=== PATIENT | female | born 1955 | race Caucasian/White ===

== ENCOUNTER → 2016-03-19 | Outpatient (CLI) | payer MEDICARE, BC ==
--- NOTE | 2016-03-19 16:00 | CT ---
EXAMINATION TYPE: CT chest w con DATE OF EXAM: 03/19/2016 3:51 PM COMPARISON: 04/25/2009 HISTORY: follow up breast cancer. No complaints at time of service. CT DLP: 283 mGycm Automated exposure control for dose reduction was used. CONTRAST: CT scan of the chest is performed with IV Contrast, patient injected with 100 mL of Omnipaque 300. FINDINGS: LUNGS: Subsegmental consolidation is seen bilaterally compatible with atelectasis. No suspicious pulm onary nodule. There is mild hyperinflation correlate for mild COPD. There is no pleural effusion or p neumothorax seen. The tracheobronchial tree is patent. MEDIASTINUM: There are no greater than 1 cm hilar or mediastinal lymph nodes. No pericardial effusi on is seen. The heart is enlarged. OTHER: Changes of previous mastectomy noted. Arthropathy of the shoulders noted. Degenerative and hy pertrophic change of the spine. Remote rib fracture involving the left 11th rib. Previous gallbladder surgery noted. Along the left lateral margin of the chest there is a 6 mm nodule. Postsurgical jaramillo e involving the shoulders. Shotty adenopathy in the paraesophageal region, mediastinum and axilla. IMPRESSION: 1. No diagnostic evidence of metastases. There is a 6 mm subcutaneous nodule below the axilla adjacen t to the left rib cage which is nonspecific. I represent a small lymph node. 2. Previous right mastectomy changes suggestive of mild COPD
== END | disposition home or self-care (01) ==
LOC: RADCTMAIN 15:18
PROVIDERS: ATTEND Internal Medicine Hematology & Oncology
DX: C50.919 Malignant neoplasm of unspecified site of unspecified female breast (principal); R22.2 Localized swelling, mass and lump, trunk
CPT/HCPCS: 71260; Q9967

== ENCOUNTER → 2016-04-14 | Outpatient (CLI) | payer MEDICARE, BC ==
--- NOTE | 2016-04-14 11:16 | MM ---
Reason for exam: history of breast cancer, mastectomy. Last mammogram was performed 1 year ago. History: Patient is postmenopausal, has history of breast cancer at age 45, history of other cancer, and is nulliparous. Family history of breast cancer in mother at age 50 and breast cancer in maternal grandmother. Mastectomy of the right breast, 2001. Cyst aspiration of the left breast. Took estrogen for 6 months beginning at age 55. Took progesterone for 6 months beginning at age 55. Physical Findings: Nurse did not find any significant physical abnormalities on exam. MG 3D Diag Mammo W/Cad LT CC and MLO view(s) were taken of the left breast. Prior study comparison: April 01, 2015, left breast MG 3d diag mammo w/cad LT. March 26, 2014, left breast MG diagnostic mammo LT w CAD. There are scattered fibroglandular densities. There is chronic nodularity in the left breast. There is no discrete abnormality. These results were verbally communicated with the patient and result sheet given to the patient on 04/14/16. ASSESSMENT: Benign, BI-RAD 2 RECOMMENDATION: Follow-up diagnostic mammogram of the left breast in 1 year.
== END | disposition home or self-care (01) ==
LOC: RADMAMWWP 09:27
PROVIDERS: ATTEND Internal Medicine Hematology & Oncology
DX: Z85.3 Personal history of malignant neoplasm of breast (principal)
CPT/HCPCS: G0206; G0279

== ENCOUNTER 2016-06-22 16:20 | Inpatient (IN) | payer MEDICARE, BC ==
[2016-06-22] MEDS ORDERED: IV VANCOMYCIN PER PHARMACY 1 EACH MISC MISCELLANE PRN (18:09)
[2016-06-22] MEDS ORDERED: VANCOMYCIN 2,000 MG in SODIUM CHLORIDE 0.9% 500 ML IVPB STA (18:20)
[2016-06-22] MEDS: SODIUM CHLORIDE 0.9% 1,000 ML IV SCH (19:07)
[2016-06-22 19:13] LABS: CH 29.2; CHCM 31.4; HCT 33.3 % (34.0-46.0); HDW 2.12; HGB 10.5 gm/dL (11.4-16.0); MCH 29.5 pg (25.0-35.0); MCHC 31.7 g/dL (31.0-37.0); MCV 93.3 fL (80.0-100.0); Mean Platelet Volume 6.7; RBC 3.56 m/uL (3.80-5.40); RDW 14.6 % (11.5-15.5); WBC 7.3 k/uL (3.8-10.6)
[2016-06-22] MEDS ORDERED: HYDROcodone/APAP 10-325MG 1 EACH TAB PO PRN (19:27)
[2016-06-22 19:31] LABS: ALT 31 U/L (9-52); AST 26 U/L (14-36); Alkaline Phosphatase 61 U/L (38-126); Anion Gap 9 mmol/L; Blood Urea Nitrogen 21 mg/dL (7-17); Calcium 8.9 mg/dL (8.4-10.2); Carbon Dioxide 27 mmol/L (22-30); Chloride 100 mmol/L (98-107); Glucose 128 mg/dL (74-99); Non-African American GFR(MDRD) >60 (>60 ml/min/1.73 sqM); Potassium 4.1 mmol/L (3.5-5.1); Sodium 136 mmol/L (137-145); Total Bilirubin 0.6 mg/dL (0.2-1.3); Total Protein 6.2 g/dL (6.3-8.2)
[2016-06-22] MEDS: HYDROmorphone 2 MG/ML 1 ML SYRINGE IVP PRN (20:07)
--- NOTE | 2016-06-22 21:14 | P.CONS ---
History of Present Illness - Reason for Consult Consult date: 06/22/16 - Chief Complaint Pain swelling right arm - History of Present Illness 67-year-old female chronically has lymphedema to the right arm. She realizes compression stocking to the day. A compression pneumatic sleeve for a couple hours per day is usually used also. She does not recall any specific injury to her hand or arm. No change of any activities. Despite this she had the sudden onset of pain and swelling to the right arm. With dense erythema. Significant discomfort. In the onset of fever and chills. Because she's had multiple times in the past she presents to Hospital has been admitted for recurrent cellulitis to her right arm related to her chronic lymphedema. She is complaining of significant pain.7-year-old woman has a history of breast carcinoma who presents to hospital with the sudden onset of pain and swelling and erythema to her right arm. She has a history of the breast carcinoma with the extensive resection to the chest wall into the right axillary area. Past Medical History Past Medical History: Cancer, COPD, GERD/Reflux, Osteoarthritis (OA), Rheumatoid Arthritis (RA) Additional Past Medical History / Comment(s): CA-BREAST, CERVICAL CA History of Any Multi-Drug Resistant Organisms: None Reported Past Surgical History: Appendectomy, Breast Surgery, Cholecystectomy, Hysterectomy, Joint Replacement, Orthopedic Surgery Additional Past Surgical History / Comment(s): RIGHT MASECTOMY, RIGHT TOTAL SHOULDER REPLACEMENT, LT ROTATOR CUFF REPAIR Past Anesthesia/Blood Transfusion Reactions: No Reported Reaction Past Psychological History: No Psychological Hx Reported Smoking Status: Former smoker Past Alcohol Use History: None Reported Past Drug Use History: None Reported - Past Family History Mother Family Medical History: Cancer, Deep Vein Thrombosis (DVT) Additional Family Medical History / Comment(s): BREAST Father Family Medical History: Cancer Additional Family Medical History / Comment(s): COLON Medications and Allergies Home Medications Medication Instructions Recorded Confirmed Type Atorvastatin [Lipitor] 40 mg PO DAILY 11/14/14 06/22/16 History DULoxetine HCL [Cymbalta] 60 mg PO BID 11/14/14 06/22/16 History Furosemide [Lasix] 40 mg PO BID 11/14/14 06/22/16 History HYDROcodone/APAP 10-325MG [[place] 1 tab PO BID PRN 11/14/14 06/22/16 History 10] Nabumetone 750 mg PO BID 11/14/14 06/22/16 History Omeprazole [PriLOSEC] 20 mg PO DAILY 11/14/14 06/22/16 History Potassium Chloride [K-Tab ER] 20 meq PO BID 11/14/14 06/22/16 History Pregabalin [Lyrica] 200 mg PO BID 11/14/14 06/22/16 History rOPINIRole HCL [Requip] 5 mg PO DAILY@1800 11/14/14 06/22/16 History Ascorbic Acid [Vitamin C] 1,000 mg PO DAILY 06/22/16 06/22/16 History Biotin 10 mg PO DAILY 06/22/16 06/22/16 History Calcium Carbonate [Calcium] 1,200 mg PO DAILY 06/22/16 06/22/16 History Cholecalciferol [Vitamin D3] 5,000 unit PO DAILY 06/22/16 06/22/16 History Garlic 1 tab PO DAILY 06/22/16 06/22/16 History L.acidoph,Paracasei, B.lactis 1 cap PO DAILY 06/22/16 06/22/16 History [Probiotic] Magnesium Gluconate [Magonate] 500 mg PO DAILY 06/22/16 06/22/16 History Multivitamins, Thera [Multivitamin 1 tab PO DAILY 06/22/16 06/22/16 History (formulary)] [place]-3 Fatty Acids/Fish Oil [Fish 1 cap PO DAILY 06/22/16 06/22/16 History Oil 1,000 mg Softgel] Ubidecarenone [Co Q-10] 200 mg PO DAILY 06/22/16 06/22/16 History Allergies Allergy/AdvReac Type Severity Reaction Status Date / Time cephalexin [From Keflex] Allergy Rash/Hives Verified 06/22/16 17:58 latex Allergy Rash/Hives Verified 06/22/16 17:58 nickel Allergy Rash/Hives Verified 11/14/14 15:40 Sulfa (Sulfonamide Allergy Rash/Hives Verified 06/22/16 17:58 Antibiotics) morphine AdvReac Nausea & Verified 06/22/16 17:58 Vomiting Physical Exam Vitals: Vital Signs Temp Pulse Resp BP Pulse Ox 06/22/16 17:47 97.1 F L 97 19 142/82 98 Intake and Output 06/22/16 06/22/16 06/22/16 06:59 14:59 22:59 Other: Weight 103.4 kg Patient Weight 06/23/16 06:59 Weight 103.4 kg Results CBC & Chem 7: 06/22/16 18:56 06/22/16 18:56 Labs: Abnormal Lab Results - Last 24 Hours (Table) 06/22/16 06/22/16 Range/Units 18:56 18:56 RBC 3.56 L (3.80-5.40) m/uL Hgb 10.5 L (11.4-16.0) gm/dL Hct 33.3 L (34.0-46.0) % Sodium 136 L (137-145) mmol/L BUN 21 H (7-17) mg/dL Glucose 128 H (74-99) mg/dL Total Protein 6.2 L (6.3-8.2) g/dL Albumin 3.4 L (3.5-5.0) g/dL
--- NOTE | 2016-06-22 21:22 | P.CONS ---
History of Present Illness - Reason for Consult Consult date: 06/22/16 - Chief Complaint Pain swelling right arm - History of Present Illness 67-year-old female chronically has lymphedema to the right arm. She realizes compression stocking to the day. A compression pneumatic sleeve for a couple hours per day is usually used also. She does not recall any specific injury to her hand or arm. No change of any activities. Despite this she had the sudden onset of pain and swelling to the right arm. With dense erythema. Significant discomfort. In the onset of fever and chills. Because she's had multiple times in the past she presents to Hospital has been admitted for recurrent cellulitis to her right arm related to her chronic lymphedema. She is complaining of significant pain.7-year-old woman has a history of breast carcinoma who presents to hospital with the sudden onset of pain and swelling and erythema to her right arm. She has a history of the breast carcinoma with the extensive resection to the chest wall into the right axillary area. Review of Systems Patient did have fever and chills and significant pain to the right arm also. HEENT:Denies headache or acute visual change. Denies sinus or mouth discomforts. Denies neck stiffness or pain. Denies significant oral cavity pain. Denies difficulty on swallowing. Lungs: Denies significant shortness of breath, cough, sputum production, or hemoptysis. Cardiovascular: Denies significant shortness of breath, chest pain, chest wall pain, orthopnea, dyspnea on exertion, syncope Gastrointestinal:Denies nausea, vomiting, diarrhea, constipation, hematemesis, melena, hematochezia. No no significant change of bowel habit noticed. Musculoskeletal: denies significant myalgias or arthralgias. No new joint swelling. Denies new back pain. Skin: Per the HPI swelling redness right arm Neuro: Denies headache or visual change. Denies any new onset weakness or difficulty with ambulation. Denies falls or seizures. Psychiatric:Denies anxiety or depression. Endocrine: Denies significant fatigue, denies significant weight loss or weight gain. Past Medical History Past Medical History: Cancer, COPD, GERD/Reflux, Osteoarthritis (OA), Rheumatoid Arthritis (RA) Additional Past Medical History / Comment(s): CA-BREAST, CERVICAL CA History of Any Multi-Drug Resistant Organisms: None Reported Past Surgical History: Appendectomy, Breast Surgery, Cholecystectomy, Hysterectomy, Joint Replacement, Orthopedic Surgery Additional Past Surgical History / Comment(s): RIGHT MASECTOMY, RIGHT TOTAL SHOULDER REPLACEMENT, LT ROTATOR CUFF REPAIR Past Anesthesia/Blood Transfusion Reactions: No Reported Reaction Past Psychological History: No Psychological Hx Reported Additional Psychological History / Comment(s): . Lives independently. Remote tobacco use. No history of alcohol use. retired. No animal exposures Smoking Status: Former smoker Past Alcohol Use History: None Reported Past Drug Use History: None Reported - Past Family History Mother Family Medical History: Cancer, Deep Vein Thrombosis (DVT) Additional Family Medical History / Comment(s): BREAST Father Family Medical History: Cancer Additional Family Medical History / Comment(s): COLON Medications and Allergies Home Medications and Allergies Comment(s): Current Medications Hydrocodone Bitart/Acetaminophen ([place] 10) 1 each PO BID PRN PRN Reason: moderate Pain Ascorbic Acid (Vitamin C) 1,000 mg PO DAILY [facility] Atorvastatin Calcium (Lipitor) 40 mg PO DAILY [facility] Calcium Carbonate/Glycine (Tums) 1,250 mg PO DAILY [facility] Cholecalciferol (Vitamin D3) 5,000 unit PO DAILY [facility] Duloxetine HCl (Cymbalta) 60 mg PO DAILY [facility] Furosemide (Lasix) 40 mg PO BID@0900,1600 [facility] Hydromorphone HCl (Dilaudid) 2 mg IVP Q3HR PRN PRN Reason: severe Pain Last Admin: 06/22/16 20:07 Dose: 2 mg Sodium Chloride (Saline 0.9%) 1,000 mls @ 100 mls/hr IV .Q10H [place] Last Admin: 06/22/16 19:07 Dose: 100 mls/hr Daptomycin 500 mg/ Sodium (Chloride) 50 mls @ 100 mls/hr IV Q24H [facility] Lactobacillus Acidoph/[place] (Lactinex) 1 each PO DAILY [facility] Magnesium Oxide (Mag-Ox) 400 mg PO DAILY [facility] Melatonin (Melatonin) 10 mg PO HS [facility] Meloxicam (Mobic) 15 mg PO DAILY [facility] Multivitamins (Theragran) 1 each PO 1200 [facility] Pantoprazole Sodium (Protonix) 40 mg PO DAILY [facility] Potassium Chloride (K-Dur 20) 20 meq PO BID [facility] Pregabalin (Lyrica) 200 mg PO BID [facility] Ropinirole HCl (Requip) 5 mg PO DAILY@1800 [facility] Silver Sulfadiazine (Silvadene Cream) 1 applic TOPICAL BID [facility] Home Medications Medication Instructions Recorded Confirmed Type Atorvastatin [Lipitor] 40 mg PO DAILY 11/14/14 06/22/16 History DULoxetine HCL [Cymbalta] 60 mg PO BID 11/14/14 06/22/16 History Furosemide [Lasix] 40 mg PO BID 11/14/14 06/22/16 History HYDROcodone/APAP 10-325MG [[place] 1 tab PO BID PRN 11/14/14 06/22/16 History 10] Nabumetone 750 mg PO BID 11/14/14 06/22/16 History Omeprazole [PriLOSEC] 20 mg PO DAILY 11/14/14 06/22/16 History Potassium Chloride [K-Tab ER] 20 meq PO BID 11/14/14 06/22/16 History Pregabalin [Lyrica] 200 mg PO BID 11/14/14 06/22/16 History rOPINIRole HCL [Requip] 5 mg PO DAILY@1800 11/14/14 06/22/16 History Ascorbic Acid [Vitamin C] 1,000 mg PO DAILY 06/22/16 06/22/16 History Biotin 10 mg PO DAILY 06/22/16 06/22/16 History Calcium Carbonate [Calcium] 1,200 mg PO DAILY 06/22/16 06/22/16 History Cholecalciferol [Vitamin D3] 5,000 unit PO DAILY 06/22/16 06/22/16 History Garlic 1 tab PO DAILY 06/22/16 06/22/16 History L.acidoph,Paracasei, B.lactis 1 cap PO DAILY 06/22/16 06/22/16 History [Probiotic] Magnesium Gluconate [Magonate] 500 mg PO DAILY 06/22/16 06/22/16 History Multivitamins, Thera [Multivitamin 1 tab PO DAILY 06/22/16 06/22/16 History (formulary)] [place]-3 Fatty Acids/Fish Oil [Fish 1 cap PO DAILY 06/22/16 06/22/16 History Oil 1,000 mg Softgel] Ubidecarenone [Co Q-10] 200 mg PO DAILY 06/22/16 06/22/16 History Allergies Allergy/AdvReac Type Severity Reaction Status Date / Time cephalexin [From Keflex] Allergy Rash/Hives Verified 06/22/16 17:58 latex Allergy Rash/Hives Verified 06/22/16 17:58 nickel Allergy Rash/Hives Verified 11/14/14 15:40 Sulfa (Sulfonamide Allergy Rash/Hives Verified 06/22/16 17:58 Antibiotics) morphine AdvReac Nausea & Verified 06/22/16 17:58 Vomiting Physical Exam Vitals: Vital Signs Temp Pulse Resp BP Pulse Ox 06/22/16 17:47 97.1 F L 97 19 142/82 98 Intake and Output 06/22/16 06/22/16 06/22/16 06:59 14:59 22:59 Other: Weight 103.4 kg Patient Weight 06/23/16 06:59 Weight 103.4 kg 61-year-old woman is quite uncomfortable. HEENT: Anicteric conjunctiva are pink and moist nasal mucosa grossly intact without significant lesions, there is no thrush. Neck: The neck is supple without significant lymphadenopathy or thyromegaly. Lungs: Good bilateral air entry without significant crackles or wheezing. There is no significant bronchial sounds. There is no egophony or dullness. Heart: Regular rate and rhythm with an audible S1-S2, no S3 no S4. There is no significant murmur click or rub, PMI was nondisplaced. Abdomen: Positive bowel sounds soft and nontender without palpable masses or organomegaly. There was no guarding or rebound. Extremities: The left upper extremity have excellent pulses they are symmetric, no significant petechiae or telangiectasia. No splinter hemorrhages were noted. The lower extremities trace edema The peripheral pulses were 2+ and symmetric. The right upper extremity reveals evidence of the extensive and massive lymphedema. There is evidence of dense erythema is present from the dorsum of the hand to the axillary area. It has not penetrated onto the chest wall or in the neck as it has in the past. There was very swollen and very tender. There is distinct warmth and redness to the tissue. There is tenderness of the axillary area and the tissue has a woody quality there from the prior interventions. Neuro: Awake alert oriented to person place and time. There are no acute new gross focal sensory motor deficits. Results CBC & Chem 7: 06/22/16 18:56 06/22/16 18:56 Labs: Abnormal Lab Results - Last 24 Hours (Table) 06/22/16 06/22/16 Range/Units 18:56 18:56 RBC 3.56 L (3.80-5.40) m/uL Hgb 10.5 L (11.4-16.0) gm/dL Hct 33.3 L (34.0-46.0) % Sodium 136 L (137-145) mmol/L BUN 21 H (7-17) mg/dL Glucose 128 H (74-99) mg/dL Total Protein 6.2 L (6.3-8.2) g/dL Albumin 3.4 L (3.5-5.0) g/dL Laboratory Results WBC 7.3 k/uL (3.8-10.6) 06/22/16 18:56 RBC 3.56 m/uL (3.80-5.40) L 06/22/16 18:56 Hgb 10.5 gm/dL (11.4-16.0) L 06/22/16 18:56 Hct 33.3 % (34.0-46.0) L 06/22/16 18:56 MCV 93.3 fL (80.0-100.0) 06/22/16 18:56 MCH 29.5 pg (25.0-35.0) 06/22/16 18:56 MCHC 31.7 g/dL (31.0-37.0) 06/22/16 18:56 RDW 14.6 % (11.5-15.5) 06/22/16 18:56 Plt Count 197 k/uL (150-450) 06/22/16 18:56 Sodium 136 mmol/L (137-145) L 06/22/16 18:56 Potassium 4.1 mmol/L (3.5-5.1) 06/22/16 18:56 Chloride 100 mmol/L (98-107) 06/22/16 18:56 Carbon Dioxide 27 mmol/L (22-30) 06/22/16 18:56 Anion Gap 9 mmol/L 06/22/16 18:56 BUN 21 mg/dL (7-17) H 06/22/16 18:56 Creatinine 0.85 mg/dL (0.52-1.04) 06/22/16 18:56 Est GFR (MDRD) Af Amer >60 (>60 ml/min/1.73 sqM) 06/22/16 18:56 Est GFR (MDRD) Non-Af >60 (>60 ml/min/1.73 sqM) 06/22/16 18:56 Glucose 128 mg/dL (74-99) H 06/22/16 18:56 Calcium 8.9 mg/dL (8.4-10.2) 06/22/16 18:56 Total Bilirubin 0.6 mg/dL (0.2-1.3) 06/22/16 18:56 AST 26 U/L (14-36) 06/22/16 18:56 ALT 31 U/L (9-52) 06/22/16 18:56 Alkaline Phosphatase 61 U/L (38-126) 06/22/16 18:56 Total Protein 6.2 g/dL (6.3-8.2) L 06/22/16 18:56 Albumin 3.4 g/dL (3.5-5.0) L 06/22/16 18:56 Assessment and Plan (1) History of carcinoma in situ of breast Status: Acute (2) Lymphedema of right upper extremity Status: Acute (3) Cellulitis of right arm Narrative/Plan: 61 year old woman who has obesity and history of breast carcinoma to the right breast is status post a prior extensive surgical intervention including the lymph node dissection of the right axilla. She has a difficulty with her chronic lymphedema of the right arm and despite care of her skin, elevation, lymphedema sleeve as well as lymphedema pumps she does develop intermittent bouts of infection. Currently has an extensive cellulitis of the arm with resultant fever, chills and severe swelling and discomfort and erythema to the limb. Prior data is evaluated. Antibiotic therapy will be changed to daptomycin since she had a superior responsive at the last few times that she has had this event. Vancomycin was discontinued. Local therapy with some Silvadene is applied. She does not want the arm ramped at this time. It'll ECB applied to the skin to give her some relief. Pain control is been initiated. Multivitamin with zinc. Elevate the limb as much as she can tolerate. Status: Acute (4) Acute lymphangitis of right upper limb Status: Acute (5) Fever Status: Acute
[2016-06-22] MEDS: POTASSIUM CHLORIDE ER 20 MEQ TAB.ER PO SCH (22:13)
[2016-06-22] MEDS: MELATONIN 5 MG TABLET PO SCH (22:13)
[2016-06-22] MEDS: PREGABALIN 100 MG CAP PO SCH (22:19)
[2016-06-22] MEDS: DAPTOmycin 500 MG in SODIUM CHLORIDE 0.9% 50 ML IV SCH (23:15)
[2016-06-23] MEDS: HYDROmorphone 2 MG/ML 1 ML SYRINGE IVP PRN ×2 (00:08→05:38)
[2016-06-23] MEDS: SODIUM CHLORIDE 0.9% 1,000 ML IV SCH ×2 (05:41→15:31)
[2016-06-23] MEDS ORDERED: VANCOMYCIN 1,750 MG in SODIUM CHLORIDE 0.9% 250 ML IVPB SCH (06:00)
[2016-06-23] MEDS: CALCIUM CARBONATE 500 MG CHEWABLE PO SCH (08:59)
[2016-06-23] MEDS: PREGABALIN 100 MG CAP PO SCH ×2 (08:59→20:39)
[2016-06-23] MEDS: ASCORBIC ACID 500 MG TAB PO SCH (09:00)
[2016-06-23] MEDS ORDERED: NON-FORMULARY DRUG (Garlic [Garlic] 1 TAB) PO SCH (09:00)
[2016-06-23] MEDS ORDERED: BIOTIN 10 MG PO SCH (09:00)
[2016-06-23] MEDS: ATORVASTATIN 40 MG TAB PO SCH (09:00)
[2016-06-23] MEDS: DULoxetine HCL 60 MG CAPSULE.DR PO SCH (09:00)
[2016-06-23] MEDS: POTASSIUM CHLORIDE ER 20 MEQ TAB.ER PO SCH ×2 (09:00→20:39)
[2016-06-23] MEDS: LACTOBACILLUS ACIDOPH & BULGAR 1 EACH PACKET PO SCH (09:00)
[2016-06-23] MEDS ORDERED: NON-FORMULARY DRUG (Ubidecarenone [Co Q-10] 200 MG) PO SCH (09:00)
[2016-06-23] MEDS: CHOLECALCIFEROL 1,000 UNIT TAB PO SCH (09:00)
[2016-06-23] MEDS ORDERED: MELOXICAM 7.5 MG TAB PO SCH (09:00)
[2016-06-23] MEDS: PANTOPRAZOLE 40 MG TABLET PO SCH (09:00)
[2016-06-23] MEDS ORDERED: NON-FORMULARY DRUG (Omega-3 Fatty Acids/Fish Oil [Fish Oil 1,000 Mg Softgel] 1 CAP) PO SCH (09:00)
[2016-06-23] MEDS: FUROSEMIDE 40 MG TAB PO SCH ×2 (09:01→17:45)
[2016-06-23] MEDS: MAGNESIUM OXIDE 400 MG TAB PO SCH (09:01)
[2016-06-23] MEDS: HYDROmorphone 1 MG/ML 1 ML SYRINGE IVP PRN ×5 (09:04→20:40)
[2016-06-23] MEDS: MULTIVITAMINS, THERA 1 EACH TAB PO SCH (12:03)
--- NOTE | 2016-06-23 14:51 | P.HPIM ---
History of Present Illness H&P Date: 06/23/16 Chief Complaint: Cellulitis right arm This is a 61-year-old female patient of Dr. Mendes with past medical history of breast cancer status post right mastectomy with extensive resection to the chest wall into the right axilla area done in 2001 with chronic lymphedema to the right arm, cervical cancer, rheumatoid arthritis currently on Nabumetone, osteoarthritis, GERD, COPD, hyperlipidemia, restless leg syndrome. Patient uses a compression pneumatic sleeve for couple hours per day for her lymphedema. Lymphedema to the right upper extremity has been further complicated as she has had 3 right shoulder surgeries. The first being a replacement and then revisions one 3 years ago and then again in December 2015 with chronic use of doxycycline for staph infection under the care of Dr. Snyder. Her orthopedic surgeon is Dr. Galeas at [facility]. She had sudden onset of pain and swelling to the right arm with redness to the right upper extremity that continued to worsen over 3 days doubling in size and she was not able to get her sleeve on. Her arm was hot and cold and she had numbness to the area. She denies any known injury to the arm. She denies nausea or diarrhea. She has been afebrile without leukocytosis and no signs of sepsis at this time. Patient is planning to start seen Dr. Aceves for her rheumatoid arthritis. Patient has been seen by Dr. Snyder with recommendations for daptomycin and local wound care with the Silvadene and elevation without wrapping. Patient states the redness is slightly improved from yesterday. Review of Systems All systems: negative Constitutional: Reports chills, Denies fever Eyes: denies blurred vision, denies pain Ears, nose, mouth and throat: Denies headache, Denies sore throat Cardiovascular: Reports edema, Denies chest pain, Denies shortness of breath Respiratory: Denies cough Gastrointestinal: Denies abdominal pain, Denies diarrhea, Denies nausea, Denies vomiting Genitourinary: Denies dysuria, Denies hematuria Musculoskeletal: Denies myalgias Integumentary: Reports color changes, Reports darkening of skin, Denies pruritus , Denies rash Neurological: Denies numbness, Denies weakness Psychiatric: Denies anxiety, Denies depression Endocrine: Denies fatigue, Denies weight change Past Medical History Past Medical History: Cancer, COPD, GERD/Reflux, Hyperlipidemia, Osteoarthritis (OA), Rheumatoid Arthritis (RA) Additional Past Medical History / Comment(s): CA-BREAST, CERVICAL CA, restless leg syndrome, 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 Snyder History of Any Multi-Drug Resistant Organisms: None Reported Past Surgical History: Appendectomy, Breast Surgery, Cholecystectomy, Hysterectomy, Joint Replacement, Orthopedic Surgery Additional Past Surgical History / Comment(s): RIGHT MASECTOMY, RIGHT TOTAL SHOULDER REPLACEMENT followed by revision 2 at [facility] by Dr. Galeas , LT ROTATOR CUFF REPAIR Past Anesthesia/Blood Transfusion Reactions: No Reported Reaction Past Psychological History: No Psychological Hx Reported Additional Psychological History / Comment(s): . Lives independently. Remote tobacco use. No history of alcohol use. retired. No animal exposures Smoking Status: Former smoker Past Alcohol Use History: None Reported Additional Past Alcohol Use History / Comment(s): And quit smoking in 2001. She denies any medical marijuana, marijuana, street drug use. She lives at home by herself and has a dog. No recent travel. She has a nebulizer at home. No CPAP. Past Drug Use History: None Reported - Past Family History Mother Family Medical History: Cancer, Deep Vein Thrombosis (DVT) Additional Family Medical History / Comment(s): Mother at age 64 in her sleep with history of diabetes, hypertension, varicose veins, breast cancer. Father Family Medical History: Cancer Additional Family Medical History / Comment(s): Other at age 66 from colon cancer with history of rheumatoid arthritis, gout, hypertension. Sister(s) Additional Family Medical History / Comment(s): Patient has one sister with AICD implantation. Brother(s) Additional Family Medical History / Comment(s): Patient has 4 brothers. One has from alcoholism at age 55. One brother has small cell lung carcinoma. 1 is diabetic. One brother she has no contact with. Medications and Allergies Home Medications Medication Instructions Recorded Confirmed Type Atorvastatin [Lipitor] 40 mg PO DAILY 11/14/14 06/22/16 History DULoxetine HCL [Cymbalta] 60 mg PO BID 11/14/14 06/22/16 History Furosemide [Lasix] 40 mg PO BID 11/14/14 06/22/16 History HYDROcodone/APAP 10-325MG [[place] 1 tab PO BID PRN 11/14/14 06/22/16 History 10] Nabumetone 750 mg PO BID 11/14/14 06/22/16 History Omeprazole [PriLOSEC] 20 mg PO DAILY 11/14/14 06/22/16 History Potassium Chloride [K-Tab ER] 20 meq PO BID 11/14/14 06/22/16 History Pregabalin [Lyrica] 200 mg PO BID 11/14/14 06/22/16 History rOPINIRole HCL [Requip] 5 mg PO DAILY@1800 11/14/14 06/22/16 History Ascorbic Acid [Vitamin C] 1,000 mg PO DAILY 06/22/16 06/22/16 History Biotin 10 mg PO DAILY 06/22/16 06/22/16 History Calcium Carbonate [Calcium] 1,200 mg PO DAILY 06/22/16 06/22/16 History Cholecalciferol [Vitamin D3] 5,000 unit PO DAILY 06/22/16 06/22/16 History Garlic 1 tab PO DAILY 06/22/16 06/22/16 History L.acidoph,Paracasei, B.lactis 1 cap PO DAILY 06/22/16 06/22/16 History [Probiotic] Magnesium Gluconate [Magonate] 500 mg PO DAILY 06/22/16 06/22/16 History Multivitamins, Thera [Multivitamin 1 tab PO DAILY 06/22/16 06/22/16 History (formulary)] [place]-3 Fatty Acids/Fish Oil [Fish 1 cap PO DAILY 06/22/16 06/22/16 History Oil 1,000 mg Softgel] Ubidecarenone [Co Q-10] 200 mg PO DAILY 06/22/16 06/22/16 History Allergies Allergy/AdvReac Type Severity Reaction Status Date / Time cephalexin [From Keflex] Allergy Rash/Hives Verified 06/22/16 17:58 latex Allergy Rash/Hives Verified 06/22/16 17:58 nickel Allergy Rash/Hives Verified 11/14/14 15:40 Sulfa (Sulfonamide Allergy Rash/Hives Verified 06/22/16 17:58 Antibiotics) morphine AdvReac Nausea & Verified 06/22/16 17:58 Vomiting Physical Exam Vitals: Vital Signs Temp Pulse Resp BP Pulse Ox 06/23/16 07:00 97.9 F 79 16 115/61 94 L 06/22/16 23:00 99.0 F 85 16 121/62 94 L 06/22/16 17:47 97.1 F L 97 19 142/82 98 Intake and Output 06/22/16 06/23/16 06/23/16 22:59 06:59 14:59 Intake Total 444 300 Balance 444 300 Intake: Oral 444 300 Other: Voiding Method Toilet # Voids 1 1 Weight 103.4 kg Gen: This is an obese 61-year-old female. HEENT: Head is atraumatic, normocephalic. Pupils equal, round. Sclerae is anicteric. NECK: Supple. No JVD. No lymphadenopathy. No thyromegaly. LUNGS: Clear to auscultation. No wheezes or rhonchi. No intercostal retractions. HEART: Regular rate and rhythm. No murmur. ABDOMEN: Soft. Bowel sounds are present. No masses. No tenderness. EXTREMITIES: No pedal edema. No calf tenderness. The right upper extremity has extensive lymphedema along with erythema from the dorsal hand to the axilla area with edema and tenderness with warmth. NEUROLOGICAL: Patient is awake, alert and oriented x3. Cranial nerves 2 through 12 are grossly intact. Results CBC & Chem 7: 06/22/16 18:56 06/22/16 18:56 Labs: Abnormal Lab Results - Last 24 Hours (Table) 06/22/16 06/22/16 Range/Units 18:56 18:56 RBC 3.56 L (3.80-5.40) m/uL Hgb 10.5 L (11.4-16.0) gm/dL Hct 33.3 L (34.0-46.0) % Sodium 136 L (137-145) mmol/L BUN 21 H (7-17) mg/dL Glucose 128 H (74-99) mg/dL Total Protein 6.2 L (6.3-8.2) g/dL Albumin 3.4 L (3.5-5.0) g/dL Thrombosis Risk Factor Assmnt - DVT/VTE Prophylaxis DVT/VTE Prophylaxis: Pharmacologic Prophylaxis ordered - Choose All That Apply Any of the Below Risk Factors Present?: Yes Each Factor Represents 1 point: Abnormal pulmonary function (COPD) Other Risk Factors: Yes Each Risk Factor Represents 2 Points: Age 61-74 years Thrombosis Risk Factor Assessment Total Risk Factor Score: 3 Thrombosis Risk Factor Assessment Level: Moderate Risk Assessment and Plan Plan: 1. Cellulitis of the right arm with chronic lymphedema complicated by multiple surgeries to the right shoulder as well as chronic staph infection under the care of Dr. Snyder. Patient has been seen by Dr. Snyder with recommendations for daptomycin and local wound care with Silvadene without wrapping but elevation. Continue Dilaudid or [place] for pain as well as mobic, multivitamin, Lasix 40 mg twice daily. Rule out DVT with ultrasound. 2. History of right breast cancer status post mastectomy and extensive resection with chronic lymphedema of the right upper extremity. Elevation 3. Gastroesophageal reflux disease and gastrointestinal prophylaxis. Continue Prilosec or Protonix. 4. Mild COPD, stable without exacerbation. 5. History of rheumatoid arthritis. Nabumetone on hold. Patient is planning to be established with Dr. Aceves. 6. Osteoarthritis, generalized, stable. 7. Restless leg syndrome. Continue Requip. 8. DVT prophylaxis. Heparin subcu. Patient will be admitted to the hospital for a minimum of 2 night stay. Discharge plan: return home Impression and plan of care have been directed as dictated by the signing physician. Shania Pozo nurse practitioner acting as scribe for signing physician. Time with Patient: Greater than 30
--- NOTE | 2016-06-23 15:52 | US ---
EXAMINATION TYPE: US venous doppler duplex UE RT DATE OF EXAM: 06/23/2016 3:05 PM COMPARISON: NONE CLINICAL HISTORY: lymphedema, cellulitis. Right arm pain and swelling x 3 days, history of right shou lder replacement SIDE PERFORMED: Right Right Arm: Appears negative for DVT Grayscale, color Doppler, spectral Doppler imaging performed of the deep veins of the right upper ext remity, internal jugular vein. Color flow, Doppler waveforms are noted within the internal jugular ve in, portions of the subclavian vein, axillary vein, axillary vein shows normal compressibility as do the brachial veins. Basilic vein appears patent, cephalic vein appears patent. Soft tissue swelling i s present. Radial veins, ulnar veins appear patent. IMPRESSION: No evident deep venous thrombosis of the right upper extremity as visualized. Follow-up as indicated
[2016-06-23] MEDS: HEPARIN SODIUM,PORCINE 5,000 UNIT/ML 1 ML VIAL SQ SCH ×2 (17:45→23:01)
[2016-06-23] MEDS: DAPTOmycin 500 MG in SODIUM CHLORIDE 0.9% 50 ML IV SCH (20:38)
[2016-06-23] MEDS: MELATONIN 5 MG TABLET PO SCH (20:39)
--- NOTE | 2016-06-23 20:45 | P.PN ---
Subjective Principal diagnosis: Pain swelling right arm 67-year-old female chronically has lymphedema to the right arm. She realizes compression stocking to the day. A compression pneumatic sleeve for a couple hours per day is usually used also. She does not recall any specific injury to her hand or arm. No change of any activities. Despite this she had the sudden onset of pain and swelling to the right arm. With dense erythema. Significant discomfort. In the onset of fever and chills. Because she's had multiple times in the past she presents to Hospital has been admitted for recurrent cellulitis to her right arm related to her chronic lymphedema. She is complaining of significant pain.7-year-old woman has a history of breast carcinoma who presents to hospital with the sudden onset of pain and swelling and erythema to her right arm. She has a history of the breast carcinoma with the extensive resection to the chest wall into the right axillary area. Still having some pain but feeling considerably better today. Still has some discomfort. But with the elevation the skin is no longer as tender as it was. Objective - Vital Signs Vital signs: Vital Signs Temp 96.2 F L 06/23/16 15:00 Pulse 83 06/23/16 15:00 Resp 16 06/23/16 15:00 BP 119/67 06/23/16 15:00 Pulse Ox 98 06/23/16 15:00 Intake & Output 06/23/16 06/23/16 06/24/16 06:59 18:59 06:59 Intake Total 744 Balance 744 Intake: Oral 744 Other: Voiding Method Toilet Toilet # Voids 1 3 - Exam 61-year-old woman is quite uncomfortable. HEENT: Anicteric conjunctiva are pink and moist nasal mucosa grossly intact without significant lesions, there is no thrush. Neck: The neck is supple without significant lymphadenopathy or thyromegaly. Lungs: Good bilateral air entry without significant crackles or wheezing. There is no significant bronchial sounds. There is no egophony or dullness. Heart: Regular rate and rhythm with an audible S1-S2, no S3 no S4. There is no significant murmur click or rub, PMI was nondisplaced. Abdomen: Positive bowel sounds soft and nontender without palpable masses or organomegaly. There was no guarding or rebound. Extremities: The left upper extremity have excellent pulses they are symmetric, no significant petechiae or telangiectasia. No splinter hemorrhages were noted. The lower extremities trace edema The peripheral pulses were 2+ and symmetric. The right upper extremity reveals evidence of the extensive and massive lymphedema. There is evidence of improvement of the erythema is present from the dorsum of the hand to the axillary area. It has not penetrated onto the chest wall or in the neck as it has in the past. There was very swollen and very tender. There is distinct warmth and redness to the tissue. There is tenderness of the axillary area and the tissue has a woody quality there from the prior interventions. Neuro: Awake alert oriented to person place and time. There are no acute new gross focal sensory motor deficits. - Labs CBC & Chem 7: 06/22/16 18:56 06/22/16 18:56 Labs: Laboratory Results WBC 7.3 k/uL (3.8-10.6) 06/22/16 18:56 RBC 3.56 m/uL (3.80-5.40) L 06/22/16 18:56 Hgb 10.5 gm/dL (11.4-16.0) L 06/22/16 18:56 Hct 33.3 % (34.0-46.0) L 06/22/16 18:56 MCV 93.3 fL (80.0-100.0) 06/22/16 18:56 MCH 29.5 pg (25.0-35.0) 06/22/16 18:56 MCHC 31.7 g/dL (31.0-37.0) 06/22/16 18:56 RDW 14.6 % (11.5-15.5) 06/22/16 18:56 Plt Count 197 k/uL (150-450) 06/22/16 18:56 Sodium 136 mmol/L (137-145) L 06/22/16 18:56 Potassium 4.1 mmol/L (3.5-5.1) 06/22/16 18:56 Chloride 100 mmol/L (98-107) 06/22/16 18:56 Carbon Dioxide 27 mmol/L (22-30) 06/22/16 18:56 Anion Gap 9 mmol/L 06/22/16 18:56 BUN 21 mg/dL (7-17) H 06/22/16 18:56 Creatinine 0.85 mg/dL (0.52-1.04) 06/22/16 18:56 Est GFR (MDRD) Af Amer >60 (>60 ml/min/1.73 sqM) 06/22/16 18:56 Est GFR (MDRD) Non-Af >60 (>60 ml/min/1.73 sqM) 06/22/16 18:56 Glucose 128 mg/dL (74-99) H 06/22/16 18:56 Calcium 8.9 mg/dL (8.4-10.2) 06/22/16 18:56 Total Bilirubin 0.6 mg/dL (0.2-1.3) 06/22/16 18:56 AST 26 U/L (14-36) 06/22/16 18:56 ALT 31 U/L (9-52) 06/22/16 18:56 Alkaline Phosphatase 61 U/L (38-126) 06/22/16 18:56 Total Protein 6.2 g/dL (6.3-8.2) L 06/22/16 18:56 Albumin 3.4 g/dL (3.5-5.0) L 06/22/16 18:56 Assessment and Plan (1) History of carcinoma in situ of breast Status: Acute (2) Lymphedema of right upper extremity Status: Acute (3) Cellulitis of right arm Narrative/Plan: 61 year old woman who has obesity and history of breast carcinoma to the right breast is status post a prior extensive surgical intervention including the lymph node dissection of the right axilla. She has a difficulty with her chronic lymphedema of the right arm and despite care of her skin, elevation, lymphedema sleeve as well as lymphedema pumps she does develop intermittent bouts of infection. Currently has an extensive cellulitis of the arm with resultant fever, chills and severe swelling and discomfort and erythema to the limb. Prior data is evaluated. Antibiotic therapy will be changed to daptomycin since she had a superior responsive at the last few times that she has had this event. Vancomycin was discontinued. Her is the marked improvement today. Local therapy with some Silvadene is applied. He will allow the limb to be wrapped this evening Pain control is been initiated. Multivitamin with zinc. Elevate the limb as much as she can tolerate. Status: Acute (4) Acute lymphangitis of right upper limb Status: Acute (5) Fever Status: Acute
[2016-06-23] MEDS: KETOROLAC 30 MG/ML 1 ML VIAL IVP SCH (23:02)
[2016-06-24] MEDS: HYDROmorphone 1 MG/ML 1 ML SYRINGE IVP PRN ×3 (00:32→15:48)
[2016-06-24] MEDS: SODIUM CHLORIDE 0.9% 1,000 ML IV SCH ×3 (00:35→21:14)
[2016-06-24] MEDS: KETOROLAC 30 MG/ML 1 ML VIAL IVP SCH ×4 (05:53→23:41)
[2016-06-24] MEDS: CALCIUM CARBONATE 500 MG CHEWABLE PO SCH (08:00)
[2016-06-24] MEDS: MAGNESIUM OXIDE 400 MG TAB PO SCH (08:01)
[2016-06-24] MEDS: ATORVASTATIN 40 MG TAB PO SCH (08:01)
[2016-06-24] MEDS: HEPARIN SODIUM,PORCINE 5,000 UNIT/ML 1 ML VIAL SQ SCH ×3 (08:01→23:41)
[2016-06-24] MEDS: ASCORBIC ACID 500 MG TAB PO SCH (08:01)
[2016-06-24] MEDS: FUROSEMIDE 40 MG TAB PO SCH ×2 (08:01→15:48)
[2016-06-24] MEDS: PANTOPRAZOLE 40 MG TABLET PO SCH (08:01)
[2016-06-24] MEDS: CHOLECALCIFEROL 1,000 UNIT TAB PO SCH (08:01)
[2016-06-24] MEDS: DULoxetine HCL 60 MG CAPSULE.DR PO SCH (08:01)
[2016-06-24] MEDS: POTASSIUM CHLORIDE ER 20 MEQ TAB.ER PO SCH ×2 (08:01→21:14)
[2016-06-24] MEDS: LACTOBACILLUS ACIDOPH & BULGAR 1 EACH PACKET PO SCH (08:01)
[2016-06-24] MEDS: PREGABALIN 100 MG CAP PO SCH ×2 (08:04→21:14)
[2016-06-24] MEDS: HYDROcodone/APAP 10-325MG 1 EACH TAB PO PRN ×2 (08:04→14:15)
[2016-06-24] MEDS: MULTIVITAMINS, THERA 1 EACH TAB PO SCH (11:23)
--- NOTE | 2016-06-24 16:16 | P.PN ---
Subjective This is a 61-year-old female patient of Dr. Mendes with past medical history of breast cancer status post right mastectomy with extensive resection to the chest wall into the right axilla area done in 2001 with chronic lymphedema to the right arm, cervical cancer, rheumatoid arthritis currently on Nabumetone, osteoarthritis, GERD, COPD, hyperlipidemia, restless leg syndrome. Patient uses a compression pneumatic sleeve for couple hours per day for her lymphedema. Lymphedema to the right upper extremity has been further complicated as she has had 3 right shoulder surgeries. The first being a replacement and then revisions one 3 years ago and then again in December 2015 with chronic use of doxycycline for staph infection under the care of Dr. Snyder. Her orthopedic surgeon is Dr. Galeas at [facility]. She had sudden onset of pain and swelling to the right arm with redness to the right upper extremity that continued to worsen over 3 days doubling in size and she was not able to get her sleeve on. Her arm was hot and cold and she had numbness to the area. She denies any known injury to the arm. She denies nausea or diarrhea. She has been afebrile without leukocytosis and no signs of sepsis at this time. Patient is planning to start seen Dr. Aceves for her rheumatoid arthritis. Patient has been seen by Dr. Snyder with recommendations for daptomycin and local wound care with the Silvadene and elevation without wrapping. Patient states the redness is slightly improved from yesterday. 06/24, patient's arm redness has significantly improved, still with swelling, patient has a lymphedema pump at home, patient continues to be on vancomycin, awaiting final antibiotics prior to discharge no new complaints today including nausea vomiting diarrhea no chest pain or palpitations Objective - Vital Signs Vital signs: Vital Signs Temp 96.8 F L 06/24/16 15:00 Pulse 85 06/24/16 15:00 Resp 14 06/24/16 15:00 BP 115/67 06/24/16 15:00 Pulse Ox 95 06/24/16 15:00 Intake & Output 06/23/16 06/24/16 06/24/16 18:59 06:59 18:59 Intake Total 100 Balance 100 Intake: Oral 100 Other: Voiding Method Toilet # Voids 3 2 3 # Bowel Movements 0 - Constitutional General appearance: Present: cooperative, no acute distress, obese - EENT Eyes: Present: anicteric sclerae, EOMI, PERRLA, dentition normal ENT: Present: hearing grossly normal, NA/AT, normal oropharynx - Neck Neck: Present: normal ROM. Absent: lymphadenopathy, other, rigidity, stridor, thyromegaly - Respiratory Respiratory: bilateral: CTA, negative: diminished, dullness, rales, rhonchi - Cardiovascular Rhythm: regular Heart sounds: normal: S1, S2 Abnormal Heart Sounds: Absent: systolic murmur, diastolic murmur, rub, S3 Gallop , S4 Gallop, click, other - Gastrointestinal General gastrointestinal: Present: normal bowel sounds, soft - Integumentary Integumentary: Present: normal, normal turgor - Neurologic Neurologic: Present: CNII-XII intact - Musculoskeletal Musculoskeletal: Present: gait normal, strength equal bilaterally - Psychiatric Psychiatric: Present: A&O x's 3, appropriate affect, intact judgment & insight - Labs CBC & Chem 7: 06/22/16 18:56 06/22/16 18:56 Labs: Microbiology - Last 24 Hours (Table) 06/22/16 18:56 Blood Culture - Preliminary Blood No Growth after 24 hours Assessment and Plan Plan: 1. Cellulitis of the right arm with chronic lymphedema complicated by multiple surgeries to the right shoulder as well as chronic staph infection under the care of Dr. Snyder. Patient has been seen by Dr. Snyder with recommendations for daptomycin and local wound care with Silvadene without wrapping but elevation. Continue Dilaudid or [place] for pain as well as mobic, multivitamin, Lasix 40 mg twice daily. Negative DVT with ultrasound. 2. History of right breast cancer status post mastectomy and extensive resection with chronic lymphedema of the right upper extremity. Elevation 3. Gastroesophageal reflux disease and gastrointestinal prophylaxis. Continue Prilosec or Protonix. 4. Mild COPD, stable without exacerbation. 5. History of rheumatoid arthritis. Nabumetone on hold. Patient is planning to be established with Dr. Aceves. 6. Osteoarthritis, generalized, stable. 7. Restless leg syndrome. Continue Requip. 8. DVT prophylaxis. Heparin subcu. Patient will be admitted to the hospital for a minimum of 2 night stay. Discharge plan: return home
--- NOTE | 2016-06-24 21:07 | P.PN ---
Subjective Principal diagnosis: Pain swelling right arm 67-year-old female chronically has lymphedema to the right arm. She realizes compression stocking to the day. A compression pneumatic sleeve for a couple hours per day is usually used also. She does not recall any specific injury to her hand or arm. No change of any activities. Despite this she had the sudden onset of pain and swelling to the right arm. With dense erythema. Significant discomfort. In the onset of fever and chills. Because she's had multiple times in the past she presents to Hospital has been admitted for recurrent cellulitis to her right arm related to her chronic lymphedema. She is complaining of significant pain.7-year-old woman has a history of breast carcinoma who presents to hospital with the sudden onset of pain and swelling and erythema to her right arm. She has a history of the breast carcinoma with the extensive resection to the chest wall into the right axillary area. Still having some pain but feeling considerably better today. Still has some discomfort. But with the elevation the skin is no longer as tender as it was. There is a lot of demarcation of the erythema now quite close to the shoulder with the rest of the arm improving with less edema. But is having some itching. Objective - Vital Signs Vital signs: Vital Signs Temp 96.8 F L 06/24/16 15:00 Pulse 85 06/24/16 15:00 Resp 14 06/24/16 16:00 BP 115/67 06/24/16 15:00 Pulse Ox 95 06/24/16 15:00 Intake & Output 06/24/16 06/24/16 06/25/16 06:59 18:59 06:59 Intake Total 100 Balance 100 Intake: Oral 100 Other: # Voids 2 3 # Bowel Movements 0 - Exam 61-year-old woman is quite uncomfortable. HEENT: Anicteric conjunctiva are pink and moist nasal mucosa grossly intact without significant lesions, there is no thrush. Neck: The neck is supple without significant lymphadenopathy or thyromegaly. Lungs: Good bilateral air entry without significant crackles or wheezing. There is no significant bronchial sounds. There is no egophony or dullness. Heart: Regular rate and rhythm with an audible S1-S2, no S3 no S4. There is no significant murmur click or rub, PMI was nondisplaced. Abdomen: Positive bowel sounds soft and nontender without palpable masses or organomegaly. There was no guarding or rebound. Extremities: The left upper extremity have excellent pulses they are symmetric, no significant petechiae or telangiectasia. No splinter hemorrhages were noted. The lower extremities trace edema The peripheral pulses were 2+ and symmetric. The right upper extremity reveals evidence of the extensive and massive lymphedema. There is evidence of improvement of the erythema which is now present just over the shoulder area and onto the upper aspect of the chest wall. This is distinctly improved. It is not on the neck. There is distinct warmth and redness to the tissue at the shoulder region only. The arm is improved. There is tenderness of the axillary area and the tissue has a woody quality there from the prior interventions. Neuro: Awake alert oriented to person place and time. There are no acute new gross focal sensory motor deficits. - Labs CBC & Chem 7: 06/22/16 18:56 06/22/16 18:56 Labs: Microbiology - Last 24 Hours (Table) 06/22/16 18:56 Blood Culture - Preliminary Blood No Growth after 24 hours Laboratory Results WBC 7.3 k/uL (3.8-10.6) 06/22/16 18:56 RBC 3.56 m/uL (3.80-5.40) L 06/22/16 18:56 Hgb 10.5 gm/dL (11.4-16.0) L 06/22/16 18:56 Hct 33.3 % (34.0-46.0) L 06/22/16 18:56 MCV 93.3 fL (80.0-100.0) 06/22/16 18:56 MCH 29.5 pg (25.0-35.0) 06/22/16 18:56 MCHC 31.7 g/dL (31.0-37.0) 06/22/16 18:56 RDW 14.6 % (11.5-15.5) 06/22/16 18:56 Plt Count 197 k/uL (150-450) 06/22/16 18:56 Sodium 136 mmol/L (137-145) L 06/22/16 18:56 Potassium 4.1 mmol/L (3.5-5.1) 06/22/16 18:56 Chloride 100 mmol/L (98-107) 06/22/16 18:56 Carbon Dioxide 27 mmol/L (22-30) 06/22/16 18:56 Anion Gap 9 mmol/L 06/22/16 18:56 BUN 21 mg/dL (7-17) H 06/22/16 18:56 Creatinine 0.85 mg/dL (0.52-1.04) 06/22/16 18:56 Est GFR (MDRD) Af Amer >60 (>60 ml/min/1.73 sqM) 06/22/16 18:56 Est GFR (MDRD) Non-Af >60 (>60 ml/min/1.73 sqM) 06/22/16 18:56 Glucose 128 mg/dL (74-99) H 06/22/16 18:56 Calcium 8.9 mg/dL (8.4-10.2) 06/22/16 18:56 Total Bilirubin 0.6 mg/dL (0.2-1.3) 06/22/16 18:56 AST 26 U/L (14-36) 06/22/16 18:56 ALT 31 U/L (9-52) 06/22/16 18:56 Alkaline Phosphatase 61 U/L (38-126) 06/22/16 18:56 Total Protein 6.2 g/dL (6.3-8.2) L 06/22/16 18:56 Albumin 3.4 g/dL (3.5-5.0) L 06/22/16 18:56 Laboratory Results WBC 7.3 k/uL (3.8-10.6) 06/22/16 18:56 RBC 3.56 m/uL (3.80-5.40) L 06/22/16 18:56 Hgb 10.5 gm/dL (11.4-16.0) L 06/22/16 18:56 Hct 33.3 % (34.0-46.0) L 06/22/16 18:56 MCV 93.3 fL (80.0-100.0) 06/22/16 18:56 MCH 29.5 pg (25.0-35.0) 06/22/16 18:56 MCHC 31.7 g/dL (31.0-37.0) 06/22/16 18:56 RDW 14.6 % (11.5-15.5) 06/22/16 18:56 Plt Count 197 k/uL (150-450) 06/22/16 18:56 Sodium 136 mmol/L (137-145) L 06/22/16 18:56 Potassium 4.1 mmol/L (3.5-5.1) 06/22/16 18:56 Chloride 100 mmol/L (98-107) 06/22/16 18:56 Carbon Dioxide 27 mmol/L (22-30) 06/22/16 18:56 Anion Gap 9 mmol/L 06/22/16 18:56 BUN 21 mg/dL (7-17) H 06/22/16 18:56 Creatinine 0.85 mg/dL (0.52-1.04) 06/22/16 18:56 Est GFR (MDRD) Af Amer >60 (>60 ml/min/1.73 sqM) 06/22/16 18:56 Est GFR (MDRD) Non-Af >60 (>60 ml/min/1.73 sqM) 06/22/16 18:56 Glucose 128 mg/dL (74-99) H 06/22/16 18:56 Calcium 8.9 mg/dL (8.4-10.2) 06/22/16 18:56 Total Bilirubin 0.6 mg/dL (0.2-1.3) 06/22/16 18:56 AST 26 U/L (14-36) 06/22/16 18:56 ALT 31 U/L (9-52) 06/22/16 18:56 Alkaline Phosphatase 61 U/L (38-126) 06/22/16 18:56 Total Protein 6.2 g/dL (6.3-8.2) L 06/22/16 18:56 Albumin 3.4 g/dL (3.5-5.0) L 06/22/16 18:56 Microbiology 06/22/16 18:56 Blood Blood Culture - Preliminary No Growth after 24 hours Assessment and Plan (1) History of carcinoma in situ of breast Status: Acute (2) Lymphedema of right upper extremity Status: Acute (3) Cellulitis of right arm Narrative/Plan: 61 year old woman who has obesity and history of breast carcinoma to the right breast is status post a prior extensive surgical intervention including the lymph node dissection of the right axilla. She has a difficulty with her chronic lymphedema of the right arm and despite care of her skin, elevation, lymphedema sleeve as well as lymphedema pumps she does develop intermittent bouts of infection. Currently has an extensive cellulitis of the arm with resultant fever, chills and severe swelling and discomfort and erythema to the limb. Prior data is evaluated. Antibiotic therapy will be changed to daptomycin since she had a superior responsive at the last few times that she has had this event. Vancomycin was discontinued. Her is the marked improvement today. Local therapy with some Silvadene is applied. He will allow the limb to be wrapped this evening Pain control has been initiated. Multivitamin with zinc. Elevate the limb as much as she can tolerate. Is showing a marked improvement with daptomycin. Is having some itching and Benadryl is given she routinely takes Benadryl at home for chronic itching. Expect another 24-48 hours of IV antibiotic therapy for transition to oral antibiotic. Status: Acute (4) Acute lymphangitis of right upper limb Status: Acute (5) Fever Status: Acute
[2016-06-24] MEDS: MELATONIN 5 MG TABLET PO SCH (21:14)
[2016-06-24] MEDS: diphenhydrAMINE 25 MG CAP PO SCH ×2 (21:15→22:57)
[2016-06-24] MEDS: DAPTOmycin 500 MG in SODIUM CHLORIDE 0.9% 50 ML IV SCH (21:15)
[2016-06-25] MEDS: HYDROmorphone 1 MG/ML 1 ML SYRINGE IVP PRN ×2 (03:27→15:48)
[2016-06-25] MEDS: KETOROLAC 30 MG/ML 1 ML VIAL IVP SCH ×4 (05:31→23:21)
[2016-06-25] MEDS: SODIUM CHLORIDE 0.9% 1,000 ML IV SCH ×2 (05:34→12:20)
[2016-06-25] MEDS: diphenhydrAMINE 25 MG CAP PO SCH ×4 (07:54→21:42)
[2016-06-25] MEDS: PREGABALIN 100 MG CAP PO SCH ×2 (07:58→21:42)
[2016-06-25] MEDS: ATORVASTATIN 40 MG TAB PO SCH (07:58)
[2016-06-25] MEDS: LACTOBACILLUS ACIDOPH & BULGAR 1 EACH PACKET PO SCH (07:58)
[2016-06-25] MEDS: DULoxetine HCL 60 MG CAPSULE.DR PO SCH (07:59)
[2016-06-25] MEDS: PANTOPRAZOLE 40 MG TABLET PO SCH (07:59)
[2016-06-25] MEDS: HEPARIN SODIUM,PORCINE 5,000 UNIT/ML 1 ML VIAL SQ SCH ×3 (07:59→23:22)
[2016-06-25] MEDS: ASCORBIC ACID 500 MG TAB PO SCH (07:59)
[2016-06-25] MEDS: MAGNESIUM OXIDE 400 MG TAB PO SCH (07:59)
[2016-06-25] MEDS: CALCIUM CARBONATE 500 MG CHEWABLE PO SCH (07:59)
[2016-06-25] MEDS: FUROSEMIDE 40 MG TAB PO SCH ×2 (07:59→15:44)
[2016-06-25] MEDS: POTASSIUM CHLORIDE ER 20 MEQ TAB.ER PO SCH ×2 (07:59→21:42)
[2016-06-25 08:54] LABS: Basophils % (A) 1 %; Eosinophils # (A) 0.1 k/uL (0-0.7); Eosinophils % (A) 4 %; HCT 32.1 % (34.0-46.0); HGB 10.2 gm/dL (11.4-16.0); Hypochromasia Slight; Luc # (Auto) 0.16; Luc % (Auto) 4; Lymphocytes # (A) 1.1 k/uL (1.0-4.8); Lymphocytes % (A) 30 %; MCH 29.9 pg (25.0-35.0); MCHC 31.9 g/dL (31.0-37.0); Mean Platelet Volume 6.7; Monocytes # (A) 0.2 k/uL (0-1.0); Monocytes % (A) 6 %; Neutrophils % (A) 56 %; RBC 3.42 m/uL (3.80-5.40); WBC 3.6 k/uL (3.8-10.6); WBC (Perox) 3.84
[2016-06-25] MEDS: CHOLECALCIFEROL 1,000 UNIT TAB PO SCH (09:03)
[2016-06-25 09:10] LABS: Anion Gap 5 mmol/L; Blood Urea Nitrogen 21 mg/dL (7-17); Calcium 8.5 mg/dL (8.4-10.2); Carbon Dioxide 31 mmol/L (22-30); Chloride 104 mmol/L (98-107); Glucose 83 mg/dL (74-99); Non-African American GFR(MDRD) >60 (>60 ml/min/1.73 sqM); Sodium 140 mmol/L (137-145)
[2016-06-25 09:46] LABS: Potassium 4.8 mmol/L (3.5-5.1)
[2016-06-25] MEDS: MULTIVITAMINS, THERA 1 EACH TAB PO SCH (12:21)
[2016-06-25] MEDS ORDERED: MAGNESIUM HYDROXIDE 2,400 MG/10 ML CUP PO PRN (13:48)
--- NOTE | 2016-06-25 15:09 | P.PN ---
Subjective This is a 61-year-old female patient of Dr. Mendes with past medical history of breast cancer status post right mastectomy with extensive resection to the chest wall into the right axilla area done in 2001 with chronic lymphedema to the right arm, cervical cancer, rheumatoid arthritis currently on Nabumetone, osteoarthritis, GERD, COPD, hyperlipidemia, restless leg syndrome. Patient uses a compression pneumatic sleeve for couple hours per day for her lymphedema. Lymphedema to the right upper extremity has been further complicated as she has had 3 right shoulder surgeries. The first being a replacement and then revisions one 3 years ago and then again in December 2015 with chronic use of doxycycline for staph infection under the care of Dr. Snyder. Her orthopedic surgeon is Dr. Galeas at [facility]. She had sudden onset of pain and swelling to the right arm with redness to the right upper extremity that continued to worsen over 3 days doubling in size and she was not able to get her sleeve on. Her arm was hot and cold and she had numbness to the area. She denies any known injury to the arm. She denies nausea or diarrhea. She has been afebrile without leukocytosis and no signs of sepsis at this time. Patient is planning to start seen Dr. Aceves for her rheumatoid arthritis. Patient has been seen by Dr. Snyder with recommendations for daptomycin and local wound care with the Silvadene and elevation without wrapping. Patient states the redness is slightly improved from yesterday. 06/24, patient's arm redness has significantly improved, still with swelling, patient has a lymphedema pump at home, patient continues to be on vancomycin, awaiting final antibiotics prior to discharge no new complaints today including nausea vomiting diarrhea no chest pain or palpitations 06/25: Ultrasound was negative for DVT. Erythema is much improved. Dr. Snyder has recommended another 24 hours of IV antibiotics. Objective - Vital Signs Vital signs: Vital Signs Temp 97.3 F L 06/25/16 07:00 Pulse 74 06/25/16 07:00 Resp 16 06/25/16 07:00 BP 117/75 06/25/16 07:00 Pulse Ox 96 06/25/16 07:00 Intake & Output 06/24/16 06/25/16 06/25/16 18:59 06:59 18:59 Intake Total 540 200 Balance 540 200 Intake: Oral 540 200 Other: # Voids 3 1 - Exam General appearance: Present: cooperative, no acute distress, obese - EENT Eyes: Present: anicteric sclerae, EOMI, PERRLA, dentition normal ENT: Present: hearing grossly normal, NA/AT, normal oropharynx - Neck Neck: Present: normal ROM. Absent: lymphadenopathy, other, rigidity, stridor, thyromegaly - Respiratory Respiratory: bilateral: CTA, negative: diminished, dullness, rales, rhonchi - Cardiovascular Rhythm: regular Heart sounds: normal: S1, S2 Abnormal Heart Sounds: Absent: systolic murmur, diastolic murmur, rub, S3 Gallop , S4 Gallop, click, other - Gastrointestinal General gastrointestinal: Present: normal bowel sounds, soft - Integumentary Integumentary: Present: normal, normal turgor - Neurologic Neurologic: Present: CNII-XII intact - Musculoskeletal Musculoskeletal: Present: gait normal, strength equal bilaterally - Psychiatric Psychiatric: Present: A&O x's 3, appropriate affect, intact judgment & insight - Labs CBC & Chem 7: 06/25/16 08:43 06/25/16 08:43 Labs: Abnormal Lab Results - Last 24 Hours (Table) 06/25/16 06/25/16 Range/Units 08:43 08:43 WBC 3.6 L (3.8-10.6) k/uL RBC 3.42 L (3.80-5.40) m/uL Hgb 10.2 L (11.4-16.0) gm/dL Hct 32.1 L (34.0-46.0) % Carbon Dioxide 31 H (22-30) mmol/L BUN 21 H (7-17) mg/dL Microbiology - Last 24 Hours (Table) 06/22/16 18:56 Blood Culture - Preliminary Blood No Growth after 48 hours Assessment and Plan Plan: 1. Cellulitis of the right arm with chronic lymphedema complicated by multiple surgeries to the right shoulder as well as chronic staph infection under the care of Dr. Snyder. Patient has been seen by Dr. Snyder with recommendations for daptomycin and local wound care with Silvadene without wrapping but elevation. Continue Dilaudid or [place] for pain as well as mobic, multivitamin, Lasix 40 mg twice daily. Rule out DVT with ultrasound. 2. History of right breast cancer status post mastectomy and extensive resection with chronic lymphedema of the right upper extremity. Elevation 3. Gastroesophageal reflux disease and gastrointestinal prophylaxis. Continue Prilosec or Protonix. 4. Mild COPD, stable without exacerbation. 5. History of rheumatoid arthritis. Nabumetone on hold. Patient is planning to be established with Dr. Aceves. 6. Osteoarthritis, generalized, stable. 7. Restless leg syndrome. Continue Requip. 8. DVT prophylaxis. Heparin subcu. Patient will be admitted to the hospital for a minimum of 2 night stay. Discharge plan: return home Impression and plan of care have been directed as dictated by the signing physician. Shania Pozo nurse practitioner acting as scribe for signing physician. Time with Patient: Greater than 30
--- NOTE | 2016-06-25 18:43 | P.PN ---
Subjective Principal diagnosis: Pain swelling right arm 67-year-old female chronically has lymphedema to the right arm. She realizes compression stocking to the day. A compression pneumatic sleeve for a couple hours per day is usually used also. She does not recall any specific injury to her hand or arm. No change of any activities. Despite this she had the sudden onset of pain and swelling to the right arm. With dense erythema. Significant discomfort. In the onset of fever and chills. Because she's had multiple times in the past she presents to Hospital has been admitted for recurrent cellulitis to her right arm related to her chronic lymphedema. She is complaining of significant pain.7-year-old woman has a history of breast carcinoma who presents to hospital with the sudden onset of pain and swelling and erythema to her right arm. She has a history of the breast carcinoma with the extensive resection to the chest wall into the right axillary area. Still having some pain but feeling considerably better today. Still has some discomfort. But with the elevation the skin is no longer as tender as it was. There is a lot of demarcation of the erythema now resolved. Her intense itching is improved with the Benadryl Objective - Vital Signs Vital signs: Vital Signs Temp 99.0 F 06/25/16 15:00 Pulse 88 06/25/16 15:00 Resp 16 06/25/16 15:00 BP 140/71 06/25/16 15:00 Pulse Ox 96 06/25/16 15:00 Intake & Output 06/24/16 06/25/16 06/25/16 18:59 06:59 18:59 Intake Total 540 440 Balance 540 440 Intake: Oral 540 440 Other: # Voids 3 1 2 # Bowel Movements 0 - Exam 61-year-old woman is quite uncomfortable. HEENT: Anicteric conjunctiva are pink and moist nasal mucosa grossly intact without significant lesions, there is no thrush. Neck: The neck is supple without significant lymphadenopathy or thyromegaly. Lungs: Good bilateral air entry without significant crackles or wheezing. There is no significant bronchial sounds. There is no egophony or dullness. Heart: Regular rate and rhythm with an audible S1-S2, no S3 no S4. There is no significant murmur click or rub, PMI was nondisplaced. Abdomen: Positive bowel sounds soft and nontender without palpable masses or organomegaly. There was no guarding or rebound. Extremities: The left upper extremity have excellent pulses they are symmetric, no significant petechiae or telangiectasia. No splinter hemorrhages were noted. The lower extremities trace edema The peripheral pulses were 2+ and symmetric. The right upper extremity reveals evidence of the extensive and massive lymphedema. There is evidence of improvement of the erythema which is now almost completely resolved. This is distinctly improved. It is not on the neck. The arm is improved. There is tenderness of the axillary area and the tissue has a woody quality there from the prior interventions. Neuro: Awake alert oriented to person place and time. There are no acute new gross focal sensory motor deficits. - Labs CBC & Chem 7: 06/25/16 08:43 06/25/16 08:43 Labs: Abnormal Lab Results - Last 24 Hours (Table) 06/25/16 06/25/16 Range/Units 08:43 08:43 WBC 3.6 L (3.8-10.6) k/uL RBC 3.42 L (3.80-5.40) m/uL Hgb 10.2 L (11.4-16.0) gm/dL Hct 32.1 L (34.0-46.0) % Carbon Dioxide 31 H (22-30) mmol/L BUN 21 H (7-17) mg/dL Microbiology - Last 24 Hours (Table) 06/22/16 18:56 Blood Culture - Preliminary Blood No Growth after 48 hours Laboratory Results WBC 3.6 k/uL (3.8-10.6) L 06/25/16 08:43 RBC 3.42 m/uL (3.80-5.40) L 06/25/16 08:43 Hgb 10.2 gm/dL (11.4-16.0) L 06/25/16 08:43 Hct 32.1 % (34.0-46.0) L 06/25/16 08:43 MCV 94.0 fL (80.0-100.0) 06/25/16 08:43 MCH 29.9 pg (25.0-35.0) 06/25/16 08:43 MCHC 31.9 g/dL (31.0-37.0) 06/25/16 08:43 RDW 14.0 % (11.5-15.5) 06/25/16 08:43 Plt Count 226 k/uL (150-450) 06/25/16 08:43 Neutrophils % 56 % 06/25/16 08:43 Lymphocytes % 30 % 06/25/16 08:43 Monocytes % 6 % 06/25/16 08:43 Eosinophils % 4 % 06/25/16 08:43 Basophils % 1 % 06/25/16 08:43 Neutrophils # 2.0 k/uL (1.3-7.7) 06/25/16 08:43 Lymphocytes # 1.1 k/uL (1.0-4.8) 06/25/16 08:43 Monocytes # 0.2 k/uL (0-1.0) 06/25/16 08:43 Eosinophils # 0.1 k/uL (0-0.7) 06/25/16 08:43 Basophils # 0.0 k/uL (0-0.2) 06/25/16 08:43 Hypochromasia Slight 06/25/16 08:43 Sodium 140 mmol/L (137-145) 06/25/16 08:43 Potassium 4.8 mmol/L (3.5-5.1) 06/25/16 08:43 Chloride 104 mmol/L (98-107) 06/25/16 08:43 Carbon Dioxide 31 mmol/L (22-30) H 06/25/16 08:43 Anion Gap 5 mmol/L 06/25/16 08:43 BUN 21 mg/dL (7-17) H 06/25/16 08:43 Creatinine 0.78 mg/dL (0.52-1.04) 06/25/16 08:43 Est GFR (MDRD) Af Amer >60 (>60 ml/min/1.73 sqM) 06/25/16 08:43 Est GFR (MDRD) Non-Af >60 (>60 ml/min/1.73 sqM) 06/25/16 08:43 Glucose 83 mg/dL (74-99) 06/25/16 08:43 Calcium 8.5 mg/dL (8.4-10.2) 06/25/16 08:43 Total Bilirubin 0.6 mg/dL (0.2-1.3) 06/22/16 18:56 AST 26 U/L (14-36) 06/22/16 18:56 ALT 31 U/L (9-52) 17 18:56 Alkaline Phosphatase 61 U/L (38-126) 06/22/16 18:56 Total Protein 6.2 g/dL (6.3-8.2) L 17 18:56 Albumin 3.4 g/dL (3.5-5.0) L 17 18:56 Microbiology 06/22/16 18:56 Blood Blood Culture - Preliminary No Growth after 48 hours Assessment and Plan (1) History of carcinoma in situ of breast Status: Acute (2) Lymphedema of right upper extremity Status: Acute (3) Cellulitis of right arm Narrative/Plan: 61 year old woman who has obesity and history of breast carcinoma to the right breast is status post a prior extensive surgical intervention including the lymph node dissection of the right axilla. She has a difficulty with her chronic lymphedema of the right arm and despite care of her skin, elevation, lymphedema sleeve as well as lymphedema pumps she does develop intermittent bouts of infection. Currently has an extensive cellulitis of the arm with resultant fever, chills and severe swelling and discomfort and erythema to the limb. Prior data is evaluated. Antibiotic therapy will be changed to daptomycin since she had a superior responsive at the last few times that she has had this event. Vancomycin was discontinued. Her is the marked improvement today. Local therapy with some Silvadene is applied. He will allow the limb to be wrapped this evening Pain control has been initiated. Multivitamin with zinc. Elevate the limb as much as she can tolerate. Is showing a marked improvement with daptomycin. She is much improved with the Benadryl that was given Likely discharge tomorrow. She has antibiotic ALLERGIES to Bactrim and cephalexin. She has been on somewhat chronic and aback suppressive therapy with doxycycline has been somewhat inconsistent in taking the medicine. Make somewhat of a concern the doxycycline may not be an ideal choice to finish her course of discharge. If she is able to take penicillin-based antibiotics a completion course of Augmentin for a week and then go back to her chronic suppressive antibiotic therapy. . She is aware of the need for her sleeve and pneumatic compression sleeve Status: Acute (4) Acute lymphangitis of right upper limb Status: Acute (5) Fever Status: Acute
[2016-06-25] MEDS: HYDROcodone/APAP 10-325MG 1 EACH TAB PO PRN (21:42)
[2016-06-25] MEDS: MELATONIN 5 MG TABLET PO SCH (21:43)
[2016-06-25] MEDS: DAPTOmycin 500 MG in SODIUM CHLORIDE 0.9% 50 ML IV SCH (21:43)
[2016-06-26] MEDS: SODIUM CHLORIDE 0.9% 1,000 ML IV SCH (02:04)
[2016-06-26] MEDS: KETOROLAC 30 MG/ML 1 ML VIAL IVP SCH (05:44)
[2016-06-26 07:36] VITALS: BP 132/74; PULSE 79; RESP 18; TEMP 96.4
[2016-06-26] MEDS: HEPARIN SODIUM,PORCINE 5,000 UNIT/ML 1 ML VIAL SQ SCH (07:54)
[2016-06-26] MEDS: ASCORBIC ACID 500 MG TAB PO SCH (07:54)
[2016-06-26] MEDS: ATORVASTATIN 40 MG TAB PO SCH (07:54)
[2016-06-26] MEDS: CHOLECALCIFEROL 1,000 UNIT TAB PO SCH (07:55)
[2016-06-26] MEDS: CALCIUM CARBONATE 500 MG CHEWABLE PO SCH (07:55)
[2016-06-26] MEDS: DULoxetine HCL 60 MG CAPSULE.DR PO SCH (07:55)
[2016-06-26] MEDS: MAGNESIUM OXIDE 400 MG TAB PO SCH (07:56)
[2016-06-26] MEDS: PANTOPRAZOLE 40 MG TABLET PO SCH (07:56)
[2016-06-26] MEDS: POTASSIUM CHLORIDE ER 20 MEQ TAB.ER PO SCH (07:56)
[2016-06-26] MEDS: LACTOBACILLUS ACIDOPH & BULGAR 1 EACH PACKET PO SCH (07:56)
[2016-06-26] MEDS: FUROSEMIDE 40 MG TAB PO SCH (07:56)
[2016-06-26] MEDS: PREGABALIN 100 MG CAP PO SCH (07:59)
[2016-06-26] MEDS: diphenhydrAMINE 25 MG CAP PO SCH (07:59)
[2016-06-26] MEDS: HYDROmorphone 1 MG/ML 1 ML SYRINGE IVP PRN (07:59)
[2016-06-26 09:20] LABS: Anion Gap 7 mmol/L; Blood Urea Nitrogen 23 mg/dL (7-17); Calcium 8.8 mg/dL (8.4-10.2); Carbon Dioxide 30 mmol/L (22-30); Chloride 105 mmol/L (98-107); Glucose 83 mg/dL (74-99); Non-African American GFR(MDRD) >60 (>60 ml/min/1.73 sqM); Sodium 142 mmol/L (137-145)
[2016-06-26 09:21] LABS: Basophils % (A) 1 %; Eosinophils # (A) 0.2 k/uL (0-0.7); Eosinophils % (A) 5 %; HCT 33.6 % (34.0-46.0); HDW 2.32; HGB 10.6 gm/dL (11.4-16.0); Hypochromasia Slight; Luc # (Auto) 0.14; Luc % (Auto) 4; Lymphocytes # (A) 1.4 k/uL (1.0-4.8); Lymphocytes % (A) 38 %; MCH 29.5 pg (25.0-35.0); MCHC 31.4 g/dL (31.0-37.0); MCV 93.9 fL (80.0-100.0); Mean Platelet Volume 7.3; Monocytes # (A) 0.2 k/uL (0-1.0); Monocytes % (A) 7 %; Neutrophils # (A) 1.6 k/uL (1.3-7.7); Neutrophils % (A) 45 %; RBC 3.57 m/uL (3.80-5.40); RDW 13.9 % (11.5-15.5); WBC 3.6 k/uL (3.8-10.6); WBC (Perox) 3.71
--- NOTE | 2016-06-27 08:09 | P.DS ---
Providers Date of admission: 06/22/16 17:20 Expected date of discharge: 06/26/16 Attending physician: Eliud Mendes Consults: 06/22/16 18:10 Consult Physician Urgent Consulting Provider: Joe Snyder Consult Reason/Comments: Right arm cellulitis Do you want consulting provider notified?: Yes Primary care physician: Stated None Hospital Course: This is a 61-year-old female patient of Dr. Mendes with past medical history of breast cancer status post right mastectomy with extensive resection to the chest wall into the right axilla area done in 2001 with chronic lymphedema to the right arm, cervical cancer, rheumatoid arthritis currently on Nabumetone, osteoarthritis, GERD, COPD, hyperlipidemia, restless leg syndrome. Patient uses a compression pneumatic sleeve for couple hours per day for her lymphedema. Lymphedema to the right upper extremity has been further complicated as she has had 3 right shoulder surgeries. The first being a replacement and then revisions one 3 years ago and then again in December 2015 with chronic use of doxycycline for staph infection under the care of Dr. Snyder. Her orthopedic surgeon is Dr. Galeas at [facility]. She had sudden onset of pain and swelling to the right arm with redness to the right upper extremity that continued to worsen over 3 days doubling in size and she was not able to get her sleeve on. Her arm was hot and cold and she had numbness to the area. She denies any known injury to the arm. She denies nausea or diarrhea. She has been afebrile without leukocytosis and no signs of sepsis at this time. Patient is planning to start seen Dr. Aceves for her rheumatoid arthritis. Patient has been seen by Dr. Snyder with recommendations for daptomycin and local wound care with the Silvadene and elevation without wrapping. Patient states the redness is slightly improved from yesterday. 06/24, patient's arm redness has significantly improved, still with swelling, patient has a lymphedema pump at home, patient continues to be on vancomycin, awaiting final antibiotics prior to discharge no new complaints today including nausea vomiting diarrhea no chest pain or palpitations 55: Ultrasound was negative for DVT. Erythema is much improved. Dr. Snyder has recommended another 24 hours of IV antibiotics. 56: Erythema continues to improve to patient's right arm. Dr. Snyder's resident recommended Augmentin for home and patient will placed doxycycline on hold for she is on the Augmentin. Patient will be discharged home today in stable condition. Discharge diagnoses: 1. Cellulitis of the right arm with chronic lymphedema complicated by multiple surgeries to the right shoulder as well as chronic staph infection under the care of Dr. Snyder. 2. History of right breast cancer status post mastectomy and extensive resection with chronic lymphedema of the right upper extremity. 3. Gastroesophageal reflux disease 4. Mild COPD, stable without exacerbation. 5. History of rheumatoid arthritis. 6. Osteoarthritis, generalized, stable. 7. Restless leg syndrome. Discharge plan: return home Impression and plan of care have been directed as dictated by the signing physician. Shania Pozo nurse practitioner acting as scribe for signing physician. Patient Condition at Discharge: Good Plan - Discharge Summary New Discharge Prescriptions: Amoxic-Pot Clav 875-125Mg [Augmentin 875-125] 1 tab PO Q12HR #14 tablet Discharge Medication List Atorvastatin [Lipitor] 40 mg PO DAILY 11/14/14 [History] DULoxetine HCL [Cymbalta] 60 mg PO BID 11/14/14 [History] Furosemide [Lasix] 40 mg PO BID 11/14/14 [History] HYDROcodone/APAP 10-325MG [[place] 10-325] 1 tab PO BID PRN 11/14/14 [History] Nabumetone 750 mg PO BID 11/14/14 [History] Omeprazole [PriLOSEC] 20 mg PO DAILY 11/14/14 [History] Potassium Chloride [K-Tab ER] 20 meq PO BID 11/14/14 [History] Pregabalin [Lyrica] 200 mg PO BID 11/14/14 [History] rOPINIRole HCL [Requip] 5 mg PO DAILY@1800 11/14/14 [History] Ascorbic Acid [Vitamin C] 1,000 mg PO DAILY 06/22/16 [History] Biotin 10 mg PO DAILY 06/22/16 [History] Calcium Carbonate [Calcium] 1,200 mg PO DAILY 06/22/16 [History] Cholecalciferol [Vitamin D3] 5,000 unit PO DAILY 06/22/16 [History] Garlic 1 tab PO DAILY 06/22/16 [History] L.acidoph,Paracasei, B.lactis [Probiotic] 1 cap PO DAILY 06/22/16 [History] Magnesium Gluconate [Magonate] 500 mg PO DAILY 06/22/16 [History] Multivitamins, Thera [Multivitamin (formulary)] 1 tab PO DAILY 06/22/16 [History ] [place]-3 Fatty Acids/Fish Oil [Fish Oil 1,000 mg Softgel] 1 cap PO DAILY [History] Ubidecarenone [Co Q-10] 200 mg PO DAILY 06/22/16 [History] Amoxic-Pot Clav 875-125Mg [Augmentin 875-125] 1 tab PO Q12HR #14 tablet [Rx] Follow up Appointment(s)/Referral(s): Eliud Mendes MD [STAFF PHYSICIAN] - 1 Week (office closed. please call to schedule an appointment) Patient Instructions/Handouts: Cellulitis (DC) Activity/Diet/Wound Care/Special Instructions: Do not take Doxycycline while on Augmentin. Resume Doxycycline once Augmentin course is completed. Discharge Disposition: HOME SELF-CARE
== END 2016-06-26 10:48 | disposition home or self-care (01) | DRG 603 ==
LOC: 4MS4W 17:20
PROVIDERS: ADMIT Internal Medicine; ATTEND Internal Medicine
DX: L03.113 Cellulitis of right upper limb (principal); J44.9 Chronic obstructive pulmonary disease, unspecified; B95.8 Unspecified staphylococcus as the cause of diseases classified elsewhere; E66.9 Obesity, unspecified; E78.5 Hyperlipidemia, unspecified; G25.81 Restless legs syndrome; I89.0 Lymphedema, not elsewhere classified; K21.9 Gastro-esophageal reflux disease without esophagitis; M06.9 Rheumatoid arthritis, unspecified; M19.90 Unspecified osteoarthritis, unspecified site; Z79.1 Long term (current) use of non-steroidal anti-inflammatories (NSAID); Z79.2 Long term (current) use of antibiotics; Z79.899 Other long term (current) drug therapy; Z82.49 Family history of ischemic heart disease and other diseases of the circulatory system; Z85.3 Personal history of malignant neoplasm of breast; Z85.41 Personal history of malignant neoplasm of cervix uteri; Z87.891 Personal history of nicotine dependence; Z88.1 Allergy status to other antibiotic agents; Z88.2 Allergy status to sulfonamides; Z90.11 Acquired absence of right breast and nipple; Z91.040 Latex allergy status
CPT/HCPCS: 80048; 80053; 85025; 85027; 87040

== ENCOUNTER 2016-10-28 10:17 | Day surgery (SDC) | payer MEDICARE, BC ==
[2016-10-26 14:16] VITALS: BMI 32.5
[~2016-10-28 10:17] MED LIST: LACTATED RINGERS 1,000 ML IV SCH; LIDOCAINE 1% 20 ML VIAL (10MG/ML) FOR IV START INTRADERMA PRN
[2016-10-28 11:22] VITALS: TEMP 97.6
[2016-10-28] MEDS ORDERED: LIDOCAINE 1% INJ 10MG/ML (20 ML MDV) ONE (12:09)
[2016-10-28] MEDS ORDERED: fentaNYL (PF) 50 MCG/ML 2 ML AMP ONE (12:09)
[2016-10-28] MEDS ORDERED: PROPOFOL 10 MG/ML 20 ML VIAL IV ONE (12:09)
--- NOTE | 2016-10-28 12:39 | P.PCN ---
Date of Procedure: 10/28/16 Preoperative Diagnosis: Postoperative Diagnosis: Procedure(s) Performed: BRIEF HISTORY: Patient is a 61-year-old pleasant white female, scheduled for an elective colonoscopy as a part of screening for colon cancer. Her father was diagnosed with colon cancer at age 60. PROCEDURE PERFORMED: Colonoscopy. PREOPERATIVE DIAGNOSIS: Screening for colon cancer/family history of colon cancer. IV sedation per Anesthesia. PROCEDURE: After informed consent was obtained, the patient, was brought into the endoscopy unit. IV sedation was administered by Anesthesia under continuous monitoring. Digital rectal examination was normal. Initially the Olympus CF- 160 flexible video colonoscope was then inserted in the rectum, gradually advanced into the cecum without any difficulty. Careful examination was performed as the scope was gradually being withdrawn. Ileocecal valve and the appendiceal orifice were visualized and appeared normal. Prep was poor and several areas of the colon and thorough irrigation was performed despite which some areas could not be adequately visualized. Mucosa of the cecum, ascending colon, transverse colon, descending colon, sigmoid colon, and rectum appeared normal. Scattered sigmoid diverticulosis seen. Retroflexion was performed in the rectum and no lesions were seen. The patient tolerated the procedure well. IMPRESSION: Normal-appearing colon from rectum to cecum with no evidence of colorectal neoplasia Poor prep Scattered sigmoid diverticulosis RECOMMENDATIONS: Findings of this examination were discussed with the patient as well as a family. All of the poor prep that was encountered in today's examination and recommended that she have a repeat screening colonoscopy in 3 years because of the family history of colon cancer.. Implants: Indications for Procedure: Operative Findings: Description of Procedure:
[2016-10-28 12:53] VITALS: BP 120/61; PULSE 72; RESP 15
== END 2016-10-28 13:17 | disposition home or self-care (01) ==
LOC: ORWHC2ENDO 10:17
PROVIDERS: ATTEND Internal Medicine Gastroenterology
DX: Z12.11 Encounter for screening for malignant neoplasm of colon (principal); K57.30 Diverticulosis of large intestine without perforation or abscess without bleeding; Z80.0 Family history of malignant neoplasm of digestive organs; K21.9 Gastro-esophageal reflux disease without esophagitis; J44.9 Chronic obstructive pulmonary disease, unspecified; M79.7 Fibromyalgia; M06.9 Rheumatoid arthritis, unspecified; Z79.891 Long term (current) use of opiate analgesic; Z79.899 Other long term (current) drug therapy; Z88.5 Allergy status to narcotic agent; Z88.2 Allergy status to sulfonamides; Z88.1 Allergy status to other antibiotic agents; Z91.040 Latex allergy status
CPT/HCPCS: J2001; J3010; J2704; G0105; 45378

== ENCOUNTER 2016-11-18 10:45 | Inpatient (IN) | payer MEDICARE, BC ==
[2016-11-18] MEDS ORDERED: ACETAMINOPHEN TAB 325 MG TAB PO STA (11:12)
[2016-11-18] MEDS ORDERED: IV VANCOMYCIN PER PHARMACY 1 EACH MISC MISCELLANE PRN (11:12)
--- NOTE | 2016-11-18 11:18 | ED ---
Extremity Problem HPI - General Chief complaint: Extremity Problem,Nontraumatic Stated complaint: rt arm cellulitis Time Seen by Provider: 11/18/16 11:03 Source: patient Mode of arrival: ambulatory Limitations: no limitations - History of Present Illness Initial comments: This is a 61-year-old female to history of breast cancer post mastectomy on the right with chronic lymphedema of the right arm who presents emergency department for right arm redness, pain, and swelling. She states that the symptoms of been there for the last couple of days and worsening. The patient does have a history of sialitis in this arm and she feels that this is similar to those previous episodes. She denies any numbness, tingling, weakness in the extremity. She does have a history of a chronic staph infection in her right shoulder for which she is on doxycycline daily. She is also on methotrexate for rheumatoid arthritis and she is not currently on chemotherapy. She states that typically she needs to be admitted for this. She denies any fevers or chills at home. No abdominal pain. No chest pain. No soreness of breath. No other complaint. - Related Data Home Medications Medication Instructions Recorded Confirmed Atorvastatin [Lipitor] 40 mg PO DAILY 11/14/14 11/18/16 DULoxetine HCL [Cymbalta] 60 mg PO BID 11/14/14 11/18/16 Furosemide [Lasix] 40 mg PO BID 11/14/14 11/18/16 HYDROcodone/APAP 10-325MG [[place] 1 tab PO BID PRN 11/14/14 11/18/16 10-325] Pregabalin [Lyrica] 200 mg PO BID 11/14/14 11/18/16 rOPINIRole HCL [Requip] 5 mg PO DAILY@1700 11/14/14 11/18/16 Ascorbic Acid [Vitamin C] 1,000 mg PO DAILY 06/22/16 11/18/16 Biotin 5 mg PO BID 06/22/16 11/18/16 Calcium Carbonate [Calcium] 1,200 mg PO DAILY 06/22/16 11/18/16 Cholecalciferol [Vitamin D3] 5,000 unit PO DAILY 06/22/16 11/18/16 Garlic 1 tab PO DAILY 06/22/16 11/18/16 L.acidoph,Paracasei, B.lactis 1 cap PO DAILY 06/22/16 11/18/16 [Probiotic] Magnesium Gluconate [Magonate] 500 mg PO DAILY 06/22/16 11/18/16 Multivitamins, Thera [Multivitamin 1 tab PO DAILY 06/22/16 11/18/16 (formulary)] [place]-3 Fatty Acids/Fish Oil [Fish 1 cap PO DAILY 06/22/16 11/18/16 Oil 1,000 mg Softgel] Ubidecarenone [Co Q-10] 200 mg PO DAILY 06/22/16 11/18/16 Doxycycline Hyclate 100 mg PO BID 10/26/16 11/18/16 Folic Acid 1 mg PO BID 10/26/16 11/18/16 Methotrexate Sodium [Methotrexate] 12.5 mg PO TU 10/26/16 11/18/16 Potassium Chloride [Klor-Con 10] 10 meq PO BID 10/26/16 11/18/16 Turmeric Root Extract [Turmeric] 750 mg PO DAILY 10/26/16 11/18/16 Meloxicam [Meloxicam] 7.5 mg PO BID 11/18/16 11/18/16 Allergies Allergy/AdvReac Type Severity Reaction Status Date / Time cephalexin [From Keflex] Allergy Rash/Hives Verified 11/18/16 11:27 latex Allergy Rash/Hives Verified 11/18/16 11:27 nickel Allergy Rash/Hives Verified 11/18/16 11:27 Sulfa (Sulfonamide Allergy Rash/Hives Verified 11/18/16 11:27 Antibiotics) morphine AdvReac Rash/Hives Verified 11/18/16 11:27 Review of Systems ROS Statement: Those systems with pertinent positive or pertinent negative responses have been documented in the HPI. ROS Other: All systems not noted in ROS Statement are negative. Past Medical History Past Medical History: Cancer, COPD, Fibromyalgia, GERD/Reflux, Hyperlipidemia, Osteoarthritis (OA), Rheumatoid Arthritis (RA) Additional Past Medical History / Comment(s): hx breast cancer, hx cervical cancer, restless leg syndrome, chronic staph infection rt shoulder History of Any Multi-Drug Resistant Organisms: None Reported Past Surgical History: Appendectomy, Breast Surgery, Cholecystectomy, Hysterectomy, Joint Replacement, Orthopedic Surgery Additional Past Surgical History / Comment(s): RIGHT MASTECTOMY, RIGHT TOTAL SHOULDER REPLACEMENT followed by revision 2 , LT ROTATOR CUFF REPAIR Past Anesthesia/Blood Transfusion Reactions: No Reported Reaction Past Psychological History: No Psychological Hx Reported Smoking Status: Former smoker Past Alcohol Use History: None Reported Past Drug Use History: None Reported - Past Family History Sister(s) Additional Family Medical History / Comment(s): Patient has one sister with AICD implantation. Brother(s) Additional Family Medical History / Comment(s): Patient has 4 brothers. One has from alcoholism at age 55. One brother has small cell lung carcinoma. 1 is diabetic. One brother she has no contact with. Mother Family Medical History: Cancer, Deep Vein Thrombosis (DVT) Additional Family Medical History / Comment(s): breast cancer. Father Family Medical History: Cancer Additional Family Medical History / Comment(s): colon General Exam - General Exam Comments Initial Comments: Constitutional: Awake alert Appears comfortable Head: Normocephalic atraumatic Eyes: no conjunctival injection No scleral icterus EOMI Neck: No JVD Supple Heart: Regular rate rhythm normal S1-S2 no murmurs Lungs: Clear to auscultation bilaterally No wheezing No rales Abdomen: Soft nondistended nontender Extremities: The right upper extremity is edematous with erythema extending from the mid forearm all the way up to the lateral right chest wall. It is exquisitely tender to palpation. No induration was noted. DP pulses intact Radial pulses intact Neuro: A&Ox3 No focal neurologic deficits Psych: Appropriate mood and affect Limitations: no limitations Course Vital Signs 11/18/16 11:04 Temperature 99.5 F Pulse Rate 123 H Respiratory 20 Rate Blood Pressure 116/65 O2 Sat by Pulse 96 Oximetry - Reevaluation(s) Reevaluation #1: 11/18/16 11:44 EKG showing normal sinus rhythm with rate of 98. No abnormal ST segment changes or T-wave inversions. QTC is 460. Other intervals are normal. No ectopy. Medical Decision Making - Medical Decision Making This is a 61-year-old female presents emergency department for right arm redness. She appears to have extensive sialitis of the right arm. Blood work was reviewed and unremarkable. She was tachycardic on arrival and given IV fluids. She also had low-grade temperature of 99.5 and she was given Tylenol for this. At this time feel the patient is going to require inpatient IV antibiotics and she's had this multiple times in the past and required multiple days of IV antibiotics to cure it. Dr. Lucas accepted the admission for Dr. Mendes. The patient was updated and agrees. - Lab Data Result diagrams: 11/18/16 12:07 11/18/16 12:07 Lab Results 11/18/16 11/18/16 11/18/16 Range/Units 12:07 12:07 12:07 WBC 8.9 (3.8-10.6) k/uL RBC 3.83 (3.80-5.40) m/uL Hgb 11.8 (11.4-16.0) gm/dL Hct 36.8 (34.0-46.0) % MCV 96.1 (80.0-100.0) fL MCH 30.9 (25.0-35.0) pg MCHC 32.1 (31.0-37.0) g/dL RDW 14.6 (11.5-15.5) % Plt Count 232 (150-450) k/uL Neutrophils % 87 % Lymphocytes % 9 % Monocytes % 2 % Eosinophils % 1 % Basophils % 0 % Neutrophils # 7.7 (1.3-7.7) k/uL Lymphocytes # 0.8 L (1.0-4.8) k/uL Monocytes # 0.2 (0-1.0) k/uL Eosinophils # 0.1 (0-0.7) k/uL Basophils # 0.0 (0-0.2) k/uL PT (9.0-12.0) sec INR (<1.2) APTT (22.0-30.0) sec Sodium 132 L (137-145) mmol/L Potassium 5.1 (3.5-5.1) mmol/L Chloride 98 (98-107) mmol/L Carbon Dioxide 26 (22-30) mmol/L Anion Gap 8 mmol/L BUN 25 H (7-17) mg/dL Creatinine 0.90 (0.52-1.04) mg/dL Est GFR (MDRD) Af Amer >60 (>60 ml/min/1.73 sqM) Est GFR (MDRD) Non-Af >60 (>60 ml/min/1.73 sqM) Glucose 93 (74-99) mg/dL Plasma Lactic Acid Jesus 1.0 (0.7-2.0) mmol/L Calcium 9.3 (8.4-10.2) mg/dL Total Bilirubin 0.9 (0.2-1.3) mg/dL AST 57 H (14-36) U/L ALT 52 (9-52) U/L Alkaline Phosphatase 62 (38-126) U/L Total Protein 6.5 (6.3-8.2) g/dL Albumin 3.7 (3.5-5.0) g/dL Urine Color Urine Appearance (Clear) Urine pH (5.0-8.0) Ur Specific [place] (1.001-1.035) Urine Protein (Negative) Urine Glucose (UA) (Negative) Urine Ketones (Negative) Urine Blood (Negative) Urine Nitrite (Negative) Urine Bilirubin (Negative) Urine Urobilinogen (<2.0) mg/dL Ur Leukocyte Esterase (Negative) 11/18/16 11/18/16 Range/Units 12:07 12:07 WBC (3.8-10.6) k/uL RBC (3.80-5.40) m/uL Hgb (11.4-16.0) gm/dL Hct (34.0-46.0) % MCV (80.0-100.0) fL MCH (25.0-35.0) pg MCHC (31.0-37.0) g/dL RDW (11.5-15.5) % Plt Count (150-450) k/uL Neutrophils % % Lymphocytes % % Monocytes % % Eosinophils % % Basophils % % Neutrophils # (1.3-7.7) k/uL Lymphocytes # (1.0-4.8) k/uL Monocytes # (0-1.0) k/uL Eosinophils # (0-0.7) k/uL Basophils # (0-0.2) k/uL PT 10.3 (9.0-12.0) sec INR 1.0 (<1.2) APTT 23.5 (22.0-30.0) sec Sodium (137-145) mmol/L Potassium (3.5-5.1) mmol/L Chloride (98-107) mmol/L Carbon Dioxide (22-30) mmol/L Anion Gap mmol/L BUN (7-17) mg/dL Creatinine (0.52-1.04) mg/dL Est GFR (MDRD) Af Amer (>60 ml/min/1.73 sqM) Est GFR (MDRD) Non-Af (>60 ml/min/1.73 sqM) Glucose (74-99) mg/dL Plasma Lactic Acid Jesus (0.7-2.0) mmol/L Calcium (8.4-10.2) mg/dL Total Bilirubin (0.2-1.3) mg/dL AST (14-36) U/L ALT (9-52) U/L Alkaline Phosphatase (38-126) U/L Total Protein (6.3-8.2) g/dL Albumin (3.5-5.0) g/dL Urine Color Yellow Urine Appearance Clear (Clear) Urine pH 6.5 (5.0-8.0) Ur Specific [place] 1.008 (1.001-1.035) Urine Protein Negative (Negative) Urine Glucose (UA) Negative (Negative) Urine Ketones Negative (Negative) Urine Blood Negative (Negative) Urine Nitrite Negative (Negative) Urine Bilirubin Negative (Negative) Urine Urobilinogen <2.0 (<2.0) mg/dL Ur Leukocyte Esterase Negative (Negative) Disposition Clinical Impression: Cellulitis Disposition[facility] Condition: Stable Referrals: Eliud Mendes MD [Primary Care Provider] - 1-2 days
[2016-11-18] MEDS ORDERED: VANCOMYCIN 2,000 MG in SODIUM CHLORIDE 0.9% 500 ML IVPB STA (11:20)
[2016-11-18] MEDS: SODIUM CHLORIDE 0.9% 500 ML IV SCH ×4 (12:10→16:17)
[2016-11-18 12:21] LABS: Basophils % (A) 0 %; CH 30.4; CHCM 31.8; Eosinophils # (A) 0.1 k/uL (0-0.7); Eosinophils % (A) 1 %; HCT 36.8 % (34.0-46.0); HDW 2.15; HGB 11.8 gm/dL (11.4-16.0); Luc # (Auto) 0.11; Luc % (Auto) 1; Lymphocytes # (A) 0.8 k/uL (1.0-4.8); Lymphocytes % (A) 9 %; MCH 30.9 pg (25.0-35.0); MCHC 32.1 g/dL (31.0-37.0); MCV 96.1 fL (80.0-100.0); Mean Platelet Volume 6.7; Monocytes # (A) 0.2 k/uL (0-1.0); Monocytes % (A) 2 %; Neutrophils # (A) 7.7 k/uL (1.3-7.7); Neutrophils % (A) 87 %; RBC 3.83 m/uL (3.80-5.40); RDW 14.6 % (11.5-15.5); WBC 8.9 k/uL (3.8-10.6); WBC (Perox) 8.84
[2016-11-18 12:23] LABS: Appearance,Urine Clear (Clear); Bilirubin,Urine Negative (Negative); Glucose,Urine (UA) Negative (Negative); Ketones,Urine Negative (Negative); Leukocyte Esterase,Urine Negative (Negative); Nitrite,Urine Negative (Negative); PH, Urine 6.5 (5.0-8.0); Protein,Urine Negative (Negative); Specific Gravity,Urine 1.008 (1.001-1.035); UA Billing (MACRO vs. MICRO) CHEM; Urobilinogen,Urine <2.0 mg/dL (<2.0)
[2016-11-18 12:34] LABS: ALT 52 U/L (9-52); AST 57 U/L (14-36); Alkaline Phosphatase 62 U/L (38-126); Anion Gap 8 mmol/L; Blood Urea Nitrogen 25 mg/dL (7-17); Calcium 9.3 mg/dL (8.4-10.2); Carbon Dioxide 26 mmol/L (22-30); Chloride 98 mmol/L (98-107); Glucose 93 mg/dL (74-99); Non-African American GFR(MDRD) >60 (>60 ml/min/1.73 sqM); Potassium 5.1 mmol/L (3.5-5.1); Sodium 132 mmol/L (137-145); Total Bilirubin 0.9 mg/dL (0.2-1.3); Total Protein 6.5 g/dL (6.3-8.2)
[2016-11-18 12:44] LABS: Partial Thromboplastin Time 23.5 sec (22.0-30.0); Prothrombin Time 10.3 sec (9.0-12.0)
[2016-11-18] MEDS ORDERED: LEVOFLOXACIN 500MG-D5W PMX 500 MG in DEXTROSE/WATER 1 100ML.BAG IVPB STA (13:03)
[2016-11-18] MEDS ORDERED: ACETAMINOPHEN TAB 325 MG TAB PO PRN (13:04)
[2016-11-18] MEDS ORDERED: NALOXONE 0.4 MG/ML 1 ML VIAL IV PRN (13:04)
[2016-11-18] MEDS ORDERED: HYDROmorphone 1 MG/ML 1 ML SYRINGE IVP STA (13:29)
--- NOTE | 2016-11-18 13:39 | US ---
EXAMINATION TYPE: US venous doppler duplex UE RT DATE OF EXAM: 11/18/2016 COMPARISON: 06/23/2016 CLINICAL HISTORY: Pain/Redness. No hx of blood clots or on blood thinners. Previous right shoulder surgery. Redness, pain and swelling. SIDE PERFORMED: Right Right Arm: Appears negative for DVT. Superficial edema seen. IMPRESSION: 1. There is superficial subcutaneous edema but no diagnostic evidence of DVT as visualized.
[2016-11-18] MEDS: SODIUM CHLORIDE 0.9% 1,000 ML IV SCH ×2 (14:59→21:17)
[2016-11-18] MEDS: HYDROmorphone 1 MG/ML 1 ML SYRINGE IVP PRN ×2 (16:45→19:31)
[2016-11-18] MEDS: rOPINIRole HCL 4 MG TABLET PO SCH (16:45)
[2016-11-18] MEDS: FUROSEMIDE 40 MG TAB PO SCH (17:15)
[2016-11-18] MEDS: FOLIC ACID 1 MG TAB PO SCH (17:15)
--- NOTE | 2016-11-18 19:14 | P.HPIM ---
History of Present Illness H&P Date: 11/18/16 Chief Complaint: Upper redness arm swelling right side This is a 61-year-old female patient of Dr. Mendes with past medical history of breast cancer status post right mastectomy with extensive resection to the chest wall into the right axilla area done in 2001 with chronic lymphedema to the right arm, cervical cancer, rheumatoid arthritis currently on methotrexate Nabumetone, osteoarthritis, GERD, COPD, hyperlipidemia, restless leg syndrome. Patient uses a compression pneumatic sleeve for couple hours per day for her lymphedema. Lymphedema to the right upper extremity has been further complicated as she has had 3 right shoulder surgeries. The first being a replacement and then revisions one 3 years ago and then again in December 2015 with chronic use of doxycycline for staph infection under the care of Dr. Snyder. Her orthopedic surgeon is Dr. Galeas at . She presented in the emergency room secondary sudden onset of pain and swelling to the right arm with redness to the right upper extremity since earlier this morning, it is red hot significantly painful, patient denies any trauma, no fever no chills, she is on methotrexate every Tuesday, followed by Dr. Aceves. Patient was supposed to be on doxycycline 100 mg twice a day as she did have a previous septic arthropathy in the joint right shoulder a year ago. Patient also had a dog that sleeps with her at night which she would be discouraged from doing so from now on, patient reports no foreign travels, Patient was seen in the emergency room with a WBC count of 8.9, venous upper extremity Doppler was pending preliminary noted no DVT, lactic acid normal, patient will be started on vancomycin, daptomycin would be added to regimen, consult with Dr. Snyder Review of Systems Constitutional: Reports as per HPI, Reports chills, Denies anorexia, Denies chronic headaches, Denies chronic pain, Denies daytime sleepiness, Denies fatigue, Denies fever, Denies lethargy, Denies malaise, Denies night sweats, Denies poor appetite, Denies sweats, Denies weakness, Denies weight gain, Denies weight loss Ears, nose, mouth and throat: Reports as per HPI, Denies ant. neck pain, Denies bleeding gums, Denies dental pain, Denies dysphagia, Denies epistaxis, Denies headache, Denies hoarseness, Denies mouth pain, Denies nasal congestion, Denies nasal discharge, Denies neck fullness/pressure, Denies neck lump, Denies nose pain, Denies odynophagia, Denies post-nasal drip, Denies sinus pain, Denies sinus pressure, Denies swelling in mouth, Denies swelling in throat, Denies sore throat, Denies vertigo, Denies voice changes Cardiovascular: Reports as per HPI, Denies chest pain, Denies claudication, Denies decreased exercise tolerance, Denies dyspnea on exertion, Denies edema, Denies high blood pressure, Denies irregular heart beat, Denies leg edema, Denies lightheadedness, Denies orthopnea, Denies palpitations, Denies paroxysmal nocturnal dyspnea, Denies phlebitis, Denies rapid heart beat, Denies shortness of breath, Denies syncope Respiratory: Reports cough (Chronic), Reports excessive sputum (Chronic) Gastrointestinal: Reports as per HPI Genitourinary: Reports as per HPI Menstruation: Reports as per HPI Musculoskeletal: Reports as per HPI, Reports gait dysfunction, Reports hot joints, Reports limitation of motion, Denies arm numbness/tingling, Denies atrophy, Denies fractures, Denies frequent falls, Denies leg numbness/tingling, Denies loss of height, Denies low back pain, Denies morning stiffness, Denies muscle cramps, Denies muscle weakness, Denies myalgias, Denies neck pain, Denies neck stiffness, Denies prior amputations, Denies redness of joints, Denies shooting arm pain, Denies shooting leg pain Integumentary: Reports as per HPI, Denies acne, Denies boils, Denies brittle nails, Denies change in hair/nails, Denies color changes, Denies darkening of skin, Denies depigmentation, Denies dryness, Denies foot/leg ulcers, Denies growths, Denies hirsutism, Denies lesions, Denies onychomycosis, Denies pruritus , Denies rash, Denies sores, Denies striae, Denies unusual bruising, Denies wounds Neurological: Reports as per HPI, Denies aphasia, Denies ataxia, Denies balance difficulties, Denies burning pain, Denies change in mentation, Denies change in smell/taste, Denies change in speech, Denies confusion, Denies convulsions, Denies double vision, Denies gait dysfunction, Denies head injury, Denies headaches, Denies hearing difficulties, Denies lack of coordination, Denies loss of vision, Denies memory loss, Denies migraines, Denies motor disturbance, Denies numbness, Denies paralysis, Denies paresthesias, Denies seizures, Denies sensory deficit, Denies spasticity, Denies syncope, Denies tic, Denies tingling , Denies transient paralysis, Denies tremors, Denies vertigo, Denies weakness, Denies visual changes Psychiatric: Reports as per HPI Endocrine: Reports as per HPI Past Medical History Past Medical History: Cancer, COPD, Fibromyalgia, GERD/Reflux, Hyperlipidemia, Osteoarthritis (OA), Rheumatoid Arthritis (RA) Additional Past Medical History / Comment(s): 2001 R breast cancer with mastectomy and chemo, chronic R arm lymphedema, previous R arm cellulitis, 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 History of Any Multi-Drug Resistant Organisms: None Reported Past Surgical History: Appendectomy, Breast Surgery, Cholecystectomy, Hysterectomy, Joint Replacement, Orthopedic Surgery Additional Past Surgical History / Comment(s): 10/28/16 colonoscopy, RIGHT MASTECTOMY, RIGHT TOTAL SHOULDER REPLACEMENT followed by revisions, I&Ds of R shoulder, picc line insertion-since removed, LT ROTATOR CUFF REPAIR, bilateral salpingoophorectomy due to cysts. Past Anesthesia/Blood Transfusion Reactions: No Reported Reaction Smoking Status: Former smoker - Past Family History Sister(s) Additional Family Medical History / Comment(s): Patient has one sister with AICD implantation. Brother(s) Additional Family Medical History / Comment(s): Patient has 4 brothers. One has from alcoholism at age 55. One brother has small cell lung carcinoma. 1 is diabetic. One brother she has no contact with. Mother Family Medical History: Cancer, Diabetes Mellitus, Deep Vein Thrombosis (DVT) Additional Family Medical History / Comment(s): Breast cancer. Mother in her 60's with cause unknown. Father Family Medical History: Cancer Additional Family Medical History / Comment(s): Father of colon cancer in his 60s. Medications and Allergies Home Medications Medication Instructions Recorded Confirmed Type Atorvastatin [Lipitor] 40 mg PO DAILY 11/14/14 11/18/16 History DULoxetine HCL [Cymbalta] 60 mg PO BID 11/14/14 11/18/16 History Furosemide [Lasix] 40 mg PO BID 11/14/14 11/18/16 History HYDROcodone/APAP 10-325MG [[place] 1 tab PO BID PRN 11/14/14 11/18/16 History 10-325] Pregabalin [Lyrica] 200 mg PO BID 11/14/14 11/18/16 History rOPINIRole HCL [Requip] 5 mg PO DAILY@1700 11/14/14 11/18/16 History Ascorbic Acid [Vitamin C] 1,000 mg PO DAILY 06/22/16 11/18/16 History Biotin 5 mg PO BID 06/22/16 11/18/16 History Calcium Carbonate [Calcium] 1,200 mg PO DAILY 06/22/16 11/18/16 History Cholecalciferol [Vitamin D3] 5,000 unit PO DAILY 06/22/16 11/18/16 History Garlic 1 tab PO DAILY 06/22/16 11/18/16 History L.acidoph,Paracasei, B.lactis 1 cap PO DAILY 06/22/16 11/18/16 History [Probiotic] Magnesium Gluconate [Magonate] 500 mg PO DAILY 06/22/16 11/18/16 History Multivitamins, Thera [Multivitamin 1 tab PO DAILY 06/22/16 11/18/16 History (formulary)] [place]-3 Fatty Acids/Fish Oil [Fish 1 cap PO DAILY 06/22/16 11/18/16 History Oil 1,000 mg Softgel] Ubidecarenone [Co Q-10] 200 mg PO DAILY 06/22/16 11/18/16 History Doxycycline Hyclate 100 mg PO BID 10/26/16 11/18/16 History Folic Acid 1 mg PO BID 10/26/16 11/18/16 History Methotrexate Sodium [Methotrexate] 12.5 mg PO TU 10/26/16 11/18/16 History Potassium Chloride [Klor-Con 10] 10 meq PO BID 10/26/16 11/18/16 History Turmeric Root Extract [Turmeric] 750 mg PO DAILY 10/26/16 11/18/16 History Meloxicam [Meloxicam] 7.5 mg PO BID 11/18/16 11/18/16 History Allergies Allergy/AdvReac Type Severity Reaction Status Date / Time cephalexin [From Keflex] Allergy Rash/Hives Verified 11/18/16 11:27 latex Allergy Rash/Hives Verified 11/18/16 11:27 nickel Allergy Rash/Hives Verified 11/18/16 11:27 Sulfa (Sulfonamide Allergy Rash/Hives Verified 11/18/16 11:27 Antibiotics) morphine AdvReac Rash/Hives Verified 11/18/16 11:27 Physical Exam Vitals: Vital Signs Temp Pulse Pulse Resp BP BP Pulse Ox 11/18/16 15:00 97 F L 107 H 20 120/78 100 11/18/16 13:28 98.5 F 86 18 132/60 99 11/18/16 11:04 99.5 F 123 H 20 116/65 96 Intake and Output 11/18/16 11/18/16 11/18/16 06:59 14:59 22:59 Other: # Voids 1 # Bowel Movements 0 Weight 101.605 kg Patient Weight 11/19/16 06:59 Weight 101.605 kg - Constitutional General appearance: cooperative, no acute distress, obese - EENT Eyes: anicteric sclerae, PERRLA, normal appearance ENT: hearing grossly normal - Neck Neck: no lymphadenopathy, normal ROM, no other, no rigidity, no stridor, no thyromegaly - Respiratory Respiratory: bilateral: CTA, negative: diminished, dullness, rales, rhonchi - Cardiovascular Rhythm: regular Heart sounds: normal: S1, S2 Abnormal Heart Sounds: no systolic murmur, no diastolic murmur, no rub, no S3 Gallop, no S4 Gallop, no click, no other - Gastrointestinal General gastrointestinal: normal bowel sounds, soft - Integumentary Integumentary: cellulitis (Right arm circumferentially up to the right pectoralis involving the entire shoulder joint, forearm upper arms, sparing the fingers and the wrist at site), normal, rash - Neurologic Neurologic: CNII-XII intact - Musculoskeletal Musculoskeletal: gait normal, strength equal bilaterally - Psychiatric Psychiatric: A&O x's 3, appropriate affect Results CBC & Chem 7: 11/18/16 12:07 11/18/16 12:07 Labs: Abnormal Lab Results - Last 24 Hours (Table) 11/18/16 11/18/16 11/18/16 Range/Units 12:07 12:07 12:07 Lymphocytes # 0.8 L (1.0-4.8) k/uL Sodium 132 L (137-145) mmol/L BUN 25 H (7-17) mg/dL AST 57 H (14-36) U/L C-Reactive Protein 79.4 H (<10.0) mg/L Microbiology - Last 24 Hours (Table) 11/18/16 12:07 Urine Culture - Preliminary Urine,Voided Thrombosis Risk Factor Assmnt - DVT/VTE Prophylaxis DVT/VTE Prophylaxis: Pharmacologic Prophylaxis ordered - Choose All That Apply Any of the Below Risk Factors Present?: Yes Each Factor Represents 1 point: Obesity (BMI >25) Other Risk Factors: Yes Each Risk Factor Represents 2 Points: Age 61-74 years, Malignancy Each Risk Factor Represents 3 Points: Family history of DVT/PE Other congenital or acquired thrombophilia - If yes, enter type in comment: No Thrombosis Risk Factor Assessment Total Risk Factor Score: 8 Thrombosis Risk Factor Assessment Level: High Risk Assessment and Plan Plan: 1. Cellulitis of the right arm circumferentially located involving the entire extremity including shoulder and anterior pectoralis region with chronic lymphedema complicated by multiple surgeries to the right shoulder as well as chronic staph infection under the care of Dr. Snyder. Patient has been seen by Dr. Snyder local wound care with Silvadene without wrapping but elevation. Continue Dilaudid IV, IV Toradol but cultures have been sent. Continued lymphedema treatment with diuretics Lasix 40 mg twice a day by mouth, IV daptomycin would be utilized and discontinue vancomycin, as previously documented from last admission for similar complaints. Hemoglobin A1c 2. History of right breast cancer status post mastectomy and extensive resection with chronic lymphedema of the right upper extremity. Elevation of upper extremity 3. History of rheumatoid arthritis. He would hold of methotrexate secondary to impaired healing mechanism while in the medication, patient would be started on Plaquenil till infection clears and thereafter resume methotrexate 3- 4 weeks after infection clearance. patient follows with Dr. Aceves. 4. Osteoarthritis, generalized, stable. 5. Gastroesophageal reflux disease and gastrointestinal prophylaxis. Continue Prilosec or Protonix. 6 Mild COPD, stable without exacerbation. 7. Restless leg syndrome. Continue Requip. 8. DVT prophylaxis. Heparin subcu. Patient will be admitted to the hospital for a minimum of 2 night stay. Discharge plan: return home
[2016-11-18] MEDS ORDERED: NON-FORMULARY DRUG (Biotin [Biotin] 5 MG) PO SCH (21:00)
[2016-11-18] MEDS: HYDROXYCHLOROQUINE SULFATE 200 MG TAB PO SCH (21:08)
[2016-11-18] MEDS: DAPTOmycin 500 MG in SODIUM CHLORIDE 0.9% 50 ML IV SCH (21:09)
[2016-11-18] MEDS: BUTALB/APAP/CAFF 50-325-40MG TAB PO PRN (21:16)
[2016-11-18] MEDS: PREGABALIN 100 MG CAP PO SCH (21:17)
[2016-11-18] MEDS: DULoxetine HCL 60 MG CAPSULE.DR PO SCH (21:21)
--- NOTE | 2016-11-18 21:34 | P.CONS ---
History of Present Illness - Reason for Consult Consult date: 11/18/16 - Chief Complaint Fever in the right arm cellulitis - History of Present Illness 67-year-old female chronically has lymphedema to the right arm. She utilize compression garment to the arm daily.. A compression pneumatic sleeve for a couple hours per day is usually used also. She does not recall any specific injury to her hand or arm. No change of any activities. Despite this she had the sudden onset of pain and swelling to the right arm. With dense erythema. Significant discomfort. Also had the sudden onset of fever and chills She contacted her primary care physician was originally advised to present to the emergency center. Upon arrival evidence of the dense cellulitis of the right upper extremity was noted and she was admitted. With this the infectious diseases consultation was requested. This pleasant woman has a known history of breast carcinoma and with the extensive surgical treatment which is the radical mastectomy to the right is resulted in the chronic lymphedema and recurrent episodes of cellulitis. She has been on chronic Suppressive therapy with doxycycline. Despite that his had a breakthrough infection at this time. She feels quite poorly. She's had fever as well as some headache. She is however is denying nausea or emesis. Review of Systems Patient did have fever and chills and significant pain to the right arm also. HEENT:Denies headache or acute visual change. Denies sinus or mouth discomforts. Denies neck stiffness or pain. Denies significant oral cavity pain. Denies difficulty on swallowing. Lungs: Denies significant shortness of breath, cough, sputum production, or hemoptysis. Cardiovascular: Denies significant shortness of breath, chest pain, chest wall pain, orthopnea, dyspnea on exertion, syncope Gastrointestinal:Denies nausea, vomiting, diarrhea, constipation, hematemesis, melena, hematochezia. No no significant change of bowel habit noticed. Musculoskeletal: denies significant myalgias or arthralgias. No new joint swelling. Denies new back pain. Skin: Per the HPI swelling redness right arm Neuro: Denies headache or visual change. Denies any new onset weakness or difficulty with ambulation. Denies falls or seizures. Psychiatric:Denies anxiety or depression. Endocrine: Denies significant fatigue, denies significant weight loss or weight gain. 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 History of Any Multi-Drug Resistant Organisms: None Reported Past Surgical History: Appendectomy, Breast Surgery, Cholecystectomy, Hysterectomy, Joint Replacement, Orthopedic Surgery Additional Past Surgical History / Comment(s): 10/28/16 colonoscopy, RIGHT MASTECTOMY, RIGHT TOTAL SHOULDER REPLACEMENT followed by revisions, I&Ds of R shoulder, picc line insertion-since removed, LT ROTATOR CUFF REPAIR, bilateral salpingoophorectomy due to cysts. Past Anesthesia/Blood Transfusion Reactions: No Reported Reaction Additional Psychological History / Comment(s): . Lives independently. Remote tobacco use. No history of alcohol use. retired. No animal exposures Smoking Status: Former smoker - Past Family History Sister(s) Additional Family Medical History / Comment(s): Patient has one sister with AICD implantation. Brother(s) Additional Family Medical History / Comment(s): Patient has 4 brothers. One has from alcoholism at age 55. One brother has small cell lung carcinoma. 1 is diabetic. One brother she has no contact with. Mother Family Medical History: Cancer, Diabetes Mellitus, Deep Vein Thrombosis (DVT) Additional Family Medical History / Comment(s): Breast cancer. Mother in her 60's with cause unknown. Father Family Medical History: Cancer Additional Family Medical History / Comment(s): Father of colon cancer in his 60s. Medications and Allergies Home Medications and Allergies Comment(s): Current Medications Acetaminophen (Tylenol Tab) 650 mg PO Q6HR PRN PRN Reason: Mild Pain or Fever > 100.5 Acetaminophen/Butalbital/Caffeine (Fioricet 50-325-40) 2 each PO Q4HR PRN PRN Reason: Headache Last Admin: 11/18/16 21:16 Dose: 2 each Ascorbic Acid (Vitamin C) 1,000 mg PO DAILY@1200 [facility] Atorvastatin Calcium (Lipitor) 40 mg PO DAILY [facility] Calcium Carbonate/Glycine (Tums) 1,000 mg PO DAILY@1200 [facility] Cholecalciferol (Vitamin D3) 5,000 unit PO DAILY@1200 [facility] Duloxetine HCl (Cymbalta) 60 mg PO BID [facility] Last Admin: 11/18/16 21:21 Dose: 60 mg Folic Acid (Folic Acid) 1 mg PO BID@1200,1800 [facility] Last Admin: 11/18/16 17:15 Dose: 1 mg Furosemide (Lasix) 40 mg PO Q12H [facility] Last Admin: 11/18/16 17:15 Dose: 40 mg Hydromorphone HCl (Dilaudid) 0.5 mg IVP Q3HR PRN PRN Reason: Severe Pain Last Admin: 11/18/16 19:31 Dose: 0.5 mg Hydroxychloroquine Sulfate (Plaquenil) 200 mg PO BID [facility] Last Admin: 11/18/16 21:08 Dose: 200 mg Sodium Chloride (Saline 0.9%) 1,000 mls @ 100 mls/hr IV .Q10H [facility] Last Admin: 11/18/16 21:17 Dose: 100 mls/hr Daptomycin 500 mg/ Sodium (Chloride) 50 mls @ 100 mls/hr IV Q24H [facility] Last Admin: 11/18/16 21:09 Dose: 100 mls/hr Ketorolac Tromethamine (Toradol) 30 mg IVP Q6HR [facility] Stop: 11/22/16 19:06 Lactobacillus Acidoph/Bulgaricus (Lactinex) 1 each PO DAILY@1200 [facility] Naloxone HCl (Narcan) 0.2 mg IV Q2M PRN PRN Reason: Opioid Reversal Pregabalin (Lyrica) 200 mg PO BID [facility] Last Admin: 11/18/16 21:17 Dose: 200 mg Ropinirole HCl (Requip) 4 mg PO DAILY@1700 [facility] Last Admin: 11/18/16 16:45 Dose: 4 mg Ropinirole HCl (Requip) 1 mg PO DAILY@1700 [facility] Last Admin: 11/18/16 16:45 Dose: 1 mg Silver Sulfadiazine (Silvadene Cream) 1 applic TOPICAL BID [facility] Last Admin: 11/18/16 21:13 Dose: 1 applic Daptomycin was initiated as the most effective antibiotic in the past for her cellulitis Home Medications Medication Instructions Recorded Confirmed Type Atorvastatin [Lipitor] 40 mg PO DAILY 11/14/14 11/18/16 History DULoxetine HCL [Cymbalta] 60 mg PO BID 11/14/14 11/18/16 History Furosemide [Lasix] 40 mg PO BID 11/14/14 11/18/16 History HYDROcodone/APAP 10-325MG [[place] 1 tab PO BID PRN 11/14/14 11/18/16 History 10-325] Pregabalin [Lyrica] 200 mg PO BID 11/14/14 11/18/16 History rOPINIRole HCL [Requip] 5 mg PO DAILY@1700 11/14/14 11/18/16 History Ascorbic Acid [Vitamin C] 1,000 mg PO DAILY 06/22/16 11/18/16 History Biotin 5 mg PO BID 06/22/16 11/18/16 History Calcium Carbonate [Calcium] 1,200 mg PO DAILY 06/22/16 11/18/16 History Cholecalciferol [Vitamin D3] 5,000 unit PO DAILY 06/22/16 11/18/16 History Garlic 1 tab PO DAILY 06/22/16 11/18/16 History L.acidoph,Paracasei, B.lactis 1 cap PO DAILY 06/22/16 11/18/16 History [Probiotic] Magnesium Gluconate [Magonate] 500 mg PO DAILY 06/22/16 11/18/16 History Multivitamins, Thera [Multivitamin 1 tab PO DAILY 06/22/16 11/18/16 History (formulary)] Darragh-3 Fatty Acids/Fish Oil [Fish 1 cap PO DAILY 06/22/16 11/18/16 History Oil 1,000 mg Softgel] Ubidecarenone [Co Q-10] 200 mg PO DAILY 06/22/16 11/18/16 History Doxycycline Hyclate 100 mg PO BID 10/26/16 11/18/16 History Folic Acid 1 mg PO BID 10/26/16 11/18/16 History Methotrexate Sodium [Methotrexate] 12.5 mg PO TU 10/26/16 11/18/16 History Potassium Chloride [Klor-Con 10] 10 meq PO BID 10/26/16 11/18/16 History Turmeric Root Extract [Turmeric] 750 mg PO DAILY 10/26/16 11/18/16 History Meloxicam [Meloxicam] 7.5 mg PO BID 11/18/16 11/18/16 History Allergies Allergy/AdvReac Type Severity Reaction Status Date / Time cephalexin [From Keflex] Allergy Rash/Hives Verified 11/18/16 11:27 latex Allergy Rash/Hives Verified 11/18/16 11:27 nickel Allergy Rash/Hives Verified 11/18/16 11:27 Sulfa (Sulfonamide Allergy Rash/Hives Verified 11/18/16 11:27 Antibiotics) morphine AdvReac Rash/Hives Verified 11/18/16 11:27 Physical Exam Vitals: Vital Signs Temp Pulse Pulse Resp BP BP Pulse Ox 11/18/16 15:00 97 F L 107 H 20 120/78 100 11/18/16 13:28 98.5 F 86 18 132/60 99 11/18/16 11:04 99.5 F 123 H 20 116/65 96 Intake and Output 11/18/16 11/18/16 11/18/16 06:59 14:59 22:59 Other: # Voids 1 # Bowel Movements 0 Weight 101.605 kg Patient Weight 11/19/16 06:59 Weight 101.605 kg 61-year-old woman is quite uncomfortable. HEENT: Anicteric conjunctiva are pink and moist nasal mucosa grossly intact without significant lesions, there is no thrush. Neck: The neck is supple without significant lymphadenopathy or thyromegaly. Lungs: Good bilateral air entry without significant crackles or wheezing. There is no significant bronchial sounds. There is no egophony or dullness. Heart: Regular rate and rhythm with an audible S1-S2, no S3 no S4. There is no significant murmur click or rub, PMI was nondisplaced. Abdomen: Positive bowel sounds soft and nontender without palpable masses or organomegaly. There was no guarding or rebound. Extremities: The left upper extremity have excellent pulses they are symmetric, no significant petechiae or telangiectasia. No splinter hemorrhages were noted. The lower extremities trace edema The peripheral pulses were 2+ and symmetric. The right upper extremity reveals evidence of the extensive and massive lymphedema. There is evidence of dense erythema is present from the dorsum of the hand to the axillary area. There is also distinct erythema on the anterior chest wall to the right it is also quite tender. The right upper extremity was very swollen and very tender. There is distinct warmth and redness to the tissue. There is tenderness of the axillary area and the tissue has a woody quality there from the prior interventions. Neuro: Awake alert oriented to person place and time. There are no acute new gross focal sensory motor deficits. Results CBC & Chem 7: 11/18/16 12:07 11/18/16 12:07 Labs: Abnormal Lab Results - Last 24 Hours (Table) 11/18/16 11/18/16 11/18/16 Range/Units 12:07 12:07 12:07 Lymphocytes # 0.8 L (1.0-4.8) k/uL ESR 24 H (0-20) mm/hr Sodium 132 L (137-145) mmol/L BUN 25 H (7-17) mg/dL AST 57 H (14-36) U/L C-Reactive Protein (<10.0) mg/L 11/18/16 Range/Units 12:07 Lymphocytes # (1.0-4.8) k/uL ESR (0-20) mm/hr Sodium (137-145) mmol/L BUN (7-17) mg/dL AST (14-36) U/L C-Reactive Protein 79.4 H (<10.0) mg/L Microbiology - Last 24 Hours (Table) 11/18/16 12:07 Urine Culture - Preliminary Urine,Voided Laboratory Results WBC 8.9 k/uL (3.8-10.6) 11/18/16 12:07 RBC 3.83 m/uL (3.80-5.40) 11/18/16 12:07 Hgb 11.8 gm/dL (11.4-16.0) 11/18/16 12:07 Hct 36.8 % (34.0-46.0) 11/18/16 12:07 MCV 96.1 fL (80.0-100.0) 11/18/16 12:07 MCH 30.9 pg (25.0-35.0) 11/18/16 12:07 MCHC 32.1 g/dL (31.0-37.0) 11/18/16 12:07 RDW 14.6 % (11.5-15.5) 11/18/16 12:07 Plt Count 232 k/uL (150-450) 11/18/16 12:07 Neutrophils % 87 % 11/18/16 12:07 Lymphocytes % 9 % 11/18/16 12:07 Monocytes % 2 % 11/18/16 12:07 Eosinophils % 1 % 11/18/16 12:07 Basophils % 0 % 11/18/16 12:07 Neutrophils # 7.7 k/uL (1.3-7.7) 11/18/16 12:07 Lymphocytes # 0.8 k/uL (1.0-4.8) L 11/18/16 12:07 Monocytes # 0.2 k/uL (0-1.0) 11/18/16 12:07 Eosinophils # 0.1 k/uL (0-0.7) 11/18/16 12:07 Basophils # 0.0 k/uL (0-0.2) 11/18/16 12:07 ESR 24 mm/hr (0-20) H 11/18/16 12:07 PT 10.3 sec (9.0-12.0) 11/18/16 12:07 INR 1.0 (<1.2) 11/18/16 12:07 APTT 23.5 sec (22.0-30.0) 11/18/16 12:07 Sodium 132 mmol/L (137-145) L 11/18/16 12:07 Potassium 5.1 mmol/L (3.5-5.1) 11/18/16 12:07 Chloride 98 mmol/L (98-107) 11/18/16 12:07 Carbon Dioxide 26 mmol/L (22-30) 11/18/16 12:07 Anion Gap 8 mmol/L 11/18/16 12:07 BUN 25 mg/dL (7-17) H 11/18/16 12:07 Creatinine 0.90 mg/dL (0.52-1.04) 11/18/16 12:07 Est GFR (MDRD) Af Amer >60 (>60 ml/min/1.73 sqM) 11/18/16 12:07 Est GFR (MDRD) Non-Af >60 (>60 ml/min/1.73 sqM) 11/18/16 12:07 Glucose 93 mg/dL (74-99) 11/18/16 12:07 Plasma Lactic Acid Jesus 1.0 mmol/L (0.7-2.0) 11/18/16 12:07 Calcium 9.3 mg/dL (8.4-10.2) 11/18/16 12:07 Total Bilirubin 0.9 mg/dL (0.2-1.3) 11/18/16 12:07 AST 57 U/L (14-36) H 11/18/16 12:07 ALT 52 U/L (9-52) 11/18/16 12:07 Alkaline Phosphatase 62 U/L (38-126) 11/18/16 12:07 C-Reactive Protein 79.4 mg/L (<10.0) H 11/18/16 12:07 Total Protein 6.5 g/dL (6.3-8.2) 11/18/16 12:07 Albumin 3.7 g/dL (3.5-5.0) 11/18/16 12:07 Urine Color Yellow 11/18/16 12:07 Urine Appearance Clear (Clear) 11/18/16 12:07 Urine pH 6.5 (5.0-8.0) 11/18/16 12:07 Ur Specific [place] 1.008 (1.001-1.035) 11/18/16 12:07 Urine Protein Negative (Negative) 11/18/16 12:07 Urine Glucose (UA) Negative (Negative) 11/18/16 12:07 Urine Ketones Negative (Negative) 11/18/16 12:07 Urine Blood Negative (Negative) 11/18/16 12:07 Urine Nitrite Negative (Negative) 11/18/16 12:07 Urine Bilirubin Negative (Negative) 11/18/16 12:07 Urine Urobilinogen <2.0 mg/dL (<2.0) 11/18/16 12:07 Ur Leukocyte Esterase Negative (Negative) 11/18/16 12:07 Microbiology 11/18/16 12:07 Urine,Voided Urine Culture - Preliminary Assessment and Plan (1) Acute lymphangitis of right upper limb Narrative/Plan: 61-year-old female presents emergency center after the sudden onset of significant pain swelling and erythema to her right upper extremity. This is the area that has had great difficulties in the past status post her radical mastectomy and right axillary lymph node dissection. She has chronic lymphedema. She does utilize multiple endeavors that include elevation, a compression sleeve, pneumatic compression sleeve for the arm. She does not recall any specific trauma but had a sudden onset of significant increasing pain and erythema to the right arm associated with fever. She Cozens presented to the emergency center and has been admitted for the extensive cellulitis and ascending lymphangitis of the right arm onto the anterior chest wall. She responds usually well to daptomycin therapy and this is been initiated. Blood cultures are in progress. Local therapy with Silvadene has been requested to try to improve her level of discomfort. She is having distinct headache and Fioricet as requested. Fortunately lactic acid was only 1.0 at admission. Her CRP was markedly elevated at 79.4 as expected for her acute infectious process. Urinalysis is negative. She has no pulmonary symptoms. She will be monitored. Status: Acute (2) Lymphedema of right upper extremity Status: Acute (3) History of carcinoma in situ of breast Status: Acute (4) Fever Status: Acute (5) Headache Status: Acute
[2016-11-18] MEDS: KETOROLAC 30 MG/ML 1 ML VIAL IVP SCH (22:33)
[2016-11-19] MEDS ORDERED: VANCOMYCIN 1,750 MG in SODIUM CHLORIDE 0.9% 250 ML IVPB SCH ×2
[2016-11-19] MEDS: KETOROLAC 30 MG/ML 1 ML VIAL IVP SCH ×4 (00:03→17:43)
[2016-11-19] MEDS: BUTALB/APAP/CAFF 50-325-40MG TAB PO PRN (01:40)
[2016-11-19] MEDS: HYDROmorphone 1 MG/ML 1 ML SYRINGE IVP PRN ×4 (01:41→18:37)
[2016-11-19] MEDS: FUROSEMIDE 40 MG TAB PO SCH ×2 (06:32→17:43)
[2016-11-19] MEDS: ATORVASTATIN 40 MG TAB PO SCH (08:42)
[2016-11-19] MEDS: HYDROXYCHLOROQUINE SULFATE 200 MG TAB PO SCH ×2 (08:42→21:05)
[2016-11-19] MEDS: DULoxetine HCL 60 MG CAPSULE.DR PO SCH ×2 (08:42→21:05)
[2016-11-19] MEDS: PREGABALIN 100 MG CAP PO SCH ×2 (08:53→21:05)
[2016-11-19] MEDS: SODIUM CHLORIDE 0.9% 1,000 ML IV SCH ×2 (08:53→17:44)
[2016-11-19 09:17] LABS: Basophils % (A) 0 %; CH 30.4; CHCM 30.8; Eosinophils # (A) 0.2 k/uL (0-0.7); Eosinophils % (A) 2 %; Hypochromasia Slight; Luc # (Auto) 0.09; Luc % (Auto) 1; Lymphocytes # (A) 0.6 k/uL (1.0-4.8); Lymphocytes % (A) 8 %; MCH 31.1 pg (25.0-35.0); MCHC 31.2 g/dL (31.0-37.0); MCV 99.5 fL (80.0-100.0); Macrocytosis Slight; Mean Platelet Volume 7.5; Monocytes # (A) 0.3 k/uL (0-1.0); Monocytes % (A) 4 %; Neutrophils # (A) 5.6 k/uL (1.3-7.7); Neutrophils % (A) 84 %; RBC 3.12 m/uL (3.80-5.40); RDW 15.3 % (11.5-15.5); WBC 6.6 k/uL (3.8-10.6); WBC (Perox) 6.95
[2016-11-19 09:33] LABS: HGB 9.7 gm/dL (11.4-16.0)
[2016-11-19 09:51] LABS: ALT 56 U/L (9-52); AST 43 U/L (14-36); Alkaline Phosphatase 62 U/L (38-126); Anion Gap 10 mmol/L; Blood Urea Nitrogen 15 mg/dL (7-17); Calcium 8.4 mg/dL (8.4-10.2); Carbon Dioxide 22 mmol/L (22-30); Chloride 105 mmol/L (98-107); Glucose 150 mg/dL (74-99); Non-African American GFR(MDRD) >60 (>60 ml/min/1.73 sqM); Sodium 137 mmol/L (137-145); Total Bilirubin 0.4 mg/dL (0.2-1.3); Total Protein 5.1 g/dL (6.3-8.2)
[2016-11-19] MEDS: diphenhydrAMINE 25 MG CAP PO PRN ×2 (10:28→18:38)
[2016-11-19] MEDS: CALCIUM CARBONATE 500 MG CHEWABLE PO SCH (11:49)
[2016-11-19] MEDS: CHOLECALCIFEROL 1,000 UNIT TAB PO SCH (11:49)
[2016-11-19] MEDS: FOLIC ACID 1 MG TAB PO SCH ×2 (11:50→17:43)
[2016-11-19] MEDS: ASCORBIC ACID 500 MG TAB PO SCH (11:50)
[2016-11-19] MEDS: LACTOBACILLUS ACIDOPH & BULGAR 1 EACH PACKET PO SCH (11:50)
[2016-11-19 14:25] LABS: Hemoglobin A1C 5.3 % (4.2-6.1)
--- NOTE | 2016-11-19 16:15 | P.PN ---
Subjective This is a 61-year-old female patient of Dr. Mendes with past medical history of breast cancer status post right mastectomy with extensive resection to the chest wall into the right axilla area done in 2001 with chronic lymphedema to the right arm, cervical cancer, rheumatoid arthritis currently on methotrexate Nabumetone, osteoarthritis, GERD, COPD, hyperlipidemia, restless leg syndrome. Patient uses a compression pneumatic sleeve for couple hours per day for her lymphedema. Lymphedema to the right upper extremity has been further complicated as she has had 3 right shoulder surgeries. The first being a replacement and then revisions one 3 years ago and then again in December 2015 with chronic use of doxycycline for staph infection under the care of Dr. Snyder. Her orthopedic surgeon is Dr. Galeas at [facility]. She presented in the emergency room secondary sudden onset of pain and swelling to the right arm with redness to the right upper extremity since earlier this morning, it is red hot significantly painful, patient denies any trauma, no fever no chills, she is on methotrexate every Tuesday, followed by Dr. Aceves. Patient was supposed to be on doxycycline 100 mg twice a day as she did have a previous septic arthropathy in the joint right shoulder a year ago. Patient also had a dog that sleeps with her at night which she would be discouraged from doing so from now on, patient reports no foreign travels, Patient was seen in the emergency room with a WBC count of 8.9, venous upper extremity Doppler was pending preliminary noted no DVT, lactic acid normal, patient will be started on vancomycin, daptomycin would be added to regimen, consult with Dr. Snyder 11/19: Patient has been seen by Dr. Snyder and he has continued daptomycin as this has been effective in the past. Patient's arm is elevated and possibly slightly less redness. She is complaining of itching all over for which Benadryl has been added. Objective - Vital Signs Vital signs: Vital Signs Temp 97.0 F L 11/19/16 06:21 Pulse 86 11/19/16 06:21 Resp 16 11/19/16 06:21 BP 124/65 11/19/16 06:21 Pulse Ox 98 11/19/16 06:21 Intake & Output 11/18/16 11/19/16 11/19/16 18:59 06:59 18:59 Weight 101.605 kg Other: # Voids 1 1 # Bowel Movements 0 - Exam General appearance: cooperative, no acute distress, obese - EENT Eyes: anicteric sclerae, PERRLA, normal appearance ENT: hearing grossly normal - Neck Neck: no lymphadenopathy, normal ROM, no other, no rigidity, no stridor, no thyromegaly - Respiratory Respiratory: bilateral: CTA, negative: diminished, dullness, rales, rhonchi - Cardiovascular Rhythm: regular Heart sounds: normal: S1, S2 Abnormal Heart Sounds: no systolic murmur, no diastolic murmur, no rub, no S3 Gallop, no S4 Gallop, no click, no other - Gastrointestinal General gastrointestinal: normal bowel sounds, soft - Integumentary Integumentary: cellulitis (Right arm circumferentially up to the right pectoralis involving the entire shoulder joint, forearm upper arms, sparing the fingers and the wrist at site), normal, rash - Neurologic Neurologic: CNII-XII intact - Musculoskeletal Musculoskeletal: gait normal, strength equal bilaterally - Psychiatric Psychiatric: A&O x's 3, appropriate affect - Labs CBC & Chem 7: 11/19/16 08:35 11/19/16 08:35 Labs: Abnormal Lab Results - Last 24 Hours (Table) 11/18/16 11/18/16 11/18/16 Range/Units 12:07 12:07 12:07 RBC (3.80-5.40) m/uL Hgb (11.4-16.0) gm/dL Hct (34.0-46.0) % Lymphocytes # 0.8 L (1.0-4.8) k/uL ESR 24 H (0-20) mm/hr Sodium 132 L (137-145) mmol/L BUN 25 H (7-17) mg/dL AST 57 H (14-36) U/L C-Reactive Protein (<10.0) mg/L 11/18/16 11/19/16 Range/Units 12:07 08:35 RBC 3.12 L (3.80-5.40) m/uL Hgb 9.7 L D (11.4-16.0) gm/dL Hct 31.0 L (34.0-46.0) % Lymphocytes # 0.6 L (1.0-4.8) k/uL ESR (0-20) mm/hr Sodium (137-145) mmol/L BUN (7-17) mg/dL AST (14-36) U/L C-Reactive Protein 79.4 H (<10.0) mg/L Microbiology - Last 24 Hours (Table) 11/18/16 12:07 Urine Culture - Preliminary Urine,Voided Assessment and Plan Plan: 1. Cellulitis of the right arm circumferentially located involving the entire extremity including shoulder and anterior pectoralis region with chronic lymphedema complicated by multiple surgeries to the right shoulder as well as chronic staph infection under the care of Dr. Snyder. Patient has been seen by Dr. Snyder local wound care with Silvadene without wrapping but elevation. Continue Dilaudid IV, IV Toradol but cultures have been sent. Continued lymphedema treatment with diuretics Lasix 40 mg twice a day by mouth, IV daptomycin would be utilized and discontinue vancomycin, as previously documented from last admission for similar complaints. Hemoglobin A1c is 5.3 2. History of right breast cancer status post mastectomy and extensive resection with chronic lymphedema of the right upper extremity. Elevation of upper extremity 3. History of rheumatoid arthritis. He would hold of methotrexate secondary to impaired healing mechanism while in the medication, patient would be started on Plaquenil till infection clears and thereafter resume methotrexate 3- 4 weeks after infection clearance. patient follows with Dr. Aceves. 4. Osteoarthritis, generalized, stable. 5. Gastroesophageal reflux disease and gastrointestinal prophylaxis. Continue Prilosec or Protonix. 6 Mild COPD, stable without exacerbation. 7. Restless leg syndrome. Continue Requip. 8. DVT prophylaxis. Heparin subcu. Patient will be admitted to the hospital for a minimum of 2 night stay. Discharge plan: return home Impression and plan of care have been directed as dictated by the signing physician. Shania Pozo nurse practitioner acting as scribe for signing physician.
--- NOTE | 2016-11-19 17:32 | P.PN ---
Subjective Principal diagnosis: Cellulitis right arm 67-year-old female chronically has lymphedema to the right arm. She utilize compression garment to the arm daily.. A compression pneumatic sleeve for a couple hours per day is usually used also. She does not recall any specific injury to her hand or arm. No change of any activities. Despite this she had the sudden onset of pain and swelling to the right arm. With dense erythema. Significant discomfort. Also had the sudden onset of fever and chills She contacted her primary care physician was originally advised to present to the emergency center. Upon arrival evidence of the dense cellulitis of the right upper extremity was noted and she was admitted. With this the infectious diseases consultation was requested. This pleasant woman has a known history of breast carcinoma and with the extensive surgical treatment which is the radical mastectomy to the right is resulted in the chronic lymphedema and recurrent episodes of cellulitis. She has been on chronic Suppressive therapy with doxycycline. Despite that his had a breakthrough infection at this time. She feels quite poorly. She's had fever as well as some headache. She is however is denying nausea or emesis. History and feels a little better today. However is having significant pain to her shoulder and she is bothering her quite a bit. Also having some lower extremity edema. Objective - Vital Signs Vital signs: Vital Signs Temp 99.7 F H 11/19/16 14:57 Pulse 89 11/19/16 14:57 Resp 20 11/19/16 14:57 BP 124/65 11/19/16 06:21 Pulse Ox 96 11/19/16 14:57 Intake & Output 11/18/16 11/19/16 11/19/16 18:59 06:59 18:59 Weight 101.605 kg Other: # Voids 1 1 2 # Bowel Movements 0 - Exam 61-year-old woman is quite uncomfortable. HEENT: Anicteric conjunctiva are pink and moist nasal mucosa grossly intact without significant lesions, there is no thrush. Neck: The neck is supple without significant lymphadenopathy or thyromegaly. Lungs: Good bilateral air entry without significant crackles or wheezing. There is no significant bronchial sounds. There is no egophony or dullness. Heart: Regular rate and rhythm with an audible S1-S2, no S3 no S4. There is no significant murmur click or rub, PMI was nondisplaced. Abdomen: Positive bowel sounds soft and nontender without palpable masses or organomegaly. There was no guarding or rebound. Extremities: The left upper extremity have excellent pulses they are symmetric, no significant petechiae or telangiectasia. No splinter hemorrhages were noted. The lower extremities trace edema The peripheral pulses were 2+ and symmetric. The right upper extremity reveals evidence of the extensive and massive lymphedema. There is evidence of dense erythema is present from the dorsum of the hand to the axillary area. There is also distinct erythema on the anterior chest wall to the right it is also quite tender. The right upper extremity was very swollen and very tender. There is distinct warmth and redness to the tissue. There is tenderness of the axillary area and the tissue has a woody quality there from the prior interventions. There is bilateral lower extremity edema that is nontender. Neuro: Awake alert oriented to person place and time. There are no acute new gross focal sensory motor deficits. - Labs CBC & Chem 7: 11/19/16 08:35 11/19/16 08:35 Labs: Abnormal Lab Results - Last 24 Hours (Table) 11/18/16 11/18/16 11/19/16 Range/Units 12:07 12:07 08:35 RBC (3.80-5.40) m/uL Hgb (11.4-16.0) gm/dL Hct (34.0-46.0) % Lymphocytes # (1.0-4.8) k/uL ESR 24 H (0-20) mm/hr Glucose 150 H (74-99) mg/dL AST 43 H (14-36) U/L ALT 56 H (9-52) U/L C-Reactive Protein 79.4 H (<10.0) mg/L Total Protein 5.1 L (6.3-8.2) g/dL Albumin 2.7 L (3.5-5.0) g/dL 11/19/16 Range/Units 08:35 RBC 3.12 L (3.80-5.40) m/uL Hgb 9.7 L D (11.4-16.0) gm/dL Hct 31.0 L (34.0-46.0) % Lymphocytes # 0.6 L (1.0-4.8) k/uL ESR (0-20) mm/hr Glucose (74-99) mg/dL AST (14-36) U/L ALT (9-52) U/L C-Reactive Protein (<10.0) mg/L Total Protein (6.3-8.2) g/dL Albumin (3.5-5.0) g/dL Microbiology - Last 24 Hours (Table) 11/18/16 12:07 Blood Culture - Preliminary Blood No Growth after 24 hours 11/18/16 12:07 Urine Culture - Final Urine,Voided Laboratory Results WBC 6.6 k/uL (3.8-10.6) 11/19/16 08:35 RBC 3.12 m/uL (3.80-5.40) L 11/19/16 08:35 Hgb 9.7 gm/dL (11.4-16.0) L D 11/19/16 08:35 Hct 31.0 % (34.0-46.0) L 11/19/16 08:35 MCV 99.5 fL (80.0-100.0) 11/19/16 08:35 MCH 31.1 pg (25.0-35.0) 11/19/16 08:35 MCHC 31.2 g/dL (31.0-37.0) 11/19/16 08:35 RDW 15.3 % (11.5-15.5) 11/19/16 08:35 Plt Count 163 k/uL (150-450) 11/19/16 08:35 Neutrophils % 84 % 11/19/16 08:35 Lymphocytes % 8 % 11/19/16 08:35 Monocytes % 4 % 11/19/16 08:35 Eosinophils % 2 % 11/19/16 08:35 Basophils % 0 % 11/19/16 08:35 Neutrophils # 5.6 k/uL (1.3-7.7) 11/19/16 08:35 Lymphocytes # 0.6 k/uL (1.0-4.8) L 11/19/16 08:35 Monocytes # 0.3 k/uL (0-1.0) 11/19/16 08:35 Eosinophils # 0.2 k/uL (0-0.7) 11/19/16 08:35 Basophils # 0.0 k/uL (0-0.2) 11/19/16 08:35 Hypochromasia Slight 11/19/16 08:35 Macrocytosis Slight 11/19/16 08:35 ESR 24 mm/hr (0-20) H 11/18/16 12:07 PT 10.3 sec (9.0-12.0) 11/18/16 12:07 INR 1.0 (<1.2) 11/18/16 12:07 APTT 23.5 sec (22.0-30.0) 11/18/16 12:07 Sodium 137 mmol/L (137-145) 11/19/16 08:35 Potassium 4.0 mmol/L (3.5-5.1) 11/19/16 08:35 Chloride 105 mmol/L (98-107) 11/19/16 08:35 Carbon Dioxide 22 mmol/L (22-30) 11/19/16 08:35 Anion Gap 10 mmol/L 11/19/16 08:35 BUN 15 mg/dL (7-17) 11/19/16 08:35 Creatinine 0.70 mg/dL (0.52-1.04) 11/19/16 08:35 Est GFR (MDRD) Af Amer >60 (>60 ml/min/1.73 sqM) 11/19/16 08:35 Est GFR (MDRD) Non-Af >60 (>60 ml/min/1.73 sqM) 11/19/16 08:35 Glucose 150 mg/dL (74-99) H 11/19/16 08:[address] Glu mg/dL 105 mg/dL 11/19/16 08:35 Hemoglobin A1c 5.3 % (4.2-6.1) 11/19/16 08:35 Plasma Lactic Acid Jesus 1.0 mmol/L (0.7-2.0) 11/18/16 12:07 Calcium 8.4 mg/dL (8.4-10.2) 11/19/16 08:35 Total Bilirubin 0.4 mg/dL (0.2-1.3) 11/19/16 08:35 AST 43 U/L (14-36) H 11/19/16 08:35 ALT 56 U/L (9-52) H 11/19/16 08:35 Alkaline Phosphatase 62 U/L (38-126) 11/19/16 08:35 C-Reactive Protein 79.4 mg/L (<10.0) H 11/18/16 12:07 Total Protein 5.1 g/dL (6.3-8.2) L 11/19/16 08:35 Albumin 2.7 g/dL (3.5-5.0) L 11/19/16 08:35 Urine Color Yellow 11/18/16 12:07 Urine Appearance Clear (Clear) 11/18/16 12:07 Urine pH 6.5 (5.0-8.0) 11/18/16 12:07 Ur Specific [place] 1.008 (1.001-1.035) 11/18/16 12:07 Urine Protein Negative (Negative) 11/18/16 12:07 Urine Glucose (UA) Negative (Negative) 11/18/16 12:07 Urine Ketones Negative (Negative) 11/18/16 12:07 Urine Blood Negative (Negative) 11/18/16 12:07 Urine Nitrite Negative (Negative) 11/18/16 12:07 Urine Bilirubin Negative (Negative) 11/18/16 12:07 Urine Urobilinogen <2.0 mg/dL (<2.0) 11/18/16 12:07 Ur Leukocyte Esterase Negative (Negative) 11/18/16 12:07 Microbiology 11/18/16 12:07 Blood Blood Culture - Preliminary No Growth after 24 hours 11/18/16 12:07 Urine,Voided Urine Culture - Final Assessment and Plan (1) Acute lymphangitis of right upper limb Narrative/Plan: 61-year-old female presents emergency center after the sudden onset of significant pain swelling and erythema to her right upper extremity. This is the area that has had great difficulties in the past status post her radical mastectomy and right axillary lymph node dissection. She has chronic lymphedema. She does utilize multiple endeavors that include elevation, a compression sleeve, pneumatic compression sleeve for the arm. She does not recall any specific trauma but had a sudden onset of significant increasing pain and erythema to the right arm associated with fever. She Cozens presented to the emergency center and has been admitted for the extensive cellulitis and ascending lymphangitis of the right arm onto the anterior chest wall. She responds usually well to daptomycin therapy and this is been initiated. Blood cultures are in progress. Local therapy with Silvadene has been requested to try to improve her level of discomfort. She is having distinct headache and Fioricet as requested. Fortunately lactic acid was only 1.0 at admission. Her CRP was markedly elevated at 79.4 as expected for her acute infectious process. Urinalysis is negative. She has no pulmonary symptoms. She will be monitored. We'll order an x-ray of her shoulder given the pain she's having there. His stockings will be applied to the bilateral lower extremities because of her edema. Status: Acute (2) Lymphedema of right upper extremity Status: Acute (3) History of carcinoma in situ of breast Status: Acute (4) Fever Status: Acute (5) Headache Status: Acute
[2016-11-19] MEDS: rOPINIRole HCL 4 MG TABLET PO SCH (17:43)
[2016-11-19] MEDS: DAPTOmycin 500 MG in SODIUM CHLORIDE 0.9% 50 ML IV SCH (18:37)
--- NOTE | 2016-11-19 19:20 | XR ---
EXAMINATION TYPE: XR shoulder complete RT DATE OF EXAM: 11/19/2016 COMPARISON: NONE HISTORY: Shoulder pain TECHNIQUE: 3 views FINDINGS: There is right shoulder prosthesis. Components appear in anatomic position. I see no fractu re. There is soft tissue ossification along the proximal medial humeral shaft. AC joint is intact. Th ere is old right fifth rib fracture. IMPRESSION: No acute abnormality of the right shoulder.
[2016-11-20] MEDS: KETOROLAC 30 MG/ML 1 ML VIAL IVP SCH ×4 (01:51→20:25)
[2016-11-20] MEDS: HYDROmorphone 1 MG/ML 1 ML SYRINGE IVP PRN ×2 (03:50→08:44)
[2016-11-20] MEDS: SODIUM CHLORIDE 0.9% 1,000 ML IV SCH ×2 (06:20→15:02)
[2016-11-20] MEDS: FUROSEMIDE 40 MG TAB PO SCH ×2 (06:21→17:30)
[2016-11-20 08:29] LABS: Basophils % (A) 0 %; CH 29.4; CHCM 29.2; Eosinophils # (A) 0.2 k/uL (0-0.7); Eosinophils % (A) 3 %; HCT 33.1 % (34.0-46.0); HDW 2.17; HGB 10.1 gm/dL (11.4-16.0); Hypochromasia Marked; Luc # (Auto) 0.18; Luc % (Auto) 3; Lymphocytes % (A) 16 %; MCH 30.8 pg (25.0-35.0); MCHC 30.4 g/dL (31.0-37.0); MCV 101.3 fL (80.0-100.0); Macrocytosis Slight; Mean Platelet Volume 7.1; Monocytes # (A) 0.3 k/uL (0-1.0); Monocytes % (A) 5 %; Neutrophils # (A) 4.7 k/uL (1.3-7.7); Neutrophils % (A) 74 %; RBC 3.27 m/uL (3.80-5.40); RDW 14.3 % (11.5-15.5); WBC 6.4 k/uL (3.8-10.6)
[2016-11-20] MEDS: DULoxetine HCL 60 MG CAPSULE.DR PO SCH ×2 (08:29→20:24)
[2016-11-20] MEDS: ASCORBIC ACID 500 MG TAB PO SCH (08:29)
[2016-11-20] MEDS: ATORVASTATIN 40 MG TAB PO SCH (08:30)
[2016-11-20] MEDS: CHOLECALCIFEROL 1,000 UNIT TAB PO SCH (08:30)
[2016-11-20] MEDS: FOLIC ACID 1 MG TAB PO SCH ×2 (08:30→17:30)
[2016-11-20] MEDS: HYDROXYCHLOROQUINE SULFATE 200 MG TAB PO SCH ×2 (08:30→20:24)
[2016-11-20] MEDS: PREGABALIN 100 MG CAP PO SCH ×2 (08:34→20:24)
[2016-11-20 08:58] LABS: Anion Gap 11 mmol/L; Blood Urea Nitrogen 17 mg/dL (7-17); Carbon Dioxide 22 mmol/L (22-30); Chloride 106 mmol/L (98-107); Glucose 91 mg/dL (74-99); Non-African American GFR(MDRD) >60 (>60 ml/min/1.73 sqM); Sodium 139 mmol/L (137-145); Total Bilirubin 0.4 mg/dL (0.2-1.3); Total Protein 5.9 g/dL (6.3-8.2)
[2016-11-20 09:03] LABS: Calcium 8.8 mg/dL (8.4-10.2); Potassium 4.7 mmol/L (3.5-5.1)
[2016-11-20 09:04] LABS: ALT 50 U/L (9-52); AST 43 U/L (14-36); Alkaline Phosphatase 64 U/L (38-126)
[2016-11-20] MEDS: CALCIUM CARBONATE 500 MG CHEWABLE PO SCH (12:32)
[2016-11-20] MEDS: diphenhydrAMINE 2% CREAM 28.4 GM TUBE TOPICAL SCH ×2 (12:33→20:25)
[2016-11-20] MEDS: LACTOBACILLUS ACIDOPH & BULGAR 1 EACH PACKET PO SCH (12:33)
--- NOTE | 2016-11-20 14:13 | P.PN ---
Subjective This is a 61-year-old female patient of Dr. Mendes with past medical history of breast cancer status post right mastectomy with extensive resection to the chest wall into the right axilla area done in 2001 with chronic lymphedema to the right arm, cervical cancer, rheumatoid arthritis currently on methotrexate Nabumetone, osteoarthritis, GERD, COPD, hyperlipidemia, restless leg syndrome. Patient uses a compression pneumatic sleeve for couple hours per day for her lymphedema. Lymphedema to the right upper extremity has been further complicated as she has had 3 right shoulder surgeries. The first being a replacement and then revisions one 3 years ago and then again in December 2015 with chronic use of doxycycline for staph infection under the care of Dr. Snyder. Her orthopedic surgeon is Dr. Galeas at [facility]. She presented in the emergency room secondary sudden onset of pain and swelling to the right arm with redness to the right upper extremity since earlier this morning, it is red hot significantly painful, patient denies any trauma, no fever no chills, she is on methotrexate every Tuesday, followed by Dr. Aceves. Patient was supposed to be on doxycycline 100 mg twice a day as she did have a previous septic arthropathy in the joint right shoulder a year ago. Patient also had a dog that sleeps with her at night which she would be discouraged from doing so from now on, patient reports no foreign travels, Patient was seen in the emergency room with a WBC count of 8.9, venous upper extremity Doppler was pending preliminary noted no DVT, lactic acid normal, patient will be started on vancomycin, daptomycin would be added to regimen, consult with Dr. Snyder 11/19: Patient has been seen by Dr. Snyder and he has continued daptomycin as this has been effective in the past. Patient's arm is elevated and possibly slightly less redness. She is complaining of itching all over for which Benadryl has been added. 11/20: Patient was seen today, she was noted to be resting comfortably in bed. She has complaints of significant pain in her right shoulder and itching in her right arm. X-ray was obtained yesterday of the right shoulder, there is no significant abnormality. There was concern for joint infection due to her shoulder prosthesis, although lactic acid negative and patient remains afebrile. If pain persists, may order CT of the shoulder, will await for ID's recommendations. Blood cultures show no growth to date. She continues on daptomycin 500 mg every 24 hours. For her itching Benadryl cream and Benadryl by mouth ordered. Objective - Vital Signs Vital signs: Vital Signs Temp 97.8 F 11/20/16 07:00 Pulse 91 11/20/16 08:00 Resp 18 11/20/16 08:00 BP 113/68 11/20/16 07:00 Pulse Ox 97 11/20/16 07:00 Intake & Output 11/19/16 11/20/16 11/20/16 18:59 06:59 18:59 Intake Total 350 Balance 350 Intake: Oral 350 Other: Voiding Method Toilet # Voids 2 2 # Bowel Movements 0 - Exam - Exam General appearance: cooperative, no acute distress, obese - EENT Eyes: anicteric sclerae, PERRLA, normal appearance ENT: hearing grossly normal - Neck Neck: no lymphadenopathy, normal ROM, no other, no rigidity, no stridor, no thyromegaly - Respiratory Respiratory: bilateral: CTA, negative: diminished, dullness, rales, rhonchi - Cardiovascular Rhythm: regular Heart sounds: normal: S1, S2 Abnormal Heart Sounds: no systolic murmur, no diastolic murmur, no rub, no S3 Gallop, no S4 Gallop, no click, no other - Gastrointestinal General gastrointestinal: normal bowel sounds, soft - Integumentary Integumentary: cellulitis (Right arm circumferentially up to the right pectoralis involving the entire shoulder joint, forearm upper arms, sparing the fingers and the wrist at site), normal, rash - Neurologic Neurologic: CNII-XII intact - Musculoskeletal Musculoskeletal: gait normal, strength equal bilaterally - Psychiatric Psychiatric: A&O x's 3, appropriate affect - Labs CBC & Chem 7: 11/20/16 07:38 11/20/16 07:38 Labs: Abnormal Lab Results - Last 24 Hours (Table) 11/20/16 11/20/16 Range/Units 07:38 07:38 RBC 3.27 L (3.80-5.40) m/uL Hgb 10.1 L (11.4-16.0) gm/dL Hct 33.1 L (34.0-46.0) % MCV 101.3 H (80.0-100.0) fL MCHC 30.4 L (31.0-37.0) g/dL AST 43 H (14-36) U/L Total Protein 5.9 L (6.3-8.2) g/dL Albumin 3.1 L (3.5-5.0) g/dL Microbiology - Last 24 Hours (Table) 11/18/16 12:07 Blood Culture - Preliminary Blood No Growth after 24 hours 11/18/16 12:07 Urine Culture - Final Urine,Voided Assessment and Plan Plan: 1. Cellulitis of the right arm circumferentially located involving the entire extremity including shoulder and anterior pectoralis region with chronic lymphedema complicated by multiple surgeries to the right shoulder as well as chronic staph infection under the care of Dr. Snyder. Patient has been seen by Dr. Snyder local wound care with Silvadene without wrapping but elevation. Continue Dilaudid IV, IV Toradol but cultures have been sent, no growth to date. Continued lymphedema treatment with diuretics Lasix 40 mg twice a day by mouth, IV daptomycin would be utilized and discontinue vancomycin, as previously documented from last admission for similar complaints. Hemoglobin A1c is 5.3 2. History of right breast cancer status post mastectomy and extensive resection with chronic lymphedema of the right upper extremity. Elevation of upper extremity 3. History of rheumatoid arthritis. He would hold of methotrexate secondary to impaired healing mechanism while in the medication, patient would be started on Plaquenil till infection clears and thereafter resume methotrexate 3- 4 weeks after infection clearance. patient follows with Dr. Aceves. 4. Osteoarthritis, generalized, stable. 5. Gastroesophageal reflux disease and gastrointestinal prophylaxis. Continue Prilosec or Protonix. 6 Mild COPD, stable without exacerbation. 7. Restless leg syndrome. Continue Requip. 8. DVT prophylaxis. Heparin subcu. Patient will be admitted to the hospital for a minimum of 2 night stay. Discharge plan: return home The above impression and plan of care have been discussed and directed by signing physician. Bethany Arce nurse practitioner acting as scribe for signing physician.
[2016-11-20] MEDS: rOPINIRole HCL 4 MG TABLET PO SCH (17:30)
[2016-11-20] MEDS: DAPTOmycin 500 MG in SODIUM CHLORIDE 0.9% 50 ML IV SCH (20:52)
[2016-11-21] MEDS: KETOROLAC 30 MG/ML 1 ML VIAL IVP SCH ×5 (02:13→23:22)
[2016-11-21] MEDS: HYDROmorphone 1 MG/ML 1 ML SYRINGE IVP PRN ×4 (02:41→19:59)
[2016-11-21] MEDS: FUROSEMIDE 40 MG TAB PO SCH ×2 (06:37→17:07)
[2016-11-21 07:49] LABS: Basophils % (A) 0 %; CH 29.4; CHCM 29.7; Eosinophils # (A) 0.2 k/uL (0-0.7); Eosinophils % (A) 4 %; HCT 33.3 % (34.0-46.0); HDW 2.17; HGB 10.3 gm/dL (11.4-16.0); Hypochromasia Marked; Luc # (Auto) 0.17; Luc % (Auto) 4; Lymphocytes % (A) 24 %; MCH 30.8 pg (25.0-35.0); MCV 99.5 fL (80.0-100.0); Mean Platelet Volume 6.6; Monocytes # (A) 0.3 k/uL (0-1.0); Monocytes % (A) 6 %; Neutrophils # (A) 2.7 k/uL (1.3-7.7); Neutrophils % (A) 62 %; RBC 3.34 m/uL (3.80-5.40); RDW 14.2 % (11.5-15.5); WBC 4.4 k/uL (3.8-10.6); WBC (Perox) 4.72
[2016-11-21 08:16] LABS: Anion Gap 9 mmol/L; Blood Urea Nitrogen 16 mg/dL (7-17); Calcium 8.9 mg/dL (8.4-10.2); Carbon Dioxide 28 mmol/L (22-30); Chloride 104 mmol/L (98-107); Glucose 89 mg/dL (74-99); Non-African American GFR(MDRD) >60 (>60 ml/min/1.73 sqM); Potassium 4.6 mmol/L (3.5-5.1); Sodium 141 mmol/L (137-145)
[2016-11-21] MEDS: ATORVASTATIN 40 MG TAB PO SCH (09:17)
[2016-11-21] MEDS: HYDROXYCHLOROQUINE SULFATE 200 MG TAB PO SCH ×2 (09:17→19:59)
[2016-11-21] MEDS: DULoxetine HCL 60 MG CAPSULE.DR PO SCH ×2 (09:17→19:59)
[2016-11-21] MEDS: diphenhydrAMINE 2% CREAM 28.4 GM TUBE TOPICAL SCH ×2 (09:18→20:00)
[2016-11-21] MEDS: PREGABALIN 100 MG CAP PO SCH ×2 (09:22→19:59)
[2016-11-21] MEDS ORDERED: RX INFO: IV CONTRAST WAS GIVEN 1 EACH MISC MISCELLANE PRN (10:59)
[2016-11-21] MEDS: CALCIUM CARBONATE 500 MG CHEWABLE PO SCH (12:30)
[2016-11-21] MEDS: FOLIC ACID 1 MG TAB PO SCH ×2 (12:30→17:07)
--- NOTE | 2016-11-21 12:30 | P.PN ---
Subjective This is a 61-year-old female patient of Dr. Mendes with past medical history of breast cancer status post right mastectomy with extensive resection to the chest wall into the right axilla area done in 2001 with chronic lymphedema to the right arm, cervical cancer, rheumatoid arthritis currently on methotrexate Nabumetone, osteoarthritis, GERD, COPD, hyperlipidemia, restless leg syndrome. Patient uses a compression pneumatic sleeve for couple hours per day for her lymphedema. Lymphedema to the right upper extremity has been further complicated as she has had 3 right shoulder surgeries. The first being a replacement and then revisions one 3 years ago and then again in December 2015 with chronic use of doxycycline for staph infection under the care of Dr. Snyder. Her orthopedic surgeon is Dr. Galeas at [facility]. She presented in the emergency room secondary sudden onset of pain and swelling to the right arm with redness to the right upper extremity since earlier this morning, it is red hot significantly painful, patient denies any trauma, no fever no chills, she is on methotrexate every Tuesday, followed by Dr. Aceves. Patient was supposed to be on doxycycline 100 mg twice a day as she did have a previous septic arthropathy in the joint right shoulder a year ago. Patient also had a dog that sleeps with her at night which she would be discouraged from doing so from now on, patient reports no foreign travels, Patient was seen in the emergency room with a WBC count of 8.9, venous upper extremity Doppler was pending preliminary noted no DVT, lactic acid normal, patient will be started on vancomycin, daptomycin would be added to regimen, consult with Dr. Snyder 11/19: Patient has been seen by Dr. Snyder and he has continued daptomycin as this has been effective in the past. Patient's arm is elevated and possibly slightly less redness. She is complaining of itching all over for which Benadryl has been added. 11/20: Patient was seen today, she was noted to be resting comfortably in bed. She has complaints of significant pain in her right shoulder and itching in her right arm. X-ray was obtained yesterday of the right shoulder, there is no significant abnormality. There was concern for joint infection due to her shoulder prosthesis, although lactic acid negative and patient remains afebrile. If pain persists, may order CT of the shoulder, will await for ID's recommendations. Blood cultures show no growth to date. She continues on daptomycin 500 mg every 24 hours. For her itching Benadryl cream and Benadryl by mouth ordered. 11/21: Patient was evaluated today, she is noted to be resting in bed, in no acute distress. She complains of worsening pain in her right shoulder, her range of motion has decreased significantly from yesterday. CT of shoulder was ordered and is pending, depending on the results, she may need an orthopedic consult. She remains afebrile and blood cultures show no growth today. She'll continue on the daptomycin. Objective - Vital Signs Vital signs: Vital Signs Temp 97.6 F 11/21/16 07:00 Pulse 78 11/21/16 07:00 Resp 18 11/21/16 07:00 BP 143/79 11/21/16 07:00 Pulse Ox 96 11/21/16 07:00 Intake & Output 11/20/16 11/21/16 11/21/16 18:59 06:59 18:59 Intake Total 650 Balance 650 Intake: Oral 650 Other: Voiding Method Toilet Toilet # Voids 1 1 # Bowel Movements 0 - Exam - Exam General appearance: cooperative, no acute distress, obese - EENT Eyes: anicteric sclerae, PERRLA, normal appearance ENT: hearing grossly normal - Neck Neck: no lymphadenopathy, normal ROM, no other, no rigidity, no stridor, no thyromegaly - Respiratory Respiratory: bilateral: CTA, negative: diminished, dullness, rales, rhonchi - Cardiovascular Rhythm: regular Heart sounds: normal: S1, S2 Abnormal Heart Sounds: no systolic murmur, no diastolic murmur, no rub, no S3 Gallop, no S4 Gallop, no click, no other - Gastrointestinal General gastrointestinal: normal bowel sounds, soft - Integumentary Integumentary: cellulitis (Right arm circumferentially up to the right pectoralis involving the entire shoulder joint, forearm upper arms, sparing the fingers and the wrist at site), normal, rash - Neurologic Neurologic: CNII-XII intact - Musculoskeletal Musculoskeletal: gait normal, strength equal bilaterally - Psychiatric Psychiatric: A&O x's 3, appropriate affect - Labs CBC & Chem 7: 11/21/16 07:25 11/21/16 07:25 Labs: Abnormal Lab Results - Last 24 Hours (Table) 11/21/16 Range/Units 07:25 RBC 3.34 L (3.80-5.40) m/uL Hgb 10.3 L (11.4-16.0) gm/dL Hct 33.3 L (34.0-46.0) % Microbiology - Last 24 Hours (Table) 11/18/16 12:07 Blood Culture - Preliminary Blood No Growth after 48 hours Assessment and Plan Plan: 1. Cellulitis of the right arm circumferentially located involving the entire extremity including shoulder and anterior pectoralis region with chronic lymphedema complicated by multiple surgeries to the right shoulder as well as chronic staph infection under the care of Dr. Snyder. Patient has been seen by Dr. Snyder local wound care with Silvadene without wrapping but elevation. Continue Dilaudid IV, IV Toradol but cultures have been sent, no growth to date. Continued lymphedema treatment with diuretics Lasix 40 mg twice a day by mouth, IV daptomycin would be utilized and discontinue vancomycin, as previously documented from last admission for similar complaints. Hemoglobin A1c is 5.3. CT of right shoulder ordered for increased pain and decreased range of motion, may need orthopedic consult. 2. History of right breast cancer status post mastectomy and extensive resection with chronic lymphedema of the right upper extremity. Elevation of upper extremity 3. History of rheumatoid arthritis. He would hold of methotrexate secondary to impaired healing mechanism while in the medication, patient would be started on Plaquenil till infection clears and thereafter resume methotrexate 3- 4 weeks after infection clearance. patient follows with Dr. Aceves. 4. Osteoarthritis, generalized, stable. 5. Gastroesophageal reflux disease and gastrointestinal prophylaxis. Continue Prilosec or Protonix. 6 Mild COPD, stable without exacerbation. 7. Restless leg syndrome. Continue Requip. 8. DVT prophylaxis. Heparin subcu. Patient will be admitted to the hospital for a minimum of 2 night stay. Discharge plan: return home The above impression and plan of care have been discussed and directed by signing physician. Bethany Arce nurse practitioner acting as scribe for signing physician.
[2016-11-21] MEDS: CHOLECALCIFEROL 1,000 UNIT TAB PO SCH (12:31)
[2016-11-21] MEDS: ASCORBIC ACID 500 MG TAB PO SCH (12:31)
[2016-11-21] MEDS: LACTOBACILLUS ACIDOPH & BULGAR 1 EACH PACKET PO SCH (12:31)
--- NOTE | 2016-11-21 13:29 | CT ---
EXAMINATION TYPE: CT shoulder RT w con DATE OF EXAM: 11/21/2016 COMPARISON: NONE HISTORY: rt shoulder staff infection/cellulitis/sx over 2 yrs ago-issues since sx CT DLP: 450.30 mGycm Automated exposure control for dose reduction was used. CONTRAST: Performed with IV Contrast, patient injected with 100 mL of Omnipaque 300. FINDINGS: There is a left shoulder hemiarthroplasty in place. There has been survey is remodeling of the right humeral head. There is a metallic pin in place. There are severe degenerative changes in the right glenohumeral joint. There is widening of the gleno id fossa there is decentering of the remodeled humeral head which is abutting the acromion the unders urface of the acromion is scalloped. No definite bony destructive lesion is seen. There is evidence o f a prominent anterior scar involving the shoulder. There is no abnormal fluid collection or air with in the soft tissues to suggest abscess. IMPRESSION: 1. EXTENSIVE POSTSURGICAL CHANGE. 2. EVIDENCE OF ROTATOR CUFF DISEASE. 3. PROMINENT SCAR IN THE ANTERIOR FIBERS OF THE SHOULDER. 4. NO DEFINITE EVIDENCE OF INFECTION OR ABSCESS.
[2016-11-21] MEDS: rOPINIRole HCL 4 MG TABLET PO SCH (17:07)
[2016-11-21] MEDS: DAPTOmycin 500 MG in SODIUM CHLORIDE 0.9% 50 ML IV SCH (19:21)
[2016-11-22] MEDS: KETOROLAC 30 MG/ML 1 ML VIAL IVP SCH ×2 (06:26→11:27)
[2016-11-22] MEDS: FUROSEMIDE 40 MG TAB PO SCH (06:26)
[2016-11-22 07:44] VITALS: RESP 18
[2016-11-22 08:09] LABS: Anion Gap 7 mmol/L; Blood Urea Nitrogen 15 mg/dL (7-17); Calcium 9.1 mg/dL (8.4-10.2); Carbon Dioxide 31 mmol/L (22-30); Chloride 101 mmol/L (98-107); Glucose 92 mg/dL (74-99); Non-African American GFR(MDRD) >60 (>60 ml/min/1.73 sqM); Potassium 4.8 mmol/L (3.5-5.1); Sodium 139 mmol/L (137-145)
[2016-11-22] MEDS: DULoxetine HCL 60 MG CAPSULE.DR PO SCH (09:28)
[2016-11-22] MEDS: HYDROXYCHLOROQUINE SULFATE 200 MG TAB PO SCH (09:28)
[2016-11-22] MEDS: ATORVASTATIN 40 MG TAB PO SCH (09:28)
[2016-11-22] MEDS: diphenhydrAMINE 2% CREAM 28.4 GM TUBE TOPICAL SCH (09:29)
[2016-11-22] MEDS: PREGABALIN 100 MG CAP PO SCH (09:32)
[2016-11-22] MEDS ORDERED: oxyCODONE-APAP 7.5-325MG 1 EACH TAB PO PRN (11:21)
[2016-11-22] MEDS: ASCORBIC ACID 500 MG TAB PO SCH (11:26)
[2016-11-22] MEDS: LACTOBACILLUS ACIDOPH & BULGAR 1 EACH PACKET PO SCH (11:26)
[2016-11-22] MEDS: CHOLECALCIFEROL 1,000 UNIT TAB PO SCH (11:26)
[2016-11-22] MEDS: CALCIUM CARBONATE 500 MG CHEWABLE PO SCH (11:26)
[2016-11-22] MEDS: FOLIC ACID 1 MG TAB PO SCH (11:26)
--- NOTE | 2016-11-22 14:34 | P.DS ---
Providers Date of admission: 11/18/16 13:04 Expected date of discharge: 11/22/16 Attending physician: Almaz Lucas MD Consults: 11/18/16 13:06 Consult Physician Routine Consulting Provider: Joe Snyder Consult Reason/Comments: Cellulitis Do you want consulting provider notified?: Yes [facility] Course: This is a 61-year-old female patient of Dr. Mendes with past medical history of breast cancer status post right mastectomy with extensive resection to the chest wall into the right axilla area done in 2001 with chronic lymphedema to the right arm, cervical cancer, rheumatoid arthritis currently on methotrexate Nabumetone, osteoarthritis, GERD, COPD, hyperlipidemia, restless leg syndrome. Patient uses a compression pneumatic sleeve for couple hours per day for her lymphedema. Lymphedema to the right upper extremity has been further complicated as she has had 3 right shoulder surgeries. The first being a replacement and then revisions one 3 years ago and then again in December 2015 with chronic use of doxycycline for staph infection under the care of Dr. Snyder. Her orthopedic surgeon is Dr. Galeas at [facility]. She presented in the emergency room secondary sudden onset of pain and swelling to the right arm with redness to the right upper extremity since earlier this morning, it is red hot significantly painful, patient denies any trauma, no fever no chills, she is on methotrexate every Tuesday, followed by Dr. Aceves. Patient was supposed to be on doxycycline 100 mg twice a day as she did have a previous septic arthropathy in the joint right shoulder a year ago. Patient also had a dog that sleeps with her at night which she would be discouraged from doing so from now on, patient reports no foreign travels, Patient was seen in the emergency room with a WBC count of 8.9, venous upper extremity Doppler was pending preliminary noted no DVT, lactic acid normal, patient will be started on vancomycin, daptomycin would be added to regimen, consult with Dr. Snyder 11/19: Patient has been seen by Dr. Snyder and he has continued daptomycin as this has been effective in the past. Patient's arm is elevated and possibly slightly less redness. She is complaining of itching all over for which Benadryl has been added. 11/20: Patient was seen today, she was noted to be resting comfortably in bed. She has complaints of significant pain in her right shoulder and itching in her right arm. X-ray was obtained yesterday of the right shoulder, there is no significant abnormality. There was concern for joint infection due to her shoulder prosthesis, although lactic acid negative and patient remains afebrile. If pain persists, may order CT of the shoulder, will await for ID's recommendations. Blood cultures show no growth to date. She continues on daptomycin 500 mg every 24 hours. For her itching Benadryl cream and Benadryl by mouth ordered. 11/21: Patient was evaluated today, she is noted to be resting in bed, in no acute distress. She complains of worsening pain in her right shoulder, her range of motion has decreased significantly from yesterday. CT of shoulder was ordered and is pending, depending on the results, she may need an orthopedic consult. She remains afebrile and blood cultures show no growth today. She'll continue on the daptomycin. 11/22: Erythema to her right arm is much improved. She is hoping to go home today. CAT scan of the shoulder reveals extensive postsurgical change, evidence of rotator cuff disease, prominent scar in the anterior fibers of the shoulder, no definite evidence of infection or abscess. Recommended the patient follow up with orthopedic surgeon regarding the rotator cuff disease. Dr. Snyder will assess and determine antibiotics for home. Patient is requesting Percocet for home which will be provided. Discharge diagnoses: 1. Cellulitis of the right arm circumferentially located involving the entire extremity including shoulder and anterior pectoralis region with chronic lymphedema complicated by multiple surgeries to the right shoulder as well as chronic staph infection under the care of Dr. Snyder. 2. History of right breast cancer status post mastectomy and extensive resection with chronic lymphedema of the right upper extremity. 3. History of rheumatoid arthritis. 4. Osteoarthritis, generalized, stable. 5. Gastroesophageal reflux disease and gastrointestinal prophylaxis. 6 Mild COPD, stable without exacerbation. 7. Restless leg syndrome. Discharge plan: return home Impression and plan of care have been directed as dictated by the signing physician. Shania Pozo nurse practitioner acting as scribe for signing physician. Patient Condition at Discharge: Stable Plan - Discharge Summary New Discharge Prescriptions: New SILVER sulfADIAZINE CREAM [Silvadene Cream] 1 applic TOPICAL BID #1 tube oxyCODONE-APAP 10-325MG [Percocet 10-325 mg] 1 tab PO Q6HR PRN #30 tab PRN Reason: Pain Continue HYDROcodone/APAP 10-325MG [[place] 10-325] 1 tab PO BID PRN PRN Reason: Pain rOPINIRole HCL [Requip] 5 mg PO DAILY@1700 Pregabalin [Lyrica] 200 mg PO BID DULoxetine HCL [Cymbalta] 60 mg PO BID Atorvastatin [Lipitor] 40 mg PO DAILY Furosemide [Lasix] 40 mg PO BID Calcium Carbonate [Calcium] 1,200 mg PO DAILY [place]-3 Fatty Acids/Fish Oil [Fish Oil 1,000 mg Softgel] 1 cap PO DAILY L.acidoph,Paracasei, B.lactis [Probiotic] 1 cap PO DAILY Cholecalciferol [Vitamin D3] 5,000 unit PO DAILY Ubidecarenone [Co Q-10] 200 mg PO DAILY Magnesium Gluconate [Magonate] 500 mg PO DAILY Garlic 1 tab PO DAILY Ascorbic Acid [Vitamin C] 1,000 mg PO DAILY Multivitamins, Thera [Multivitamin (formulary)] 1 tab PO DAILY Biotin 5 mg PO BID Doxycycline Hyclate 100 mg PO BID Potassium Chloride [Klor-Con 10] 10 meq PO BID Folic Acid 1 mg PO BID Turmeric Root Extract [Turmeric] 750 mg PO DAILY Methotrexate Sodium [Methotrexate] 12.5 mg PO TU Meloxicam 7.5 mg PO BID Discharge Medication List Atorvastatin [Lipitor] 40 mg PO DAILY 11/14/14 [History] DULoxetine HCL [Cymbalta] 60 mg PO BID 11/14/14 [History] Furosemide [Lasix] 40 mg PO BID 11/14/14 [History] HYDROcodone/APAP 10-325MG [[place] 10-325] 1 tab PO BID PRN 11/14/14 [History] Pregabalin [Lyrica] 200 mg PO BID 11/14/14 [History] rOPINIRole HCL [Requip] 5 mg PO DAILY@1700 11/14/14 [History] Ascorbic Acid [Vitamin C] 1,000 mg PO DAILY 06/22/16 [History] Biotin 5 mg PO BID 06/22/16 [History] Calcium Carbonate [Calcium] 1,200 mg PO DAILY 06/22/16 [History] Cholecalciferol [Vitamin D3] 5,000 unit PO DAILY 06/22/16 [History] Garlic 1 tab PO DAILY 06/22/16 [History] L.acidoph,Paracasei, B.lactis [Probiotic] 1 cap PO DAILY 06/22/16 [History] Magnesium Gluconate [Magonate] 500 mg PO DAILY 06/22/16 [History] Multivitamins, Thera [Multivitamin (formulary)] 1 tab PO DAILY 06/22/16 [History ] [place]-3 Fatty Acids/Fish Oil [Fish Oil 1,000 mg Softgel] 1 cap PO DAILY [History] Ubidecarenone [Co Q-10] 200 mg PO DAILY 06/22/16 [History] Doxycycline Hyclate 100 mg PO BID 10/26/16 [History] Folic Acid 1 mg PO BID 10/26/16 [History] Methotrexate Sodium [Methotrexate] 12.5 mg PO TU 10/26/16 [History] Potassium Chloride [Klor-Con 10] 10 meq PO BID 10/26/16 [History] Turmeric Root Extract [Turmeric] 750 mg PO DAILY 10/26/16 [History] Meloxicam 7.5 mg PO BID 11/18/16 [History] SILVER sulfADIAZINE CREAM [Silvadene Cream] 1 applic TOPICAL BID #1 tube [Rx] oxyCODONE-APAP 10-325MG [Percocet 10-325 mg] 1 tab PO Q6HR PRN #30 tab 11/22/16 [Rx] Follow up Appointment(s)/Referral(s): Eliud Mendes MD [Primary Care Provider] - 1 Week Joe Snyder MD [STAFF PHYSICIAN] - 2 Weeks Discharge Disposition: HOME SELF-CARE
[2016-11-22 15:27] VITALS: BP 139/75; PULSE 84; TEMP 97.9
--- NOTE | 2016-11-22 20:28 | P.PN ---
Subjective Principal diagnosis: Cellulitis right arm 67-year-old female chronically has lymphedema to the right arm. She utilize compression garment to the arm daily.. A compression pneumatic sleeve for a couple hours per day is usually used also. She does not recall any specific injury to her hand or arm. No change of any activities. Despite this she had the sudden onset of pain and swelling to the right arm. With dense erythema. Significant discomfort. Also had the sudden onset of fever and chills She contacted her primary care physician was originally advised to present to the emergency center. Upon arrival evidence of the dense cellulitis of the right upper extremity was noted and she was admitted. With this the infectious diseases consultation was requested. This pleasant woman has a known history of breast carcinoma and with the extensive surgical treatment which is the radical mastectomy to the right is resulted in the chronic lymphedema and recurrent episodes of cellulitis. She has been on chronic Suppressive therapy with doxycycline. Despite that his had a breakthrough infection at this time. She feels quite poorly. She's had fever as well as some headache. She is however is denying nausea or emesis. She is feeling considerably better today. Fevers and chills have resolved. She looks forward to going home. Objective - Vital Signs Vital signs: Vital Signs Temp 97.9 F 11/22/16 15:00 Pulse 84 11/22/16 15:00 Resp 18 11/22/16 15:22 BP 139/75 11/22/16 15:00 Pulse Ox 96 11/22/16 15:00 Intake & Output 11/22/16 11/22/16 11/23/16 06:59 18:59 06:59 Other: Voiding Method Toilet # Voids 1 4 - Exam 61-year-old woman is quite uncomfortable. HEENT: Anicteric conjunctiva are pink and moist nasal mucosa grossly intact without significant lesions, there is no thrush. Neck: The neck is supple without significant lymphadenopathy or thyromegaly. Lungs: Good bilateral air entry without significant crackles or wheezing. There is no significant bronchial sounds. There is no egophony or dullness. Heart: Regular rate and rhythm with an audible S1-S2, no S3 no S4. There is no significant murmur click or rub, PMI was nondisplaced. Abdomen: Positive bowel sounds soft and nontender without palpable masses or organomegaly. There was no guarding or rebound. Extremities: The left upper extremity have excellent pulses they are symmetric, no significant petechiae or telangiectasia. No splinter hemorrhages were noted. The lower extremities trace edema The peripheral pulses were 2+ and symmetric. The right upper extremity reveals evidence of the extensive and massive lymphedema. There is evidence of resolution of the erythema The right upper extremity erythema, warmth, and tenderness of all resolved She continues to have some discomfort in her right shoulder. There is bilateral lower extremity edema that is nontender. Neuro: Awake alert oriented to person place and time. There are no acute new gross focal sensory motor deficits. - Labs CBC & Chem 7: 11/21/16 07:25 11/22/16 07:13 Labs: Abnormal Lab Results - Last 24 Hours (Table) 11/22/16 Range/Units 07:13 Carbon Dioxide 31 H (22-30) mmol/L Microbiology - Last 24 Hours (Table) 11/18/16 12:07 Blood Culture - Preliminary Blood No Growth after 96 hours Laboratory Results WBC 4.4 k/uL (3.8-10.6) 11/21/16 07:25 RBC 3.34 m/uL (3.80-5.40) L 11/21/16 07:25 Hgb 10.3 gm/dL (11.4-16.0) L 11/21/16 07:25 Hct 33.3 % (34.0-46.0) L 11/21/16 07:25 MCV 99.5 fL (80.0-100.0) 11/21/16 07:25 MCH 30.8 pg (25.0-35.0) 11/21/16 07:25 MCHC 31.0 g/dL (31.0-37.0) 11/21/16 07:25 RDW 14.2 % (11.5-15.5) 11/21/16 07:25 Plt Count 266 k/uL (150-450) 11/21/16 07:25 Neutrophils % 62 % 11/21/16 07:25 Lymphocytes % 24 % 11/21/16 07:25 Monocytes % 6 % 11/21/16 07:25 Eosinophils % 4 % 11/21/16 07:25 Basophils % 0 % 11/21/16 07:25 Neutrophils # 2.7 k/uL (1.3-7.7) 11/21/16 07:25 Lymphocytes # 1.0 k/uL (1.0-4.8) 11/21/16 07:25 Monocytes # 0.3 k/uL (0-1.0) 11/21/16 07:25 Eosinophils # 0.2 k/uL (0-0.7) 11/21/16 07:25 Basophils # 0.0 k/uL (0-0.2) 11/21/16 07:25 Hypochromasia Marked 11/21/16 07:25 Macrocytosis Slight 11/20/16 07:38 ESR 24 mm/hr (0-20) H 11/18/16 12:07 PT 10.3 sec (9.0-12.0) 11/18/16 12:07 INR 1.0 (<1.2) 11/18/16 12:07 APTT 23.5 sec (22.0-30.0) 11/18/16 12:07 Sodium 139 mmol/L (137-145) 11/22/16 07:13 Potassium 4.8 mmol/L (3.5-5.1) 11/22/16 07:13 Chloride 101 mmol/L (98-107) 11/22/16 07:13 Carbon Dioxide 31 mmol/L (22-30) H 11/22/16 07:13 Anion Gap 7 mmol/L 11/22/16 07:13 BUN 15 mg/dL (7-17) 11/22/16 07:13 Creatinine 0.72 mg/dL (0.52-1.04) 11/22/16 07:13 Est GFR (MDRD) Af Amer >60 (>60 ml/min/1.73 sqM) 11/22/16 07:13 Est GFR (MDRD) Non-Af >60 (>60 ml/min/1.73 sqM) 11/22/16 07:13 Glucose 92 mg/dL (74-99) 11/22/16 07:[address] Glu mg/dL 105 mg/dL 11/19/16 08:35 Hemoglobin A1c 5.3 % (4.2-6.1) 11/19/16 08:35 Plasma Lactic Acid Jesus 1.0 mmol/L (0.7-2.0) 11/18/16 12:07 Calcium 9.1 mg/dL (8.4-10.2) 11/22/16 07:13 Total Bilirubin 0.4 mg/dL (0.2-1.3) 11/20/16 07:38 AST 43 U/L (14-36) H 11/20/16 07:38 ALT 50 U/L (9-52) 11/20/16 07:38 Alkaline Phosphatase 64 U/L (38-126) 11/20/16 07:38 C-Reactive Protein 79.4 mg/L (<10.0) H 11/18/16 12:07 Total Protein 5.9 g/dL (6.3-8.2) L 11/20/16 07:38 Albumin 3.1 g/dL (3.5-5.0) L 11/20/16 07:38 Urine Color Yellow 11/18/16 12:07 Urine Appearance Clear (Clear) 11/18/16 12:07 Urine pH 6.5 (5.0-8.0) 11/18/16 12:07 Ur Specific [place] 1.008 (1.001-1.035) 11/18/16 12:07 Urine Protein Negative (Negative) 11/18/16 12:07 Urine Glucose (UA) Negative (Negative) 11/18/16 12:07 Urine Ketones Negative (Negative) 11/18/16 12:07 Urine Blood Negative (Negative) 11/18/16 12:07 Urine Nitrite Negative (Negative) 11/18/16 12:07 Urine Bilirubin Negative (Negative) 11/18/16 12:07 Urine Urobilinogen <2.0 mg/dL (<2.0) 11/18/16 12:07 Ur Leukocyte Esterase Negative (Negative) 11/18/16 12:07 Microbiology 11/18/16 12:07 Blood Blood Culture - Preliminary No Growth after 96 hours 11/18/16 12:07 Urine,Voided Urine Culture - Final Assessment and Plan (1) Acute lymphangitis of right upper limb Narrative/Plan: 61-year-old female presents emergency center after the sudden onset of significant pain swelling and erythema to her right upper extremity. This is the area that has had great difficulties in the past status post her radical mastectomy and right axillary lymph node dissection. She has chronic lymphedema. She does utilize multiple endeavors that include elevation, a compression sleeve, pneumatic compression sleeve for the arm. She does not recall any specific trauma but had a sudden onset of significant increasing pain and erythema to the right arm associated with fever. She Cozens presented to the emergency center and has been admitted for the extensive cellulitis and ascending lymphangitis of the right arm onto the anterior chest wall. She responds usually well to daptomycin therapy and this is been initiated. Blood cultures are in progress. Local therapy with Silvadene has been requested to try to improve her level of discomfort. She is having distinct headache and Fioricet as requested. Fortunately lactic acid was only 1.0 at admission. Her CRP was markedly elevated at 79.4 as expected for her acute infectious process. Urinalysis is negative. She has no pulmonary symptoms. CT of this shoulder was performed with evidence of postsurgical changes, no evidence of infection or abscess, significant rotator cuff disease was seen in a prominent scar anteriorly. It is time she is improved. We'll change her from intravenous antibiotic therapy to oral therapy with moxifloxacin 400 mg a day She should resume utilizing her multiple compression modalities at home and arm elevation. She'll follow with her shoulder surgeon Dr. Galaes as an outpatient. Status: Acute (2) Lymphedema of right upper extremity Status: Acute (3) History of carcinoma in situ of breast Status: Acute (4) Fever Status: Acute (5) Headache Status: Acute
== END 2016-11-22 17:01 | disposition home or self-care (01) | DRG 603 ==
LOC: EC 10:45 → 4MS4W 13:04
PROVIDERS: ADMIT Internal Medicine; ATTEND Internal Medicine
DX: L03.113 Cellulitis of right upper limb (principal); G62.9 Polyneuropathy, unspecified; J44.9 Chronic obstructive pulmonary disease, unspecified; I97.2 Postmastectomy lymphedema syndrome; M06.9 Rheumatoid arthritis, unspecified; M15.9 Polyosteoarthritis, unspecified; E78.5 Hyperlipidemia, unspecified; L29.9 Pruritus, unspecified; K21.9 Gastro-esophageal reflux disease without esophagitis; M79.7 Fibromyalgia; T45.1X5A Adverse effect of antineoplastic and immunosuppressive drugs, initial encounter; G25.81 Restless legs syndrome; Z90.11 Acquired absence of right breast and nipple; Z85.3 Personal history of malignant neoplasm of breast; Z85.41 Personal history of malignant neoplasm of cervix uteri; Z96.611 Presence of right artificial shoulder joint; Z90.710 Acquired absence of both cervix and uterus; Z87.891 Personal history of nicotine dependence; Z79.1 Long term (current) use of non-steroidal anti-inflammatories (NSAID); Z79.899 Other long term (current) drug therapy; Z88.1 Allergy status to other antibiotic agents; Z91.040 Latex allergy status; Z88.5 Allergy status to narcotic agent; Z88.2 Allergy status to sulfonamides; Z91.048 Other nonmedicinal substance allergy status
CPT/HCPCS: 36415; 80048; 80053; 81003; 83036; 83605; 85025; 85610; 85652; 85730; 86140; 87040; 87086; 93005; 96365; 96366; 96368; 96375; 99284

== ENCOUNTER → 2016-12-27 | Outpatient (CLI) | payer MEDICARE, BC ==
[2016-12-24 14:44] VITALS: BMI 31.5
[2016-12-27 14:29] VITALS: BP 139/103; PULSE 127; RESP 16; TEMP 97.8
--- NOTE | 2016-12-27 20:48 | P.CONS ---
History of Present Illness - Reason for Consult Consult date: 12/27/16 - History of Present Illness This is 61 years old female with a chronic history of severe right shoulder pain , status post multiple shoulder surgery/right shoulder replacement, with complications and infection in her right shoulder, and agreed to start infection also patient had history of right breast cancer status post mastectomy and some complication with lymphedema in her right upper extremity, patient had chemo therapy she had some numbness and tingling sensation in her lower extremity, also she is complaining of severe low back pain, patient was evaluated by different pain clinic Dr. Chris pratt and he recommended MRI for the lumbar spine, was not done yet, patient reported that the pain in the low back area is constant and increased with any activity, also patient complaining of severe numbness and tingling sensation in her feet, patient currently on pain medication Lyrica 200 mg twice a day Cymbalta 60 mg twice a day Mobic 7.5 mg twice a day, and Percocet 10/325 every 6 hours, (he was given prescription for fentanyl patch but she is not started it yet ) , she denies any motor or sensory deficit she denies any change in the bowel movement or urination Past Medical History Past Medical History: Cancer, COPD, Fibromyalgia, GERD/Reflux, Hyperlipidemia, Osteoarthritis (OA), Rheumatoid Arthritis (RA) Additional Past Medical History / Comment(s): 2001 R breast cancer with mastectomy and chemo, chronic R arm lymphedema, R arm cellulitis-now resolved, 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 History of Any Multi-Drug Resistant Organisms: None Reported Past Surgical History: Appendectomy, Breast Surgery, Cholecystectomy, Hysterectomy, Joint Replacement, Orthopedic Surgery Additional Past Surgical History / Comment(s): 10/28/16 colonoscopy, RIGHT MASTECTOMY, RIGHT TOTAL SHOULDER REPLACEMENT followed by revisions, I&Ds of R shoulder, picc line insertion-since removed, LT ROTATOR CUFF REPAIR, bilateral salpingo oophorectomy due to cysts. Past Anesthesia/Blood Transfusion Reactions: No Reported Reaction Smoking Status: Former smoker - Past Family History Sister(s) Additional Family Medical History / Comment(s): Patient has one sister with AICD implantation. Brother(s) Additional Family Medical History / Comment(s): Patient has 4 brothers. One has from alcoholism at age 55. One brother has small cell lung carcinoma. 1 is diabetic. One brother she has no contact with. Mother Family Medical History: Cancer, Diabetes Mellitus, Deep Vein Thrombosis (DVT) Additional Family Medical History / Comment(s): Breast cancer. Mother in her 60's with cause unknown. Father Family Medical History: Cancer Additional Family Medical History / Comment(s): Father of colon cancer in his 60s. Medications and Allergies Home Medications Medication Instructions Recorded Confirmed Type Atorvastatin [Lipitor] 40 mg PO DAILY 11/14/14 12/27/16 History DULoxetine HCL [Cymbalta] 60 mg PO BID 11/14/14 12/27/16 History Furosemide [Lasix] 40 mg PO DAILY 11/14/14 12/27/16 History Pregabalin [Lyrica] 200 mg PO BID 11/14/14 12/27/16 History rOPINIRole HCL [Requip] 5 mg PO DAILY@1700 11/14/14 12/27/16 History Ascorbic Acid [Vitamin C] 1,000 mg PO DAILY 06/22/16 12/27/16 History Biotin 5 mg PO BID 06/22/16 12/27/16 History Calcium Carbonate [Calcium] 1,200 mg PO DAILY 06/22/16 12/27/16 History Cholecalciferol [Vitamin D3] 5,000 unit PO DAILY 06/22/16 12/27/16 History Garlic 1 tab PO DAILY 06/22/16 12/27/16 History L.acidoph,Paracasei, B.lactis 1 cap PO DAILY 06/22/16 12/27/16 History [Probiotic] Magnesium Gluconate [Magonate] 500 mg PO DAILY 06/22/16 12/27/16 History Multivitamins, Thera [Multivitamin 1 tab PO DAILY 06/22/16 12/27/16 History (formulary)] [place]-3 Fatty Acids/Fish Oil [Fish 1 cap PO DAILY 06/22/16 12/27/16 History Oil 1,000 mg Softgel] Ubidecarenone [Co Q-10] 200 mg PO DAILY 06/22/16 12/27/16 History Folic Acid 1 mg PO BID 10/26/16 12/27/16 History Methotrexate Sodium [Methotrexate] 12.5 mg PO TU 10/26/16 12/27/16 History Potassium Chloride [Klor-Con 10] 10 meq PO BID 10/26/16 12/27/16 History Turmeric Root Extract [Turmeric] 750 mg PO DAILY 10/26/16 12/27/16 History Meloxicam 7.5 mg PO BID 11/18/16 12/27/16 History oxyCODONE-APAP 10-325MG [Percocet 1 tab PO Q6HR PRN #30 tab 11/22/16 12/27/16 Rx 10-325 mg] Albuterol Nebulized [Ventolin 2.5 mg INHALATION DAILY 12/24/16 12/27/16 History Nebulized] Omeprazole [PriLOSEC] 20 mg PO AC-BRKFST 12/24/16 12/27/16 History Ciprofloxacin HCl [Cipro] 500 mg PO BID 12/27/16 12/27/16 History fentaNYL 25MCG/HR PATCH [Duragesic 25 mcg TOPICAL Q72H 12/27/16 12/27/16 History 25MCG/HR] Allergies Allergy/AdvReac Type Severity Reaction Status Date / Time latex Allergy Rash/Hives Verified 12/27/16 14:09 nickel Allergy Rash/Hives Verified 12/27/16 14:09 Sulfa (Sulfonamide Allergy Rash/Hives Verified 12/27/16 14:09 Antibiotics) morphine AdvReac Rash/Hives Verified 12/27/16 14:09 Physical Exam Vitals: Vital Signs Temp Pulse Resp BP Pulse Ox 12/27/16 14:14 97.8 F 127 H 16 139/103 97 Social history : not smoker , NO ETOH , NO Illegal drugs use . Family history : , positive for cancer Review of Systems : 1- Constitutional : no chills , no fever , no night sweats , 2- Ears : no ear discharge , no change in hearing 3-Nose, Mouth ,Throat ; no bleeding gums, no sore throat , no epistaxis , 4-Cardiovascular : Denies chest pain, , no orthopnea , no palpitation 5-Respiratory : Denies cough , no dyspnea , no hemoptysis 6-Gastrointestinal :, no change in bowel habits , no coffee- ground emesis . 7-Genitourinary : No hematuria , no discharge , no incontinence, 8-Musculoskeletal : , report low back pain , 9- Neurological : no ataxia , no tremor , no sezure , 10-Psychatric , no suicidal ideation no hallucination 11- Endocrine : no cold intolerence , no polyuria , no polydypsia , 12-Hematologic : no easy bleeding , no easy brusing , 13-Allergic / immunology : no angioedema , no wheezing ,no allergic rhinitis 14-Integumentary : Right upper extremity edema and bilateral lower extremity edema Physical Examinations : 1-Constitutional : Cooperative , not in acute distress . 2-HEENT : nech ; supple , no Lymphadenopathy , no Thyromegaly , :eyes , no icterus, no photophobia . ENT : , normal oropharynx , no Thrush 3- Respiratory : Chest clear to auscultations Bilaterally , no wheezing . 4- Cardiovascular : regular rate and rhythem , S1 , S2 , no S3 , no S4. 5- Gastrointestinal: abdomen soft no tenderness , no organomegally . 6- Genitourinary : Defferred . 7-Integumentary : No cellulitis , no ulcers , normal skin turgor , no cyanotic . 8- neurologic : Cranial nerve II to XII intact , no focal neurological deffecit 9-psychatric : alert , oriented X 3 , appropriate affect , intact judgment and insight . 10-Lymphatic : no Lymphadenopathy. 11- musculoskeltal: normal gait Cervical Spine Right upper extremity edema ,shoulder pain with manipulation of the right shoulder Lumber spine moter stegnth lower extremities ,thigh and legs 5/5 Right side , 5/5 Left side ( edema lower extremities ) deep tendon reflexes : normal Knee Jerk , normal ankle Jerk positive lumber facet Loading Test Range of motion of the lumbar spine Flexion 30 degrees, extension 10 degrees strait leg raising test , positive at 45 degree Fabere test positive RT and positive LT . Assessment and Plan Plan: Assessment and plan= low back pain mostly secondary to lumbar spondylosis , patient already had order for MRI of the lumbar spine will await the results of the MRI report peripheral neuropathy ( due to chemo therapy )vs lumbar radiculopathy Right shoulder pain secondary to osteoarthritis with complication of infection and status post shoulder replacement Recommend continue Lyrica 200 mg twice a day and continue Cymbalta 60 mg twice a day, continue Mobic 7.5 mg twice a day and recommend to continue Percocet 10/325 every 6 hours, patient could benefit from Ultram 50 mg every 8 hours which could be helpful for neuropathic pain , the patient continues to have severe pain then we'll consider starting patient on NMDA antagonist/ methadone , I told the patient not to use fentanyl patch , Will consider doing the interventional pain management after we get the MRI report , we'll consider doing diagnostic medial branch block lumbar area without any steroid , the Ravi patient immunocompromise, and she is high risk for infection, she will follow with the pain clinic in 4 weeks Time with Patient: Greater than 30
== END ==
LOC: PNWHC3 12:54
PROVIDERS: ATTEND Specialist
DX: M47.816 Spondylosis without myelopathy or radiculopathy, lumbar region (principal); J44.9 Chronic obstructive pulmonary disease, unspecified; K21.9 Gastro-esophageal reflux disease without esophagitis; E78.5 Hyperlipidemia, unspecified; M19.90 Unspecified osteoarthritis, unspecified site; Z79.891 Long term (current) use of opiate analgesic; Z79.899 Other long term (current) drug therapy; Z88.2 Allergy status to sulfonamides; Z91.040 Latex allergy status; Z88.5 Allergy status to narcotic agent; Z87.891 Personal history of nicotine dependence
CPT/HCPCS: 99211

== ENCOUNTER → 2017-01-12 | Outpatient (CLI) | payer MEDICARE, BC ==
--- NOTE | 2017-01-14 11:05 | MR ---
EXAMINATION TYPE: MR lumbar spine wo con DATE OF EXAM: 01/12/2017 COMPARISON: NONE HISTORY: Radiculopathy, lumbar region TECHNIQUE: T1 and T2 axial and sagittal images of the lumbar spine are submitted. FINDINGS: There is no abnormal signal seen within the visualized spinal cord or paraspinal soft tissu es. MRI OF THE LUMBAR SPINE WITHOUT INTRAVENOUS CONTRAST CLINICAL HISTORY- Pain and numbness in the feet. TECHNIQUE- Multiplanar, multiecho imaging of the lumbar spine and sacrum was obtained on a 3 Jane magnet. REFERENCE-06/22/2012 FINDINGS- Paraspinal soft tissues are normal. There is a mild dextroscoliosis. There mild, diffuse changes of spondylosis deformans. Cord signal is maintained. The conus ends normally at the inferior endplate of L1. Simple renal cyst on the left. At T12-L1, there mild degenerative changes in the facets. At L1-L2, there is disc space loss and disc desiccation. The intervertebral foramina are patent. There is hypertrophic spondylosis. There is a diffuse disc displacement. There are hypertrophic changes in the facets. FINDINGS- Stable. At L2-L3, there is disc space loss and disc desiccation. There stable mild bilateral foraminal encroachment. There is hypertrophic spondylosis. There is a diffuse disc bulging. There are hypertrophic changes and capsulitis in the facets. There is moderate central canal stenosis. Pr ogressed from the previous exam. At L3-L4, there is complete loss of disc space loss and disc desiccation. There is hypertrophic spondylosis. There is bilateral intervertebral foraminal narrowing. There is a diffuse disc bulging. There are hypertrophic changes and capsulitis in the facets. There is moderate to severe central canal stenosis. At L4-L5, there is disc space loss and disc desiccation. There is intervertebral foraminal narrowing bilaterally greater on the right. There is a diffuse disc Bulging. There hypertrophic changes in the facets as well as capsulitis. There is mild central canal stenosis. At L5-S1, there is disc desiccation and complete disc space loss. Mild to moderate narrowing of the foramina bilaterally. There is a diffuse disc displacement. There hypertrophic changes in the facets. There are small Tarlov cysts at the S2-3 level. IMPRESSION- 1. Diffuse spondylosis deformans and hypertrophic spondylosis. 2. Diffuse degenerative disc disease. Degenerative disc disease is severe at levels L2-S1 and progres sed from previous exam. 3. Diffuse facet joint osteoarthropathy. 4. Multilevel central canal stenosis most marked at L3-L4. 5. Intervertebral foraminal narrowing at multiple levels.
== END | disposition home or self-care (01) ==
LOC: RADMRIMAIN 06:45
PROVIDERS: ATTEND Anesthesiology Pain Medicine
DX: M48.061 Spinal stenosis, lumbar region without neurogenic claudication (principal); M99.73 Connective tissue and disc stenosis of intervertebral foramina of lumbar region; M51.36 Other intervertebral disc degeneration, lumbar region; M47.816 Spondylosis without myelopathy or radiculopathy, lumbar region; M46.86 Other specified inflammatory spondylopathies, lumbar region
CPT/HCPCS: 72148

== ENCOUNTER 2017-02-10 06:48 | Day surgery (SDC) | payer MEDICARE, BC ==
[2017-02-08 10:55] VITALS: BMI 32.3
[2017-02-10] MEDS ORDERED: LACTATED RINGERS 1,000 ML IV SCH (07:15)
[2017-02-10 07:39] VITALS: TEMP 97.4
[2017-02-10] MEDS ORDERED: ceFAZolin 1,000 MG in DEXTROSE/WATER 1 50ML.BAG IVPB STA (08:02)
--- NOTE | 2017-02-10 08:31 | P.PCN ---
Date of Procedure: 02/10/17 Surgeon: Edmund Durbin Pathology: none sent Condition: stable Disposition: PACU Description of Procedure: PREOPERATIVE DIAGNOSIS: 1-Lumbar radiculitis. POSTOPERATIVE DIAGNOSIS: 1-Lumbar radiculitis. PROCEDURE 1. Lumbar epidural steroid injection under fluoroscopic guidance at the L5-S1 level. 2. Lumbar epidurogram. ANESTHESIA: Local with 1% lidocaine; IV sedation with Versed/fentanyl. EBL: Minimal PROCEDURE INDICATION: The patient with low back pain and radiculitis symptoms unresponsive to conservative treatment. Fluoroscopy was used to optimize visualization of the needle placement and to maximize safety. After discussion with Dr. Snyder, 1 gram of cefazolin given prior to procedure due to patient's high risk for infections. PROCEDURE DESCRIPTION / TECHNIQUE: The patient was seen and identified in the preoperative area. Risks, benefits, complications, and alternatives were discussed with the patient, including but not limited to bleeding, infection, nerve damage, allergic reactions to medications, and incomplete pain relief. The patient agreed to proceed with the procedure and signed the consent after all questions were answered. IV was started, and vital signs were stable. Patient was taken to the OR and time out was completed to confirm patient position, procedure, laterality of pain, and allergies. The patient was placed in the prone position on procedure table and a pillow was placed under the abdomen to reduce lumbar lordosis. The lumbosacral area was prepped and draped in the usual sterile fashion. Critical pause was taken. Vital signs were closely monitored during the procedure. Conscious sedation was used during the procedure to decrease patients anxiety. Using anterior-posterior fluoroscopy, the L5-S1 interlaminar space was identified and the skin over this site was marked and then infiltrated with 1% lidocaine subcutaneously. I did not even attempt the L3-L4 level due to extensive bony spurring and degenerative disease and a very poor interlaminar opening. Subsequently, a 20-gauge 3.5-inch Tuohy epidural needle was inserted and advanced toward the epidural space using the Loss of resistance technique and guided by AP and lateral fluoroscopy. The correct needle position in the epidural space was verified with the injection of 2 mL of the water soluble contrast dye Omnipaque 300 contrast and observing an excellent epidurogram with the epidural spread of the dye, after negative aspiration for blood and CSF and in the absence of paresthesias. Again after negative aspiration, a 6 ml mixture containing 10 mg of PF Decadron and 3 ml of preservative free Normal Saline, and 2 ml of preservative free lidocaine 1% solution was injected and a washout of epidurogram was seen. Needle was withdrawn intact, skin was cleansed, and bandages were applied. COMPLICATIONS: None COMMENTS: DISPOSITION / PLANS: The patient was placed in a supine position and transferred to the recovery area in a stable condition for observation. There was no evidence of lower extremity motor or sensory deficit after the procedure. Patient was discharged from the recovery room after meeting discharge criteria. Home discharge instructions were given to the patient by the staff. The patient was reexamined prior to discharge and there were no issues. The patient will schedule a follow up in the clinic in 2-4 weeks.
[2017-02-10] MEDS ORDERED: IV FLUID CONTINUATION 900 ML IV ONE (08:46)
--- NOTE | 2017-02-10 08:54 | FL ---
EXAMINATION TYPE: FL guided pain mgmt statistic DATE OF EXAM: 02/10/2017 HISTORY: Flouroscopy time 19 seconds of fluoroscopy provided. IMPRESSION: 1. Fluoroscopy time.
[2017-02-10 09:02] VITALS: BP 138/64; PULSE 78; RESP 18
== END 2017-02-10 09:33 | disposition home or self-care (01) ==
LOC: ORPAIN 06:48
PROVIDERS: ATTEND Anesthesiology
DX: M51.17 Intervertebral disc disorders with radiculopathy, lumbosacral region (principal); M48.061 Spinal stenosis, lumbar region without neurogenic claudication; M46.96 Unspecified inflammatory spondylopathy, lumbar region; Z85.3 Personal history of malignant neoplasm of breast; I89.0 Lymphedema, not elsewhere classified; G62.0 Drug-induced polyneuropathy; L08.89 Other specified local infections of the skin and subcutaneous tissue; B95.5 Unspecified streptococcus as the cause of diseases classified elsewhere; Z79.2 Long term (current) use of antibiotics
CPT/HCPCS: 62323; J2250; J1100; J3301; Q9965; J0690; 99152

== ENCOUNTER → 2017-04-26 | Outpatient (CLI) | payer MEDICARE, BC ==
--- NOTE | 2017-04-26 11:01 | MM ---
Reason for exam: additional evaluation requested from prior study. Last mammogram was performed 1 year ago. History: Patient is postmenopausal, has history of breast cancer at age 45, history of other cancer, and is nulliparous. Family history of breast cancer in mother at age 50 and breast cancer in maternal grandmother. Mastectomy of the right breast, 2001. Cyst aspiration of the left breast. Took estrogen for 6 months beginning at age 55. Took progesterone for 6 months beginning at age 55. Physical Findings: Nurse did not find any significant physical abnormalities on exam. MG 3D Diag Mammo W/Cad LT CC and MLO view(s) were taken of the left breast. Prior study comparison: April 14, 2016, left breast MG 3d diag mammo w/cad LT. April 01, 2015, left breast MG 3d diag mammo w/cad LT. There are scattered fibroglandular densities. No significant new findings when compared with previous films. These results were verbally communicated with the patient and result sheet given to the patient on 04/26/17. ASSESSMENT: Negative, BI-RAD 1 RECOMMENDATION: Follow-up diagnostic mammogram of the left breast in 1 year.
== END | disposition home or self-care (01) ==
LOC: RADMAMWWP 09:36
PROVIDERS: ATTEND Internal Medicine Hematology & Oncology
DX: Z08 Encounter for follow-up examination after completed treatment for malignant neoplasm (principal); Z85.3 Personal history of malignant neoplasm of breast
CPT/HCPCS: 77065; G0279

== ENCOUNTER → 2017-05-09 | Outpatient (CLI) | payer MEDICARE, BC ==
[2017-05-09 10:53] VITALS: BP 158/93; PULSE 89; RESP 16
--- NOTE | 2017-05-10 02:24 | P.PN ---
Subjective Progress Note Date: 05/09/17 This is follow-up visit for this patient with a history of severe and chronic low back pain secondary to lumbar degenerative disc diseases , lumbar spondylosis with facet arthropathy, we have done lumbar epidural steroid injections 1 patient had no benefit from it Patients currently on Ultram 50 mg by mouth Patient denies any side effects of the medication, denies excessive drowsiness or sleepiness, denies suicidal ideation, and reports that the current pain medication is helping To control the pain , and improve activity of daily living Patient denies any motor or sensory deficit , patient denies any fever or night sweats, denies any change in the bowel movements or urination Physical Examinations : 1-Constitutiona : Cooperative , not in acute distress . 2-HEENT : nech ; supple , no Lymphadenopathy , no Thyromegaly , normal thyroid size . eyes : no ptosis , no icterus, no photophobia . ENT : normal of hearing , normal oropharynx , no Thrush . 3- Respiratory : Chest clear to auscultations Bilaterally , no wheezing , no Rhonchi . 4- Cardiovascular : regular rate and rhythem , S1 , S2 , no S3 , no S4. 5- Gastrointestinal : abdomen soft no tenderness , bowel sounds positive all four quadrents , no organomegally . 6- Genitourinary : Defferred . 7- neurologic : Cranial nerve II to XII intact , no focal neurological deffecit . 8-psychatric : alert , oriented X 3 , appropriate affect , intact judgment and insight . 9-Lymphatic : no Lymphadenopathy . 10- musculoskeltal : exams of the cervical spine = motor strength normal bilateral upper extremities exams of the Lumber spine = motor strength lower extremities ,thigh and legs .5/5 deep tendon reflexes : normal Knee Jerk , normal ankle Jerk . lumber facet Loading Test positive strait leg raising test positive at 30 degree , RT ,LT , Fabere test positive RT and positive LT . Range of motion: Range of motion in flexion of the lumbar spine 30 degrees Range of motion range of motion of extension of the lumbar spine 10 Assessment and plan = Chronic low back pain secondary to lumbar degenerative disc disease , lumbar spondylosis with facet arthropathy without myelopathy , chronic and current use of high-risk medication (Opioids). The patient was counseled about risk of opioid use, psychological risk associated with opioids and was orally counseled to not overuse , divert,or sell dictations to take medications as prescribed only , and to restore medication in safe location , and the patient counseled against driving while using narcotic medications, and also not to use alcohol or any illicit recreational drugs, the patient's verbalized understanding that the lack of compliance will result in failure to renew narcotic prescription and possible discharge from the clinic - diagnoses, prognosis, and treatment options including but not limited to physical therapy, surgical interventions, interventional therapies , and medication management including narcotics and adjuvant medication were discussed with the patient and all the questions answered , prescription refilled for and throat 50 mg every 8 hours dispense 60 with 1 refill , patient already scheduled to have second epidural steroid injections, if patient has no benefit after the second epidural steroid injection then we should consider doing diagnostic medial branch block lumbar area, to target the facetogenic component of her low back. Next visit we will do urine drug screen Objective - Vital Signs Vital signs: Vital Signs Temp Pulse 89 05/09/17 10:49 Resp 16 05/09/17 10:49 BP 158/93 05/09/17 10:49 Pulse Ox 99 05/09/17 10:49 Intake & Output 05/09/17 05/09/17 05/10/17 06:59 18:59 06:59 Weight 99.79 kg
== END | disposition home or self-care (01) ==
LOC: PNWHC3 10:35
PROVIDERS: ATTEND Specialist
DX: G89.29 Other chronic pain (principal); M51.36 Other intervertebral disc degeneration, lumbar region; M47.816 Spondylosis without myelopathy or radiculopathy, lumbar region; M46.86 Other specified inflammatory spondylopathies, lumbar region; Z79.891 Long term (current) use of opiate analgesic
CPT/HCPCS: 99211

== ENCOUNTER 2017-07-06 07:33 | Day surgery (SDC) | payer MEDICARE, BC ==
[2017-07-04 08:32] VITALS: BMI 34.2
[~2017-07-06 07:33] MED LIST changes: -LIDOCAINE 1% 20 ML VIAL (10MG/ML) FOR IV START INTRADERMA PRN
[2017-07-06 08:00] VITALS: RESP 18; TEMP 98.5
--- NOTE | 2017-07-06 08:56 | P.PCN ---
Date of Procedure: 07/06/17 Surgeon: Edmund Durbin Pathology: none sent Condition: stable Disposition: PACU Description of Procedure: PREOPERATIVE DIAGNOSIS: 1-Lumbar radiculitis. POSTOPERATIVE DIAGNOSIS: 1-Lumbar radiculitis. PROCEDURE 1. Lumbar epidural steroid injection under fluoroscopic guidance at the L5-S1 level. 2. Lumbar epidurogram. ANESTHESIA: Local with 1% lidocaine; IV sedation with Versed/fentanyl. EBL: Minimal PROCEDURE INDICATION: The patient with low back pain and radiculitis symptoms unresponsive to conservative treatment. Fluoroscopy was used to optimize visualization of the needle placement and to maximize safety. No Abx given today as patient has not had any infections > 4 months. No use of blood thinners. PROCEDURE DESCRIPTION / TECHNIQUE: The patient was seen and identified in the preoperative area. Risks, benefits, complications, and alternatives were discussed with the patient, including but not limited to bleeding, infection, nerve damage, allergic reactions to medications, and incomplete pain relief. The patient agreed to proceed with the procedure and signed the consent after all questions were answered. IV was started, and vital signs were stable. Patient was taken to the OR and time out was completed to confirm patient position, procedure, laterality of pain, and allergies. The patient was placed in the prone position on procedure table and a pillow was placed under the abdomen to reduce lumbar lordosis. The lumbosacral area was prepped and draped in the usual sterile fashion. Critical pause was taken. Vital signs were closely monitored during the procedure. Conscious sedation was used during the procedure to decrease patients anxiety. Using anterior-posterior fluoroscopy, the L5-S1 interlaminar space was identified and the skin over this site was marked and then infiltrated with 1% lidocaine subcutaneously. Subsequently, a 20-gauge 3.5-inch Tuohy epidural needle was inserted and advanced toward the epidural space using the Loss of resistance technique and guided by AP and lateral fluoroscopy. The correct needle position in the epidural space was verified with the injection of 2 mL of the water soluble contrast dye Omnipaque 300 contrast and observing an excellent epidurogram with the epidural spread of the dye, after negative aspiration for blood and CSF and in the absence of paresthesias. Again after negative aspiration, a 6 ml mixture containing 40 mg of Depo Medrol and 3 ml of preservative free Normal Saline, and 2 ml of preservative free lidocaine 1% solution was injected and a washout of epidurogram was seen. Needle was withdrawn intact, skin was cleansed, and bandages were applied. COMPLICATIONS: None COMMENTS: DISPOSITION / PLANS: The patient was placed in a supine position and transferred to the recovery area in a stable condition for observation. There was no evidence of lower extremity motor or sensory deficit after the procedure. Patient was discharged from the recovery room after meeting discharge criteria. Home discharge instructions were given to the patient by the staff. The patient was reexamined prior to discharge and there were no issues. The patient will schedule a follow up in the clinic in 2-4 weeks to discuss efficacy.
[2017-07-06 08:59] VITALS: BP 137/82; PULSE 78
--- NOTE | 2017-07-06 14:10 | FL ---
Fluoroscopy HISTORY: Pain 15 seconds fluoroscopy time supplied to the referring clinician. 3 intraoperative C-arm images docum ent the procedure. See dictated report from anesthesia.
== END 2017-07-06 09:11 | disposition home or self-care (01) ==
LOC: ORPAIN 07:33
PROVIDERS: ATTEND Anesthesiology
DX: M54.16 Radiculopathy, lumbar region (principal); I10 Essential (primary) hypertension; Z85.3 Personal history of malignant neoplasm of breast; Z92.21 Personal history of antineoplastic chemotherapy; Z91.040 Latex allergy status; Z88.2 Allergy status to sulfonamides; Z91.048 Other nonmedicinal substance allergy status
CPT/HCPCS: 62323; J1030; Q9966; 99152

== ENCOUNTER 2017-07-22 09:05 | Day surgery (SDC) | payer MEDICARE, BC ==
[2017-07-21 09:01] VITALS: BMI 32.3
[~2017-07-22 09:05] MED LIST changes: +LIDOCAINE 1% 20 ML VIAL (10MG/ML) FOR IV START INTRADERMA PRN
[2017-07-22 10:00] VITALS: RESP 18; TEMP 98.2
[2017-07-22] MEDS ORDERED: LACTATED RINGERS 1,000 ML IV ONE (10:07)
[2017-07-22] MEDS ORDERED: PROPOFOL 10 MG/ML 20 ML VIAL IV ONE (11:52)
--- NOTE | 2017-07-22 12:02 | P.PCN ---
Date of Procedure: 07/22/17 Procedure(s) Performed: BRIEF HISTORY: Patient is a 62-year-old, pleasant, white female, scheduled for an upper endoscopy as a part of evaluation of iron deficiency anemia. She had a colonoscopy in September 2016 that was unremarkable. PROCEDURE PERFORMED: Esophagogastroduodenoscopy with biopsy. PREOPERATIVE DIAGNOSIS: Iron deficiency anemia. IV sedation per anesthesia. PROCEDURE: After informed consent was obtained, the patient was brought into the endoscopy unit. IV sedation was administered by Anesthesia under continuous monitoring. Initially the Olympus GIF-140 video endoscope was inserted into the mouth. Esophagus intubated without any difficulty. It was gradually advanced into the stomach and duodenum and carefully examined. The bulb and the second part of the duodenum appeared normal. The scope at this time was withdrawn to the stomach, adequately insufflated with air, and upon careful examination, mucosa of the antrum and scattered erosions and a 5 mm superficial antral ulcer that was biopsied. The body, cardia and the fundus appeared normal. The scope was then withdrawn into the esophagus. The GE junction was located at 39 cm from the incisors. The esophagus appeared normal. There were no erosions or ulcerations seen and the patient tolerated the procedure well. IMPRESSION: 1. 5 mm superficial antral ulcer with no active bleeding. 2. Antral erosive gastritis. RECOMMENDATIONS: The findings of this examination were discussed with the patient as well as her family. She will follow with the biopsy results. She was advised to start on Prilosec 20 mg daily and avoid NSAIDs. Continue with iron supplements daily
[2017-07-22 12:25] VITALS: BP 143/91; PULSE 100
== END 2017-07-22 12:48 | disposition home or self-care (01) ==
LOC: ORWHC2ENDO 09:05
PROVIDERS: ATTEND Internal Medicine Gastroenterology
DX: K25.9 Gastric ulcer, unspecified as acute or chronic, without hemorrhage or perforation (principal); K21.9 Gastro-esophageal reflux disease without esophagitis; J44.9 Chronic obstructive pulmonary disease, unspecified; M06.9 Rheumatoid arthritis, unspecified; M79.7 Fibromyalgia; Z79.899 Other long term (current) drug therapy; Z91.040 Latex allergy status; Z88.2 Allergy status to sulfonamides; Z91.09 Other allergy status, other than to drugs and biological substances
CPT/HCPCS: 88305; 43239; J2704

== ENCOUNTER 2017-08-01 23:25 | Inpatient (IN) | payer MEDICARE, BC ==
[2017-08-02] MEDS ORDERED: ONDANSETRON 4 MG/2 ML VIAL IVP STA (01:15)
[2017-08-02] MEDS ORDERED: MORPHINE SULFATE 2 MG/ML SYRINGE IVP STA ×2 (01:15→01:18)
[2017-08-02] MEDS ORDERED: SODIUM CHLORIDE 0.9% 1,000 ML IV STA (01:15)
--- NOTE | 2017-08-02 01:20 | ED ---
General Adult HPI - General Source: family, EMS, RN notes reviewed Mode of arrival: wheelchair Limitations: no limitations <Berna Shell - Last Filed: 08/02/17 02:51> <Gigi Friedman - Last Filed: 08/05/17 06:41> - General Chief complaint: Extremity Injury, Upper Stated complaint: arm pain Time Seen by Provider: 08/02/17 01:05 - History of Present Illness Initial comments: This is a 62-year-old female who presents to the emergency department with chief complaint of right shoulder pain. Patient states that 5 years ago she had a right shoulder replacement. She states that she does have chronic lymphedema in the right arm. She states that since her shoulder replacement she has had frequent staph infections which required her to be hospitalized and have IV antibiotics. Patient states that she's been experiencing pain in the right shoulder for the past 3 days. She states that this is the most severe pain she has had. She states that she is normally able to move her right arm less than 50%, but at this time she is unable to move the right shoulder at all due to pain. She denies any recent fevers or chills, chest pain or shortness of breath, abdominal pain, nausea or vomiting, dizziness or headache. (Berna Shell) - Related Data Home Medications Medication Instructions Recorded Confirmed Atorvastatin [Lipitor] 40 mg PO DAILY 11/14/14 08/02/17 DULoxetine HCL [Cymbalta] 60 mg PO BID 11/14/14 08/02/17 Furosemide [Lasix] 40 mg PO BID 11/14/14 08/02/17 Pregabalin [Lyrica] 200 mg PO HS 11/14/14 08/02/17 rOPINIRole HCL [Requip] 5 mg PO DAILY@1700 11/14/14 08/02/17 Ascorbic Acid [Vitamin C] 1,000 mg PO DAILY 06/22/16 08/02/17 Calcium Carbonate [Calcium] 1,200 mg PO DAILY 06/22/16 08/02/17 Cholecalciferol [Vitamin D3] 5,000 unit PO DAILY 06/22/16 08/02/17 Garlic 1 tab PO DAILY 06/22/16 08/02/17 L.acidoph,Paracasei, B.lactis 1 cap PO DAILY 06/22/16 08/02/17 [Probiotic] Magnesium Gluconate [Magonate] 500 mg PO DAILY 06/22/16 08/02/17 Multivitamins, Thera [Multivitamin 1 tab PO DAILY 06/22/16 08/02/17 (formulary)] [place]-3 Fatty Acids/Fish Oil [Fish 1 cap PO DAILY 06/22/16 08/02/17 Oil 1,000 mg Softgel] Ubidecarenone [Co Q-10] 200 mg PO DAILY 06/22/16 08/02/17 Folic Acid 1 mg PO DAILY 10/26/16 08/02/17 Methotrexate Sodium [Methotrexate] 12.5 mg PO TU@1230 10/26/16 08/02/17 Potassium Chloride [Klor-Con 10] 10 meq PO BID 10/26/16 08/02/17 Omeprazole [PriLOSEC] 20 mg PO AC-BRKFST 12/24/16 08/02/17 traMADol HCL [Ultram] 50 mg PO TID 01/24/17 08/02/17 Glucosamine Sulfate 500 mg PO DAILY 07/04/17 08/02/17 Pregabalin [Lyrica] 100 mg PO QAM 07/04/17 08/02/17 Allergies Allergy/AdvReac Type Severity Reaction Status Date / Time latex Allergy Rash/Hives Verified 08/02/17 07:18 nickel Allergy Rash/Hives Verified 08/02/17 07:18 Sulfa (Sulfonamide Allergy Rash/Hives Verified 08/02/17 07:18 Antibiotics) Review of Systems ROS Other: All systems not noted in ROS Statement are negative. <Berna Shell - Last Filed: 08/02/17 02:51> ROS Other: All systems not noted in ROS Statement are negative. <Gigi Friedman - Last Filed: 08/05/17 06:41> ROS Statement: Those systems with pertinent positive or pertinent negative responses have been documented in the HPI. Past Medical History Past Medical History: Cancer, COPD, Fibromyalgia, GERD/Reflux, Hyperlipidemia, Osteoarthritis (OA), Rheumatoid Arthritis (RA) Additional Past Medical History / Comment(s): 2002 R breast cancer with mastectomy and chemo, chronic R arm lymphedema, neuropathy bilateral feet d/t chemotherapy, cervical cancer with hysterectomy, RA especially in thumbs and wrists, pt thinks she has R sided sciatica, RLS, diverticular dx. History of Any Multi-Drug Resistant Organisms: None Reported Past Surgical History: Appendectomy, Breast Surgery, Cholecystectomy, Hysterectomy, Joint Replacement, Orthopedic Surgery Additional Past Surgical History / Comment(s): 10/28/16 colonoscopy, RIGHT MASTECTOMY, RIGHT TOTAL SHOULDER REPLACEMENT followed by revisions, I&Ds of R shoulder, picc line insertion-since removed, LT ROTATOR CUFF REPAIR, bilateral salpingo oophorectomy due to cysts. pain clinic procedures Past Anesthesia/Blood Transfusion Reactions: No Reported Reaction Past Psychological History: No Psychological Hx Reported Smoking Status: Former smoker - Past Family History Sister(s) Additional Family Medical History / Comment(s): Patient has one sister with AICD implantation. Brother(s) Additional Family Medical History / Comment(s): Patient has 4 brothers. One has from alcoholism at age 55. One brother has small cell lung carcinoma. 1 is diabetic. One brother she has no contact with. Mother Family Medical History: Cancer, Diabetes Mellitus, Deep Vein Thrombosis (DVT) Additional Family Medical History / Comment(s): Breast cancer. Mother in her 60's with cause unknown. Father Family Medical History: Cancer Additional Family Medical History / Comment(s): Father of colon cancer in his 60s. <Berna Shell - Last Filed: 08/02/17 02:51> General Exam Limitations: no limitations <Berna Shell - Last Filed: 08/02/17 02:51> <Gigi Friedman - Last Filed: 08/05/17 06:41> - General Exam Comments Initial Comments: General: Awake and alert, well-developed; in no apparent distress. Afebrile. HEENT: Head atraumatic, normocephalic. Pupils are equal, round and reactive to light. Extraocular movements intact. Oropharynx moist without erythema or exudate. Neck: Supple. Normal ROM. Cardiovascular: Regular rate and rhythm. No murmurs, rubs or gallops. Chest symmetrical. Radial pulses are 2+ equal and palpable bilaterally. Respiratory: Lungs clear to auscultation bilaterally. No wheezes, rales or rhonchi. Normal respiratory effort with no use of accessory muscles. Abdomen: Soft, non-tender, non-distended. No rigidity, rebound or guarding. Normal bowel sounds in all 4 quadrants. Musculoskeletal: Limited range of motion of the right upper extremity due to pain. Chronic lymphedema is noted. Tenderness on palpation of right shoulder and proximal humerus. Skin: Chronic lymphedema noted to the right arm. There is an area of erythema, warmth and tenderness overlying the previous surgical scar of the right shoulder. Neurological: Alert and oriented x3. CN II-XII grossly intact. Speech is fluent and answers are appropriate. No focal neuro deficits. Psychiatric: Normal mood and affect. No overt signs of depression or anxiety noted. (Berna Shell) Vital Signs 08/01/17 08/02/17 08/02/17 23:33 03:16 04:40 Temperature 98.1 F 97.7 F Pulse Rate 78 77 87 Respiratory 18 18 18 Rate Blood Pressure 84/51 117/82 124/56 O2 Sat by Pulse 100 97 97 Oximetry Medical Decision Making - Lab Data Result diagrams: 08/02/17 01:46 08/02/17 01:46 <Berna Shell - Last Filed: 08/02/17 02:51> - Lab Data Result diagrams: 08/02/17 01:46 08/02/17 01:46 <Gigi Friedman - Last Filed: 08/05/17 06:41> - Medical Decision Making This 62-year-old female who presents to the emergency department with chief complaint of right shoulder pain. Patient does have a history of right shoulder replacement with multiple staph infections. There is erythema, tenderness and warmth to the right shoulder. Patient did develop a fever while in the emergency department. CBC revealed a white count of 13.0 with left shift. X-ray of the right shoulder revealed a fracture of the midportion of the prosthesis. Patient will be started on IV antibiotics. She will be admitted to Dr. Lucas with consult to orthopedics. Patient is in no acute distress. She is in agreement for admission. (Berna Shell) I saw this patient in conjunction with the physician assistant reading teacher. I performed independent history and physical exam. Agree with case management. (Gigi Friedman) - Lab Data Lab Results 08/02/17 08/02/17 08/02/17 Range/Units 01:46 01:46 01:46 WBC 13.0 H (3.8-10.6) k/uL RBC 4.36 (3.80-5.40) m/uL Hgb 11.6 (11.4-16.0) gm/dL Hct 36.8 (34.0-46.0) % MCV 84.3 (80.0-100.0) fL MCH 26.5 (25.0-35.0) pg MCHC 31.5 (31.0-37.0) g/dL RDW 17.4 H (11.5-15.5) % Plt Count 350 (150-450) k/uL Neutrophils % 81 % Lymphocytes % 9 % Monocytes % 8 % Eosinophils % 1 % Basophils % 0 % Neutrophils # 10.6 H (1.3-7.7) k/uL Lymphocytes # 1.1 (1.0-4.8) k/uL Monocytes # 1.1 H (0-1.0) k/uL Eosinophils # 0.1 (0-0.7) k/uL Basophils # 0.1 (0-0.2) k/uL Hypochromasia Slight Anisocytosis Slight Sodium 132 L (137-145) mmol/L Potassium 4.9 (3.5-5.1) mmol/L Chloride 90 L (98-107) mmol/L Carbon Dioxide 29 (22-30) mmol/L Anion Gap 13 mmol/L BUN 33 H (7-17) mg/dL Creatinine 0.80 (0.52-1.04) mg/dL Est GFR (CKD-EPI)AfAm >90 (>60 ml/min/1.73 sqM) Est GFR (CKD-EPI)NonAf 79 (>60 ml/min/1.73 sqM) Glucose 100 H (74-99) mg/dL Plasma Lactic Acid Jesus 1.7 (0.7-2.0) mmol/L Calcium 9.4 (8.4-10.2) mg/dL Total Bilirubin 0.7 (0.2-1.3) mg/dL AST 32 (14-36) U/L ALT 28 (9-52) U/L Alkaline Phosphatase 89 (38-126) U/L Total Protein 7.2 (6.3-8.2) g/dL Albumin 4.2 (3.5-5.0) g/dL Disposition Is patient prescribed a controlled substance at d/c from ED?: No Time of Disposition: 02:56 <Berna Shell - Last Filed: 08/02/17 02:51> <Gigi Friedman - Last Filed: 08/05/17 06:41> Clinical Impression: Breakage (fracture) of prosthetic joint, Cellulitis Disposition: ADMITTED IP TO THIS [facility] Condition: Stable Addendum entered and electronically signed by Berna Shell PA-C 08/02/17 03: 09: Right shoulder x-ray impression: Fracture of the midportion of the prosthesis that is changed compared to old exam. No dislocation.
[2017-08-02 02:06] LABS: Anisocytosis Slight; Basophils # (A) 0.1 k/uL (0-0.2); Basophils % (A) 0 %; Eosinophils # (A) 0.1 k/uL (0-0.7); Eosinophils % (A) 1 %; HCT 36.8 % (34.0-46.0); HGB 11.6 gm/dL (11.4-16.0); Hypochromasia Slight; Lymphocytes # (A) 1.1 k/uL (1.0-4.8); Lymphocytes % (A) 9 %; MCH 26.5 pg (25.0-35.0); MCHC 31.5 g/dL (31.0-37.0); MCV 84.3 fL (80.0-100.0); Mean Platelet Volume 6.5; Monocytes # (A) 1.1 k/uL (0-1.0); Monocytes % (A) 8 %; Neutrophils # (A) 10.6 k/uL (1.3-7.7); Neutrophils % (A) 81 %; Platelet Count 350 k/uL (150-450); RBC 4.36 m/uL (3.80-5.40); RDW 17.4 % (11.5-15.5)
[2017-08-02 02:17] LABS: ALT 28 U/L (9-52); AST 32 U/L (14-36); Albumin 4.2 g/dL (3.5-5.0); Alkaline Phosphatase 89 U/L (38-126); Anion Gap 13 mmol/L; Blood Urea Nitrogen 33 mg/dL (7-17); Calcium 9.4 mg/dL (8.4-10.2); Carbon Dioxide 29 mmol/L (22-30); Chloride 90 mmol/L (98-107); Glucose 100 mg/dL (74-99); Potassium 4.9 mmol/L (3.5-5.1); Sodium 132 mmol/L (137-145); Total Bilirubin 0.7 mg/dL (0.2-1.3); Total Protein 7.2 g/dL (6.3-8.2)
--- NOTE | 2017-08-02 02:17 | XR ---
EXAMINATION TYPE: XR shoulder complete RT DATE OF EXAM: 08/02/2017 COMPARISON: 11/19/2016 HISTORY: Shoulder pain TECHNIQUE: 4 views FINDINGS: There is right shoulder prosthesis. There is an intramedullary beny is part of the prosthesi s and there is fracture of this beny that is unchanged compared to old exam. There is also fracture of the mid portion of the prosthesis. IMPRESSION: fracture of the midportion of the prosthesis that is a change compared to old exam. No di slocation.
[2017-08-02] MEDS ORDERED: AMPICILLIN-SULBACTAM 3 GM in SODIUM CHLORIDE 0.9% 100 ML IVPB STA (02:49)
[2017-08-02] MEDS ORDERED: VANCOMYCIN IV PER PHARMACY 1 EACH MISC MISCELLANE PRN (02:50)
[2017-08-02] MEDS ORDERED: ACETAMINOPHEN TAB 325 MG TAB PO PRN (02:57)
[2017-08-02] MEDS ORDERED: NALOXONE 0.4 MG/ML 1 ML VIAL IV PRN (02:57)
[2017-08-02] MEDS ORDERED: ONDANSETRON 4 MG/2 ML VIAL IVP PRN (02:57)
[2017-08-02] MEDS: SODIUM CHLORIDE 0.9% 1,000 ML IV SCH ×2 (03:15→14:34)
[2017-08-02] MEDS ORDERED: VANCOMYCIN 1,750 MG in SODIUM CHLORIDE 0.9% 250 ML IVPB ONE (04:15)
[2017-08-02] MEDS: MORPHINE SULFATE 2 MG/ML SYRINGE IV PRN ×3 (04:25→14:38)
[2017-08-02] MEDS: KETOROLAC 30 MG/ML 1 ML VIAL IVP PRN ×2 (05:33→12:57)
[2017-08-02] MEDS ORDERED: AMPICILLIN-SULBACTAM 3 GM in SODIUM CHLORIDE 0.9% 100 ML IVPB SCH ×2 (06:00→09:00)
[2017-08-02 06:11] VITALS: BMI 33.7
--- NOTE | 2017-08-02 11:58 | P.CNOR ---
History of Present Illness - [facility] Consult date: 08/02/17 Consult reason: joint pain, fracture History of present illness: Patient is a 62-year-old female who was brought to [facility] emergency room early this morning with regards to increasing pain involving her right arm and shoulder. Patient is a very extensive history involving the right shoulder. She states that last week, when she rolled over in bed she heard a weird noise in the right arm, and since then she's had increasing pain. Over the last few days she's noticed increasing redness over her previous surgical incision and other areas surrounding the right arm. She's noticed decreased loss of motion and worsening pain over the last few days also. She states over the last few days she's also had some fevers. Patient's exact timeframe for all past surgeries on the right upper extremity are not completely accurate. The first initial surgery was a right total shoulder arthroplasty in 2014 or 16, this was done at [facility] by Dr. Antunez. She underwent a second procedure later that year, she's not completely sure why, she states there may been something wrong with the implant. After that surgery, she did develop an infection involving the right shoulder. She states that she underwent multiple washout procedures and has been on both oral and IV antibiotics many times over the last 2 years. She then underwent removal of the hardware she believes in 2016, they did place an antibiotic spacer into the shoulder. And again she was on IV and oral antibiotics. Patient states that she did see her surgeon earlier in 2018, and there were no acute changes and everything was okay with regards to the shoulder. Exam today bedside, the patient is resting. She notes extreme pain in the right upper arm with any type of movement. Her is obvious swelling involving the whole upper extremity, she states that she does have chronic edema in that arm from a previous mastectomy on the right side. She has noticed the pain in the shoulder worsening with motion, any type of forearm motion her hand motion reproduces pain in the upper arm. She has felt feverish over the last few days. She denies any nausea or vomiting. She denies any other extremity pain at this time. Review of Systems Constitutional: Reports as per HPI Past Medical History Past Medical History: Cancer, COPD, Fibromyalgia, GERD/Reflux, Hyperlipidemia, Osteoarthritis (OA), Rheumatoid Arthritis (RA) Additional Past Medical History / Comment(s): 2001 R breast cancer with mastectomy and chemo, chronic R arm lymphedema, neuropathy bilateral feet d/t chemotherapy, cervical cancer with hysterectomy, RA especially in thumbs and wrists, pt thinks she has R sided sciatica, RLS, diverticular dx. History of Any Multi-Drug Resistant Organisms: None Reported Past Surgical History: Appendectomy, Breast Surgery, Cholecystectomy, Hysterectomy, Joint Replacement, Orthopedic Surgery Additional Past Surgical History / Comment(s): 10/28/16 colonoscopy, RIGHT MASTECTOMY, RIGHT TOTAL SHOULDER REPLACEMENT followed by revisions, I&Ds of R shoulder, picc line insertion-since removed, LT ROTATOR CUFF REPAIR, bilateral salpingo oophorectomy due to cysts. pain clinic procedures Past Anesthesia/Blood Transfusion Reactions: No Reported Reaction Past Psychological History: No Psychological Hx Reported Additional Psychological History / Comment(s): . Lives independently. No history of alcohol use. retired. lives alone with dog Smoking Status: Former smoker Past Alcohol Use History: None Reported Additional Past Alcohol Use History / Comment(s): Pt started smoking in 1974 and quit in 2001. Past Drug Use History: None Reported - Past Family History Sister(s) Additional Family Medical History / Comment(s): Patient has one sister with AICD implantation. Brother(s) Additional Family Medical History / Comment(s): Patient has 4 brothers. One has from alcoholism at age 55. One brother has small cell lung carcinoma. 1 is diabetic. One brother she has no contact with. Mother Family Medical History: Cancer, Diabetes Mellitus, Deep Vein Thrombosis (DVT) Additional Family Medical History / Comment(s): Breast cancer. Mother in her 60's with cause unknown. Father Family Medical History: Cancer Additional Family Medical History / Comment(s): Father of colon cancer in his 60s. Medications and Allergies Home Medications Medication Instructions Recorded Confirmed Type Atorvastatin [Lipitor] 40 mg PO DAILY 11/14/14 08/02/17 History DULoxetine HCL [Cymbalta] 60 mg PO BID 11/14/14 08/02/17 History Furosemide [Lasix] 40 mg PO BID 11/14/14 08/02/17 History Pregabalin [Lyrica] 200 mg PO HS 11/14/14 08/02/17 History rOPINIRole HCL [Requip] 5 mg PO DAILY@1700 11/14/14 08/02/17 History Ascorbic Acid [Vitamin C] 1,000 mg PO DAILY 06/22/16 08/02/17 History Calcium Carbonate [Calcium] 1,200 mg PO DAILY 06/22/16 08/02/17 History Cholecalciferol [Vitamin D3] 5,000 unit PO DAILY 06/22/16 08/02/17 History Garlic 1 tab PO DAILY 06/22/16 08/02/17 History L.acidoph,Paracasei, B.lactis 1 cap PO DAILY 06/22/16 08/02/17 History [Probiotic] Magnesium Gluconate [Magonate] 500 mg PO DAILY 06/22/16 08/02/17 History Multivitamins, Thera [Multivitamin 1 tab PO DAILY 06/22/16 08/02/17 History (formulary)] [place]-3 Fatty Acids/Fish Oil [Fish 1 cap PO DAILY 06/22/16 08/02/17 History Oil 1,000 mg Softgel] Ubidecarenone [Co Q-10] 200 mg PO DAILY 06/22/16 08/02/17 History Folic Acid 1 mg PO DAILY 10/26/16 08/02/17 History Methotrexate Sodium [Methotrexate] 12.5 mg PO TU@1230 10/26/16 08/02/17 History Potassium Chloride [Klor-Con 10] 10 meq PO BID 10/26/16 08/02/17 History Omeprazole [PriLOSEC] 20 mg PO AC-BRKFST 12/24/16 08/02/17 History traMADol HCL [Ultram] 50 mg PO TID 01/24/17 08/02/17 History Glucosamine Sulfate 500 mg PO DAILY 07/04/17 08/02/17 History Pregabalin [Lyrica] 100 mg PO QAM 07/04/17 08/02/17 History Allergies Allergy/AdvReac Type Severity Reaction Status Date / Time latex Allergy Rash/Hives Verified 08/02/17 07:18 nickel Allergy Rash/Hives Verified 08/02/17 07:18 Sulfa (Sulfonamide Allergy Rash/Hives Verified 08/02/17 07:18 Antibiotics) Physical Examination Right upper extremity: Exam was very limited with regards to motion due to increasing pain Obvious previous surgical incision over the anterior aspect of shoulder, there is no drainage or open lesions present There is some erythema though medial to the incision and over the medial chest. There is also an area of erythema noted on the posterior upper arm. Unable to appreciate any areas of fluctuance, but again very difficult to assess fully due to the amount of pain the patient is in Her sensation to light touch throughout the upper extremities intact, she is able wiggle all the fingers with minimal difficulty. Her radial pulses 2+ Results - Labs Labs: Abnormal Lab Results - Last 24 Hours (Table) 08/02/17 08/02/17 Range/Units 01:46 01:46 WBC 13.0 H (3.8-10.6) k/uL RDW 17.4 H (11.5-15.5) % Neutrophils # 10.6 H (1.3-7.7) k/uL Monocytes # 1.1 H (0-1.0) k/uL Sodium 132 L (137-145) mmol/L Chloride 90 L (98-107) mmol/L BUN 33 H (7-17) mg/dL Glucose 100 H (74-99) mg/dL H & H 08/02/17 Range/Units 01:46 Hgb 11.6 (11.4-16.0) gm/dL Hct 36.8 (34.0-46.0) % Result Diagrams: 08/02/17 01:46 08/02/17 01:46 - Diagnostic results Shoulder x-ray: report reviewed, image reviewed Assessment and Plan Plan: Imaging: Multiple views of the right shoulder obtained. The results and report were reviewed. Images do demonstrate antibiotic cement spacer for right total shoulder. There is evidence of a transverse fracture through the implant, and it also looks like it involves the proximal humerus. The joint is located at this time, no other osseous abnormality is visualized Assessment: Right shoulder pain Likely infected antibiotic cement spacer right shoulder Previous history of right total shoulder with infection and multiple procedures with subsequent antibiotic spacer placement Antibiotic cement spacer fracture with likely proximal humerus fracture Plan: Case was discussed, including but physical exam findings and imaging studies my attending Dr. Walters. We recommend continuation of antibiotics at this time , and immediately transferred to a tertiary care facility. We recommended transfer to [facility] for evaluation by Dr. Pandya. Recommend arm sling at this time Nonweightbearing right upper extremity Pain control I did discuss the case with the physician veterinary assistant technician of the admitting physician, we will be available for any further questions regarding this patient. Time with Patient: Less than 30
[2017-08-02 14:31] VITALS: BP 94/52; PULSE 83; RESP 18; TEMP 98.9
[2017-08-02] MEDS ORDERED: VANCOMYCIN 1,750 MG in SODIUM CHLORIDE 0.9% 250 ML IVPB SCH (15:00)
--- NOTE | 2017-08-03 08:17 | P.HPIM ---
History of Present Illness H&P Date: 08/02/17 Chief Complaint: Right arm prosthesis fracture HISTORY AND PHYSICAL AND DISCHARGE SUMMARY: This is a 62-year-old female patient of Dr. Mendes with past medical history of breast cancer status post right mastectomy with extensive resection to the chest wall into the right axilla area done in 2001 with chronic lymphedema to the right arm, cervical cancer, rheumatoid arthritis currently on methotrexate Nabumetone, osteoarthritis, GERD, COPD, hyperlipidemia, restless leg syndrome. Patient uses a compression pneumatic sleeve for couple hours per day for her lymphedema. Lymphedema to the right upper extremity has been further complicated as she has had 3 right shoulder surgeries. The first being a replacement and then revisions one 3 years ago and then again in December 2015 and was on chronic use of doxycycline for staph infection under the care of Dr. Snyder. SHe has been off antibiotics for some time. Her orthopedic surgeon is Dr. Higuera at [facility]. Patient also has history of long- time use of methotrexate under the care of Dr. Aceves. This is been placed on hold. She presented in the emergency room secondary sudden onset of pain and swelling to the right arm with redness to the right upper extremity and she does recall rolling in bed and hearing a snap in her right arm but it did not hurt right away. She denies having any fall to the area. She normally does not have full range of motion of this shoulder but she's manage independently. She does complain of a croupy cough. She denies any shortness of breath. Her temperature maximum 101.3, white count is 13. Her case has been discussed with orthopedic surgeon with recommendations to transfer the patient to Dr. higuera at [facility]. Case management was immediately notified and arrangements made for patient to transfer today once room is available. Review of Systems All systems: negative Constitutional: Reports fever, Denies chills, Denies poor appetite, Denies weight loss Eyes: denies blurred vision, denies pain Ears, nose, mouth and throat: Denies dental pain, Denies headache, Denies sore throat, Denies vertigo Cardiovascular: Denies chest pain, Denies decreased exercise tolerance, Denies dyspnea on exertion, Denies edema, Denies leg edema, Denies lightheadedness, Denies shortness of breath, Denies syncope Respiratory: Reports cough, Denies cough with sputum, Denies dyspnea, Denies excessive sputum, Denies hemoptysis, Denies home oxygen, Denies wheezing Gastrointestinal: Denies abdominal pain, Denies diarrhea, Denies nausea, Denies vomiting Genitourinary: Denies dysuria, Denies hematuria, Denies urgency, Denies urinary frequency Musculoskeletal: Denies myalgias Musculoskeletal: right: shoulder pain Integumentary: Reports darkening of skin, Denies pruritus, Denies rash Neurological: Denies numbness, Denies weakness Psychiatric: Denies anxiety, Denies depression Endocrine: Denies fatigue, Denies weight change Past Medical History Past Medical History: Cancer, COPD, Fibromyalgia, GERD/Reflux, Hyperlipidemia, Osteoarthritis (OA), Rheumatoid Arthritis (RA) Additional Past Medical History / Comment(s): 2001 R breast cancer with mastectomy and chemo, chronic R arm lymphedema, neuropathy bilateral feet d/t chemotherapy, cervical cancer with hysterectomy, RA especially in thumbs and wrists, pt thinks she has R sided sciatica, RLS, diverticular dx. History of Any Multi-Drug Resistant Organisms: None Reported Past Surgical History: Appendectomy, Breast Surgery, Cholecystectomy, Hysterectomy, Joint Replacement, Orthopedic Surgery Additional Past Surgical History / Comment(s): 10/28/16 colonoscopy, RIGHT MASTECTOMY, RIGHT TOTAL SHOULDER REPLACEMENT followed by revisions, I&Ds of R shoulder, picc line insertion-since removed, LT ROTATOR CUFF REPAIR, bilateral salpingo oophorectomy due to cysts. pain clinic procedures Past Anesthesia/Blood Transfusion Reactions: No Reported Reaction Past Psychological History: No Psychological Hx Reported Additional Psychological History / Comment(s): . Lives independently. No history of alcohol use. retired. lives alone with dog Smoking Status: Former smoker Past Alcohol Use History: None Reported Additional Past Alcohol Use History / Comment(s): Pt started smoking in 1974 and quit in 2001. Past Drug Use History: None Reported - Past Family History Sister(s) Additional Family Medical History / Comment(s): Patient has one sister with AICD implantation. Brother(s) Additional Family Medical History / Comment(s): Patient has 4 brothers. One has from alcoholism at age 55. One brother has small cell lung carcinoma. 1 is diabetic. One brother she has no contact with. Mother Family Medical History: Cancer, Diabetes Mellitus, Deep Vein Thrombosis (DVT) Additional Family Medical History / Comment(s): Breast cancer. Mother in her 60's with cause unknown. Father Family Medical History: Cancer Additional Family Medical History / Comment(s): Father of colon cancer in his 60s. Medications and Allergies Home Medications Medication Instructions Recorded Confirmed Type Atorvastatin [Lipitor] 40 mg PO DAILY 11/14/14 08/02/17 History DULoxetine HCL [Cymbalta] 60 mg PO BID 11/14/14 08/02/17 History Furosemide [Lasix] 40 mg PO BID 11/14/14 08/02/17 History Pregabalin [Lyrica] 200 mg PO HS 11/14/14 08/02/17 History rOPINIRole HCL [Requip] 5 mg PO DAILY@1700 11/14/14 08/02/17 History Ascorbic Acid [Vitamin C] 1,000 mg PO DAILY 06/22/16 08/02/17 History Calcium Carbonate [Calcium] 1,200 mg PO DAILY 06/22/16 08/02/17 History Cholecalciferol [Vitamin D3] 5,000 unit PO DAILY 06/22/16 08/02/17 History Garlic 1 tab PO DAILY 06/22/16 08/02/17 History L.acidoph,Paracasei, B.lactis 1 cap PO DAILY 06/22/16 08/02/17 History [Probiotic] Magnesium Gluconate [Magonate] 500 mg PO DAILY 06/22/16 08/02/17 History Multivitamins, Thera [Multivitamin 1 tab PO DAILY 06/22/16 08/02/17 History (formulary)] [place]-3 Fatty Acids/Fish Oil [Fish 1 cap PO DAILY 06/22/16 08/02/17 History Oil 1,000 mg Softgel] Ubidecarenone [Co Q-10] 200 mg PO DAILY 06/22/16 08/02/17 History Folic Acid 1 mg PO DAILY 10/26/16 08/02/17 History Methotrexate Sodium [Methotrexate] 12.5 mg PO TU@1230 10/26/16 08/02/17 History Potassium Chloride [Klor-Con 10] 10 meq PO BID 10/26/16 08/02/17 History Omeprazole [PriLOSEC] 20 mg PO AC-BRKFST 12/24/16 08/02/17 History traMADol HCL [Ultram] 50 mg PO TID 01/24/17 08/02/17 History Glucosamine Sulfate 500 mg PO DAILY 07/04/17 08/02/17 History Pregabalin [Lyrica] 100 mg PO QAM 07/04/17 08/02/17 History Allergies Allergy/AdvReac Type Severity Reaction Status Date / Time latex Allergy Rash/Hives Verified 08/02/17 07:18 nickel Allergy Rash/Hives Verified 08/02/17 07:18 Sulfa (Sulfonamide Allergy Rash/Hives Verified 08/02/17 07:18 Antibiotics) Physical Exam Vitals: Vital Signs Temp Pulse Pulse Resp BP BP Pulse Ox 08/02/17 09:49 99.0 F 104/62 08/02/17 07:40 101.3 F H 87 16 99/62 96 08/02/17 06:00 17 08/02/17 05:44 99.8 F H 89 17 120/75 97 08/02/17 04:40 97.7 F 87 18 124/56 97 08/02/17 03:16 77 18 117/82 97 08/01/17 23:33 98.1 F 78 18 84/51 100 Intake and Output 08/01/17 08/02/17 08/02/17 22:59 06:59 14:59 Intake Total 540 120 Balance 540 120 Intake: Oral 540 120 Other: Voiding Method Toilet Toilet # Voids 1 1 # Bowel Movements 0 Weight 106.633 kg General appearance: cooperative, no acute distress, obese - EENT Eyes: anicteric sclerae, PERRLA, normal appearance ENT: hearing grossly normal - Neck Neck: no lymphadenopathy, normal ROM, no other, no rigidity, no stridor, no thyromegaly - Respiratory Respiratory: bilateral: CTA, negative: diminished, dullness, rales, rhonchi - Cardiovascular Rhythm: regular Heart sounds: normal: S1, S2 Abnormal Heart Sounds: no systolic murmur, no diastolic murmur, no rub, no S3 Gallop, no S4 Gallop, no click, no other - Gastrointestinal General gastrointestinal: normal bowel sounds, soft - Integumentary Integumentary: cellulitis (Right arm circumferentially up to the right pectoralis involving the entire shoulder joint, forearm upper arms, sparing the fingers and the wrist at site), normal, rash - Neurologic Neurologic: CNII-XII intact - Musculoskeletal Musculoskeletal: strength equal bilaterally, patient has old surgical wound that is healed to the right shoulder. There is edema and erythema to the area as well as tenderness to touch. The erythema extends over to the right chest area. - Psychiatric Psychiatric: A&O x's 3, appropriate affect Results CBC & Chem 7: 18 01:46 18 01:46 Labs: Abnormal Lab Results - Last 24 Hours (Table) 18 08/02/17 Range/Units 01:46 01:46 WBC 13.0 H (3.8-10.6) k/uL RDW 17.4 H (11.5-15.5) % Neutrophils # 10.6 H (1.3-7.7) k/uL Monocytes # 1.1 H (0-1.0) k/uL Sodium 132 L (137-145) mmol/L Chloride 90 L (98-107) mmol/L BUN 33 H (7-17) mg/dL Glucose 100 H (74-99) mg/dL Thrombosis Risk Factor Assmnt - DVT/VTE Prophylaxis DVT/VTE Prophylaxis: Pharmacologic Prophylaxis ordered - Choose All That Apply Each Factor Represents 1 point: Sepsis (< 1month) Other Risk Factors: Yes Each Risk Factor Represents 2 Points: Age 61-74 years Each Risk Factor Represents 3 Points: Family history of DVT/PE Other congenital or acquired thrombophilia - If yes, enter type in comment: No Thrombosis Risk Factor Assessment Total Risk Factor Score: 6 Thrombosis Risk Factor Assessment Level: High Risk Assessment and Plan Plan: 1. Right humerus fracture with right prosthesis/antibiotic spacer fracture with cellulitis. Orthopedic consult is appreciated. Arrangements will be made for the patient to be transferred to her orthopedic surgeon at [facility] , Dr. Higuera. Continue Unasyn and vancomycin. Continue morphine and Toradol for pain control, Zofran for nausea. compliance program manager is working on transfer arrangements. 2. History of right breast cancer status post mastectomy and extensive resection with chronic lymphedema of the right upper extremity under the care of Dr. Snyder in the past. Elevation of upper extremity 3. History of rheumatoid arthritis. Hold methotrexate secondary to impaired healing mechanism while on the medication. 4. Osteoarthritis, generalized, stable. 5. Gastroesophageal reflux disease and gastrointestinal prophylaxis. Continue Prilosec or Protonix. 6 Mild COPD, stable without exacerbation. 7. Restless leg syndrome. Continue Requip. 8. DVT prophylaxis. Heparin subcu. Patient will be admitted to the hospital for a minimum of 5 night stay as minimum including tertiary care center. Discharge plan: Needs to be determined at a later time Impression and plan of care have been directed as dictated by the signing physician. Shania Pozo nurse practitioner acting as scribe for signing physician.
== END 2017-08-02 14:45 | disposition short-term general hospital (02) | DRG 560 ==
LOC: EC 23:25 → 3SUR 08-02 03:52
PROVIDERS: ADMIT Internal Medicine; ATTEND Internal Medicine
DX: T84.018A Broken internal joint prosthesis, other site, initial encounter (principal); L03.113 Cellulitis of right upper limb; Y79.2 Prosthetic and other implants, materials and accessory orthopedic devices associated with adverse incidents; B95.8 Unspecified staphylococcus as the cause of diseases classified elsewhere; E78.5 Hyperlipidemia, unspecified; G25.81 Restless legs syndrome; I89.0 Lymphedema, not elsewhere classified; J44.9 Chronic obstructive pulmonary disease, unspecified; K21.9 Gastro-esophageal reflux disease without esophagitis; M06.9 Rheumatoid arthritis, unspecified; M19.90 Unspecified osteoarthritis, unspecified site; M79.7 Fibromyalgia; Z79.899 Other long term (current) drug therapy; Z80.0 Family history of malignant neoplasm of digestive organs; Z80.1 Family history of malignant neoplasm of trachea, bronchus and lung; Z80.3 Family history of malignant neoplasm of breast; Z83.3 Family history of diabetes mellitus; Z85.3 Personal history of malignant neoplasm of breast; Z85.41 Personal history of malignant neoplasm of cervix uteri; Z87.891 Personal history of nicotine dependence; Z90.11 Acquired absence of right breast and nipple; Z90.710 Acquired absence of both cervix and uterus; Z96.611 Presence of right artificial shoulder joint; Z91.040 Latex allergy status; Z88.2 Allergy status to sulfonamides; Z91.048 Other nonmedicinal substance allergy status
CPT/HCPCS: 36415; 80053; 83605; 85025; 87040; 96361; 96365; 96375; 96376; 99211; 99285

== ENCOUNTER → 2017-08-01 | Outpatient (CLI) | payer MEDICARE, BC ==
[2017-08-01 12:48] VITALS: BP 176/98; PULSE 101; RESP 16; TEMP 98.2
--- NOTE | 2017-08-01 13:16 | P.PN ---
Progress Note - Text Progress Note Date: 08/01/17 This is a 61-year-old female with history of right breast carcinoma with resection and right arm lymphedema. The patient has severe lower back pain with radiation to the lower extremities. 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 Neuro exam showed normal muscle strength in the lower extremities bilaterally and symmetrically decreased but symmetrical knee reflex is absent ankle reflexes bilaterally. She has tenderness in the lumbar paravertebral area bilaterally. The most recent MRI shows severe degenerative disc disease multiple levels especially at L5-S1 level and also moderate to severe lumbar stenosis at L3 4 level with facet arthropathy. The patient has improved lower back pain after the last lumbar epidural steroid injection however her arthritis pain has been getting worse especially in both feet and both shoulders. The patient has been increasing her tramadol to 4 pills a day and running out of it and she denies taking any other pain medications. She also denies taking any benzodiazepines. Today I'll increase the patient's tramadol dose to 4 pills a day if needed for pain and this will continue for 1 month and her next month I will go down to 3 pills a day of tramadol. I encouraged the patient to see her wire photo operator news as soon as possible for a change in her rheumatic arthritis medications. The patient denies any side effects to tramadol and she does not show any drug- seeking behavior she also denies any suicidal ideation. I will see the patient back 2 months from now.
== END | disposition home or self-care (01) ==
LOC: PNWHC3 11:54
PROVIDERS: ATTEND Anesthesiology
DX: M48.061 Spinal stenosis, lumbar region without neurogenic claudication (principal); M51.37 Other intervertebral disc degeneration, lumbosacral region; M46.96 Unspecified inflammatory spondylopathy, lumbar region; G62.9 Polyneuropathy, unspecified; Z85.3 Personal history of malignant neoplasm of breast; Z79.891 Long term (current) use of opiate analgesic
CPT/HCPCS: 99211

== ENCOUNTER → 2017-09-14 | Outpatient (CLI) | payer MEDICARE, BC ==
--- NOTE | 2017-09-14 16:12 | BD ---
EXAMINATION TYPE: Axial Bone Density DATE OF EXAM: 09/14/2017 COMPARISON: NONE CLINICAL HISTORY: Height: 69.5 Weight: 238.7 FRAX RISK QUESTIONS: Alcohol (3 or more units per day): no Family History (Parent hip fracture): no Glucocorticoids (More than 3mos): no (Ex: prednisone, prednisolone, methylprednisolone, dexamethasone, and hydrocortisone). History of Fracture in Adulthood: yes Secondary Osteoporosis: 1. Type 1 Diabetes: no 2. Hyperthyroidism: no 3. Menopause before 45: yes 4. Malnutrition: no 5. Chronic liver disease: no Rheumatoid Arthritis: yes Current Tobacco Use: no RISK FACTORS HISTORY OF: Family History of Osteoporosis: yes Active: yes Diet low in dairy products/other sources of calcium: no Postmenopausal woman: hysterectomy age 29 Lost more than 2 inches in height since high school: yes MEDICATIONS: tramadol, atorvastatin, recrip, cymbalta, lyrica, potassium, omeprazole Additional History: breast cancer EXAM MEASUREMENTS: Bone mineral densitometry was performed using the [email or web address] System. Bone mineral density as measured about the Lumbar spine is: ----- L1-L4(G/cm2): 1.528 T Score Values are as follows: ----- L2: 3.1 ----- L3: 4.7 ----- L4: 3.9 ----- L1-L4: 2.9 Bone mineral density has: increased 11.1 % since study of: 05.08.2012 Bone mineral density about the R hip (g/cm2): 0.874 Bone mineral density about the L hip (g/cm2): 0.891 T Score values are as follows: -----R Neck: -1.2 -----L Neck: -1.1 -----R Total: -1.3 -----L Total: -0.9 Bone mineral density has: decreased -5.1 % since study of: 05.08.2012 IMPRESSION: Osteopenia (T Score between -2.5 and -1). There is slightly increased risk of fracture and the patient may be considered for treatment. Re-Screen 2-5 years. NOTE: T-SCORE=SD OF THE YOUNG ADULT MEAN.
== END | disposition home or self-care (01) ==
LOC: RADBDWWP 09:31
PROVIDERS: ATTEND Internal Medicine Hematology & Oncology
DX: C50.919 Malignant neoplasm of unspecified site of unspecified female breast (principal); M85.80 Other specified disorders of bone density and structure, unspecified site; Z78.0 Asymptomatic menopausal state
CPT/HCPCS: 77080

== ENCOUNTER → 2017-09-26 | Outpatient (CLI) | payer MEDICARE, BC ==
[2017-09-26 12:54] VITALS: BP 148/82; PULSE 90; RESP 16; TEMP 98.3
--- NOTE | 2017-09-26 13:24 | P.PAINPG ---
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, right breast cancer status post lymph node dissection and right upper extremity lymphedema We have done interventional pain procedures lumbar epidural steroid injection she had minimal benefit from it and only for 2 days Patients currently on Lyrica 100 mg every morning and 200 mg daily at bedtime, Cymbalta 60 mg twice a day (description from PCP ), and we gave her a prescription for Ultram 50 mg every 8 hours Patient denies any side effects of the medication, denies excessive drowsiness or sleepiness, denies suicidal ideation, and reports that the current pain medication is helping to control the pain and improve activity of daily living Patient denies any motor or sensory deficit , patient denies any fever or night sweats, denies any change in the bowel movements or urination Physical Examinations : 1-Constitutional : Cooperative , not in acute distress . 2-HEENT : nech ; supple , no Lymphadenopathy , no Thyromegaly , normal thyroid size . eyes : no ptosis , no icterus, no photophobia . ENT : normal of hearing , normal oropharynx , no Thrush . 3- Respiratory : Chest clear to auscultations Bilaterally , no wheezing , no Rhonchi . 4- Cardiovascular : regular rate and rhythem , S1 , S2 , no S3 , no S4. 5- Gastrointestinal : abdomen soft no tenderness , bowel sounds positive all four quadrents , no organomegally . 6- Genitourinary : Defferred . 7- neurologic: Cranial nerve II to XII intact , no focal neurological deffecit . 8- Psychatric: alert , oriented X 3 , appropriate affect , intact judgment and insight . 9- Lymphatic : no Lymphadenopathy . 10- Musculoskeltal : exams of the Lumber spine =motor strength lower extremities ,thigh and legs .5/5 deep tendon reflexes : normal Knee Jerk , normal ankle Jerk . lumber facet Loading Test positive strait leg raising test positive at 30 degree , RT ,LT , Fabere test positive RT and positive LT . Range of motion: Range of motion in flexion of the lumbar spine 30 degrees Range of motion range of motion of extension of the lumbar spine 10 Assessment and plan = Chronic low back pain secondary to lumbar degenerative disc disease , lumbar spondylosis with facet arthropathy without myelopathy , lumbar spinal stenosis Chemotherapy-induced peripheral neuropathy , Rt breast cancer with Right upper extremity lymphedema chronic and current use of high-risk medication (Opioids). The patient was counseled about risk of opioid use, psychological risk associated with opioids and was orally counseled to not overuse , divert,or sell dictations to take medications as prescribed only , and to restore medication in safe location , the patient counseled against driving while using narcotic medications , and also not to use alcohol or any illicit recreational drugs, patient's verbalized understanding that the lack of compliance will result in failure to renew narcotic prescription and possible discharge from the clinic - diagnoses, prognosis, and treatment options including but not limited to physical therapy, surgical interventions, interventional therapies , and medication management including narcotics and adjuvant medication were discussed with the patient and all the questions answered Prescription refill for Ultram 50 mg every 6 hours (she is currently on a every 8 hours and she reported that is not helping to control her pain ) Patient getting prescription refill for Lyrica and Cymbalta from her primary care. She had no benefit from lumbar epidural steroid injection she'll be in good candidate diagnostic medial branch blocks lumbar area L3-4/L4-5 /L5-S1 she had good benefit then will proceed with the radiofrequency Objective - Vital Signs Vital signs: Vital Signs Temp 98.3 F 09/26/17 12:49 Pulse 90 09/26/17 12:49 Resp 16 09/26/17 12:49 BP 148/82 09/26/17 12:49 Pulse Ox Intake & Output 09/25/17 09/26/17 09/26/17 18:59 06:59 18:59 Weight 106.594 kg PQRS Measure Charge Sheet Measure #130: Documentation of Current Meds in Medical Chart: Patient's medications documented in chart Measure #226: Tobacco Use: Screen & Cessation Intervention: Pt not a tobacco user Measure #111: Pneumonia Vaccination: Pneumococcal vaccine administered or previously received Measure #47: Advance Care Plan: Advance care planning discussed & documented, pt chose/unable to give Measure #412: Opioid Treatment Agreement: Documented signed opioid trtmnt agreemnt min once during opioid trtmnt Measure #408: Opioid Therapy Follow-up Evaluation: Patient had f/u eval minimum every 3 months during opioid therapy Measure #317: Preventitive Care & Scrn High Bld Press & F/U: Pre-hypertensive or hypertensive BP documented, pt will f/u with PCP Measure #128: Body Mass Index (BMI) Screening & Follow-up: BMI documented ABOVE normal parameters - f/u documented Measure #131: Pain Assessment & Follow-up: Pain positive & plan documented, Follow-up scheduled Measure #431: Unhealthy Alcohol Use Preventative Care & Scrn: Patient not identified as an unhealthy alcohol user PQRS Narrative: Smoking Status Former smoker Do You Want the Pneumonia Vaccine Up to Date Vaccine AT THIS TIME? Narcotic Agreement Date Signed 05/09/17 Blood Pressure 148/82 Pain Intensity [Lower Back] 6 Scale Used Numeric (1 - 10) Hx Alcohol Use (MH) No Home Medications: Ambulatory Orders Atorvastatin [Lipitor] 40 mg PO DAILY 11/14/14 DULoxetine HCL [Cymbalta] 60 mg PO BID 11/14/14 Furosemide [Lasix] 40 mg PO BID 11/14/14 Pregabalin [Lyrica] 200 mg PO HS 11/14/14 rOPINIRole HCL [Requip] 5 mg PO DAILY@1700 11/14/14 Ascorbic Acid [Vitamin C] 1,000 mg PO DAILY 06/22/16 Calcium Carbonate [Calcium] 1,200 mg PO DAILY 06/22/16 Cholecalciferol [Vitamin D3] 5,000 unit PO DAILY 06/22/16 Garlic 1 tab PO DAILY 06/22/16 L.acidoph,Paracasei, B.lactis [Probiotic] 1 cap PO DAILY 06/22/16 Magnesium Gluconate [Magonate] 500 mg PO DAILY 06/22/16 Multivitamins, Thera [Multivitamin (formulary)] 1 tab PO DAILY 06/22/16 [place]-3 Fatty Acids/Fish Oil [Fish Oil 1,000 mg Softgel] 1 cap PO DAILY Ubidecarenone [Co Q-10] 200 mg PO DAILY 06/22/16 Folic Acid 1 mg PO DAILY 10/26/16 Methotrexate Sodium [Methotrexate] 12.5 mg PO TU@1230 10/26/16 Potassium Chloride [Klor-Con 10] 10 meq PO BID 10/26/16 Omeprazole [PriLOSEC] 20 mg PO AC-BRKFST 12/24/16 Glucosamine Sulfate 500 mg PO DAILY 07/04/17 Pregabalin [Lyrica] 100 mg PO QAM 07/04/17 traMADol HCL [Ultram] 50 mg PO Q6HR PRN #120 tablet 09/26/17 Controlled Substance Measures - Controlled Substance Measures Is patient prescribed a controlled substance at discharge?: Yes When asked, does pt state using other controlled substances?: No If prescribed controlled substance>3 days was MAPS reviewed?: Yes If Rx opioid, was Start Talking consent form obtained?: Yes If opioid is for acute pain is fill amount 7 days or less?: No Was information provided regarding opioid addiction?: Yes
== END | disposition home or self-care (01) ==
LOC: PNWHC3 12:21
PROVIDERS: ATTEND Specialist
DX: G89.29 Other chronic pain (principal); M51.36 Other intervertebral disc degeneration, lumbar region; M47.816 Spondylosis without myelopathy or radiculopathy, lumbar region; M48.061 Spinal stenosis, lumbar region without neurogenic claudication; G62.0 Drug-induced polyneuropathy; C50.911 Malignant neoplasm of unspecified site of right female breast; I89.0 Lymphedema, not elsewhere classified; Z87.891 Personal history of nicotine dependence; Z79.899 Other long term (current) drug therapy; Z79.891 Long term (current) use of opiate analgesic
CPT/HCPCS: 99211

== ENCOUNTER 2017-10-10 09:22 | Day surgery (SDC) | payer MEDICARE, BC ==
[2017-10-04 10:06] VITALS: BMI 34.1
[2017-10-10 10:17] VITALS: TEMP 97.6
[2017-10-10] MEDS ORDERED: LACTATED RINGERS 1,000 ML IV ONE (10:29)
[2017-10-10] MEDS ORDERED: LIDOCAINE 1% 20 ML VIAL (10MG/ML) FOR IV START INTRADERMA ONE (10:29)
--- NOTE | 2017-10-10 10:51 | P.PCN ---
Date of Procedure: 10/10/17 Procedure(s) Performed: PREOPERATIVE DIAGNOSIS : 1- Lumbar spondylosis with Facet Arthropathy without myelopathy . 2- Lumber degenerative disc disease POSTOPERATIVE DIAGNOSIS: 1- Lumbar spondylosis with Facet Arthropathy without myelopathy . 2- Lumber degenerative disc disease PROCEDURE: Diagnostic bilateral L3 -4 , L4 -5 , and L5-S1 medial branch block under fluoroscopy ANESTHESIA: moderate sedation with intravenous Versed 2 mg and Fentanyl 100 mcg. EBL: Minimal COMPLICATION: None. IV FLUIDS: 100 mL of normal saline. PROCEDURE INDICATION: Chronic low back pain secondary to Facet arthropathy unresponsive to conservative treatment. PROCEDURE DESCRIPTION: the patient was seen and identified in the preop holding area , risks and benefits and possible complications of the procedure and alternative were discussed with the patient, and the patient agreed to proceed with the procedure and signed the consent IV was started and vital signs monitored during the procedure and fluoroscopy was used to maximize the benefit and accuracy of the needle placement, and sedation was given to decrease patient anxiety, patient was taken to the procedure room and placed in prone position vital signs monitored in the back prepped with chlorhexidine X3 then under strict sterile technique using a right oblique fluoroscopy ,the junction of the transverse process and the superior articulating process of the right L3- 4 , L4- 5, and L5-S1 vertebra which corresponding to the fluoroscopy image of the eye of the Abhilash dog on the block side for the medial branches and subsequently , after local infiltration of skin and subcu tissuies with Ropivacaine 0.5 % , one mL at each level , then 22-gauge Quincke-type needles , 3 needle was used , each one of them placed at the junction of the base of the transverse process and the superior articular process at the appropriate level, and the needle was advanced until the periosteum contacted, needle placement confirmed with AP oblique and lateral view and after appropriate needle placement confirmed, and after negative aspiration for heme and CSF and there was no paresthesia 1-1/2 mL of Ropivacaine 0.5% mixed with 20 mg Kenalog , then half mL injected at each level after negative aspiration the needle subsequently removed and the same procedure repeated for the left side at left side at L3-4, L4- 5 and L5-S1 levels. At the end of the procedure and the needles removed and a bandage applied after the skin was cleaned the cleaning solution patient taken to recovery room in stable condition and monitors in the recovery room for 20-30 minutes and discharged home in stable condition after discharge criteria met and patient will follow up with the pain clinic in 2-4 weeks
[2017-10-10] MEDS ORDERED: IV FLUID CONTINUATION 1,000 ML IV ONE (10:56)
[2017-10-10 11:01] VITALS: RESP 18
[2017-10-10 11:23] VITALS: BP 134/68; PULSE 72
--- NOTE | 2017-10-10 13:39 | FL ---
Fluoroscopy HISTORY: Pain 6 seconds fluoroscopy time supplied to the referring clinician. 4 intraoperative C-arm images docume nt the procedure. See dictated report from anesthesia.
== END 2017-10-10 11:30 | disposition home or self-care (01) ==
LOC: ORPAIN 09:22
PROVIDERS: ATTEND Specialist
DX: G89.29 Other chronic pain (principal); M47.816 Spondylosis without myelopathy or radiculopathy, lumbar region; M51.36 Other intervertebral disc degeneration, lumbar region; J44.9 Chronic obstructive pulmonary disease, unspecified; Z88.2 Allergy status to sulfonamides; Z91.09 Other allergy status, other than to drugs and biological substances; Z88.5 Allergy status to narcotic agent; Z91.040 Latex allergy status; Z85.3 Personal history of malignant neoplasm of breast
CPT/HCPCS: 64493; 64494; 64495; J2250; J3301; J3010

== ENCOUNTER 2017-11-08 06:50 | Day surgery (SDC) | payer MEDICARE, BC ==
[2017-10-19 15:34] VITALS: BMI 34.7
[~2017-11-08 06:50] MED LIST changes: -LIDOCAINE 1% 20 ML VIAL (10MG/ML) FOR IV START INTRADERMA PRN
[2017-11-08 07:56] VITALS: RESP 16; TEMP 98.2
--- NOTE | 2017-11-08 08:48 | P.PCN ---
Date of Procedure: 11/08/17 Procedure(s) Performed: PREOPERATIVE DIAGNOSIS : 1- Lumbar spondylosis with Facet Arthropathy without myelopathy . 2- Lumber degenerative disc disease POSTOPERATIVE DIAGNOSIS: 1- Lumbar spondylosis with Facet Arthropathy without myelopathy . 2- Lumber degenerative disc disease PROCEDURE: Diagnostic bilateral L3 -4 , L4 -5 , and L5-S1 medial branch block under fluoroscopy ANESTHESIA:local infiltrations with Ropivacaine 0. 5% 6 ml only , No IV sedations given ( difficult IV access ) EBL: Minimal COMPLICATION: None. IV FLUIDS: 100 mL of normal saline. PROCEDURE INDICATION: Chronic low back pain secondary to Facet arthropathy unresponsive to conservative treatment. PROCEDURE DESCRIPTION: the patient was seen and identified in the preop holding area , risks and benefits and possible complications of the procedure and alternative were discussed with the patient, and the patient agreed to proceed with the procedure and signed the consent and vital signs monitored during the procedure and fluoroscopy was used to maximize the benefit and accuracy of the needle placements, patient was taken to the procedure room and placed in prone position vital signs monitored in the back prepped with chlorhexidine X3 then under strict sterile technique using a right oblique fluoroscopy ,the junction of the transverse process and the superior articulating process of the right L3- 4 , L4- 5, and L5-S1 vertebra which corresponding to the fluoroscopy image of the eye of the Abhilash dog on the block side for the medial branches and subsequently , after local infiltration of skin and subcu tissuies with Ropivacaine 0.5 % , one mL at each level , then 25-gauge 3 1/2 inches long ,Quincke-type needles , 3 needle was used , each one of them placed at the junction of the base of the transverse process and the superior articular process at the appropriate level, and the needle was advanced until the periosteum contacted, needle placement confirmed with AP oblique and lateral view and after appropriate needle placement confirmed, and after negative aspiration for heme and CSF and there was no paresthesia 1-1/2 mL of Ropivacaine 0.5% mixed with 20 mg Kenalog , then half mL injected at each level after negative aspiration the needle subsequently removed and the same procedure repeated for the left side at left side at L3-4, L4- 5 and L5- S1 levels. At the end of the procedure and the needles removed and a bandage applied after the skin was cleaned the cleaning solution patient taken to recovery room in stable condition and monitors in the recovery room for 20-30 minutes and discharged home in stable condition after discharge criteria met and patient will follow up with the pain clinic in 2-4 weeks
[2017-11-08 09:07] VITALS: BP 128/79; PULSE 74
[2017-11-08 09:14] LABS: Anisocytosis Slight; Basophils % (A) 1 %; Eosinophils # (A) 0.1 k/uL (0-0.7); Eosinophils % (A) 4 %; HCT 36.1 % (34.0-46.0); HGB 11.4 gm/dL (11.4-16.0); Hypochromasia Slight; Lymphocytes # (A) 1.7 k/uL (1.0-4.8); Lymphocytes % (A) 48 %; MCH 27.1 pg (25.0-35.0); MCHC 31.5 g/dL (31.0-37.0); Mean Platelet Volume 6.4; Monocytes # (A) 0.2 k/uL (0-1.0); Monocytes % (A) 6 %; Neutrophils # (A) 1.4 k/uL (1.3-7.7); Neutrophils % (A) 39 %; Platelet Count 207 k/uL (150-450); RDW 16.6 % (11.5-15.5); WBC 3.6 k/uL (3.8-10.6)
[2017-11-08 09:26] LABS: Albumin 3.8 g/dL (3.5-5.0); Calcium 9.1 mg/dL (8.4-10.2); Total Bilirubin 0.6 mg/dL (0.2-1.3); Total Protein 6.6 g/dL (6.3-8.2); Uric Acid 5.2 mg/dL (3.7-7.4)
[2017-11-08 09:34] LABS: T4, Free (Free Thyroxine) 1.32 ng/dL (0.78-2.19)
--- NOTE | 2017-11-08 10:26 | FL ---
EXAMINATION TYPE: FL guided pain mgmt statistic DATE OF EXAM: 11/08/2017 HISTORY: Flouroscopy time 12 seconds of fluoroscopy provided. IMPRESSION: 1. Fluoroscopy time.
[2017-11-08 10:29] LABS: Magnesium 2.2 mg/dL (1.6-2.3)
[2017-11-08 19:56] LABS: Hemoglobin A1C 5.8 % (4.0-6.0)
== END 2017-11-08 09:30 | disposition home or self-care (01) ==
LOC: ORPAIN 06:50
PROVIDERS: ATTEND Specialist
DX: G89.29 Other chronic pain (principal); M47.816 Spondylosis without myelopathy or radiculopathy, lumbar region; M51.36 Other intervertebral disc degeneration, lumbar region; I10 Essential (primary) hypertension; Z88.2 Allergy status to sulfonamides; Z91.048 Other nonmedicinal substance allergy status; Z88.5 Allergy status to narcotic agent; Z91.040 Latex allergy status; Z85.3 Personal history of malignant neoplasm of breast; Z90.10 Acquired absence of unspecified breast and nipple; Z90.710 Acquired absence of both cervix and uterus
CPT/HCPCS: 84439; 80061; 80053; 82550; 83735; 84443; 84550; 85025; 82306; 83036; 64493; 64494; 64495; J3301

== ENCOUNTER → 2017-11-21 | Outpatient (CLI) | payer MEDICARE, BC ==
[2017-11-21 13:19] VITALS: BP 143/84; PULSE 89; RESP 18
--- NOTE | 2017-11-21 14:03 | P.PAINPG ---
Subjective Progress Note Date: 11/21/17 This is follow-up visit for this patient with a history of severe and chronic low back pain secondary to lumbar degenerative disc disease, lumbar facet arthropathy, We have done an interventional pain procedure a thoracic medial branch block lumbar area x2 , pain dropped from 6/10- to 2/10 after each block The patient currently on Lyrica 100 mg every morning and 200 mg daily at bedtime, and Ultram 50 mg every 6 hours Patient denies any side effect of the medication , patient denies any excessive drowsiness or sleepiness, patient denies any suicidal ideation, Patient reported that the current medication is helping to control the pain and improve the activity of daily livings, Patient denies any motor or sensory deficit, denies any change in the bowel movement or urination, patient denies any fever or night sweats. Patient here today for follow-up visit and medication refill Objective - Vital Signs Vital signs: Vital Signs Temp Pulse 89 11/21/17 13:12 Resp 18 11/21/17 13:12 BP 143/84 11/21/17 13:12 Pulse Ox 97 11/21/17 13:12 Intake & Output 11/20/17 11/21/17 11/21/17 18:59 06:59 18:59 Weight 106.594 kg - Exam Physical Examinations : 1-Constitutiona : Cooperative , not in acute distress . 2-HEENT : nech ; supple , no Lymphadenopathy , normal thyroid size . eyes : no ptosis , no icterus, no photophobia . ENT : normal of hearing , normal oropharynx , no Thrush . 3- Respiratory : Chest clear to auscultations Bilaterally , no wheezing , no Rhonchi . 4- Cardiovascular : regular rate and rhythem , S1 , S2 , no S3 , no S4. 5- Gastrointestinal : abdomen soft no tenderness , bowel sounds , no organomegally . 6- Genitourinary : Defferred . 7- neurologic : Cranial nerve II to XII intact , no focal neurological deffecit . 8-psychatric : alert , oriented X 3 , appropriate affect , intact judgment and insight . 9-Lymphatic : no Lymphadenopathy . 10- musculoskeltal : Lumber spine moter stegnth lower extremities , thigh and legs 5/5 Right side , 5/5 Left side deep tendon reflexes : normal Knee Jerk , normal ankle Jerk positive lumber facet Loading Test Assessment and Plan Plan: Assessment and plan= chronic low back pain secondary to lumbar degenerative disc disease , lumbar spondylosis with lumbar facet arthropathy . She had more than 60% decrease in the pain level after the diagnostic medial branch block chronic and current use of high-risk medication (opioids) Patient denies any side effects of the current pain medication and the current treatment/medication helping the patient to do activity of daily living , Diagnoses, prognosis, treatment options, including but not limited to physical therapy, medication management, interventional therapies, and surgery, were discussed with the patient All the questions answered The narcotic consent was signed and patient agreed and understood the side effects and complications of opioid treatment. Patient signed the narcotic agreement, and was orally counseled, not to overuse, not to abuse, not to Divert , not tp sell pain medication, and to take it as prescribed only, Patient was counseled not to drive or operate heavy equipment while using narcotic medication, and advised not to use alcohol or any Illicit drugs while using the narcotis. understanding that lack of compliance with any of the above instructions, will likely to cause discharge from, the pain service, not to renew his narcotic prescriptions MAPS Reviwed and it was apropriate . Medication managements= patient will be given prescription refills for Ultram 50 mg every 6 hours dispense 120 with one refill, Lyrica milligrams every morning and 200 mg daily at bedtime dispense 90 with 5 refills. Patient will be good candidate for radiofrequency ablation of the medial branch lumbar area at L3 4, L4 5, L5-S1 left side first , Time with Patient: Less than 30 PQRS Measure Charge Sheet Measure #130: Documentation of Current Meds in Medical Chart: Patient's medications documented in chart Measure #226: Tobacco Use: Screen & Cessation Intervention: Pt not a tobacco user Measure #111: Pneumonia Vaccination: Pneumococcal vaccine NOT administered or previously given Measure #47: Advance Care Plan: Advance care planning discussed & documented, pt chose/unable to give Measure #412: Opioid Treatment Agreement: Documented signed opioid trtmnt agreemnt min once during opioid trtmnt Measure #408: Opioid Therapy Follow-up Evaluation: Patient had f/u eval minimum every 3 months during opioid therapy Measure #317: Preventitive Care & Scrn High Bld Press & F/U: Pre-hypertensive or hypertensive BP documented, pt will f/u with PCP Measure #128: Body Mass Index (BMI) Screening & Follow-up: BMI documented ABOVE normal parameters - f/u documented Measure #131: Pain Assessment & Follow-up: Pain positive & plan documented, Follow-up scheduled Measure #431: Unhealthy Alcohol Use Preventative Care & Scrn: Patient not identified as an unhealthy alcohol user PQRS Narrative: Smoking Status Former smoker Do You Want the Pneumonia No Vaccine AT THIS TIME? Narcotic Agreement Date Signed 05/09/17 Blood Pressure 143/84 Pain Intensity [Lower Back] 5 Scale Used Numeric (1 - 10) Hx Alcohol Use (MH) No Home Medications: Ambulatory Orders Atorvastatin [Lipitor] 40 mg PO DAILY 11/14/14 DULoxetine HCL [Cymbalta] 60 mg PO BID 11/14/14 Furosemide [Lasix] 40 mg PO BID 11/14/14 Pregabalin [Lyrica] 200 mg PO HS 11/14/14 rOPINIRole HCL [Requip] 5 mg PO DAILY@1700 11/14/14 Ascorbic Acid [Vitamin C] 1,000 mg PO DAILY 06/22/16 Calcium Carbonate [Calcium] 1,200 mg PO DAILY 06/22/16 Cholecalciferol [Vitamin D3] 5,000 unit PO DAILY 06/22/16 Garlic 1 tab PO DAILY 06/22/16 L.acidoph,Paracasei, B.lactis [Probiotic] 1 cap PO DAILY 06/22/16 Magnesium Gluconate [Magonate] 500 mg PO DAILY 06/22/16 Multivitamins, Thera [Multivitamin (formulary)] 1 tab PO DAILY 06/22/16 [place]-3 Fatty Acids/Fish Oil [Fish Oil 1,000 mg Softgel] 1,000 mg PO DAILY 06/22 Ubidecarenone [Co Q-10] 200 mg PO DAILY 06/22/16 Folic Acid 1 mg PO DAILY 10/26/16 Methotrexate Sodium [Methotrexate] 25 mg PO TU 10/26/16 Potassium Chloride [Klor-Con 10] 10 meq PO BID 10/26/16 Omeprazole [PriLOSEC] 20 mg PO AC-BRKFST 12/24/16 Glucosamine Sulfate 500 mg PO DAILY 07/04/17 Pregabalin [Lyrica] 100 mg PO QA 07/04/17 Alendronate Sodium 70 mg PO TU 10/04/17 Losartan-Hctz 50-12.5 mg [Hyzaar 50-12.5] 1 each PO DAILY 11/04/17 traMADol HCL [Ultram] 50 mg PO Q6HR PRN #120 tablet 11/21/17 Controlled Substance Measures - Controlled Substance Measures Is patient prescribed a controlled substance at discharge?: Yes When asked, does pt state using other controlled substances?: No If prescribed controlled substance>3 days was MAPS reviewed?: Yes If Rx opioid, was Start Talking consent form obtained?: Yes If opioid is for acute pain is fill amount 7 days or less?: No Was information provided regarding opioid addiction?: Yes
== END ==
LOC: PNWHC3 12:05
PROVIDERS: ATTEND Specialist
DX: G89.29 Other chronic pain (principal); M51.36 Other intervertebral disc degeneration, lumbar region; M47.816 Spondylosis without myelopathy or radiculopathy, lumbar region; M46.96 Unspecified inflammatory spondylopathy, lumbar region; Z87.891 Personal history of nicotine dependence; Z79.899 Other long term (current) drug therapy
CPT/HCPCS: 99211

== ENCOUNTER → 2017-12-21 | Day surgery (SDC) | payer MEDICARE, BC ==
[2017-12-15 15:10] VITALS: BMI 34.7
[~2017-12-21] MED LIST changes: -LACTATED RINGERS 1,000 ML IV SCH; +SODIUM CHLORIDE 0.9% 500 ML 500 ML IV ONE; +SODIUM CHLORIDE 0.9% 500 ML 500 ML IV SCH
[2017-12-21 07:12] VITALS: BP 176/104; PULSE 84; RESP 16; TEMP 97.7
--- NOTE | 2017-12-21 08:41 | P.PCN ---
Date of Procedure: 12/21/17 Surgeon: Melina Mcwilliams Pathology: none sent Condition: stable Disposition: PACU Description of Procedure: PREOPERATIVE DIAGNOSIS: Lumbar spondylosis without myelopathy, morbid obesity POSTOPERATIVE DIAGNOSIS: Lumbar spondylosis without myelopathy,morbid obesity PROCEDURES : Left Radiofrequency thermocoagulation,L2-4, L3-L4, L4-L5, and L5- S1 medial branch, with fluoroscopic guidance ANESTHESIA: IV moderate conscious sedation with versed and fentanyl and local infiltration with lidocaine 1% 5 ml EBL: Minimal PROCEDURE INDICATION: The patient with low back pain secondary to lumbar facet arthropathy who had more than 50% relief of her pain with previous diagnostic lumbar medial branch block with bupivacaine. PROCEDURE DESCRIPTION / TECHNIQUE: The patient was seen and identified in the preoperative area. Risks, benefits, complications, including but not limited to risk of infection ,bleeding , allergic reactions to the medications and no complete pain relief , and alternatives were discussed with the patient, the patient agreed to proceed with the procedure and signed the consent. IV was started. Vital signs remained stable throughout the procedure. Patient was taken to the OR and time out was completed. The patient was placed in the prone position on the procedure table. The lumber area was prepped and draped in the usual sterile fashion. . Vital signs were closely monitored during the procedure .IV sedation was used during the procedure to decrease patients anxiety. The target points were identified as follows: For the L5-S1 level which corresponds to the dorsal ramus of L5 the target point was at the superior medial aspect of the sacral ala on the --left-- side of the spine on the AP view of fluoroscopy and for the L2, L3, and L4 medial branches the target points were at the connection between the transverse process and the superior articular process of L3, L4, and L5 vertebra respectively on the --left-- oblique view of fluoroscopy. skin was marked, and localized with 1% lidocaine at these points. Subsequently, an 18 [id number] radiofrequency needles with a 10-mm curved active tips were advanced guided by fluoroscopy to each of the target points mentioned above in a superior medial direction to get the active tips as parallel as possible to the medial branches tracks. AP, oblique, and lateral views of fluoroscopy were used to verify needle tips position. Each level then underwent motor testing at 2.5 Hz and 0 to 3 volt with local stimulation, but no radicular symptoms down the legs. Thereafter radiofrequency thermocoagulation at 80 degrees celsius for 90 seconds after injecting 1 ml of PF Marcaine 0.5%(3 mls) with 40 mg of Kenalog. At the end of the procedure, the skin was cleansed and bandages were applied. COMPLICATIONS: No acute complications. DISPOSITION / PLANS: The patient was placed in a supine position and transferred to the recovery area in a stable condition for observation and was discharged from the recovery room after meeting discharge criteria. Home discharge instructions given to the patient by the staff. The patient was reexamined prior to discharge. The patient will schedule a follow up in the clinic in 2-4 weeks.
--- NOTE | 2017-12-21 10:09 | FL ---
EXAMINATION TYPE: FL guided pain mgmt statistic DATE OF EXAM: 12/21/2017 HISTORY: Flouroscopy time 14 seconds of fluoroscopy provided. IMPRESSION: 1. Fluoroscopy time.
== END ==
LOC: ORPAIN 06:29
PROVIDERS: ATTEND Anesthesiology
DX: G89.29 Other chronic pain (principal); M47.816 Spondylosis without myelopathy or radiculopathy, lumbar region; Z79.899 Other long term (current) drug therapy; M51.36 Other intervertebral disc degeneration, lumbar region; Z87.891 Personal history of nicotine dependence; Z88.2 Allergy status to sulfonamides; Z91.09 Other allergy status, other than to drugs and biological substances; Z85.3 Personal history of malignant neoplasm of breast; Z90.10 Acquired absence of unspecified breast and nipple
CPT/HCPCS: 64635; 64636 ×3; J2250; J3301; J3010; 99152

== ENCOUNTER → 2018-03-01 | Outpatient (CLI) | payer MEDICARE, BC ==
--- NOTE | 2018-03-01 09:29 | XR ---
EXAMINATION TYPE: XR chest 2V DATE OF EXAM: 03/01/2018 COMPARISON: 09/23/2015 TECHNIQUE: PA and lateral views submitted. HISTORY: Cough FINDINGS: The lungs are clear and there is no pneumothorax, pleural effusion, or focal pneumonia. Subsegmenta l changes along the medial margin the right lung base. Hyperinflation suggests COPD. Biapical pleural thickening. Hypertrophic and degenerative change of the spine. IMPRESSION: 1. Right basilar atelectasis or infiltrate. 2. COPD.
--- NOTE | 2018-03-01 09:42 | FL ---
EXAMINATION TYPE: FL barium swallow DATE OF EXAM: 03/01/2018 CLINICAL HISTORY: Upper cervical dysphagia and cough . Remote history of Rosie fundoplication over 2 0 years ago. TECHNIQUE: A double contrast esophagram is performed utilizing air and barium. A total of 1 minute and 53 seconds of fluoroscopic time was utilized during procedure. 37 fluoroscopic images were saved. COMPARISON: None FINDINGS: The esophagus shows normal motility and emptying into the stomach. No evidence of recurren t hiatal hernia or stricture noted. Minimal gastroesophageal reflux was seen during real time perform ance of this study. Lateral view demonstrates flowing osteophytes anteriorly of the cervical spine at the C3-C4, C5-C6 and C6-C7 vertebral levels producing impression upon the posterior esophagus withou t obstruction. Minimal vallecular and piriform residuals are seen throughout the examination. IMPRESSION: 1. In the region of the patient's upper cervical dysphagia there are flowing anterior osteophytes of the mid and lower cervical spine creating posterior impression upon the cervical esophagus, which can account for the patient's symptoms. No stricture is seen. 2. Minimal vallecular and piriform sinus retention also within the region of the patient's abnormalit y although given the trace amount this finding is unlikely to relate to the patient's symptoms. 3. No evidence recurrent hiatal hernia. 4. Minimal gastroesophageal reflux.
== END | disposition home or self-care (01) ==
LOC: RADFLWHC 08:22
PROVIDERS: ATTEND Internal Medicine
DX: K21.9 Gastro-esophageal reflux disease without esophagitis (principal); M25.78 Osteophyte, vertebrae; J44.9 Chronic obstructive pulmonary disease, unspecified
CPT/HCPCS: 71046; 74220

== ENCOUNTER → 2018-06-09 | Outpatient (CLI) | payer MEDICARE, BC ==
[2018-06-09 10:29] LABS: Basophils % (A) 1 %; Eosinophils # (A) 0.1 k/uL (0-0.7); Eosinophils % (A) 1 %; HCT 38.4 % (34.0-46.0); HGB 12.6 gm/dL (11.4-16.0); Lymphocytes # (A) 2.4 k/uL (1.0-4.8); Lymphocytes % (A) 40 %; MCH 30.6 pg (25.0-35.0); MCHC 32.7 g/dL (31.0-37.0); MCV 93.6 fL (80.0-100.0); Mean Platelet Volume 6.8; Monocytes # (A) 0.2 k/uL (0-1.0); Monocytes % (A) 4 %; Neutrophils # (A) 3.1 k/uL (1.3-7.7); Neutrophils % (A) 52 %; Platelet Count 331 k/uL (150-450); RDW 15.6 % (11.5-15.5)
[2018-06-09 10:31] LABS: Appearance,Urine Clear (Clear); Bilirubin,Urine Negative (Negative); Blood,Urine Negative (Negative); Color,Urine Colorless; Glucose,Urine (UA) Negative (Negative); Ketones,Urine Negative (Negative); Leukocyte Esterase,Urine Negative (Negative); Nitrite,Urine Negative (Negative); PH, Urine 6.5 (5.0-8.0); Protein,Urine Negative (Negative); Specific Gravity,Urine 1.004 (1.001-1.035); Urobilinogen,Urine <2.0 mg/dL (<2.0)
[2018-06-09 10:37] LABS: Calcium 10.1 mg/dL (8.4-10.2); INR 0.9 (<1.2); Potassium 4.3 mmol/L (3.5-5.1)
--- NOTE | 2018-06-09 11:10 | XR ---
EXAMINATION TYPE: XR chest 2V DATE OF EXAM: 06/09/2018 COMPARISON: 03/01/2018 TECHNIQUE: PA and lateral views submitted. HISTORY: Presurgical testing FINDINGS: Postsurgical change involving both shoulders suggested. Biapical pleural thickening. There is bluntin g the right costophrenic angle is subsegmental consolidation. Hypertrophic and degenerative changes s pine. Hyperinflation suggests COPD. No overt failure. IMPRESSION: Right basilar infiltrate and small effusion.
== END ==
LOC: LABPAT 08:45
PROVIDERS: ATTEND Orthopaedic Surgery Orthopaedic Surgery of the Spine
DX: Z01.818 Encounter for other preprocedural examination (principal); Z01.812 Encounter for preprocedural laboratory examination; R91.8 Other nonspecific abnormal finding of lung field; J90 Pleural effusion, not elsewhere classified; M48.062 Spinal stenosis, lumbar region with neurogenic claudication; M54.10 Radiculopathy, site unspecified
CPT/HCPCS: 36415; 71046; 80048; 81003; 85025; 85610; 85730; 86850; 86900; 86901; 87070

== ENCOUNTER 2018-06-19 11:18 | Inpatient (IN) | payer MEDICARE, BC ==
[~2018-06-19 11:18] MED LIST changes: +BACITRACIN 50,000 UNIT, POLYMYXIN B 500,000 UNIT in SODIUM CHLORIDE 0.9% IRRIGATIO 1,00... IRRIGATION ONE; +DEXAMETHASONE SOD PHOSPHATE 10 MG/ML 1 ML VIAL IV ONE; +LIDOCAINE 1% 20 ML VIAL (10MG/ML) FOR IV START INTRADERMA PRN; +ONDANSETRON 4 MG/2 ML VIAL IVP ONE; +SCOPOLAMINE 1.5MG/72HR PATCH TRANSDERM ONE; -SODIUM CHLORIDE 0.9% 500 ML 500 ML IV ONE; -SODIUM CHLORIDE 0.9% 500 ML 500 ML IV SCH; +ceFAZolin IN SWFI 2 GM/20 ML SYRINGE IVP ONE
[2018-06-19] MEDS: LACTATED RINGERS 1,000 ML IV SCH (11:49)
[2018-06-19] MEDS ORDERED: MIDAZOLAM (PF) 2 MG/2 ML VIAL IV ONE (12:17)
[2018-06-19] MEDS ORDERED: LACTATED RINGERS 1,000 ML BAG IV ONE (12:36)
[2018-06-19] MEDS ORDERED: MIDAZOLAM 2 MG/2 ML VIAL ONE (12:36)
[2018-06-19] MEDS ORDERED: LIDOCAINE 1% INJ 10MG/ML (20 ML MDV) ONE (12:36)
[2018-06-19] MEDS ORDERED: DEXAMETHASONE SOD PHOS (MDV) 100 MG/10 ML VIAL ONE (12:36)
[2018-06-19] MEDS ORDERED: HEPARIN SODIUM,PORCINE 10,000 UNIT/ML 1 ML VIAL ONE (12:36)
[2018-06-19] MEDS ORDERED: fentaNYL (PF) 50 MCG/ML 2 ML AMP ONE (12:36)
[2018-06-19] MEDS ORDERED: SUCCINYLCHOLINE CHLORIDE 100 MG/5 ML SYR IV ONE (12:36)
[2018-06-19] MEDS ORDERED: ROCURONIUM BROMIDE 10 MG/ML 10 ML VIAL IV ONE (12:36)
[2018-06-19] MEDS ORDERED: HYDROmorphone (PF) 1 MG/ML ONE (12:36)
[2018-06-19] MEDS ORDERED: ceFAZolin 1,000 MG VIAL ONE (12:36)
[2018-06-19] MEDS ORDERED: KETAMINE 10 MG/ML 20 ML VIAL ONE (12:36)
[2018-06-19] MEDS ORDERED: PHENYLEPHRINE-0.9% NACL SYG 1 MG/10 ML SYRINGE ONE (12:36)
[2018-06-19] MEDS ORDERED: PROPOFOL 10 MG/ML 20 ML VIAL IV ONE (12:36)
[2018-06-19] MEDS ORDERED: LIDOCAINE 0.5%-EPI 1:200,000 50 ML VIAL SQ ONE ×3 (13:09→13:34)
[2018-06-19] MEDS ORDERED: GELATIN SPONGE,ABSORB (LARGE) 1 EACH SPONGE MISCELLANE ONE ×2 (13:09→13:34)
[2018-06-19] MEDS ORDERED: THROMBIN (BOVINE) 5,000 UNIT VIAL MISCELLANE ONE ×2 (13:09→13:34)
[2018-06-19] MEDS: BACITRACIN 50,000 UNIT, POLYMYXIN B 500,000 UNIT in SODIUM CHLORIDE 0.9% IRRIGATIO 1,00... IRRIGATION ONE ×2 (13:36→14:58)
--- NOTE | 2018-06-19 13:45 | XR ---
EXAM TYPE: LUMBAR SPINE X RAY SERIES COMPARISON: NONE HISTORY: Needle placement TECHNIQUE: One view is submitted. FINDINGS: Alignment is anatomic. The pedicles are intact. The transverse processes are intact. There is ther e is multilevel degenerative disc disease. Resolution somewhat limited due to intraoperative techniqu e. There is a metallic instrument posterior to the lower lumbar spine. IMPRESSION: 1. Intraoperative needle placement
[2018-06-19] MEDS ORDERED: LACTATED RINGERS 1,000 ML IV ONE ×4 (13:48→17:56)
[2018-06-19] MEDS ORDERED: BACITRACIN 50,000 UNIT, POLYMYXIN B 500,000 UNIT in SODIUM CHLORIDE 0.9% IRRIGATIO 1,00... IRRIGATION ONE (15:32)
[2018-06-19] MEDS ORDERED: BUPIVACAINE (PF) 0.25% 30 ML VIAL SQ ONE (17:49)
[2018-06-19] MEDS ORDERED: MAGNESIUM HYDROXIDE 2,400 MG/10 ML CUP PO PRN (18:11)
[2018-06-19] MEDS ORDERED: ONDANSETRON 4 MG/2 ML VIAL IVP PRN (18:11)
[2018-06-19] MEDS ORDERED: BENZOCAINE/MENTHOL LOZENG 1 EACH LOZENGE MUCOUS MEM PRN (18:11)
[2018-06-19] MEDS ORDERED: HYDROmorphone 0.5 MG/0.5 ML SYRINGE IVP PRN (18:11)
[2018-06-19] MEDS ORDERED: HYDROcodone/APAP 5-325MG 1 EACH TAB PO PRN (18:11)
[2018-06-19] MEDS ORDERED: traMADol 50 MG TAB PO PRN (18:14)
[2018-06-19] MEDS ORDERED: NALOXONE 0.4 MG/ML 1 ML VIAL IV PRN (18:15)
--- NOTE | 2018-06-19 18:27 | P.OP ---
Date of Procedure: 06/19/18 Preoperative Diagnosis: Degenerative scoliosis, spinal stenosis, spondylolisthesis, low back pain, facet arthrosis, lower extremity radiculopathy, lower extremity weakness Postoperative Diagnosis: Same Anesthesia: GETA Pathology: none sent Condition: stable Disposition: PACU Description of Procedure: BRIEF OPERATIVE NOTE Preoperative Diagnosis:Degenerative scoliosis, spinal stenosis, spondylolisthesis, low back pain, facet arthrosis, lower extremity radiculopathy, lower extremity weakness Postoperative Diagnosis: Same Procedure: Laminectomy and decompression L2-3 L3 4 L4 5 and L5-S1 Posterior lateral decompression and fusion L2-3 L3 4 L4 5 and L5-S1 Transforaminal lumbar interbody fusion for a 360 fusion L3 4 and L4 5 Discectomy for decompression L3 4 and L4 5 Placement of interbody graft L3 4 and L4 5 Local autogenous bone grafting Harvesting of bone marrow aspirate via the pedicle and vertebral body of L4 on the right Use of Cell Saver Use of bone graft extenders Use of neuro monitoring Surgeon: Dr. Dave Vice Chancellor: Jake Little is present throughout the entire the case persistence during positioning, dissection, exposure, visualization, and all crucial elements of the case as well as closure. Anesthesia: General anesthesia Estimated blood loss: Approximate 1700 mL with 643 given back through Cell Saver Complications: None apparent Components implanted: [place] Itzel titanium pedicle screw system with use of 10 screws measuring 5.5 and 6.5 mm x 40 and 45 mm with 2 rods and K2M cross-link as well as K2M Danette interbody cage and a K2M [place] interbody titanium cage as well as 45 mL of DBX bone fibers and 1 osteoamp sponge to supplement the local autogenous and bone marrow aspirate graft Disposition: To recovery room in good stable condition. OPERATIVE INDICATIONS The patient has had long-standing issues in their lower back and lower extremities. She is having worsening symptoms despite aggressive conservative care. She is found have worsening degenerative scoliosis at her lumbar spine with asymmetric disc degeneration and spinal stenosis. These findings correlate well with her low back pain as well as her neurogenic claudication and lower extremity radiculopathy. She is having worsening of her pain and having greater difficulty with her ambulation and mobilization despite conservative care. We felt that treatment for her low back could be amenable surgical intervention but this would involve significant surgery with addressing the entire curvature through her lumbar spine as well as extensive decompression. The patient has been through conservative treatment. We discussed various treatment options including surgery, and the patient wishes to proceed with surgery We discussed the risk, patient's alternatives and benefits of surgery including but not limited to, risk of bleeding risk of infection, risk of need for further surgery, risk of decreased, loss of motion, muscle function, malunion nonunion, hardware failure, nerve damage, paralysis, heart attack, blindness and . OPERATIVE SUMMARY After discussing all the risks, patient alternatives and benefits at length, the patient elected to proceed with surgical intervention, signed informed consent, and presented for their procedure. The patient was seen and examined in the preoperative holding area and the surgical site was marked. The patient was given antibiotics and brought to the operating room. The patient was sedated and intubated by anesthesia in standard fashion. The patient was positioned on to the operating room table in a prone position on the appropriate frame which was well-padded and well molded. We were careful to pad any bony prominences and pressure points. We were careful to maintain the patient's cervical spine and good neutral alignment and position throughout. The patient was prepped and draped in a normal standard fashion. An appropriate timeout and keystone protocol performed. We were able to proceed with the surgery. The local wound area was infiltrated with local anesthetic. An incision was made at the midline longitudinally over the appropriate levels from L2 to S1. Dissection was taken down subcutaneously to the level of the fascia which was split midline. Dissection was taken over the lamina bilaterally over the facet joints and to the transverse processes. Intraoperative x-ray was taken which showed a marker at the appropriate level at L4. With the appropriate level positively confirmed, we were able to proceed with placement of the pedicle holes and screws. There was obvious significant curvature or scoliosis to her back and rotational deformity. The patient had all their twitches back. The wound was copiously irrigated and suctioned dry as had been done periodically throughout the case. Screw holes were established similarly at each level. A sharp awl was used to establish the starting hole. It was palpated and found to have good for haddad and good base. A monitored Steffee probe was used to establish the pedicle hole. It was positioned so there was no stimulation at 12 mA. The hole was palpated and found to have good for haddad and a good base. The hole was tapped with the appropriate sized tap. The transverse process or sacral ala was decorticated with a high-speed bur. I was able to use these holes to place the appropriate size screw and good alignment and good position with good bony purchase. When the screws were inserted there were stimulated, and found to have no stimulation at 20 mA. the screw at L2 on the left was repositioned after taking intraoperative x-ray which showed excellent alignment and position. We were able to place screws at L2-L3 L4-L5 and S1 bilaterally. They'll have good purchase and good fixation. I was able to turn my attention to the decompression. decompression was performed with a combination of rongeurs, curettes, Kerrison rongeurs and a ball-tip feeler. All of the bone that was removed was stripped and morcellized for use as autogenous bone graft later in the case. Note was made of severe bilateral foraminal stenosis particularly at L3 4 and L4 5. There is central and bilateral foraminal stenosis at each level which was made with the decompression with laminectomy and bilateral foraminotomy with partial medial facetectomy at L2-3 L3 4 L4 5 and L5-S1. I was able to obtain good central decompression as well as wide bilateral foraminal decompression from L2 to S1. There is no evidence of dural tear or leak. Good hemostasis was maintained. The wound was irrigated and suctioned dry. I performed a complete facetectomy at the appropriate level on the most symptomatic side on the left at L3 4 and L4 5. These levels had the most instability felt the TLIF would offer further interbody structure. All bone that was removed was saved for local autogenous bone grafting. I was able to gain access to the disc space at the appropriate level/levels. Good hemostasis was maintained. I was able to protect the neurologic structures. A discectomy was performed. No was made of some compression from the disc itself and I was able to remedy this with the discectomy. This provided further decompression. I was also able to perform complete discectomy and endplate preparation with a combination of pituitary curettes, rasps and scrapers. No was made of severe disc degeneration at both L3 4 and L4 5 with severe asymmetric collapse. With the interbody space prepared, I was able to do appropriate sizing. The appropriate size cage was chosen. The wound was irrigated and suctioned dry. The interbody space was packed with local autogenous bone graft and a small portion of bone graft substitute, as was the cage itself. Protecting the soft tissue structures, I was able place the cage in good alignment and good position with good fit and fill. There is no evidence of extrusion of the graft material nor protrusion of the interbody device. The wound was irrigated and suctioned dry. This was done at L3 4 and L4 5 and this provided further correction of the deformity. With the hardware intact, intraoperative x-ray was again taken which showed good alignment and position of the hardware at the appropriate levels. As noted above I did reposition the screw at L2 to on the left to have good interbody purchase. The L3 screw on the right had good purchase but the tip did extend into the disc space by felt that was stable and involved in the fusion itself I did not feel need to risk repositioning that screw. We good purchase bilaterally from L2 to S1. We were then able to measure, contour and place the rods and appropriate hardware bilaterally. I was able get some reduction of the scoliotic curvature with the placement of the rods. I was able to place capcrews, tighten them down, and torque them off appropriately. With this intact I was able to place the local autogenous bone graft with additional bone graft enhancer as necessary into the posterior lateral gutters bilaterally. With the bone graft intact, a stable construct, and good decompression at the appropriate levels, we were able to proceed with closure. Good hemostasis was maintained. There is no evidence of dural tear or leak. The fascia was closed for a watertight closure. The subcutaneous tissue was closed over a superficial drain. The subcuticular tissue was closed with absorbable suture. The wound was cleaned and dried and dressed with the appropriate dressing. The drapes were broken down. The patient was gently rolled back onto their hospital bed being careful to maintain their cervical spine and good neutral alignment and position. They were woken up by anesthesia, extubated, and brought to the recovery room in good stable condition. The patient will be admitted to the hospital for appropriate postoperative care, medical management and monitoring. We will continue to follow them closely about the postoperative course.
[2018-06-19] MEDS: HYDROmorphone 0.5 MG/0.5 ML SYRINGE IVP PRN ×4 (18:40→19:04)
--- NOTE | 2018-06-19 19:15 | XR ---
EXAMINATION TYPE: XR lumbar spine 2 or 3V DATE OF EXAM: 06/19/2018 CLINICAL HISTORY: Back surgery. TECHNIQUE: Frontal and lateral images of the lumbar spine are obtained. COMPARISON: Lumbar spine x-ray earlier today FINDINGS: There are 5 lumbar type vertebral bodies identified. There are new posterior interpedicula r rods and screws L2-S1 level bilaterally. The right L3 screw appears to extend anteriorly superiorly into the L2-L3 disc space. New Metallic hardware L3-L4 and metallic cage L4-L5 level is seen. Persis tent moderate to severe disc space narrowing L5-S1 level. Alignment is stable and satisfactory. IMPRESSION: As above. Attention to right L3 interpedicular screw.
[2018-06-19] MEDS: SODIUM CHLORIDE 0.9% 1,000 ML IV SCH (20:19)
[2018-06-19 20:36] VITALS: BMI 36.2
[2018-06-19] MEDS: HYDROMORPHONE (PF) 10 MG in SODIUM CHLORIDE 0.9% 49 ML IV PRN (21:23)
[2018-06-19] MEDS: ceFAZolin IN SWFI 2 GM/20 ML SYRINGE IVP SCH (21:24)
[2018-06-19] MEDS: PREGABALIN 100 MG CAP PO SCH (21:24)
[2018-06-20] MEDS: LACTATED RINGERS 1,000 ML IV SCH (04:56)
[2018-06-20] MEDS: ceFAZolin IN SWFI 2 GM/20 ML SYRINGE IVP SCH (04:56)
[2018-06-20 08:07] LABS: Basophils % (A) 0 %; Eosinophils % (A) 0 %; HCT 30.9 % (34.0-46.0); Hypochromasia Marked; Lymphocytes # (A) 1.1 k/uL (1.0-4.8); Lymphocytes % (A) 15 %; MCH 30.2 pg (25.0-35.0); MCHC 31.2 g/dL (31.0-37.0); MCV 96.9 fL (80.0-100.0); Mean Platelet Volume 7.1; Monocytes # (A) 0.6 k/uL (0-1.0); Monocytes % (A) 9 %; Neutrophils # (A) 5.4 k/uL (1.3-7.7); Neutrophils % (A) 74 %; Platelet Count 198 k/uL (150-450); RBC 3.19 m/uL (3.80-5.40); RDW 15.7 % (11.5-15.5); WBC 7.3 k/uL (3.8-10.6)
[2018-06-20 08:09] LABS: HGB 9.6 gm/dL (11.4-16.0)
[2018-06-20 08:14] LABS: Anion Gap 6 mmol/L; Blood Urea Nitrogen 16 mg/dL (7-17); Carbon Dioxide 24 mmol/L (22-30); Chloride 107 mmol/L (98-107); Glucose 104 mg/dL (74-99); Potassium 4.5 mmol/L (3.5-5.1); Sodium 137 mmol/L (137-145)
[2018-06-20] MEDS: PANTOPRAZOLE 40 MG TABLET PO SCH (08:31)
[2018-06-20] MEDS: FUROSEMIDE 40 MG TAB PO SCH (08:31)
[2018-06-20] MEDS: AZITHROMYCIN 500 MG TAB PO SCH (08:31)
[2018-06-20] MEDS: ASPIRIN 325 MG TAB PO SCH (08:31)
[2018-06-20] MEDS: ATORVASTATIN 40 MG TAB PO SCH (08:31)
[2018-06-20] MEDS: PREGABALIN 100 MG CAP PO SCH ×2 (08:31→21:26)
[2018-06-20] MEDS: LOSARTAN-HCTZ 50-12.5 MG 1 EACH TAB PO SCH (08:31)
[2018-06-20] MEDS: POTASSIUM CHLORIDE ER 10 MEQ TAB.ER.PRT PO SCH (08:31)
[2018-06-20] MEDS: SENNOSIDES-DOCUSATE SODIUM 1 EACH TAB PO SCH (08:31)
[2018-06-20] MEDS: FOLIC ACID 1 MG TAB PO SCH (08:31)
--- NOTE | 2018-06-20 08:44 | P.PN ---
Progress Note - Text Progress Note Date: 06/20/18 Orthopedic Spine Patient is a pleasant 63-year-old female who is seen and examined at the bedside following posterior lateral decompression and fusion performed yesterday. Patient states they are doing ok postsurgically. Currently does not complain of nausea, vomiting, fever, or chills. Patient states pain has been adequately controlled. She is requiring IV, CARDIOLOGY ASSOCIATE, and oral medications for pain control. She feels her legs have had some improvement postoperatively. She is not currently experiencing any pain in the bilateral lower extremities. She is moving the bilateral lower extremities independently without difficulty. She does have increased pain with any movement of her lumbar spine. Her Rodriguez catheter remains intact. We discussed working with therapy today to try to help her transfer to a bedside chair. Her Hemovac drain remains intact. Patient is eating and voiding freely without difficulty. Physical Exam Lumbar Fusion: Status post surgical day number 1 Patient is awake, alert, and oriented 3 Vital signs stable Good chest excursion with deep inspiration and expiration Dorsiflexion, plantarflexion, and extensor hallucis longus positive sustained bilaterally No signs or symptoms of DVT; no calf pain; pneumatic cuffs intact bilateral lower extremities Dressing is clean, dry, and intact; no erythema, purulence, or signs of infection Hemovac drain well secure Neurovascularly intact bilaterally lower extremities Assessment: L2-3, L3-4, L4-5, and L5-S1 posterior lateral decompression and fusion L3-4 and L4-5 transforaminal lumbar interbody fusion Low back pain Degenerative scoliosis Lumbar spondylolisthesis Lumbar facet arthrosis Li-Fraumeni syndrome History of breast cancer, cervical cancer, lung disease, lymphedema, and fibromyalgia Plan: 1. Ambulate as tolerated; work with Physical Therapy to increase mobilization; we will plan for therapy to help patient transferred to a bedside chair today 2. Continue pain control with IV and oral medications including CARDIOLOGY ASSOCIATE 3. Dressing to remain intact until tomorrow; Hemovac drain to remain intact until tomorrow; will plan for dressing change with discontinuation of Hemovac drain tomorrow, 06/21/2018 4. Medical management can continue to manage patient for patient's other medical issues 5. We will continue to follow the patient closely 6. Patient can follow-up with Jake Fairbanks PA-C or Dr. Rod Dave at [facility] in 2-3 weeks following discharge
[2018-06-20] MEDS ORDERED: METHOTREXATE SODIUM 2.5 MG TAB PO SCH (09:00)
[2018-06-20] MEDS: SODIUM CHLORIDE 0.9% 1,000 ML IV SCH ×2 (09:21→21:29)
[2018-06-20] MEDS: FORMOTEROL FUMARATE 20 MCG/2 ML NEBU INHALATION SCH ×2 (11:20→22:00)
[2018-06-20] MEDS: BUDESONIDE 0.5 MG/2 ML NEBU INHALATION SCH (11:20)
--- NOTE | 2018-06-20 11:47 | P.CONS ---
History of Present Illness - Reason for Consult Consult date: 06/20/18 Medical management Requesting physician: Da Dave - Chief Complaint Post decompression laminectomy with fusion from L2 to S1 - History of Present Illness This is a 63-year-old female one of my patient with a previous medical history significant for hypertension and hypertensive perivascular disease with left ventricular hypertrophy, hyperlipidemia, GERD, osteophytes, rheumatoid arthritis, COPD/asthma with chronic bronchitis, fibromyalgia, history of breast cancer status post right mastectomy with extensive resection to the right axilla that was done back in 2001 with chronic lymphedema to the right arm, cervical cancer, 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 Patient underwent elective decompression laminectomy with posterior lateral decompression and fusion of L2-L3, L3-L4, L4-L5, and L5-S1, along with bone graft, as were asked to see the patient for postoperative medical management. Review of Systems Constitutional: Reports chronic pain, Reports fatigue, Denies anorexia, Denies malaise, Denies weight gain, Denies weight loss Eyes: denies blurred vision, denies bulging eye, denies decreased vision Ears: deny: decreased hearing Ears, nose, mouth and throat: Denies dysphagia, Denies epistaxis, Denies neck lump, Denies swelling in throat, Denies sore throat, Denies vertigo Cardiovascular: Denies chest pain, Denies decreased exercise tolerance, Denies dyspnea on exertion, Denies rapid heart beat, Denies shortness of breath, Denies syncope Respiratory: Reports cough, Denies congestion, Denies cough with sputum, Denies dyspnea, Denies home oxygen, Denies sleep apnea, Denies snoring, Denies wheezing Gastrointestinal: Denies abdominal pain, Denies bloating, Denies excessive gas, Denies heartburn, Denies melena, Denies nausea, Denies vomiting Genitourinary: Denies dysuria, Denies hematuria Menstruation: Reports postmenopausal Musculoskeletal: Reports low back pain, Denies myalgias Musculoskeletal: absent: ankle pain, ankle stiffness, ankle swelling, elbow pain, elbow stiffness, elbow swelling, foot pain, foot stiffness, foot swelling, hand pain, hand stiffness, hand swelling, hip pain, hip stiffness, hip swelling, knee pain, knee stiffness, knee swelling, shoulder pain, shoulder stiffness, shoulder swelling, wrist pain, wrist stiffness, wrist swelling Integumentary: Denies pruritus, Denies rash Neurological: Denies numbness, Denies weakness Psychiatric: Denies anxiety, Denies depression Endocrine: Denies fatigue, Denies weight change Past Medical History Past Medical History: Asthma, Cancer, COPD, Fibromyalgia, GERD/Reflux, Hyperlipidemia, Hypertension, Musculoskeletal Disorder, Osteoarthritis (OA), Pneumonia, Rheumatoid Arthritis (RA) Additional Past Medical History / Comment(s): R breast cancer with mastectomy and chemo, chronic R arm lymphedema, neuropathy bilateral feet d/t chemotherapy, hx cervical cancer, restless leg syndrome, anermia, lymphedema dorie legs, scoliosis. started on antibiotics 06/12/18 from PCP for respiratory infection. History of Any Multi-Drug Resistant Organisms: None Reported Past Surgical History: Appendectomy, Breast Surgery, Cholecystectomy, Hystere ctomy, Joint Replacement, Orthopedic Surgery, Tonsillectomy Additional Past Surgical History / Comment(s): RIGHT MASTECTOMY, RIGHT TOTAL SHOULDER REPLACEMENT followed by revisions, I&Ds of R shoulder, picc line insertion-since removed, LT ROTATOR CUFF REPAIR, bilateral salpingo oophorectomy. pain clinic procedures Past Anesthesia/Blood Transfusion Reactions: No Reported Reaction Past Psychological History: No Psychological Hx Reported Additional Psychological History / Comment(s): . Smoking Status: Former smoker Past Alcohol Use History: None Reported Additional Past Alcohol Use History / Comment(s): Pt started smoking in 1974 and quit in 2001. < 1 PPD Past Drug Use History: None Reported - Past Family History Sister(s) Family Medical History: Cancer (Patient has one sister with thyroid cancer and varicose vein.) Additional Family Medical History / Comment(s): Thyroid cancer. Brother(s) Family Medical History: Cancer (Patient had 4 brothers one of her brothers with lung cancer the other one had small cell sarcoma and rheumatoid arthritis the other one from alcoholism and drugs she also has 2 living brothers one with liver transplant and the other one has no contact with.) Additional Family Medical History / Comment(s): Patient has 4 brothers. One has from alcoholism at age 55. One brother has small cell lung carcinoma. 1 i s diabetic. One brother she has no contact with. Mother Family Medical History: Cancer (Mother at age 63 from breast cancer also has hypertension.), Deep Vein Thrombosis (DVT) Additional Family Medical History / Comment(s): Breast cancer. Father Family Medical History: Cancer (Father at age of 65 from rectal cancer and hypertension.) Additional Family Medical History / Comment(s): Father of colon cancer in his 60s. Medications and Allergies Home Medications Medication Instructions Recorded Confirmed Type Atorvastatin [Lipitor] 40 mg PO DAILY 11/14/14 06/19/18 History DULoxetine HCL [Cymbalta] 60 mg PO BID 11/14/14 06/19/18 History Furosemide [Lasix] 40 mg PO QAM 11/14/14 06/19/18 History Pregabalin [Lyrica] 200 mg PO HS 11/14/14 06/19/18 History rOPINIRole HCL [Requip] 5 mg PO DAILY@1500 11/14/14 06/19/18 History Folic Acid 1 mg PO DAILY 10/26/16 06/19/18 History Methotrexate Sodium [Methotrexate] 25 mg PO TU 10/26/16 06/19/18 History Potassium Chloride [Klor-Con 10] 10 meq PO QAM 10/26/16 06/19/18 History Omeprazole [PriLOSEC] 20 mg PO AC-BRKFST 12/24/16 06/19/18 History Pregabalin [Lyrica] 100 mg PO QAM 07/04/17 06/19/18 History Losartan-Hctz 50-12.5 mg [Hyzaar 1 tab PO DAILY 11/04/17 06/19/18 History 50-12.5] traMADol HCL [Ultram] 50 mg PO Q6HR PRN #120 tablet 11/21/17 06/19/18 Rx Arformoterol Tartrate [Brovana] 15 mcg INHALATION RT-DAILY 06/07/18 06/19/18 History Aspirin 325 mg PO DAILY 06/07/18 06/19/18 History Budesonide [Pulmicort] 0.5 mg INHALATION RT-DAILY 06/07/18 06/19/18 History Tofacitinib Citrate [Xeljanz Xr] 11 mg PO QAM 06/07/18 06/19/18 History Azithromycin [Zithromax] 500 mg PO DAILY 06/13/18 06/19/18 History Allergies Allergy/AdvReac Type Severity Reaction Status Date / Time nickel Allergy Rash/Hives Verified 06/19/18 15:43 Sulfa (Sulfonamide Allergy Rash/Hives Verified 06/19/18 15:43 Antibiotics) Physical Exam Vitals: Vital Signs Temp Pulse Pulse Pulse Pulse Resp BP 06/20/18 11:28 84 06/20/18 11:27 84 06/20/18 11:21 84 06/20/18 08:00 16 06/20/18 07:26 97.2 F L 79 16 126/73 06/20/18 02:55 97.6 F 76 20 107/68 06/19/18 23:57 17 06/19/18 23:40 86 121/72 06/19/18 23:10 86 117/72 06/19/18 22:40 85 130/76 06/19/18 22:10 93 134/83 06/19/18 21:40 86 132/80 06/19/18 21:25 89 123/76 06/19/18 21:10 89 117/76 06/19/18 20:51 06/19/18 20:44 18 06/19/18 20:40 98.3 F 96 20 137/76 06/19/18 20:00 101 H 16 134/68 06/19/18 19:45 92 12 124/64 06/19/18 19:30 106 H 12 134/67 06/19/18 19:15 96 16 146/78 06/19/18 19:01 99 18 157/87 06/19/18 18:45 96 18 168/88 06/19/18 18:32 98.6 F 73 14 140/73 06/19/18 11:32 98.8 F 85 16 161/82 Pulse Ox 06/20/18 11:28 06/20/18 11:27 06/20/18 11:21 100 06/20/18 08:00 06/20/18 07:26 99 06/20/18 02:55 95 06/19/18 23:57 06/19/18 23:40 06/19/18 23:10 06/19/18 22:40 06/19/18 22:10 06/19/18 21:40 06/19/18 21:25 06/19/18 21:10 06/19/18 20:51 96 06/19/18 20:44 06/19/18 20:40 90 L 06/19/18 20:00 95 06/19/18 19:45 99 06/19/18 19:30 96 06/19/18 19:15 93 L 06/19/18 19:01 98 06/19/18 18:45 98 06/19/18 18:32 100 06/19/18 11:32 98 Intake and Output 06/19/18 06/20/18 06/20/18 22:59 06:59 14:59 Intake Total 2900 Output Total 2180 990 Balance 720 -990 Intake: IV 2900 Output: Drainage 210 Back 210 Urine 350 780 Uretheral (Rodriguez) 780 Estimated Blood Loss 1830 Other: Voiding Method Indwelling Catheter Indwelling Catheter - Constitutional General appearance: no acute distress, obese - EENT Eyes: anicteric sclerae, EOMI, PERRLA, no ptosis, no scleral icterus, normal appearance ENT: hearing grossly normal, NA/AT, normal oropharynx, no thrush Ears: bilateral: normal - Neck Neck: no lymphadenopathy, normal ROM, no rigidity, no stridor, no thyromegaly Carotids: bilateral: upstroke normal Thyroid: bilateral: normal size - Respiratory Respiratory: bilateral: diminished, negative: dullness, rales, rhonchi, wheezing, prolonged expiration - Cardiovascular Rhythm: regular Heart sounds: normal: S1, S2 Abnormal Heart Sounds: no systolic murmur, no S3 Gallop, no S4 Gallop, no click - Gastrointestinal General gastrointestinal: normal bowel sounds, soft, no splenomegaly, no tendern ess, no umbilical hernia, no ventral hernia - Integumentary Integumentary: normal, normal turgor - Musculoskeletal Musculoskeletal: strength equal bilaterally - Psychiatric Psychiatric: A&O x's 3, appropriate affect, intact judgment & insight Results CBC & Chem 7: 06/20/18 06:57 06/20/18 06:57 Labs: Abnormal Lab Results - Last 24 Hours (Table) 06/20/18 06/20/18 Range/Units 06:57 06:57 RBC 3.19 L (3.80-5.40) m/uL Hgb 9.6 L D (11.4-16.0) gm/dL Hct 30.9 L (34.0-46.0) % RDW 15.7 H (11.5-15.5) % Glucose 104 H (74-99) mg/dL Calcium 8.0 L (8.4-10.2) mg/dL Assessment and Plan Assessment: Assessment and plan: 1. Post operative day #1 status post decompression laminectomy with fusion of L2-L3 L3-L4 L4-L5 and L5-S1. Patient was encouraged to use the incentive spirometer to reduce the incidence of atelectasis and healthcare associated pneumonia, continue current pain management via KNOWLEDGE ENGINEER, physical therapy evaluation, early ambulation, continue current pain management as outlined by spine surgery, hold methotrexate and Xeljanz. 2. Hypertension and hypertensive cardiovascular disease. Continue patient on losartan 50/12.5 mg orally once every day. 3. Hyperlipidemia. Continue Lipitor 40 mg orally once every day. 4. Fibromyalgia. Continue Lyrica 200 mg orally once every day as well as Cymbalta 60 mg orally twice every day. 5. Restless leg syndrome. Continue Requip 5 mg orally bedtime. 6. Rheumatoid arthritis. Hold methotrexate and Xeljanz. 7. History of Li-fraumeni syndrome with her surveillance diagnostics including whole-body MRI is up-to-date. 8. History of breast cancer and cervical cancer status post mastectomy with significant right-sided lymphedema. 9. History of COPD/chronic bronchitis and asthma. Continue patient on Pulmicort 0.5 mg nebulization twice every day as well as Brovana twice a day, DuoNeb 3 mg nebulization 4 times every day. 10. GERD. Continue Prilosec 20 mg orally once every day. 11. DVT prophylaxis. Continue bilateral SCD. 12. GI prophylaxis. Continue PPI 13. Acute blood loss anemia monitor the patient's CBC. 14. Thank you for the consult we will follow the patient with you.
[2018-06-20] MEDS: IPRATROPIUM-ALBUTEROL 3 ML NEB INHALATION SCH ×3 (14:04→22:00)
[2018-06-20] MEDS: HYDROcodone/APAP 5-325MG 1 EACH TAB PO PRN (14:56)
[2018-06-20] MEDS: HYDROMORPHONE (PF) 10 MG in SODIUM CHLORIDE 0.9% 49 ML IV PRN (21:27)
[2018-06-21] MEDS: HYDROcodone/APAP 5-325MG 1 EACH TAB PO PRN ×2 (00:44→10:03)
[2018-06-21] MEDS: LACTATED RINGERS 1,000 ML IV SCH (04:44)
[2018-06-21] MEDS: IPRATROPIUM-ALBUTEROL 3 ML NEB INHALATION SCH ×5 (08:20→21:34)
[2018-06-21] MEDS: FORMOTEROL FUMARATE 20 MCG/2 ML NEBU INHALATION SCH ×2 (08:20→21:02)
[2018-06-21] MEDS: BUDESONIDE 0.5 MG/2 ML NEBU INHALATION SCH (08:20)
[2018-06-21] MEDS: PANTOPRAZOLE 40 MG TABLET PO SCH (08:49)
[2018-06-21] MEDS: ATORVASTATIN 40 MG TAB PO SCH (08:49)
[2018-06-21] MEDS: FOLIC ACID 1 MG TAB PO SCH (08:49)
[2018-06-21] MEDS: FUROSEMIDE 40 MG TAB PO SCH (08:49)
[2018-06-21] MEDS: LOSARTAN-HCTZ 50-12.5 MG 1 EACH TAB PO SCH (08:49)
[2018-06-21] MEDS: POTASSIUM CHLORIDE ER 10 MEQ TAB.ER.PRT PO SCH (08:49)
[2018-06-21] MEDS: SENNOSIDES-DOCUSATE SODIUM 1 EACH TAB PO SCH (08:49)
[2018-06-21] MEDS: AZITHROMYCIN 500 MG TAB PO SCH (08:49)
[2018-06-21] MEDS: ASPIRIN 325 MG TAB PO SCH (08:49)
[2018-06-21] MEDS: PREGABALIN 100 MG CAP PO SCH ×2 (08:49→21:00)
[2018-06-21 10:15] LABS: ALT 26 U/L (9-52); AST 28 U/L (14-36); Albumin 2.6 g/dL (3.5-5.0); Alkaline Phosphatase 44 U/L (38-126); Anion Gap 4 mmol/L; Blood Urea Nitrogen 15 mg/dL (7-17); Calcium 7.8 mg/dL (8.4-10.2); Carbon Dioxide 28 mmol/L (22-30); Chloride 103 mmol/L (98-107); Glucose 115 mg/dL (74-99); Magnesium 1.8 mg/dL (1.6-2.3); Potassium 3.8 mmol/L (3.5-5.1); Sodium 135 mmol/L (137-145); Total Bilirubin 0.4 mg/dL (0.2-1.3); Total Protein 4.6 g/dL (6.3-8.2)
[2018-06-21 10:17] LABS: Basophils % (A) 0 %; Eosinophils # (A) 0.2 k/uL (0-0.7); Eosinophils % (A) 3 %; HGB 8.4 gm/dL (11.4-16.0); Hypochromasia Slight; Lymphocytes # (A) 1.1 k/uL (1.0-4.8); Lymphocytes % (A) 16 %; MCH 30.3 pg (25.0-35.0); MCHC 32.2 g/dL (31.0-37.0); MCV 94.2 fL (80.0-100.0); Mean Platelet Volume 7.4; Monocytes # (A) 0.6 k/uL (0-1.0); Monocytes % (A) 9 %; Neutrophils # (A) 4.6 k/uL (1.3-7.7); Neutrophils % (A) 71 %; Platelet Count 126 k/uL (150-450); RBC 2.76 m/uL (3.80-5.40); RDW 15.7 % (11.5-15.5); WBC 6.6 k/uL (3.8-10.6)
[2018-06-21] MEDS: SODIUM CHLORIDE 0.9% 1,000 ML IV SCH (12:07)
--- NOTE | 2018-06-21 15:04 | P.PN ---
Progress Note - Text Progress Note Date: 06/21/18 Postoperative day #2 Patient is seen and examined today at bedside. The patient has some pain around the surgical site as expected. Pain is being controlled with medication. She still has her Rodriguez intact and was only able sit up for a little while. But she does feel like she is making some progress. She denies any nausea or vomiting or fevers. She says her legs are doing well. Her pain is centralized at her back. Physical Exam Afebrile with stable vital signs Abdomen is soft nontender. Chest has good excursion deep and space expiration The incision site is clean dry and intact. No erythema there is no purulence. The drain is discontinued with minimal drainage Extremities have not had neurologic change from prior to surgery. She has sustained dorsal flexion plantar flexion and EHL intact Calves and thighs were soft nontender without evidence of DVT. Assessment/Plan Postoperative day #2 status post open decompression and fusion L2-3 L3 4 L4 5 and L5-S1 for her scoliosis with severe stenosis and degenerative disc disease with lower extremity radiculopathy Patient is progressing as expected from the surgery. This was quite large surgery for her with significant dissection involved and we would expect significant pain postop fully as she is having. She has been making adequate progress and was able to roll to her side in bed with us in the room. I think it is okay for her to discontinue the [employer] SUPERVISOR and convert IV and oral medications. I would like her to increase her mobilization and we will discontinue Rodriguez today. She is asking if she can take 2 aspirin at a time for her headaches that she has occasionally because that works for her at home and I think that is acceptable. We will continue to increase the patient's mobilization with therapy. We will continue pain control with oral or IV medications. We'll continue to follow patient closely.
[2018-06-21] MEDS ORDERED: ASPIRIN 325 MG TAB PO STA (15:12)
--- NOTE | 2018-06-21 15:16 | P.PN ---
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 Patient underwent elective decompression laminectomy with posterior lateral decompression and fusion of L2-L3, L3-L4, L4-L5, and L5-S1, along with bone graft, as were asked to see the patient for postoperative medical management. 06/21: Patient complains of significant pain to her back and she uses ice machine in place at this time. She continues on SET KEY DRIVER and [place] and she does have IV Dilaudid available if needed. The patient is known to have increased fluids and IV fluids will be discontinued. Blood pressure medications will be placed on hold. She does state she had an episode where she was sitting in a chair in her blood pressure dropped. She is status post IV fluid bolus. Patient states that she is not eating very much. Patient has been afebrile, blood pressure 114/74, pulse ox 90% on room air, heart rate in the 90s. Hemoglobin is 8.4, platelet count 126. Review of Systems Constitutional: Reports chronic pain, Reports fatigue, reports anorexia, Denies malaise, Denies weight gain, Denies weight loss Eyes: denies blurred vision, denies bulging eye, denies decreased vision Ears: deny: decreased hearing Ears, nose, mouth and throat: Denies dysphagia, Denies epistaxis, Denies neck lump, Denies swelling in throat, Denies sore throat, Denies vertigo Cardiovascular: Denies chest pain, Denies decreased exercise tolerance, Denies dyspnea on exertion, Denies rapid heart beat, Denies shortness of breath, Denies syncope Respiratory: Reports cough, Denies congestion, Denies cough with sputum, Denies dyspnea, Denies home oxygen, Denies sleep apnea, Denies snoring, Denies wheezing Gastrointestinal: Denies abdominal pain, Denies bloating, Denies excessive gas, Denies heartburn, Denies melena, Denies nausea, Denies vomiting Genitourinary: Denies dysuria, Denies hematuria Menstruation: Reports postmenopausal Musculoskeletal: Reports low back pain, Denies myalgias Musculoskeletal: absent: ankle pain, ankle stiffness, ankle swelling, elbow pa in, elbow stiffness, elbow swelling, foot pain, foot stiffness, foot swelling, hand pain, hand stiffness, hand swelling, hip pain, hip stiffness, hip swelling, knee pain, knee stiffness, knee swelling, shoulder pain, shoulder stiffness, shoulder swelling, wrist pain, wrist stiffness, wrist swelling Integumentary: Denies pruritus, Denies rash Neurological: Denies numbness, Denies weakness Psychiatric: Denies anxiety, Denies depression Endocrine: Denies fatigue, Denies weight change Objective - Vital Signs Vital signs: Vital Signs Temp 98.1 F 06/21/18 07:27 Pulse 100 06/21/18 07:27 Resp 18 06/21/18 07:27 BP 114/74 06/21/18 07:27 Pulse Ox 98 06/21/18 07:27 Intake & Output 06/20/18 06/21/18 06/21/18 18:59 06:59 18:59 Intake Total 540 Output Total 678 353 6263 Balance -10 -980 -1610 Intake: Oral 540 Output: Drainage 70 Back 70 Urine 863 [id number] Uretheral (Rodriguez) 910 410 Other: Voiding Method Indwelling Catheter Indwelling Catheter - Exam General appearance: no acute distress, obese - EENT Eyes: anicteric sclerae, EOMI, PERRLA, no ptosis, no scleral icterus, normal appearance ENT: hearing grossly normal, NA/AT, normal oropharynx, no thrush Ears: bilateral: normal - Neck Neck: no lymphadenopathy, normal ROM, no rigidity, no stridor, no thyromegaly Carotids: bilateral: upstroke normal Thyroid: bilateral: normal size - Respiratory Respiratory: bilateral: diminished, negative: dullness, rales, rhonchi, wheezing, prolonged expiration - Cardiovascular Rhythm: regular Heart sounds: normal: S1, S2 Abnormal Heart Sounds: no systolic murmur, no S3 Gallop, no S4 Gallop, no click - Gastrointestinal General gastrointestinal: normal bowel sounds, soft, no splenomegaly, no tenderness, no umbilical hernia, no ventral hernia Rodriguez catheter draining clear carmel urine - Integumentary Integumentary: normal, normal turgor - Musculoskeletal Musculoskeletal: strength equal bilaterally Ice machine in place to her back. - Psychiatric Psychiatric: A&O x's 3, appropriate affect, intact judgment & insight - Labs CBC & Chem 7: 06/21/18 09:13 06/21/18 09:13 Labs: Abnormal Lab Results - Last 24 Hours (Table) 06/21/18 06/21/18 Range/Units 09:13 09:13 RBC 2.76 L (3.80-5.40) m/uL Hgb 8.4 L (11.4-16.0) gm/dL Hct 26.0 L (34.0-46.0) % RDW 15.7 H (11.5-15.5) % Plt Count 126 L (150-450) k/uL Sodium 135 L (137-145) mmol/L Glucose 115 H (74-99) mg/dL Calcium 7.8 L (8.4-10.2) mg/dL Total Protein 4.6 L (6.3-8.2) g/dL Albumin 2.6 L (3.5-5.0) g/dL Assessment and Plan Plan: 1. Post operative day #1 status post decompression laminectomy with fusion of L2-L3 L3-L4 L4-L5 and L5-S1. Patient was encouraged to use the incentive spirometer to reduce the incidence of atelectasis and healthcare associated pneumonia, continue current pain management via SET KEY DRIVER, physical therapy evaluation, early ambulation, continue current pain management as outlined by spine surgery, hold methotrexate and Xeljanz which are now discontinued. 2. Hypertension and hypertensive cardiovascular disease with episode of hypotension. Hold losartan and hydrochlorothiazide. Patient may be continued on oral Lasix. 3. Hyperlipidemia. Continue Lipitor 40 mg orally once every day. 4. Fibromyalgia. Continue Lyrica 200 mg orally once every day as well as Cymbalta 60 mg orally twice every day. 5. Restless leg syndrome. Continue Requip 5 mg orally bedtime. 6. Rheumatoid arthritis. Hold methotrexate and Xeljanz. 7. History of Li-fraumeni syndrome with her surveillance diagnostics including whole-body MRI is up-to-date. 8. History of breast cancer and cervical cancer status post mastectomy with significant right-sided lymphedema. 9. History of COPD/chronic bronchitis and asthma. Continue patient on Pulmicort 0.5 mg nebulization twice every day as well as Brovana twice a day, DuoNeb 3 mg nebulization 4 times every day. 10. GERD. Continue Prilosec 20 mg orally once every day. 11. DVT prophylaxis. Continue bilateral SCD. 12. GI prophylaxis. Continue PPI 13. Acute blood loss anemia monitor the patient's CBC. Discharge plan: Home with [facility] Impression and plan of care have been directed as dictated by the signing physician. Shania Pozo nurse practitioner acting as scribe for signing physician.
[2018-06-21] MEDS: HYDROmorphone 1 MG/ML 1 ML SYRINGE IVP PRN ×2 (15:26→21:01)
[2018-06-21] MEDS: CYCLOBENZAPRINE 10 MG TAB PO PRN ×2 (17:19→21:00)
[2018-06-21] MEDS: guaiFENesin 600 MG TABLET.ER PO SCH (21:00)
[2018-06-22] MEDS: ASPIRIN 325 MG TAB PO SCH (01:41)
[2018-06-22] MEDS: HYDROmorphone 1 MG/ML 1 ML SYRINGE IVP PRN (06:09)
[2018-06-22] MEDS: LACTATED RINGERS 1,000 ML IV SCH (06:13)
[2018-06-22] MEDS: BUDESONIDE 0.5 MG/2 ML NEBU INHALATION SCH (07:19)
[2018-06-22] MEDS: FORMOTEROL FUMARATE 20 MCG/2 ML NEBU INHALATION SCH ×2 (07:19→20:23)
[2018-06-22] MEDS: IPRATROPIUM-ALBUTEROL 3 ML NEB INHALATION SCH ×4 (07:20→20:23)
[2018-06-22] MEDS: HYDROcodone/APAP 5-325MG 1 EACH TAB PO PRN ×4 (08:10→23:45)
[2018-06-22] MEDS: AZITHROMYCIN 500 MG TAB PO SCH (08:11)
[2018-06-22] MEDS: ATORVASTATIN 40 MG TAB PO SCH (08:11)
[2018-06-22] MEDS: POTASSIUM CHLORIDE ER 10 MEQ TAB.ER.PRT PO SCH (08:11)
[2018-06-22] MEDS: PANTOPRAZOLE 40 MG TABLET PO SCH (08:11)
[2018-06-22] MEDS: SENNOSIDES-DOCUSATE SODIUM 1 EACH TAB PO SCH (08:12)
[2018-06-22] MEDS: PREGABALIN 100 MG CAP PO SCH ×2 (08:12→21:42)
[2018-06-22] MEDS: FOLIC ACID 1 MG TAB PO SCH (08:12)
[2018-06-22] MEDS: guaiFENesin 600 MG TABLET.ER PO SCH ×2 (08:12→21:42)
[2018-06-22] MEDS: FUROSEMIDE 40 MG TAB PO SCH (08:12)
--- NOTE | 2018-06-22 08:37 | P.PN ---
Progress Note - Text Progress Note Date: 06/22/18 Postoperative day #3 Patient is seen and examined today at bedside. The patient has some pain around the surgical site as expected. She has been up and around her room with significant assistance and a walker. She still having significant pain at her back and it is very tiring for her. She denies any fever chills. She denies any change in bowel bladder function. She feels her legs are doing quite. Pain is being controlled with medication. Physical Exam Afebrile with stable vital signs Abdomen is soft nontender. Chest has good excursion deep and space expiration The incision site is clean dry and intact. No erythema there is no purulence. Dressing is changed and there is no drainage Extremities have not had neurologic change from prior to surgery. She has sustained dorsiflexion plantar flexion and EHL intact Calves and thighs were soft nontender without evidence of DVT. Assessment/Plan Postoperative day #3 status post open decompression and fusion at L23 L3 4 L4 5 and L5-S1 for her degenerative scoliosis with severe spinal stenosis of back and lower extremity radiculopathy Patient is progressing as expected from the surgery. She actually has been able to mobilize somewhat better than expected. Though she is still requiring significant assistance as expected. We will continue to increase the patient's mobilization with therapy. It seems likely that the patient will need inpatient custodial facility or rehab after discharge as she does live alone and she will require significant help with her daily activities and mobilization. Case management will see her as well. We will continue pain control with oral or IV medications. We'll continue to follow patient closely.
[2018-06-22 08:40] LABS: HCT 25.5 % (34.0-46.0); HGB 8.4 gm/dL (11.4-16.0); MCH 30.1 pg (25.0-35.0); MCHC 32.8 g/dL (31.0-37.0); MCV 91.8 fL (80.0-100.0); Mean Platelet Volume 7.3; Platelet Count 166 k/uL (150-450); RBC 2.78 m/uL (3.80-5.40); RDW 15.9 % (11.5-15.5); WBC 5.9 k/uL (3.8-10.6)
--- NOTE | 2018-06-22 14:04 | P.PN ---
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 Patient underwent elective decompression laminectomy with posterior lateral decompression and fusion of L2-L3, L3-L4, L4-L5, and L5-S1, along with bone graft, as were asked to see the patient for postoperative medical management. 06/21: Patient complains of significant pain to her back and she uses ice machine in place at this time. She continues on CANE PACKER and [place] and she does have IV Dilaudid available if needed. The patient is known to have increased fluids and IV fluids will be discontinued. Blood pressure medications will be placed on hold. She does state she had an episode where she was sitting in a chair in her blood pressure dropped. She is status post IV fluid bolus. Patient states that she is not eating very much. Patient has been afebrile, blood pressure 114/74, pulse ox 90% on room air, heart rate in the 90s. Hemoglobin is 8.4, platelet count 126. 5/2: Patient has been afebrile, heart rate in the 80s, blood pressure 109/53, p ulse ox 94% on room air. Repeat hemoglobin is 8.4 and stable. Patient relates that her pain is not better today but patient appears to be more relaxed. She is known to have lymphedema on the right arm and she does not have her sleeve and hospital but will ask family member to obtain and bring into the hospital so she can wear it. IV fluids will be discontinued. Patient is planning to go to [facility] for subacute rehab. While she is at [facility], she will be off Xeljanz and methotrexate. Review of Systems Constitutional: Reports chronic pain, Reports fatigue, reports anorexia, Denies malaise, Denies weight gain, Denies weight loss Eyes: denies blurred vision, denies bulging eye, denies decreased vision Ears: deny: decreased hearing Ears, nose, mouth and throat: Denies dysphagia, Denies epistaxis, Denies neck lump, Denies swelling in throat, Denies sore throat, Denies vertigo Cardiovascular: Denies chest pain, Denies decreased exercise tolerance, Denies dyspnea on exertion, Denies rapid heart beat, Denies shortness of breath, Denies syncope Respiratory: Reports cough, Denies congestion, Denies cough with sputum, Denies dyspnea, Denies home oxygen, Denies sleep apnea, Denies snoring, Denies wheezing Gastrointestinal: Denies abdominal pain, Denies bloating, Denies excessive gas, Denies heartburn, Denies melena, Denies nausea, Denies vomiting Genitourinary: Denies dysuria, Denies hematuria Menstruation: Reports postmenopausal Musculoskeletal: Reports low back pain, Denies myalgias Musculoskeletal: absent: ankle pain, ankle stiffness, ankle swelling, elbow pain, elbow stiffness, elbow swelling, foot pain, foot stiffness, foot swelling, hand pain, hand stiffness, hand swelling, hip pain, hip stiffness, hip swelling, knee pain, knee stiffness, knee swelling, shoulder pain, shoulder stiffness, shoulder swelling, wrist pain, wrist stiffness, wrist swelling Integumentary: Denies pruritus, Denies rash Neurological: Denies numbness, Denies weakness Endocrine: Denies fatigue, Denies weight change Objective - Vital Signs Vital signs: Vital Signs Temp 98.2 F 06/22/18 08:04 Pulse 94 06/22/18 08:04 Resp 16 06/22/18 08:04 BP 109/53 06/22/18 08:04 Pulse Ox 94 L 06/22/18 08:04 Intake & Output 06/21/18 06/22/18 06/22/18 18:59 06:59 18:59 Intake Total 540 Output Total 2430 Balance -1890 Intake: Oral 540 Output: Urine 2430 Uretheral (Rodriguez) 1230 Other: Voiding Method Indwelling Catheter Toilet - Exam General appearance: mild acute distress, obese - EENT Eyes: anicteric sclerae, EOMI, PERRLA, no ptosis, no scleral icterus, normal appearance ENT: hearing grossly normal, NA/AT, normal oropharynx, no thrush Ears: bilateral: normal - Neck Neck: no lymphadenopathy, normal ROM, no rigidity, no stridor, no thyromegaly Carotids: bilateral: upstroke normal Thyroid: bilateral: normal size - Respiratory Respiratory: bilateral: diminished, negative: dullness, rales, rhonchi, wheezing, prolonged expiration - Cardiovascular Rhythm: regular Heart sounds: normal: S1, S2 Abnormal Heart Sounds: no systolic murmur, no S3 Gallop, no S4 Gallop, no click - Gastrointestinal General gastrointestinal: normal bowel sounds, soft, no splenomegaly, no tenderness, no umbilical hernia, no ventral hernia Rodriguez catheter draining clear carmel urine - Integumentary Integumentary: normal, normal turgor Right arm lymphedema - Musculoskeletal Musculoskeletal: strength equal bilaterally Ice machine in place to her back. - Psychiatric Psychiatric: A&O x's 3, appropriate affect, intact judgment & insight - Labs CBC & Chem 7: 06/22/18 07:26 06/21/18 09:13 Labs: Abnormal Lab Results - Last 24 Hours (Table) 06/21/18 06/21/18 Range/Units 09:13 09:13 RBC 2.76 L (3.80-5.40) m/uL Hgb 8.4 L (11.4-16.0) gm/dL Hct 26.0 L (34.0-46.0) % RDW 15.7 H (11.5-15.5) % Plt Count 126 L (150-450) k/uL Sodium 135 L (137-145) mmol/L Glucose 115 H (74-99) mg/dL Calcium 7.8 L (8.4-10.2) mg/dL Total Protein 4.6 L (6.3-8.2) g/dL Albumin 2.6 L (3.5-5.0) g/dL Assessment and Plan Plan: 1. Post operative day #1 status post decompression laminectomy with fusion of L2-L3 L3-L4 L4-L5 and L5-S1. Patient was encouraged to use the incentive spirometer to reduce the incidence of atelectasis and healthcare associated pneumonia, continue current pain management via CANE PACKER, physical therapy evaluation, early ambulation, continue current pain management as outlined by spine surgery, hold methotrexate and Xeljanz which are now discontinued. 2. Hypertension and hypertensive cardiovascular disease with episode of hypotension. Hold losartan and hydrochlorothiazide. Patient may be continued on oral Lasix. 3. Hyperlipidemia. Continue Lipitor 40 mg orally once every day. 4. Fibromyalgia. Continue Lyrica 200 mg orally once every day as well as Cymbalta 60 mg orally twice every day. 5. Restless leg syndrome. Continue Requip 5 mg orally bedtime. 6. Rheumatoid arthritis. Hold methotrexate and Xeljanz. 7. History of Li-fraumeni syndrome with her surveillance diagnostics including whole-body MRI is up-to-date. 8. History of breast cancer and cervical cancer status post mastectomy with significant right-sided lymphedema. 9. History of COPD/chronic bronchitis and asthma. Continue patient on Pulmicort 0.5 mg nebulization twice every day as well as Brovana twice a day, DuoNeb 3 mg nebulization 4 times every day. 10. GERD. Continue Prilosec 20 mg orally once every day. 11. DVT prophylaxis. Continue bilateral SCD. 12. GI prophylaxis. Continue PPI 13. Acute blood loss anemia monitor the patient's CBC. Discharge plan: [place] under the care of Dr. Mendes in the next 24-48 hours. Impression and plan of care have been directed as dictated by the signing physician. Shania Pozo nurse practitioner acting as scribe for signing physician.
[2018-06-23 01:48] VITALS: RESP 16
[2018-06-23] MEDS: LACTATED RINGERS 1,000 ML IV SCH (03:12)
[2018-06-23] MEDS: HYDROcodone/APAP 5-325MG 1 EACH TAB PO PRN ×2 (07:29→11:40)
[2018-06-23] MEDS: IPRATROPIUM-ALBUTEROL 3 ML NEB INHALATION SCH ×2 (07:31→11:33)
[2018-06-23] MEDS: FORMOTEROL FUMARATE 20 MCG/2 ML NEBU INHALATION SCH (07:31)
[2018-06-23] MEDS: BUDESONIDE 0.5 MG/2 ML NEBU INHALATION SCH (07:31)
[2018-06-23] MEDS: PANTOPRAZOLE 40 MG TABLET PO SCH (07:33)
[2018-06-23] MEDS: PREGABALIN 100 MG CAP PO SCH (07:33)
[2018-06-23] MEDS: guaiFENesin 600 MG TABLET.ER PO SCH (07:33)
[2018-06-23] MEDS: FUROSEMIDE 40 MG TAB PO SCH (07:33)
[2018-06-23] MEDS: ATORVASTATIN 40 MG TAB PO SCH (07:33)
[2018-06-23] MEDS: ASPIRIN 325 MG TAB PO SCH (07:33)
[2018-06-23] MEDS: SENNOSIDES-DOCUSATE SODIUM 1 EACH TAB PO SCH (07:34)
[2018-06-23] MEDS: AZITHROMYCIN 500 MG TAB PO SCH (07:34)
[2018-06-23] MEDS: FOLIC ACID 1 MG TAB PO SCH (07:34)
[2018-06-23] MEDS: POTASSIUM CHLORIDE ER 10 MEQ TAB.ER.PRT PO SCH (07:34)
[2018-06-23 08:32] VITALS: BP 159/89; TEMP 98
--- NOTE | 2018-06-23 08:53 | P.PN ---
Progress Note - Text Progress Note Date: 06/23/18 Orthopedic Spine: Patient is a pleasant 63-year-old female who is seen and examined at the bedside following posterior lateral decompression and fusion performed Tuesday. Patient has made some improvement over the past couple days. She is currently sitting in a bedside chair without difficulty. She has been able to increase ambulation but slowly. Her pain is most significant in the morning. Her back pain is better controlled but exacerbated with movements of the spine. She does not currently experiencing significant pain in the lower extremities bilaterally. She is moving the bilateral lower extremities independently without difficulty. She is planning for discharge to a rehabilitation facility as she is progressing slowly postoperatively he does not feel she'll be able to care for herself at home. She has been able to discontinue IV pain medications. She does not feel stable enough for discharge today. She has not had a bowel movement but is passing gas. She is voiding without difficulty. She is eating without difficulty. Currently does not complain of nausea, vomiting, fever, or chills. Rodriguez catheter has been discontinued. She continues to work with physical therapy. Physical Exam Lumbar Fusion: Status post surgical day number 4 Patient is awake, alert, and oriented 3; patient sitting comfortably in a bedside chair Vital signs stable Good chest excursion with deep inspiration and expiration Dorsiflexion, plantarflexion, and extensor hallucis longus positive sustained bilaterally No signs or symptoms of DVT; no calf pain; pneumatic cuffs not currently intact bilateral lower extremities Dressing is clean, dry, and intact; no erythema, purulence, or signs of infection Dressing is removed and reapplied with nonstick Telfa and Tegaderm Neurovascularly intact bilaterally lower extremities Assessment: L2-3, L3-4, L4-5, and L5-S1 posterior lateral decompression and fusion L3-4 and L4-5 transforaminal lumbar interbody fusion Low back pain Degenerative scoliosis Lumbar spondylolisthesis Lumbar facet arthrosis Li-Fraumeni syndrome History of breast cancer, cervical cancer, lung disease, lymphedema, and fibromyalgia Plan: 1. Ambulate as tolerated; work with Physical Therapy to increase mobilization and ambulation 2. Continue pain control with oral medications; we will continue to avoid IV narcotic pain medications in anticipation for discharge tomorrow, 06/24/2018 MAPS has been reviewed today, 06/23/2018, with an Overall Overdose Risk Score of 000 as there is no record of the patient in the MAPS system. An "Opiod Start Talking" Form has been signed by the patient and myself in place in the patient's chart. A prescription has been written for Raymond 5 mg/325 mg take 1-2 tabs every 4 hours as needed for pain, dispensed #84. 3. Dressing has been changed to nonstick Telfa and Tegaderm; patient may shower with dressing intact 4. Medical management can continue to manage patient for patient's other me dical issues; we will plan for medicine to complete her medical record for rehabilitation at the time of discharge 5. We will continue to follow the patient closely; if patient is able to continue improving, we will plan for discharge to rehabilitation facility tomorrow, 06/24/2018 6. Patient can follow-up with Jake Fairbanks PA-C or Dr. Rod Dave at [facility] in 2-3 weeks following discharge
[2018-06-23 11:45] VITALS: PULSE 84
[2018-06-23 11:48] LABS: HCT 26.4 % (34.0-46.0); Hypochromasia Slight; MCH 28.7 pg (25.0-35.0); MCHC 30.3 g/dL (31.0-37.0); MCV 94.8 fL (80.0-100.0); Mean Platelet Volume 6.9; Platelet Count 200 k/uL (150-450); RBC 2.78 m/uL (3.80-5.40); RDW 15.9 % (11.5-15.5); WBC 5.1 k/uL (3.8-10.6)
--- NOTE | 2018-06-23 12:05 | P.DS ---
Providers Date of admission: 06/19/18 11:18 Expected date of discharge: 06/23/18 Attending physician: Da Dave Consults: 06/19/18 18:11 Consult Physician Routine Consulting Provider: Eliud Mendes Consult Reason/Comments: Medical management Do you want consulting provider notified?: Yes Primary care physician: Eliud Mendes - Discharge Diagnosis(es) (1) S/P lumbar fusion Current Visit: Yes Status: Acute (2) Spondylolisthesis, lumbar region Current Visit: Yes Status: Acute (3) Lumbar facet arthropathy Current Visit: Yes Status: Acute (4) Lumbar stenosis Current Visit: Yes Status: Acute (5) Degenerative scoliosis in adult patient Current Visit: Yes Status: Acute (6) Radiculitis with lower extremity symptoms Current Visit: Yes Status: Acute (7) Lower extremity weakness Current Visit: Yes Status: Acute (8) Hx of breast cancer Current Visit: Yes Status: Acute (9) Hx of cervical cancer Current Visit: Yes Status: Acute (10) Lymphedema Current Visit: Yes Status: Acute (11) Fibromyalgia Current Visit: Yes Status: Acute Hospital Course: Patient is a very pleasant 63-year-old female who presented with degenerative scoliosis, lumbar spinal canal stenosis, lumbar spondylolisthesis, low back pain, lumbar facet arthrosis, lower extremity radiculopathy and lower extremity weakness who failed conservative treatment options. She was admitted for an L2- 3, L3-4, L4-5, and L5-S1 posterior lateral decompression and fusion with L3-4 and L4-5 transforaminal lumbar interbody fusion. Patient had been progressing slowly postoperatively but has made good improvement or the past couple days. She has been able to work with physical therapy to increase mobility and ambulation. She's been able to sit at the bedside without significant difficulty. She does not feel she is ready for discharge home as she does not feel she could adequately take care of herself. At this time we are planning for discharge to [facility] rehabilitation facility. Discharge has been discussed in detail with nursing and case management. Patient feels ready for discharge to rehabilitation today. We discussed the patient may shower with her dressing intact over her lumbar spine. Dressing may be removed in approximately 3 days and patient may shower without a dressing at that time. She should avoid excessive bending, twisting, lifting; no lifting greater than 10 pounds. We'll plan have the patient follow up in outpatient setting approximately 2-3 weeks for further evaluation. We'll plan for medicine to complete the medical record prior to discharge to rehabilitation. MAPS has been reviewed today, 06/23/2018, with an Overall Overdose Risk Score of 000 as there is no record of the patient in the MAPS system. An "Opiod Start Talking" Form has been signed by the patient and myself in place in the aj saavedra's chart. A prescription has been written for Hastings 5 mg/325 mg take 1-2 tabs every 4 hours as needed for pain, dispensed #84. Patient should avoid anti-inflammatory medications or the first 6 weeks postoperatively. Physical Exam Lumbar Fusion: Status post surgical day number 4 Patient is awake, alert, and oriented 3; patient sitting comfortably in a bedside chair Vital signs stable Good chest excursion with deep inspiration and expiration Dorsiflexion, plantarflexion, and extensor hallucis longus positive sustained bilaterally No signs or symptoms of DVT; no calf pain; pneumatic cuffs not currently intact bilateral lower extremities Dressing is clean, dry, and intact; no erythema, purulence, or signs of infection Dressing is removed and reapplied with nonstick Telfa and Tegaderm Neurovascularly intact bilaterally lower extremities Assessment: L2-3, L3-4, L4-5, and L5-S1 posterior lateral decompression and fusion L3-4 and L4-5 transforaminal lumbar interbody fusion Low back pain Degenerative scoliosis Lumbar spondylolisthesis Lumbar facet arthrosis Li-Fraumeni syndrome History of breast cancer, cervical cancer, lung disease, lymphedema, and fibromyalgia Procedures: L2-3, L3-4, L4-5, and L5-S1 posterior lateral decompression and fusion with L3- 4 and L4-5 transforaminal lumbar interbody fusion. Patient Condition at Discharge: Stable Plan - Discharge Summary Discharge Rx Participant: No New Discharge Prescriptions: New HYDROcodone/APAP 5-325MG [Hastings 5-325] 1 - 2 tab PO Q4HR PRN 7 Days #84 tab PRN Reason: Pain No Action rOPINIRole HCL [Requip] 5 mg PO DAILY@1500 Pregabalin [Lyrica] 200 mg PO HS DULoxetine HCL [Cymbalta] 60 mg PO BID Atorvastatin [Lipitor] 40 mg PO DAILY Furosemide [Lasix] 40 mg PO QAM Potassium Chloride [Klor-Con 10] 10 meq PO QAM Folic Acid 1 mg PO DAILY Methotrexate Sodium [Methotrexate] 25 mg PO TU Omeprazole [PriLOSEC] 20 mg PO AC-BRKFST Pregabalin [Lyrica] 100 mg PO QAM Losartan-Hctz 50-12.5 mg [Hyzaar 50-12.5] 1 tab PO DAILY traMADol HCL [Ultram] 50 mg PO Q6HR PRN #120 tablet PRN Reason: Pain Tofacitinib Citrate [Xeljanz Xr] 11 mg PO QAM Budesonide [Pulmicort] 0.5 mg INHALATION RT-DAILY Arformoterol Tartrate [Brovana] 15 mcg INHALATION RT-DAILY Aspirin 325 mg PO DAILY Azithromycin [Zithromax] 500 mg PO DAILY Discharge Medication List Atorvastatin [Lipitor] 40 mg PO DAILY 11/14/14 [History] DULoxetine HCL [Cymbalta] 60 mg PO BID 11/14/14 [History] Furosemide [Lasix] 40 mg PO QAM 11/14/14 [History] Pregabalin [Lyrica] 200 mg PO HS 11/14/14 [History] rOPINIRole HCL [Requip] 5 mg PO DAILY@1500 11/14/14 [History] Folic Acid 1 mg PO DAILY 10/26/16 [History] Methotrexate Sodium [Methotrexate] 25 mg PO TU 10/26/16 [History] Potassium Chloride [Klor-Con 10] 10 meq PO QAM 10/26/16 [History] Omeprazole [PriLOSEC] 20 mg PO AC-BRKFST 12/24/16 [History] Pregabalin [Lyrica] 100 mg PO QAM 07/04/17 [History] Losartan-Hctz 50-12.5 mg [Hyzaar 50-12.5] 1 tab PO DAILY 11/04/17 [History] traMADol HCL [Ultram] 50 mg PO Q6HR PRN #120 tablet 11/21/17 [Rx] Arformoterol Tartrate [Brovana] 15 mcg INHALATION RT-DAILY 06/07/18 [History] Aspirin 325 mg PO DAILY 06/07/18 [History] Budesonide [Pulmicort] 0.5 mg INHALATION RT-DAILY 06/07/18 [History] Tofacitinib Citrate [Xeljanz Xr] 11 mg PO QAM 06/07/18 [History] Azithromycin [Zithromax] 500 mg PO DAILY 06/13/18 [History] HYDROcodone/APAP 5-325MG [Hastings 5-325] 1 - 2 tab PO Q4HR PRN 7 Days #84 tab 06/23/18 [Rx] Follow up Appointment(s)/Referral(s): Eliud Mendes MD [Primary Care Provider] - 1 Week Jake Fairbanks PAC [PHYSICIAN NURSE TRANSITION] - 2 Weeks (Patient may follow-up with Jake Fairbanks PA-C or Dr. Rod Dave at [facility] in 2-3 weeks following discharge. ) Odilon Jones, [NON-STAFF] - As Needed [facility] Visiting Nurse, [NON-STAFF] - As Needed Patient Instructions/Handouts: *Surgery [facility] - ([facility]) Lumbar Surgery Discharge Instructions Activity/Diet/Wound Care/Special Instructions: 1. Patient may shower with Tegaderm dressing intact. 2. Patient may remove Tegaderm dressing in 3 days and shower without a dressing at that time. 3. Patient should keep Steri-Strips intact and allow them to fall off naturally. 4. Patient should refrain from driving until at least after their first follow- up appointment in the office. 5. Patient should avoid excessive bending, twisting, and lifting; no lifting greater than 10 pounds 6. Take medications as prescribed MAPS has been reviewed today, 06/23/2018, with an Overall Overdose Risk Score of 000 as there is no record of the patient in the MAPS system. An "Opiod Start Talking" Form has been signed by the patient and myself in place in the patient's chart. A prescription has been written for [place] 5 mg/325 mg take 1-2 tabs every 4 hours as needed for pain, dispensed #84. 7. Do not soak in tub Discharge Disposition: TRANSFER TO SNF/ECF
[2018-06-23] MEDS ORDERED: LOSARTAN 25 MG TAB PO SCH (12:15)
[2018-06-23] MEDS ORDERED: FERROUS SULFATE 325 MG TAB PO SCH (12:30)
--- NOTE | 2018-06-23 14:41 | P.PN ---
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 Patient underwent elective decompression laminectomy with posterior lateral decompression and fusion of L2-L3, L3-L4, L4-L5, and L5-S1, along with bone graft, as were asked to see the patient for postoperative medical management. 06/21: Patient complains of significant pain to her back and she uses ice machine in place at this time. She continues on [employer] and [place] and she does have IV Dilaudid available if needed. The patient is known to have increased fluids and IV fluids will be discontinued. Blood pressure medications will be placed on hold. She does state she had an episode where she was sitting in a chair in her blood pressure dropped. She is status post IV fluid bolus. Patient states that she is not eating very much. Patient has been afebrile, blood pressure 114/74, pulse ox 90% on room air, heart rate in the 90s. Hemoglobin is 8.4, platelet count 126. 5/2: Patient has been afebrile, heart rate in the 80s, blood pressure 109/53, p ulse ox 94% on room air. Repeat hemoglobin is 8.4 and stable. Patient relates that her pain is not better today but patient appears to be more relaxed. She is known to have lymphedema on the right arm and she does not have her sleeve and hospital but will ask family member to obtain and bring into the hospital so she can wear it. IV fluids will be discontinued. Patient is planning to go to [facility] for subacute rehab. While she is at [facility], she will be off Xeljanz and methotrexate. 06/23: Patient's pain is more controlled today. She also states she was up for shower. She continues to have her chronic cough. No change. Family will bring her sleeve for her right arm to [facility]. Patient is scheduled for discharge today to [facility] for subacute rehab. Medication reconciliation has been reviewed. Patient will be followed at [facility] by Dr. Mendes. Review of Systems Constitutional: Reports chronic pain, Reports fatigue, reports anorexia, Denies malaise, Denies weight gain, Denies weight loss Eyes: denies blurred vision, denies bulging eye, denies decreased vision Ears: deny: decreased hearing Ears, nose, mouth and throat: Denies dysphagia, Denies epistaxis, Denies neck lump, Denies swelling in throat, Denies sore throat, Denies vertigo Cardiovascular: Denies chest pain, Denies decreased exercise tolerance, Denies dyspnea on exertion, Denies rapid heart beat, Denies shortness of breath, Denies syncope Respiratory: Reports cough, Denies congestion, Denies cough with sputum, Denies dyspnea, Denies home oxygen, Denies sleep apnea, Denies snoring, Denies wheezing Gastrointestinal: Denies abdominal pain, Denies bloating, Denies excessive gas, Denies heartburn, Denies melena, Denies nausea, Denies vomiting Genitourinary: Denies dysuria, Denies hematuria Menstruation: Reports postmenopausal Musculoskeletal: Reports low back pain, Denies myalgias Musculoskeletal: absent: ankle pain, ankle stiffness, ankle swelling, elbow pain, elbow stiffness, elbow swelling, foot pain, foot stiffness, foot swelling, hand pain, hand stiffness, hand swelling, hip pain, hip stiffness, hip swelling, knee pain, knee stiffness, knee swelling, shoulder pain, shoulder stiffness, shoulder swelling, wrist pain, wrist stiffness, wrist swelling Neurological: Denies numbness, Denies weakness Endocrine: Denies fatigue, Denies weight change Objective - Vital Signs Vital signs: Vital Signs Temp 98.0 F 06/23/18 07:02 Pulse 98 06/23/18 07:35 Resp 16 06/23/18 01:28 BP 159/89 06/23/18 07:02 Pulse Ox 99 06/23/18 07:02 Intake & Output 06/22/18 06/23/18 06/23/18 18:59 06:59 18:59 Intake Total 150 Output Total 1200 Balance -1200 150 Intake: Oral 150 Output: Urine 1200 Other: Voiding Method Toilet Toilet # Voids 1 - Exam General appearance: no acute distress, obese. Patient is sitting in a recliner appears to be comfortable. - EENT Eyes: anicteric sclerae, EOMI, PERRLA, no ptosis, no scleral icterus, normal appearance ENT: hearing grossly normal, NA/AT, normal oropharynx, no thrush Ears: bilateral: normal - Neck Neck: no lymphadenopathy, normal ROM, no rigidity, no stridor, no thyromegaly Carotids: bilateral: upstroke normal Thyroid: bilateral: normal size - Respiratory Respiratory: bilateral: diminished, negative: dullness, rales, rhonchi, wheezing, prolonged expiration - Cardiovascular Rhythm: regular Heart sounds: normal: S1, S2 Abnormal Heart Sounds: no systolic murmur, no S3 Gallop, no S4 Gallop, no click - Gastrointestinal General gastrointestinal: normal bowel sounds, soft, no splenomegaly, no tenderness, no umbilical hernia, no ventral hernia Rodriguez catheter draining clear carmel urine - Integumentary Integumentary: normal, normal turgor Right arm lymphedema - Musculoskeletal Musculoskeletal: strength equal bilaterally Ice machine in place to her back. - Psychiatric Psychiatric: A&O x's 3, appropriate affect, intact judgment & insight - Labs CBC & Chem 7: 06/23/18 11:22 06/21/18 09:13 Assessment and Plan Plan: 1. Post operative day #1 status post decompression laminectomy with fusion of L2-L3 L3-L4 L4-L5 and L5-S1. Patient was encouraged to use the incentive asia meter to reduce the incidence of atelectasis and healthcare associated pneumonia, continue current pain management via [employer], physical therapy evaluation, early ambulation, continue current pain management as outlined by spine surgery, hold methotrexate and Xeljanz which are now discontinued. 2. Hypertension and hypertensive cardiovascular disease with episode of hypotension. Hold losartan and hydrochlorothiazide. Patient may be continued on oral Lasix. 3. Hyperlipidemia. Continue Lipitor 40 mg orally once every day. 4. Fibromyalgia. Continue Lyrica 200 mg orally once every day as well as Cymbalta 60 mg orally twice every day. 5. Restless leg syndrome. Continue Requip 5 mg orally bedtime. 6. Rheumatoid arthritis. Hold methotrexate and Xeljanz. 7. History of Li-fraumeni syndrome with her surveillance diagnostics including whole-body MRI is up-to-date. 8. History of breast cancer and cervical cancer status post mastectomy with significant right-sided lymphedema. 9. History of COPD/chronic bronchitis and asthma. Continue patient on Pulmicort 0.5 mg nebulization twice every day as well as Brovana twice a day, DuoNeb 3 mg nebulization 4 times every day. 10. GERD. Continue Prilosec 20 mg orally once every day. 11. DVT prophylaxis. Continue bilateral SCD. 12. GI prophylaxis. Continue PPI 13. Acute blood loss anemia monitor the patient's CBC. Discharge plan: [place] under the care of Dr. Mendes Impression and plan of care have been directed as dictated by the signing physician. Shania Pozo nurse practitioner acting as scribe for signing physician.
== END 2018-06-23 14:36 | DRG 454 ==
LOC: 2ORMAIN 11:18 → 4SSUR 18:45
PROVIDERS: ADMIT Orthopaedic Surgery Orthopaedic Surgery of the Spine; ATTEND Orthopaedic Surgery Orthopaedic Surgery of the Spine
PROC: 0SG0071 Fusion of Lumbar Vertebral Joint with Autologous Tissue Substitute, Posterior Approach, Posterior Column, Open Approach (ICD-10-PCS; 2018-06-19)
PROC: 0ST20ZZ Resection of Lumbar Vertebral Disc, Open Approach (ICD-10-PCS; 2018-06-19)
PROC: 00NY0ZZ Release Lumbar Spinal Cord, Open Approach (ICD-10-PCS; 2018-06-19)
PROC: 0QH004Z Insertion of Internal Fixation Device into Lumbar Vertebra, Open Approach (ICD-10-PCS; 2018-06-19)
PROC: 0SH304Z Insertion of Internal Fixation Device into Lumbosacral Joint, Open Approach (ICD-10-PCS; 2018-06-19)
PROC: 01NB0ZZ Release Lumbar Nerve, Open Approach (ICD-10-PCS; 2018-06-19)
PROC: 01NR0ZZ Release Sacral Nerve, Open Approach (ICD-10-PCS; 2018-06-19)
PROC: 07DS3ZZ Extraction of Vertebral Bone Marrow, Percutaneous Approach (ICD-10-PCS; 2018-06-19)
PROC: 4A11X4G Monitoring of Peripheral Nervous Electrical Activity, Intraoperative, External Approach (ICD-10-PCS; 2018-06-19)
PROC: 30233N0 Transfusion of Autologous Red Blood Cells into Peripheral Vein, Percutaneous Approach (ICD-10-PCS; 2018-06-19)
PROC: 0SG10AJ Fusion of 2 or more Lumbar Vertebral Joints with Interbody Fusion Device, Posterior Approach, Anterior Column, Open Approach (ICD-10-PCS; principal; 2018-06-19 12:45)
DX: M48.062 Spinal stenosis, lumbar region with neurogenic claudication (principal); D62 Acute posthemorrhagic anemia; M48.07 Spinal stenosis, lumbosacral region; G62.9 Polyneuropathy, unspecified; M41.86 Other forms of scoliosis, lumbar region; I11.9 Hypertensive heart disease without heart failure; M51.16 Intervertebral disc disorders with radiculopathy, lumbar region; M51.17 Intervertebral disc disorders with radiculopathy, lumbosacral region; M43.16 Spondylolisthesis, lumbar region; M47.26 Other spondylosis with radiculopathy, lumbar region; M47.27 Other spondylosis with radiculopathy, lumbosacral region; M46.06 Spinal enthesopathy, lumbar region; R05 Cough; E78.5 Hyperlipidemia, unspecified; G25.81 Restless legs syndrome; I89.0 Lymphedema, not elsewhere classified; J43.9 Emphysema, unspecified; K21.9 Gastro-esophageal reflux disease without esophagitis; M06.9 Rheumatoid arthritis, unspecified; M46.96 Unspecified inflammatory spondylopathy, lumbar region; M79.7 Fibromyalgia; R51 Headache; E66.9 Obesity, unspecified; Z68.35 Body mass index [BMI] 35.0-35.9, adult; Z15.01 Genetic susceptibility to malignant neoplasm of breast; Z90.710 Acquired absence of both cervix and uterus; Z90.11 Acquired absence of right breast and nipple; Z85.3 Personal history of malignant neoplasm of breast; Z79.51 Long term (current) use of inhaled steroids; Z79.82 Long term (current) use of aspirin; Z79.899 Other long term (current) drug therapy; Z88.2 Allergy status to sulfonamides; Z92.21 Personal history of antineoplastic chemotherapy; Z85.41 Personal history of malignant neoplasm of cervix uteri; Z85.118 Personal history of other malignant neoplasm of bronchus and lung; Z87.891 Personal history of nicotine dependence; Z96.611 Presence of right artificial shoulder joint; Z90.79 Acquired absence of other genital organ(s); Z90.722 Acquired absence of ovaries, bilateral; Z83.3 Family history of diabetes mellitus; Z82.49 Family history of ischemic heart disease and other diseases of the circulatory system; Z90.49 Acquired absence of other specified parts of digestive tract; Z80.8 Family history of malignant neoplasm of other organs or systems; Z80.3 Family history of malignant neoplasm of breast; Z80.1 Family history of malignant neoplasm of trachea, bronchus and lung; Z80.0 Family history of malignant neoplasm of digestive organs; Z82.61 Family history of arthritis; Z81.1 Family history of alcohol abuse and dependence
CPT/HCPCS: 36415; 72020; 72100; 80048; 80053; 83735; 85025; 85027; 86850; 86891; 86900; 86901; 94640; 94760; 94762

== ENCOUNTER → 2018-08-08 | Outpatient (CLI) | payer MEDICARE, BC ==
--- NOTE | 2018-08-08 11:35 | MM ---
Reason for exam: additional evaluation requested from prior study. Last mammogram was performed 1 year and 3 months ago. History: Patient is postmenopausal, has history of breast cancer at age 45, history of other cancer, and is nulliparous. Family history of breast cancer in mother at age 50 and breast cancer in maternal grandmother. Mastectomy of the right breast, 2001. Cyst aspiration of the left breast. Took estrogen for 6 months beginning at age 55. Took progesterone for 6 months beginning at age 55. Physical Findings: Nurse did not find any significant physical abnormalities on exam. MG 3D Diag Mammo W/Cad LT CC and MLO view(s) were taken of the left breast. Prior study comparison: April 26, 2017, left breast MG 3d diag mammo w/cad LT. April 14, 2016, left breast MG 3d diag mammo w/cad LT. The breast tissue is heterogeneously dense. This may lower the sensitivity of mammography. There are benign appearing round calcifications in the left breast. There is chronic nodularity in the left breast. There is no discrete abnormality. These results were verbally communicated with the patient and result sheet given to the patient on 08/08/18. ASSESSMENT: Benign, BI-RAD 2 RECOMMENDATION: Follow-up diagnostic mammogram of the left breast in 1 year.
== END | disposition home or self-care (01) ==
LOC: RADMAMWWP 10:50
PROVIDERS: ATTEND Internal Medicine Hematology & Oncology
DX: Z08 Encounter for follow-up examination after completed treatment for malignant neoplasm (principal); Z85.3 Personal history of malignant neoplasm of breast
CPT/HCPCS: 77065; G0279; 77061

== ENCOUNTER 2018-09-07 11:42 | Day surgery (SDC) | payer MEDICARE, BC ==
[2018-09-06 13:39] VITALS: BMI 36.4
[2018-09-07] MEDS ORDERED: LIDOCAINE 1% 20 ML VIAL (10MG/ML) FOR IV START INTRADERMA ONE (12:14)
[2018-09-07] MEDS ORDERED: LACTATED RINGERS 1,000 ML IV ONE (12:14)
[2018-09-07] MEDS ORDERED: PROPOFOL 10 MG/ML 20 ML VIAL IV ONE (12:42)
[2018-09-07 12:44] VITALS: RESP 16; TEMP 97.7
--- NOTE | 2018-09-07 13:48 | P.PCN ---
Date of Procedure: 09/07/18 Description of Procedure: BRIEF HISTORY: Patient is a 63-year-old pleasant female scheduled for an elective colonoscopy as a part of evaluation of high risk colon cancer screening due to family history of colon cancer. Patient denies any blood per rectum but does report altered bowel habits currently reporting constipation with pellet-like stools. PROCEDURE PERFORMED: Colonoscopy with polypectomy. PREOPERATIVE DIAGNOSIS: Family history of colon cancer (niece diagnosed with colon cancer at the age of 36), personal history of constipation, altered bowel habits. ESTIMATED BLOOD LOSS: Minimal. IV sedation per Anesthesia. PROCEDURE: After informed consent was obtained, the patient, was brought into the endoscopy unit. IV sedation was administered by Anesthesia under continuous monitoring. Digital rectal examination was normal. Initially the Olympus CF-190 flexible video colonoscope was then inserted in the rectum, gradually advanced into the cecum without any difficulty. Careful examination was performed as the scope was gradually being withdrawn. Ileocecal valve and the appendiceal orifice were visualized and appeared normal. Prep was good. Mucosa of the cecum, ascending colon, transverse colon, descending colon, sigmoid colon, and rectum appeared normal. 4 mm sessile descending colon polyp removed with cold snare polypectomy. Mild internal hemorrhoids. Retroflexion was performed in the rectum and no lesions were seen. The patient tolerated the procedure well. IMPRESSION: Descending polypectomy with cold snare. Mild internal hemorrhoids. Normal-appearing colon from rectum to cecum . RECOMMENDATIONS: Findings of this examination were discussed with the patient in her knees. Okay to resume diet. Would recommend repeat colonoscopy in 5 years for high risk colon cancer screening/family history of colon cancer. Await pathology from polypectomy .
[2018-09-07 14:02] VITALS: BP 133/76; PULSE 73
== END 2018-09-07 14:53 | disposition home or self-care (01) ==
LOC: ORWHC2ENDO 11:42
PROVIDERS: ATTEND Internal Medicine
DX: D12.4 Benign neoplasm of descending colon (principal); K64.8 Other hemorrhoids; I10 Essential (primary) hypertension; E78.5 Hyperlipidemia, unspecified; J44.9 Chronic obstructive pulmonary disease, unspecified; G25.81 Restless legs syndrome; M06.9 Rheumatoid arthritis, unspecified; K21.9 Gastro-esophageal reflux disease without esophagitis; Z80.0 Family history of malignant neoplasm of digestive organs; Z90.49 Acquired absence of other specified parts of digestive tract; Z79.82 Long term (current) use of aspirin; Z79.899 Other long term (current) drug therapy; Z88.2 Allergy status to sulfonamides; Z91.048 Other nonmedicinal substance allergy status; Z85.41 Personal history of malignant neoplasm of cervix uteri; Z79.51 Long term (current) use of inhaled steroids; Z85.3 Personal history of malignant neoplasm of breast; Z90.11 Acquired absence of right breast and nipple; Z92.21 Personal history of antineoplastic chemotherapy
CPT/HCPCS: 88305; 45385; J2704

== ENCOUNTER 2019-01-29 11:59 | Day surgery (SDC) | payer MEDICARE, BC ==
[2019-01-25 10:57] VITALS: BMI 35.6
[~2019-01-29 11:59] MED LIST changes: -BACITRACIN 50,000 UNIT, POLYMYXIN B 500,000 UNIT in SODIUM CHLORIDE 0.9% IRRIGATIO 1,00... IRRIGATION ONE; -DEXAMETHASONE SOD PHOSPHATE 10 MG/ML 1 ML VIAL IV ONE; +LACTATED RINGERS 1,000 ML IV SCH; -ONDANSETRON 4 MG/2 ML VIAL IVP ONE; -SCOPOLAMINE 1.5MG/72HR PATCH TRANSDERM ONE; -ceFAZolin IN SWFI 2 GM/20 ML SYRINGE IVP ONE
[2019-01-29 12:41] VITALS: TEMP 98.3
[2019-01-29] MEDS ORDERED: LIDOCAINE 1% INJ 10MG/ML (20 ML MDV) ONE (13:34)
[2019-01-29] MEDS ORDERED: PROPOFOL 10 MG/ML 20 ML VIAL IV ONE (13:34)
--- NOTE | 2019-01-29 14:03 | P.PCN ---
Date of Procedure: 01/29/19 Description of Procedure: BRIEF HISTORY: 63-year-old female who presents for outpatient evaluation with EGD for iron deficiency anemia. Colonoscopy in 08/2018 significant for polypectomy. Patient reports that she has remained anemic since that time. PROCEDURE PERFORMED: Esophagogastroduodenoscopy with biopsy. PREOPERATIVE DIAGNOSIS: Iron deficiency anemia ESTIMATED BLOOD LOSS: Minimal. IV sedation per anesthesia. PROCEDURE: After informed consent was obtained, the patient was brought into the endoscopy unit. IV sedation was administered by Anesthesia under continuous monitoring. Initially the Olympus GIF-190 video endoscope was inserted into the mouth. Esophagus intubated without any difficulty. It was gradually advanced into the stomach and duodenum and carefully examined. The bulb and the second part of the duodenum appeared normal, With biopsies taken to rule out celiac sprue. The scope at this time was withdrawn to the stomach, adequately insufflated with air, and upon careful examination, mucosa of the antrum, body, cardia and the fundus appeared normal Except for some mild scattered erythema in the antrum and body suggestive of mild gastritis with biopsies taken to rule out Helicobacter pylori. The scope was then withdrawn into the esophagus. The GE junction was located at 37 cm from the incisors. The esophagus appeared normal. There were no erosions or ulcerations seen and the patient tolerated the procedure well. IMPRESSION: 1. Mild gastritis antrum and body, biopsied . 2. Duodenal biopsies. RECOMMENDATIONS: The findings of this examination were discussed with the patient.. Okay to resume diet and medications. Await pathology from biopsies. If patient remains anemic may benefit from video capsule endoscopy in the outpatient setting for further evaluation of anemia.
[2019-01-29 14:08] VITALS: RESP 18
[2019-01-29 14:24] VITALS: BP 143/83; PULSE 88
== END 2019-01-29 14:28 | disposition home or self-care (01) ==
LOC: ORWHC2ENDO 11:59
PROVIDERS: ATTEND Internal Medicine
DX: K29.50 Unspecified chronic gastritis without bleeding (principal); D50.9 Iron deficiency anemia, unspecified; I10 Essential (primary) hypertension; E78.5 Hyperlipidemia, unspecified; J44.9 Chronic obstructive pulmonary disease, unspecified; M06.9 Rheumatoid arthritis, unspecified; M79.7 Fibromyalgia; G25.81 Restless legs syndrome; G62.9 Polyneuropathy, unspecified; Z88.2 Allergy status to sulfonamides; Z91.048 Other nonmedicinal substance allergy status; Z87.891 Personal history of nicotine dependence; Z79.82 Long term (current) use of aspirin; Z79.51 Long term (current) use of inhaled steroids; Z79.899 Other long term (current) drug therapy; Z90.710 Acquired absence of both cervix and uterus; Z90.722 Acquired absence of ovaries, bilateral; Z90.49 Acquired absence of other specified parts of digestive tract; Z96.611 Presence of right artificial shoulder joint; Z85.3 Personal history of malignant neoplasm of breast; Z90.11 Acquired absence of right breast and nipple
CPT/HCPCS: 88305; 43239; J2001; J2704

== ENCOUNTER → 2019-11-07 | Outpatient (CLI) | payer MEDICARE, BC ==
--- NOTE | 2019-11-07 13:40 | MM ---
Reason for exam: additional evaluation requested from prior study. Last mammogram was performed 1 year and 3 months ago. History: Patient is postmenopausal, has history of breast cancer at age 45, history of other cancer, and is nulliparous. Family history of breast cancer in mother at age 50 and breast cancer in maternal grandmother. Mastectomy of the right breast, 2001. Cyst aspiration of the left breast. Took estrogen for 6 months beginning at age 55. Took progesterone for 6 months beginning at age 55. Physical Findings: Nurse did not find any significant physical abnormalities on exam. MG 3D Diag Mammo W/Cad LT CC and MLO view(s) were taken of the left breast. Prior study comparison: August 08, 2018, left breast MG 3d diag mammo w/cad LT. April 26, 2017, left breast MG 3d diag mammo w/cad LT. There are scattered fibroglandular densities. There is chronic nodularity in the left breast. No significant new findings when compared with previous films. These results were verbally communicated with the patient and result sheet given to the patient on 11/07/19. ASSESSMENT: Benign, BI-RAD 2 RECOMMENDATION: Follow-up diagnostic mammogram of the left breast in 1 year.
== END | disposition home or self-care (01) ==
LOC: RADMAMWWP 12:49
PROVIDERS: ATTEND Internal Medicine
DX: C50.911 Malignant neoplasm of unspecified site of right female breast (principal)
CPT/HCPCS: 77065; G0279; 77061

== ENCOUNTER → 2019-12-11 | Outpatient (CLI) | payer MEDICARE ==
--- NOTE | 2019-12-11 16:02 | BD ---
EXAMINATION TYPE: Axial Bone Density DATE OF EXAM: 12/11/2019 COMPARISON: 09.14.2017 CLINICAL HISTORY: 64 YR OLD FEMALE....ICD-10 CODE: M81.0 OSTEOPOROSIS Height: 58.5 Weight: 257 FRAX RISK QUESTIONS: Glucocorticoids (More than 3mos): YES (Ex: prednisone, prednisolone, methylprednisolone, dexamethasone, and hydrocortisone). History of Fracture in Adulthood: YES Secondary Osteoporosis: YES 3. Menopause before 45: YES AT 29 Rheumatoid Arthritis: YES RISK FACTORS HISTORY OF: History of Wrist Fracture: YES, RIGHT AN ADULT Surgery to Spine LUMBAR FUSION, RODS PINS AND SCREWS... AN ADULT Postmenopausal woman: YES AT AGE 29 CHEMO RELATED Lost more than 2 inches in height since high school: YES Hyperparathyroidism: NO Adrenal Insufficiency: NO MEDICATIONS: Prednisone or other steroids: YES, ON AND OFF FOR SEVER PAIN, RA FOR MANY YRS Osteoporosis Medications: REMICADE AND RECLAST FOR MANY YRS Additional Medications: HX OF CHEMO, BP MEDS, REFLUX MEDS, STATIN FOR CHOLESTEROL, VIT D AND CALCIUM Additional History: CERVICAL CA IN 1985 AND RT BREAST CANCER IN 2001 WITH MASTECTOMY EXAM MEASUREMENTS: Bone mineral densitometry was performed using the K Spine System. SPINE OMITTED, SURGICAL FUSION, RODS PLATES AND SCREWS Bone mineral density about the R hip (g/cm2): 0.908 Bone mineral density about the L hip (g/cm2): 0.978 T Score values are as follows: -----R Neck: -1.1 -----L Neck: -0.9 -----R Total: -0.8 -----L Total: -0.2 Bone mineral density has: Increased 8.4% since study of: 09.14.2017 FRAX%s: THERE IS A 24.1% CHANCE FOR A MAJOR OSTEOPOROTIC FX AND A 2.4% FOR HIP......PROBABILITY FOR FX IN 10 YRS TIME Bone mineral density about the L Wrist (g/cm2): 0.682 T Score values are as follows: -----Dist. R+U: 1.8 -----Prox. R+U: 0.7 -----Radius total: 1.1 Bone mineral density FIRST FOREARM SCAN IMPRESSION: Osteopenia (T Score between -2.5 and -1). There is slightly increased risk of fracture and the patient may be considered for treatment. Re-Screen 2-5 years. NOTE: T-SCORE=SD OF THE YOUNG ADULT MEAN.
== END | disposition home or self-care (01) ==
LOC: RADBDWWP 09:46
PROVIDERS: ATTEND Internal Medicine
DX: M85.80 Other specified disorders of bone density and structure, unspecified site (principal); M81.0 Age-related osteoporosis without current pathological fracture
CPT/HCPCS: 77080

== ENCOUNTER 2020-01-22 09:22 | Day surgery (SDC) | payer BC, MEDICARE ==
[2020-01-15 11:06] VITALS: BMI 36.9
[~2020-01-22 09:22] MED LIST changes: +LIDOCAINE 1% (10MG/ML) FOR IV START INTRADERMA PRN; -LIDOCAINE 1% 20 ML VIAL (10MG/ML) FOR IV START INTRADERMA PRN
[2020-01-22 10:31] VITALS: TEMP 98.7
[2020-01-22] MEDS ORDERED: PROPOFOL 10 MG/ML 20 ML VIAL IV ONE (11:00)
[2020-01-22] MEDS ORDERED: LIDOCAINE 1% INJ 10MG/ML (20 ML MDV) ONE (11:00)
--- NOTE | 2020-01-22 11:34 | P.PCN ---
Date of Procedure: 01/22/20 Description of Procedure: Brief history: Patient is a pleasant 64-year-old scheduled for an elective upper endoscopy as well as colonoscopy as a part of evaluation of anemia and a family history of colon cancer. The patient has had evaluation past with findings of polyps on colonoscopy. He denies any abdominal pain but does believe bowel movements have been soft with a sensation of incomplete evacuation recently. Procedure performed: Esophagogastroduodenoscopy with biopsy Colonoscopy Estimated blood loss: Minimal. Preoperative diagnosis: Anesthesia: MAC Procedure: After informed consent was obtained from the patient was brought into the endoscopy unit and IV sedation was administered by anesthesia under continuous monitoring. Initially upper endoscopy was done. The Olympus GF 190 video endoscope was inserted into the mouth and esophagus intubated without any difficulty and was gradually advanced into the stomach and duodenum and carefully examined. The bulb and second part of the duodenum appeared normal, except for some mild scattered erythema suggestive of mild duodenitis with biopsies taken. The scope was then withdrawn into the stomach adequately insufflated with air and upon careful examination the antrum and body, cardia and fundus appeared normal, except for some mild punctate erythema in the antrum and body suggestive of mild gastritis with biopsies taken. The scope was then withdrawn into the esophagus. The GE junction was located at 37 cm to the inc isors and biopsies. A 2 cm hiatal hernia noted. It appeared regular with no erythema erosions or ulcerations. Rest of the esophagus appeared normal. Patient tolerated the procedure well. At this time the patient continued to remain sedation. Initial digital rectal examination was normal. Olympus CF 190 video colonoscope was then inserted into the rectum and gradually advanced to the cecum without any difficulty. Careful examination was performed as the scope was gradually being withdrawn. The prep was good. The cecum, ascending colon, transverse colon, descending colon, sigmoid colon and rectum appeared normal. A few scattered diverticula noted in the sigmoid colon. Retroflexion was performed in the rectum and no lesions were noted, with low-grade hemorrhoids. Patient tolerated the procedure well. Impression: 1. Mild gastritis. Mild duodenitis. Small hiatal hernia. Biopsies of the antrum and body, duodenum and GE junction. 2. Mild sigmoid diverticulosis. Low-grade internal hemorrhoids. Otherwise normal-appearing colon. Recommendations: Findings of this examination were discussed with the patient as well as her family. Okay to resume diet. Okay to resume medications. Await pathology from biopsies. Recommend repeat colonoscopy in 5 years for family history of colon cancer.
[2020-01-22 11:55] VITALS: RESP 16
[2020-01-22 11:58] VITALS: BP 121/73; PULSE 85
== END 2020-01-22 12:28 | disposition home or self-care (01) ==
LOC: ORWHC2ENDO 09:22
PROVIDERS: ATTEND Internal Medicine
DX: K57.30 Diverticulosis of large intestine without perforation or abscess without bleeding (principal); K64.8 Other hemorrhoids; K29.50 Unspecified chronic gastritis without bleeding; K29.80 Duodenitis without bleeding; K44.9 Diaphragmatic hernia without obstruction or gangrene; D64.9 Anemia, unspecified; I10 Essential (primary) hypertension; E78.5 Hyperlipidemia, unspecified; J44.9 Chronic obstructive pulmonary disease, unspecified; G62.9 Polyneuropathy, unspecified; K21.9 Gastro-esophageal reflux disease without esophagitis; M79.7 Fibromyalgia; G25.81 Restless legs syndrome; M06.9 Rheumatoid arthritis, unspecified; Z86.010 Personal history of colon polyps; Z80.0 Family history of malignant neoplasm of digestive organs; Z98.890 Other specified postprocedural states; Z87.891 Personal history of nicotine dependence; Z91.09 Other allergy status, other than to drugs and biological substances; Z88.2 Allergy status to sulfonamides; Z79.899 Other long term (current) drug therapy; Z79.82 Long term (current) use of aspirin; Z90.49 Acquired absence of other specified parts of digestive tract; Z90.710 Acquired absence of both cervix and uterus; Z90.722 Acquired absence of ovaries, bilateral; Z90.79 Acquired absence of other genital organ(s); Z85.3 Personal history of malignant neoplasm of breast; Z90.11 Acquired absence of right breast and nipple
CPT/HCPCS: 88305; 43239; J2001; J2704; G0105

== ENCOUNTER → 2020-05-27 | Outpatient (CLI) | payer MEDICARE ==
--- NOTE | 2020-05-27 12:54 | CONS ---
CONSULTATION REASON FOR CONSULTATION: This is a consultation for sleep apnea. A 65-year-old female patient referred to me for concerns of sleep apnea. The patient was on a trip with her niece who noticed that the patient had a loud snore and she quit breathing at night multiple times. The patient reports to have positive snore arousals. She wakes up tired during the day and she has trouble with attention and she falls asleep during the day. She goes to bed around 8 p.m., wakes up at 6 a.m. in the morning and she carries the same schedule throughout every day. She reports that her bedroom environment is quite comfortable. No noise. Her mattress is comfortable. No light stimulation. Occasionally she watches TV at home. She does not have any bed partners for now. She has chronic lumbar disc disease yet her pain is under good control for now. She has gained around 20 pounds over the past one year. She does have RLS and related to chemo chemotherapy and she does well with Requip at a dose of 0.5 mg at bedtime. She has also chronic pain and osteoporosis and rheumatoid arthritis, maintained on Rituxan. No sleep paralysis. No hallucinations. No cataplexy. No alcoholism. She wakes up at least 3-4 times in the middle of the night and she is able to generate and go back to sleep. Her current Denver Score is 10. PAST MEDICAL HISTORY: 1. Obesity. 2. RA. 3. Osteoporosis. 4. Hypertension. 5. Hyperlipidemia. 6. COPD. 7. Peripheral neuropathy, chemotherapy-induced. 8. RLS. 9. Lymphedema of the right upper extremity. 10.History of breast cancer with previous mastectomy. PAST SURGICAL HISTORY: Past surgical history includes mastectomy in July 2001, hysterectomy in 1985, appendectomy 2007, cholecystectomy and oophorectomy in 2014, and numerous shoulder surgeries and a previous history of posterior lumbar decompression with fusion and this at the level of L2-L3, L3-L4, L4-L5 and L5-S1. SOCIAL HISTORY: The patient is an ex-smoker. She quit smoking 35 years ago. She has a 25 pack year smoking history. No history of alcoholism. No history of IV drugs. FAMILY HISTORY: Sister has obstructive sleep apnea. REVIEW OF SYSTEMS: Twelve-point review of system was done. Positive findings are mentioned in history of present illness. There is positive weight gain. There is increased fatigue and tiredness and sleepiness. MEDICATIONS: Medications include multivitamins including vitamin C, vitamin E, vitamin D, fish oil, calcium, super B complex, magnesium. She is also on Rituxan every 6 months injection, Lipitor 40 mg p.o. daily, Requip 0.5 mg at bedtime, Cymbalta 60 mg p.o. q. day, Lyrica 200 mg twice a day, potassium 10 mEq q. day, Lasix 20 mg p.o. q. day, omeprazole 20 mg p.o. q. day, losartan hydrochlorothiazide 50/12.5 one tab a day, Reclast infusion every 4 months, Brovana, Pulmicort nebulized treatments twice a day, Mobic on as needed basis for pain control, 15 mg and metoprolol 25 mg p.o. twice a day, baclofen 10 mg one tablet twice a day. PHYSICAL EXAMINATION: VITAL SIGNS: BP is 160/79, pulse 65, respirations 12, temperature 98.6, saturation 92% on room air. Height is 5 feet 9 inches. Weight is 259, BMI 37.6. Neck size is 16-1/2. Denver score is 10. GENERAL APPEARANCE: Obese, calm, comfortable. HEAD: Atraumatic, normocephalic. NECK: Supple. No JVD. No goiter or neck masses. Mallampati class 3. There is an overbite. LUNGS: Clear to auscultation. HEART: Heart sounds are regular rate and rhythm. Normal S1, S2. No S3, S4. No murmurs. ABDOMEN: Soft, nontender. No organomegaly. EXTREMITIES: There is right upper extremity lymphedema. Rest of the extremities are within normal. No cyanosis or clubbing. IMPRESSION: 1. Chronic hypersomnia. Denver score of 10. The patient also has sleep fragmentation, snoring and she carries an Denver score of 10. There is positive history of witnessed apnea. There was high concern for obstructive sleep apnea in this patient. 2. Peripheral neuropathy, chemotherapy-induced along with a component of restless legs syndrome, currently on Requip, well controlled. 3. History of breast cancer with previous right mastectomy and chronic lymphedema involving the right upper extremity. 4. History of chronic back pain post lumbar decompression with fusion, multilevel and the pain is under good control for now. 5. Rheumatoid arthritis. 6. Osteoporosis. 7. Hyperlipidemia. 8. Hypertension. 9. Chronic obstructive pulmonary disease. 10.Lymphedema right upper extremity. PLAN: 1. Likelihood for sleep apnea is high. 2. Proceed with a home sleep study evaluating the patient for obstructive sleep apnea or any other form of sleep breathing disorder. 3. Encourage weight loss. 4. Implement good sleep hygiene measures. 5. Treat comorbidities. 6. Will continue to follow. MMODL / IJN: [id number] /
== END ==
LOC: SLEEP 11:44
PROVIDERS: ATTEND Internal Medicine Critical Care Medicine
DX: G47.10 Hypersomnia, unspecified (principal); G62.9 Polyneuropathy, unspecified; G25.81 Restless legs syndrome; Z85.3 Personal history of malignant neoplasm of breast; Z90.11 Acquired absence of right breast and nipple; G89.29 Other chronic pain; M96.1 Postlaminectomy syndrome, not elsewhere classified; M06.9 Rheumatoid arthritis, unspecified; M81.0 Age-related osteoporosis without current pathological fracture; E78.5 Hyperlipidemia, unspecified; I10 Essential (primary) hypertension; J44.9 Chronic obstructive pulmonary disease, unspecified; E66.9 Obesity, unspecified; I89.0 Lymphedema, not elsewhere classified; Z87.891 Personal history of nicotine dependence
CPT/HCPCS: 99211

== ENCOUNTER → 2020-08-06 | Outpatient (CLI) | payer MEDICARE ==
--- NOTE | 2020-08-06 13:05 | MR ---
EXAMINATION TYPE: MR knee LT wo con DATE OF EXAM: 08/06/2020 COMPARISON: 07/22/2020 HISTORY: Left knee pain TECHNIQUE: Multiplanar, multisequence imaging of the left knee is performed without IV contrast. FINDINGS: MEDIAL MENISCUS: Anterior and posterior horns are intact without tear. LATERAL MENISCUS: There is a horizontal oblique tear of the lateral meniscus with mild extrusion into the anterolateral gutter. CRUCIATE LIGAMENTS: The anterior and posterior cruciate ligaments are intact and unremarkable. COLLATERAL LIGAMENTS: The medial collateral ligament and lateral collateral ligament complex are inta ct and unremarkable. EXTENSOR MECHANISM: Visualized quadriceps and patellar tendons are intact. EFFUSION: There is a small knee joint effusion. POPLITEAL CYST: No popliteal/strong cyst. CARTILAGE: There are partial-thickness articular cartilage defects seen throughout the patella and tr ochlea. There are near full-thickness articular cartilage defects of the central weightbearing aspect of the medial and lateral femoral condyles and lateral tibial plateaus. Partial-thickness articular cartilage defects are seen in the medial tibial plateau. BONE MARROW SIGNAL: No focal abnormal marrow signal is appreciated. OTHER: No additional significant abnormality is appreciated. IMPRESSION: 1. Horizontal oblique tear throughout the lateral meniscus with mild extrusion into the anterolateral gutter. 2. Tricompartmental articular cartilage defects. 3. Small knee joint effusion.
== END | disposition home or self-care (01) ==
LOC: RADMRIMAIN 11:09
PROVIDERS: ATTEND Orthopaedic Surgery
DX: M25.562 Pain in left knee (principal); S83.282A Other tear of lateral meniscus, current injury, left knee, initial encounter

== ENCOUNTER 2020-09-11 11:31 | Inpatient (IN) | payer MEDICARE ==
[2020-09-11 12:23] LABS: Basophils % (A) 1 %; Eosinophils # (A) 0.2 k/uL (0-0.7); Eosinophils % (A) 3 %; HCT 33.2 % (34.0-46.0); HGB 10.2 gm/dL (11.4-16.0); Hypochromasia Slight; Lymphocytes # (A) 1.1 k/uL (1.0-4.8); Lymphocytes % (A) 18 %; MCHC 30.6 g/dL (31.0-37.0); MCV 88.1 fL (80.0-100.0); Mean Platelet Volume 7.3; Monocytes # (A) 0.5 k/uL (0-1.0); Monocytes % (A) 8 %; Neutrophils # (A) 4.2 k/uL (1.3-7.7); Neutrophils % (A) 69 %; Platelet Count 482 k/uL (150-450); RBC 3.77 m/uL (3.80-5.40); RDW 14.4 % (11.5-15.5); WBC 6.1 k/uL (3.8-10.6)
--- NOTE | 2020-09-11 12:27 | CT ---
EXAMINATION TYPE: CT brain betty crum DATE OF EXAM: 09/11/2020 COMPARISON: None HISTORY: weakness, repeated falls, headache, neck pain CT DLP: 1475.[address] of the brain was performed. The ventricles, basal cisterns and sulci overlying the cerebral convexities demonstrate mild enlargem ent. There is no evidence for intracranial hemorrhage or sulcal effacement. There is decreased attenuatio n about the periventricular white matter and deep white matter of both cerebral hemispheres, compatib le with chronic small vessel ischemia. No mass effects are seen. If symptoms persist consider MRI. Osseous calvarium is intact. IMPRESSION: 1. Age related atrophic and chronic small vessel ischemic change without acute intracranial process seen at this time. CT Cervical Spine: Unenhanced CT of the cervical spine was performed with bone and soft tissue window settings submitted . Coronal and sagittal reconstruction is obtained. There is normal alignment and prevertebral soft tissues. No evidence for acute cervical fracture . Severe Scattered degenerative disc disease and spondylosis. Biapical scarring. IMPRESSION: 1. No evidence for acute fracture or subluxation of the cervical spine.
[2020-09-11 12:30] LABS: INR 0.9 (<1.2); Partial Thromboplastin Time 22.8 sec (22.0-30.0); Prothrombin Time 9.9 sec (9.0-12.0)
--- NOTE | 2020-09-11 12:30 | XR ---
EXAMINATION TYPE: XR chest 2V DATE OF EXAM: 09/11/2020 COMPARISON: 06/09/2018 HISTORY: weakness TECHNIQUE: Frontal and lateral views of the chest are obtained. FINDINGS: Right basilar densities, likely scarring appears similar to the prior exam. Lungs are othe rwise clear. Multiple ovoid densities overlying the right shoulder are unchanged. Left shoulder hardware is incomp letely included. Cardiac silhouette is unchanged. IMPRESSION: No significant change since the prior exam.
[2020-09-11 12:42] LABS: Albumin 3.5 g/dL (3.5-5.0); Calcium 8.7 mg/dL (8.4-10.2); Magnesium 2.4 mg/dL (1.6-2.3); Potassium 5.2 mmol/L (3.5-5.1); Total Bilirubin 0.2 mg/dL (0.2-1.3); Total Protein 6.3 g/dL (6.3-8.2)
--- NOTE | 2020-09-11 13:02 | ED ---
General Adult HPI - General Chief complaint: Weakness Stated complaint: Shakiness/Neuro Symptoms Time Seen by Provider: 09/11/20 11:40 Source: patient, RN notes reviewed, old records reviewed Mode of arrival: ambulatory Limitations: no limitations - History of Present Illness Initial comments: 65-year-old female who presented for evaluation of generalized weakness, increased clumsiness and dropping things with her hands bilaterally. She's had some hallucinations and some double vision. Symptoms have been ongoing for approximately the past week. She was seen by her primary care physician today and was sent to the emergency department for further evaluation including CT, laboratory testing and admission for neurology consultation regarding these new symptoms. She has had no chest pain or abdominal pain. No vomiting or diarrhea. No fever. - Related Data Home Medications Medication Instructions Recorded Confirmed Atorvastatin [Lipitor] 40 mg PO DAILY 11/14/14 01/15/20 DULoxetine HCL [Cymbalta] 60 mg PO BID 11/14/14 01/15/20 Furosemide [Lasix] 40 mg PO QAM 11/14/14 01/15/20 rOPINIRole HCL [Requip] 5 mg PO HS 11/14/14 01/15/20 Potassium Chloride [Klor-Con 10] 10 meq PO QAM 10/26/16 01/15/20 Omeprazole [PriLOSEC] 20 mg PO AC-BRKFST 12/24/16 01/15/20 Aspirin 325 mg PO DAILY 06/07/18 01/15/20 Losartan/Hydrochlorothiazide 1 tab PO DAILY 09/06/18 01/15/20 [Losartan-Hctz 50-12.5 mg Tab] Pregabalin [Lyrica] 200 mg PO BID 01/15/20 01/15/20 Allergies Allergy/AdvReac Type Severity Reaction Status Date / Time nickel Allergy Rash/Hives Verified 09/11/20 11:32 Sulfa (Sulfonamide Allergy Rash/Hives Verified 09/11/20 11:32 Antibiotics) Review of Systems ROS Statement: Those systems with pertinent positive or pertinent negative responses have been documented in the HPI. ROS Other: All systems not noted in ROS Statement are negative. Past Medical History Past Medical History: Cancer, COPD, Fibromyalgia, GERD/Reflux, Hyperlipidemia, Hypertension, Osteoarthritis (OA), Rheumatoid Arthritis (RA) Additional Past Medical History / Comment(s): R breast cancer with mastectomy and chemo-2001, chronic R arm lymphedema,neuropathy bilateral feet, cervical cancer,restless leg syndrome, diverticulosis,steroids Dec 2019 History of Any Multi-Drug Resistant Organisms: None Reported Past Surgical History: Appendectomy, Back Surgery, Breast Surgery, Cholecystectomy, Hysterectomy, Joint Replacement, Orthopedic Surgery Additional Past Surgical History / Comment(s): colonoscopy, RIGHT MASTECTOMY, RIGHT TOTAL SHOULDER REPLACEMENT followed by revisions, I&Ds of R shoulder, picc line insertion-since removed, LT ROTATOR CUFF REPAIR, bilateral salpingo oophorectomy. pain clinic procedures Past Anesthesia/Blood Transfusion Reactions: No Reported Reaction, Family History of Problems w/ Anesthesia Additional Past Anesthesia/Blood Transfusion Reaction / Comment(s): sister has severe BUSH with anesthesia Past Psychological History: No Psychological Hx Reported Smoking Status: Former smoker Past Alcohol Use History: None Reported Past Drug Use History: None Reported - Past Family History Sister(s) Family Medical History: Cancer Additional Family Medical History / Comment(s): Thyroid cancer. Brother(s) Family Medical History: Cancer Additional Family Medical History / Comment(s): Patient has 4 brothers. One has from alcoholism at age 55. One brother has small cell lung carcinoma. 1 is diabetic. One brother she has no contact with. Mother Family Medical History: Cancer, Deep Vein Thrombosis (DVT) Additional Family Medical History / Comment(s): Breast cancer. Father Family Medical History: Cancer Additional Family Medical History / Comment(s): Father of colon cancer in his 60s. General Exam Limitations: no limitations General appearance: alert, in no apparent distress Head exam: Present: atraumatic, normocephalic Eye exam: Present: normal appearance, PERRL ENT exam: Present: mucous membranes moist Neck exam: Present: normal inspection. Absent: tenderness, meningismus Respiratory exam: Present: normal lung sounds bilaterally. Absent: respiratory distress, wheezes Cardiovascular Exam: Present: regular rate, normal rhythm GI/Abdominal exam: Present: soft. Absent: distended, tenderness Extremities exam: Present: normal capillary refill, other (Right upper extremity lymphedema, there is some weakness on the right which the patient states is o ld. Left arm 5 out of 5 strength with normal beater and pulper feeder strength.) Neurological exam: Present: alert, oriented X3, CN II-XII intact, motor sensory deficit (4/5 strength in the right upper extremity) Psychiatric exam: Present: normal affect, normal mood Skin exam: Present: warm, dry, intact. Absent: cyanosis, diaphoretic Course Vital Signs 09/11/20 11:32 Temperature 98.6 F Pulse Rate 85 Respiratory 18 Rate Blood Pressure 133/62 O2 Sat by Pulse 94 L Oximetry EKG Findings - EKG Comments: EKG Findings:: EKG: Sinus rhythm, low voltage, rate of 87, [place] interval 172, QRS duration 78, QTC 425, no ST segment elevation. Medical Decision Making - Medical Decision Making 65 female presenting with multiple issues including some confusion, upper ex tremity weakness which is bilateral. She also had some double vision and hallucination. Symptoms of been ongoing for approximately one week. CT brain is performed, negative for intracranial hemorrhage or mass effect. She has a anemia with an otherwise stable CBC. Normal electrolytes. Urinalysis pending. Given the acute meter changes records clerk the past one week she will be admitted with neurology on consult. Dr. Mendes aware of patient. - Lab Data Result diagrams: 09/11/20 12:03 09/11/20 12:03 Lab Results 09/11/20 09/11/20 09/11/20 Range/Units 12:03 12:03 12:03 WBC 6.1 (3.8-10.6) k/uL RBC 3.77 L (3.80-5.40) m/uL Hgb 10.2 L (11.4-16.0) gm/dL Hct 33.2 L (34.0-46.0) % MCV 88.1 (80.0-100.0) fL MCH 27.0 (25.0-35.0) pg MCHC 30.6 L (31.0-37.0) g/dL RDW 14.4 (11.5-15.5) % Plt Count 482 H (150-450) k/uL MPV 7.3 Neutrophils % 69 % Lymphocytes % 18 % Monocytes % 8 % Eosinophils % 3 % Basophils % 1 % Neutrophils # 4.2 (1.3-7.7) k/uL Lymphocytes # 1.1 (1.0-4.8) k/uL Monocytes # 0.5 (0-1.0) k/uL Eosinophils # 0.2 (0-0.7) k/uL Basophils # 0.0 (0-0.2) k/uL Hypochromasia Slight PT 9.9 (9.0-12.0) sec INR 0.9 (<1.2) APTT 22.8 (22.0-30.0) sec Sodium 137 (137-145) mmol/L Potassium 5.2 H (3.5-5.1) mmol/L Chloride 100 (98-107) mmol/L Carbon Dioxide 32 H (22-30) mmol/L Anion Gap 5 mmol/L BUN 32 H (7-17) mg/dL Creatinine 0.89 (0.52-1.04) mg/dL Est GFR (CKD-EPI)AfAm 78 (>60 ml/min/1.73 sqM) Est GFR (CKD-EPI)NonAf 68 (>60 ml/min/1.73 sqM) Glucose 97 (74-99) mg/dL Plasma Lactic Acid Jesus (0.7-2.0) mmol/L Calcium 8.7 (8.4-10.2) mg/dL Magnesium 2.4 H (1.6-2.3) mg/dL Total Bilirubin 0.2 (0.2-1.3) mg/dL AST 32 (14-36) U/L ALT 16 (4-34) U/L Alkaline Phosphatase 93 (38-126) U/L Troponin I (0.000-0.034) ng/mL Total Protein 6.3 (6.3-8.2) g/dL Albumin 3.5 (3.5-5.0) g/dL 09/11/20 09/11/20 Range/Units 12:03 12:03 WBC (3.8-10.6) k/uL RBC (3.80-5.40) m/uL Hgb (11.4-16.0) gm/dL Hct (34.0-46.0) % MCV (80.0-100.0) fL MCH (25.0-35.0) pg MCHC (31.0-37.0) g/dL RDW (11.5-15.5) % Plt Count (150-450) k/uL MPV Neutrophils % % Lymphocytes % % Monocytes % % Eosinophils % % Basophils % % Neutrophils # (1.3-7.7) k/uL Lymphocytes # (1.0-4.8) k/uL Monocytes # (0-1.0) k/uL Eosinophils # (0-0.7) k/uL Basophils # (0-0.2) k/uL Hypochromasia PT (9.0-12.0) sec INR (<1.2) APTT (22.0-30.0) sec Sodium (137-145) mmol/L Potassium (3.5-5.1) mmol/L Chloride (98-107) mmol/L Carbon Dioxide (22-30) mmol/L Anion Gap mmol/L BUN (7-17) mg/dL Creatinine (0.52-1.04) mg/dL Est GFR (CKD-EPI)AfAm (>60 ml/min/1.73 sqM) Est GFR (CKD-EPI)NonAf (>60 ml/min/1.73 sqM) Glucose (74-99) mg/dL Plasma Lactic Acid Jesus 0.9 (0.7-2.0) mmol/L Calcium (8.4-10.2) mg/dL Magnesium (1.6-2.3) mg/dL Total Bilirubin (0.2-1.3) mg/dL AST (14-36) U/L ALT (4-34) U/L Alkaline Phosphatase (38-126) U/L Troponin I <0.012 (0.000-0.034) ng/mL Total Protein (6.3-8.2) g/dL Albumin (3.5-5.0) g/dL Disposition Clinical Impression: Confusion, Upper extremity weakness Disposition: ADMITTED IP TO THIS [facility] Condition: Stable Is patient prescribed a controlled substance at d/c from ED?: No Referrals: Eliud Mendes MD [Primary Care Provider] - 1-2 days Decision to Admit Reason: Admit from EC Decision Date: 09/11/20 Decision Time: 13:13
[2020-09-11] MEDS ORDERED: NALOXONE 0.4 MG/ML 1 ML VIAL IV PRN (13:08)
[2020-09-11] MEDS ORDERED: ACETAMINOPHEN TAB 325 MG TAB PO PRN (13:08)
[2020-09-11 13:19] LABS: Appearance,Urine Clear (Clear); Bilirubin,Urine Negative (Negative); Blood,Urine Negative (Negative); Color,Urine Yellow; Glucose,Urine (UA) Negative (Negative); Ketones,Urine Negative (Negative); Leukocyte Esterase,Urine Negative (Negative); Nitrite,Urine Negative (Negative); PH, Urine 5.5 (5.0-8.0); Protein,Urine Negative (Negative); Specific Gravity,Urine 1.013 (1.001-1.035); Urobilinogen,Urine <2.0 mg/dL (<2.0)
[2020-09-11] MEDS: SODIUM CHLORIDE 0.9% 1,000 ML IV SCH (14:47)
[2020-09-11] MEDS ORDERED: BACLOFEN 10 MG TAB PO PRN (17:16)
[2020-09-11] MEDS: IPRATROPIUM-ALBUTEROL 3 ML NEB INHALATION SCH (19:14)
[2020-09-11] MEDS: BUDESONIDE 0.5 MG/2 ML NEBU INHALATION SCH (19:14)
--- NOTE | 2020-09-11 19:25 | P.CNNES ---
History of Present Illness Consult date: 09/11/20 Requesting physician: Wilmar Gleason Reason for Consult: upper extremity weakness and confusion History of Present Illness: This is a 65-year-old woman with medical history of right breast cancer status post mastectomy and chemotherapy in 2001, cervical cancer in 1984 s/p hysterectomy and bilateral salpingo-oophorectomy chronic right arm lymphedema, bilateral neuropathy of the feet, hyperlipidemia, hypertension, ex-tobacco use (smoked for 20 years, 1PPD and stopped in 2001) who presented emergency department on 09/11/2020 for generalized weakness and increased clumsiness and the dropping things for the the last 3 days. According to patient she stated that the she noticed that that she's been having problems walking and tripping and feels her balance is off for the last few month. She denies tripping on any carpet or any objects she just feels her balance is off. And then in the last 3 days she feels like she is dropping things in both her hands and feels clumsy the left more than the right, is having difficulty getting her words out, also she's noticed in the last 3 days that the when she wakes up she is yelling and the when she is sleeping family members has to the really shake her to wake up. She feels her sleep has been off, she is also having neck pain recently. Today she feels like her entire face and mouth is numb and dry. She also feels her vision is blurry in the last couple days. She denies any history of seizures, any jerk in of any extremities. She denies of any diplopia, any headache. She was sent by her primary care physician for further evaluation. Of note patient stated that her last chemotherapy for the breast is on 2001 and is of breast survivor. She follows up with her oncologist but has not followed up with oncologist in the last 1 year. Patient has a significant family history of breast cancer her mother and grandmother in their 40s. She had a positive genetic test regarding the cancer but could not tell me which one. Patient home medication includes a Requip 5 mg daily, Lyrica 200 mg tablet twice a day, Lasix, Cymbalta, baclofen 10 mg 1 tablet twice a day when necessary, Lipitor former grams daily. Workup in the hospital consisted of: Initial vital signs was blood pressure of 133/62, heart rate of 85, respiratory of 18, temperature of 98.6 Fahrenheit oral and pulse ox of 94% at room air at. CBC with differential is a white blood cells 6.1 thousand which is within normal limits. The platelets is 482,000 which is elevated. Sodium is 137 which is normal, creatinine is 0.89, calcium is 8.7, AST of 32 ALT of 16 which are within normal limits. Magnesium is 2.4 which is just above normal that is unremarkable. Urinalysis is negative for urinary tract infection. PT of 9.9, INR 0.9, PTT of 22.8. CT of the head is reported as age-related atrophy and chronic small vessel ischemic change without acute intracranial process seen at this time. CT cervical spine is reported as no evidence for acute fracture or subluxation of the cervical spine. EKG is reported as normal sinus rhythm. Low voltage QRS. Borderline EKG. Review of Systems Review of system: The 12 point system was reviewed and apparent positive and negative per HPI. Past Medical History Past Medical History: Cancer, COPD, Fibromyalgia, GERD/Reflux, Hyperlipidemia, Hypertension, Osteoarthritis (OA), Rheumatoid Arthritis (RA) Additional Past Medical History / Comment(s): R breast cancer with mastectomy and chemo-2001, chronic R arm lymphedema,neuropathy bilateral feet, cervical cancer,restless leg syndrome, diverticulosis,steroids Dec 2019 dr. Dunham last seen 1 year ago History of Any Multi-Drug Resistant Organisms: None Reported Past Surgical History: Appendectomy, Back Surgery, Breast Surgery, Chol ecystectomy, Hysterectomy, Joint Replacement, Orthopedic Surgery Additional Past Surgical History / Comment(s): colonoscopy, RIGHT MASTECTOMY, RIGHT TOTAL SHOULDER REPLACEMENT followed by revisions, I&Ds of R shoulder, picc line insertion-since removed, LT ROTATOR CUFF REPAIR, bilateral salpingo oophorectomy. pain clinic procedures Past Anesthesia/Blood Transfusion Reactions: No Reported Reaction, Family History of Problems w/ Anesthesia Additional Past Anesthesia/Blood Transfusion Reaction / Comment(s): sister has severe BUSH with anesthesia Past Psychological History: No Psychological Hx Reported Additional Psychological History / Comment(s): . Smoking Status: Former smoker Past Alcohol Use History: None Reported Additional Past Alcohol Use History / Comment(s): Pt started smoking in 1974 and quit in 2001. smoked 1ppd or less Past Drug Use History: None Reported - Past Family History Sister(s) Family Medical History: Cancer Additional Family Medical History / Comment(s): Thyroid cancer. Brother(s) Family Medical History: Cancer Additional Family Medical History / Comment(s): Patient has 4 brothers. One has from alcoholism at age 55. One brother has small cell lung carcinoma. 1 is diabetic. One brother she has no contact with. Mother Family Medical History: Cancer, Deep Vein Thrombosis (DVT) Additional Family Medical History / Comment(s): Breast cancer. Father Family Medical History: Cancer Additional Family Medical History / Comment(s): Father of colon cancer in his 60s. Medications and Allergies Home Medications Medication Instructions Recorded Confirmed Type Atorvastatin [Lipitor] 40 mg PO DAILY 11/14/14 09/11/20 History DULoxetine HCL [Cymbalta] 60 mg PO BID 11/14/14 09/11/20 History Furosemide [Lasix] 40 mg PO QAM 11/14/14 09/11/20 History rOPINIRole HCL [Requip] 5 mg PO DAILY@1400 11/14/14 09/11/20 History Omeprazole [PriLOSEC] 20 mg PO AC-BRKFST 12/24/16 09/11/20 History Losartan/Hydrochlorothiazide 1 tab PO DAILY 09/06/18 09/11/20 History [Losartan-Hctz 50-12.5 mg Tab] Pregabalin [Lyrica] 200 mg PO BID 01/15/20 09/11/20 History Baclofen [Lioresal] 10 mg PO BID PRN 09/11/20 09/11/20 History Allergies Allergy/AdvReac Type Severity Reaction Status Date / Time nickel Allergy Rash/Hives Verified 09/11/20 13:29 Sulfa (Sulfonamide Allergy Rash/Hives Verified 09/11/20 13:29 Antibiotics) Physical Examination - Vital Signs Vital Signs: Vital Signs Temp Pulse Pulse Resp BP BP Pulse Ox 09/11/20 15:14 98.4 F 84 16 142/79 99 09/11/20 14:38 81 18 151/84 94 L 09/11/20 11:32 98.6 F 85 18 133/62 94 L Intake and Output 09/11/20 09/11/20 09/11/20 06:59 14:59 22:59 Intake Total 240 Balance 240 Intake: Oral 240 Other: # Voids 3 Weight 116.573 kg GENERAL: The patient is lying in bed and is not in acute distress. CHEST: The heart rate is regular rate rhythm. No murmurs to auscultation. No carotid bruit bilaterally. LUNG: Clear to auscultation bilaterally no wheezing noted throughout. Not labored breathing. Seems congested. ABDOMEN/GI: Bowel sounds present in all 4 quadrants. No tenderness to palpation throughout. NEUROLOGICAL: Higher mental function: The patient is awake, alert, oriented to self, place and time. Patient is following commands. No aphasia and no neglect. Cranial nerves: The pupils are round, equal (3mm) and reactive to light and accommodation. Visual delgadillo are full to confrontation throughout. Extraocular movement is intact no nystagmus is noted. Facial sensation is normal to touch throughout. Patient has right ptosis of the right eye. The facial strength is normal throughout. Hearing is normal bilaterally to hand rub. Tongue is midline and moved [id number] without any difficulty. Subtle to mild dysarthria is noted. Shoulder shrug is able to lift above gravity (Had removal over the right). . Motor: Gait is slight wide base and taking short steps but not swaying towards one side or the other. The strength is left lower extremity thigh flexion and knee extension is 5-, the right side is 4+ to 5- (old and hand lymphedema). Otherwise 5 over 5 throughout. Has lymphedema over the right upper extremity. Normal bulk and tone. Cerebellum: Slight dysmetria over the left. No ataxia bilaterally. Sensation: Sensation is normal to touch throughout. Reflexes (right/left): Right upper extremity is hard to assess because of lymphedema, while right brachioradialis is 1+. Otherwise left upper is 2+. Bilateral patellar are 2+, ankles are 1+ bilaterally. Plantars are mute bilaterally. Results - Laboratory Findings CBC and BMP: 09/11/20 12:03 09/11/20 12:03 Abnormal Lab Findings: Abnormal Labs 09/11/20 09/11/20 12:03 12:03 RBC 3.77 L Hgb 10.2 L Hct 33.2 L MCHC 30.6 L Plt Count 482 H Potassium 5.2 H Carbon Dioxide 32 H BUN 32 H Magnesium 2.4 H Assessment and Plan Assessment: * Episode of hand clumsiness, dropping thing (left > right hand), difficulty getting her words out, sleep difficulty for the last three days and unsteady gait for the past few months (on examination has ptosis right eye, mild dysar thria, slight dysmetria left hand, gait seems unsteady): Is concerning for metastasis (especially with history of cancer (breast, cervical). * History of right breast cancer status post mastectomy and chemotherapy in 2001 * History of Cervical cancer in 1984 s/p hysterectomy and bilateral salpingo-o ophorectomy * chronic right arm lymphedema * Bilateral neuropathy of lower extremity * History of Hypertension * History of Hyperlipidemia * ex-tobacco use (smoked for 20 years, 1PPD and stopped in 2001) Plan: * MRI of the brain with and without is ordered by the primary team and I agree. Also ordered MRI Cervical. * After MRI will consider getting lumbar puncture and getting the cytology workup. * I ordered an EEG. Will start the patient on antiepiletic drug if there is ep ileptiform discharges or seizure on the EEG. * I also ordered vitamin B12, folate and the TSH level. * Every 4 hours neuro checks. * Recommend oncology consultation especially with a significant history of cancer. * We'll defer the rest of the workup to the primary team. The plan is discussed with the patient and her nurse. Thank you for the consultation Xavi Vila M.D. Neuro-hospitalist Time with Patient: Greater than 30
[2020-09-11] MEDS: PREGABALIN 100 MG CAP PO SCH (20:15)
[2020-09-11] MEDS: DULoxetine HCL 60 MG CAPSULE.DR PO SCH (20:15)
[2020-09-12] MEDS: HEPARIN SODIUM,PORCINE/PF 5,000 UNIT/0.5 ML SYRINGE SQ SCH ×3 (00:05→16:39)
[2020-09-12] MEDS: IPRATROPIUM-ALBUTEROL 3 ML NEB INHALATION SCH ×4 (05:40→19:37)
[2020-09-12] MEDS: BUDESONIDE 0.5 MG/2 ML NEBU INHALATION SCH ×2 (05:40→19:37)
[2020-09-12] MEDS: SODIUM CHLORIDE 0.9% 1,000 ML IV SCH (06:01)
[2020-09-12] MEDS ORDERED: PANTOPRAZOLE 40 MG TABLET PO SCH (07:30)
[2020-09-12] MEDS: LOSARTAN-HCTZ 50-12.5 MG 1 EACH TAB PO SCH (09:28)
[2020-09-12] MEDS: ATORVASTATIN 40 MG TAB PO SCH (09:29)
[2020-09-12] MEDS: PREGABALIN 100 MG CAP PO SCH ×2 (09:29→21:05)
[2020-09-12] MEDS: PANTOPRAZOLE 40 MG TABLET PO SCH (09:29)
[2020-09-12] MEDS: FUROSEMIDE 40 MG TAB PO SCH (09:29)
[2020-09-12] MEDS: DULoxetine HCL 60 MG CAPSULE.DR PO SCH ×2 (09:29→21:05)
[2020-09-12 10:44] LABS: Basophils % (A) 1 %; Eosinophils # (A) 0.2 k/uL (0-0.7); Eosinophils % (A) 5 %; HCT 29.6 % (34.0-46.0); Hypochromasia Marked; Lymphocytes # (A) 1.2 k/uL (1.0-4.8); Lymphocytes % (A) 25 %; MCH 27.6 pg (25.0-35.0); MCHC 30.3 g/dL (31.0-37.0); Mean Platelet Volume 7.3; Monocytes # (A) 0.4 k/uL (0-1.0); Monocytes % (A) 8 %; Neutrophils # (A) 2.8 k/uL (1.3-7.7); Neutrophils % (A) 59 %; Platelet Count 433 k/uL (150-450); RBC 3.25 m/uL (3.80-5.40); RDW 14.8 % (11.5-15.5); Reticulocyte % 1.9 % (0.5-2.0); WBC 4.7 k/uL (3.8-10.6)
[2020-09-12 10:46] LABS: ALT 14 U/L (4-34); AST 25 U/L (14-36); African American GFR (CKD) >90 (>60 ml/min/1.73 sqM); Albumin 2.7 g/dL (3.5-5.0); Albumin/Globulin Ratio 1.1; Alkaline Phosphatase 71 U/L (38-126); Anion Gap 3 mmol/L; Blood Urea Nitrogen 18 mg/dL (7-17); Calcium 8.1 mg/dL (8.4-10.2); Carbon Dioxide 31 mmol/L (22-30); Chloride 105 mmol/L (98-107); Globulin 2.5 g/dL; Glucose 113 mg/dL (74-99); LDH 414 U/L (313-618); Magnesium 2.2 mg/dL (1.6-2.3); Non-African American GFR(CKD) >90 (>60 ml/min/1.73 sqM); Potassium 4.3 mmol/L (3.5-5.1); Sodium 139 mmol/L (137-145); Total Bilirubin <0.1 mg/dL (0.2-1.3); Total Protein 5.2 g/dL (6.3-8.2)
[2020-09-12] MEDS ORDERED: RX INFO: IV CONTRAST WAS GIVEN 1 EACH MISC MISCELLANE PRN (12:52)
--- NOTE | 2020-09-12 13:51 | P.HPIM ---
History of Present Illness H&P Date: 09/12/20 HISTORY OF PRESENT ILLNESS This is a 65-year-old female patient of Dr. 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 Patient p resented to the office complaining of left-sided headache, double vision. She is very emotional. She was having hallucinations and had clumsiness and dropping items from her hands bilaterally. She has been sleeping more and also talking in her sleep. In general, she states she feels like 'crap.' Symptoms have been going on for one week. Patient was directed to [facility] emergency center for further evaluation. She was afebrile, heart rate 85, blood pressure 133/62 and pulse ox 94%. WBC 6.1, hemoglobin 10.2, platelet count 482. Sodium 137, potassium 5.2, chloride 100, CO2 32, BUN 32 and creatinine 0.89. Blood sugar 97. Magnesium 2.4. Liver function tests were normal. Lactic acid 0.9. Troponin negative. Chest x-ray showed no acute changes. CAT scan of the brain and cervical spine without contrast revealed age-related atrophy and chronic small vessel ischemic change without acute intracranial process. No evidence of acute fracture or subluxation of the cervical spine. Patient was admitted to the [facility] floor and consult obtained with neurology and MRI of the brain, EEG, vitamin B12, folate and TSH level ordered. Recommendations were for oncology consult which has been added. REVIEW OF SYSTEMS Constitutional: No fever, no chills, no night sweats. No weight change. No w eakness, fatigue or lethargy. No daytime sleepiness. EENT: Reported headache. No blurred vision or double vision, no loss of vision. No loss of Hearing, no ringing in the ears, no dizziness. No nasal drainage or congestion. No epistaxis. No sore throat. Lungs: No shortness of breath, cough, no sputum production. No wheezing. Cardiovascular: No chest pain, no lower extremity edema. No palpitations. No paroxysmal nocturnal dyspnea. No orthopnea. No lightheadedness or dizziness. No syncopal episodes. Abdominal: No abdominal pain. No nausea, vomiting. No diarrhea. No constipation. No bloody or tarry stools.. No loss of appetite. Genitourinary: No dysuria, increased frequency, urgency. No urinary retention. Musculoskeletal: No myalgias. No muscle weakness, no gait dysfunction, no frequent falls. 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 No back pain. No neck pain. Integumentary: No wounds, no lesions. No rash or pruritus. No unusual bruising. No change in hair or nails. Neurologic: No aphasia. No facial droop. No change in mentation. No head injury. No headache. No paralysis. No paresthesia. Psychiatric: Reported depression. Reported anxiety. No mood swings. Reported hallucinations. Endocrine: No abnormal blood sugars. No weight change. No excessive sweating or thirst. No cold intolerance. MEDICAL HISTORY Hypertension Hyperlipidemia Fibromyalgia COPD Genetic susceptibility to malignant neoplasm of the breast Cervical cancer Li-Fraumeni syndrome Malignant neoplasm of the right female breast Gastroesophageal reflux disease Rheumatoid arthritis Drug-induced polyneuropathy SURGICAL HISTORY Appendectomy in 2007 Cholecystectomy Hysterectomy in 1985 Right mastectomy in 2001 Tonsillectomy Right shoulder replacement with revision of I&D due to infection Left rotator cuff tear repair Epidural injections Decompression laminectomy and posterior lateral decompression and fusion of L2-L3, L3-L4, L4-L5, L5-S1 with bone graft Hysterectomy and Bilateral salpingo-oophorectomy in 1984 SOCIAL HISTORY Patient was a smoker of less than one pack per day for 27 years and quit in 2001. No alcohol use, no illicit drug use. Patient lives in an apartment by herself. FAMILY HISTORY Mother at age 63 from breast cancer also has hypertension with history of DVT. Father at age of 65 from rectal cancer and hypertension. Patient had 4 brothers one of her brothers with lung cancer the other one had small cell sarcoma and rheumatoid arthritis the other one from alcoholism and drugs she also has 2 living brothers one with liver transplant and the other one has no contact with. Patient has one sister with thyroid cancer and varicose vein. PHYSICAL EXAMINATION Gen: This is a 65-year-old female. She is resting in bed. Patient appears anxious, tearful. HEENT: Head is atraumatic, normocephalic. Pupils equal, round. Sclerae is anicteric. NECK: Supple. No JVD. No lymphadenopathy. No thyromegaly. LUNGS: Scattered rhonchi and expiratory wheezes. No intercostal retractions. HEART: First heart sound is depressed, second heart sound is normal. There is 2/6 systolic ejection murmur at the left sternal border. No S3, no S4, no JVP ABDOMEN: Soft. Bowel sounds are present. No masses. No tenderness. EXTREMITIES: 1+ pedal edema. No calf tenderness. Dorsalis pedis +2 bilaterally. Right anterior shoulder healed wound with slight redness and right arm lymphedema. NEUROLOGICAL: Patient is awake, alert and oriented x3. Cranial nerves 2 through 12 are grossly intact. ASSESSMENT AND PLAN 1. Complaints of dropping items from hands, difficulty getting words out, increasing sleep, hallucinations, headache, unsteady gait. Concern for metastatic disease with history of breast and cervical cancer. Neurology consult appreciated. MRI of the brain and EEG have been ordered. Oncology consult added. Vitamin B12, folate and TSH ordered. 2. Anemia, new from February of this year. Possibly due to chronic disease. 3. Right breast cancer status post mastectomy and chemotherapy in 2001. Consult with oncology. 4. History of cervical cancer status post hysterectomy and bilateral salpingo- oophorectomy. 5. History of Li-fraumeni syndrome. Oncology consult. 6. Hypertension and hypertensive cardiovascular disease. Continue patient on hydrochlorothiazide/losartan 50/12.5 mg orally once every day. 7. Hyperlipidemia. Continue Lipitor 40 mg orally once every day. 8. Fibromyalgia. Continue Lyrica 200 mg orally once every day as well as C ymbalta 60 mg orally twice every day. 9. Restless leg syndrome. Continue Requip 5 mg orally at 1400. 10. Rheumatoid arthritis. Previously treated with methotrexate and Xeljanz. 11. History of COPD/chronic bronchitis and mild intermittent asthma. Stable without exacerbation 12. GERD. Continue Protonix 40 mg orally once every day. 13. DVT prophylaxis. Continue heparin 5000 units subcu every 8 hours. 14. GI prophylaxis. Continue Protonix. Patient will be admitted to the hospital for a minimum of 2 night stay. DISCHARGE PLAN Subacute rehab with first choice to [facility] and second to [facility]. PT and OT consults Impression and plan of care have been directed as dictated by the signing physician. Shania Pozo nurse practitioner acting as scribe for signing physician. Past Medical History Past Medical History: Cancer, COPD, Fibromyalgia, GERD/Reflux, Hyperlipidemia, Hypertension, Osteoarthritis (OA), Rheumatoid Arthritis (RA) Additional Past Medical History / Comment(s): R breast cancer with mastectomy and chemo-2001, chronic R arm lymphedema,neuropathy bilateral feet, cervical cancer,restless leg syndrome, diverticulosis,steroids Dec 2019 dr. Dunham last seen 1 year ago History of Any Multi-Drug Resistant Organisms: None Reported Past Surgical History: Appendectomy, Back Surgery, Breast Surgery, Cholecystectomy, Hysterectomy, Joint Replacement, Orthopedic Surgery Additional Past Surgical History / Comment(s): colonoscopy, RIGHT MASTECTOMY, RIGHT TOTAL SHOULDER REPLACEMENT followed by revisions, I&Ds of R shoulder, picc line insertion-since removed, LT ROTATOR CUFF REPAIR, bilateral salpingo oophorectomy. pain clinic procedures Past Anesthesia/Blood Transfusion Reactions: No Reported Reaction, Family History of Problems w/ Anesthesia Additional Past Anesthesia/Blood Transfusion Reaction / Comment(s): sister has severe BUSH with anesthesia Past Psychological History: No Psychological Hx Reported Additional Psychological History / Comment(s): . Smoking Status: Former smoker Past Alcohol Use History: None Reported Additional Past Alcohol Use History / Comment(s): Pt started smoking in 1974 and quit in 2001. smoked 1ppd or less Past Drug Use History: None Reported - Past Family History Sister(s) Family Medical History: Cancer Additional Family Medical History / Comment(s): Thyroid cancer. Brother(s) Family Medical History: Cancer Additional Family Medical History / Comment(s): Patient has 4 brothers. One has from alcoholism at age 55. One brother has small cell lung carcinoma. 1 is diabetic. One brother she has no contact with. Mother Family Medical History: Cancer, Deep Vein Thrombosis (DVT) Additional Family Medical History / Comment(s): Breast cancer. Father Family Medical History: Cancer Additional Family Medical History / Comment(s): Father of colon cancer in his 60s. Medications and Allergies Home Medications Medication Instructions Recorded Confirmed Type Atorvastatin [Lipitor] 40 mg PO DAILY 11/14/14 09/11/20 History DULoxetine HCL [Cymbalta] 60 mg PO BID 11/14/14 09/11/20 History Furosemide [Lasix] 40 mg PO QAM 11/14/14 09/11/20 History rOPINIRole HCL [Requip] 5 mg PO DAILY@1400 11/14/14 09/11/20 History Omeprazole [PriLOSEC] 20 mg PO AC-BRKFST 12/24/16 09/11/20 History Losartan/Hydrochlorothiazide 1 tab PO DAILY 09/06/18 09/11/20 History [Losartan-Hctz 50-12.5 mg Tab] Pregabalin [Lyrica] 200 mg PO BID 01/15/20 09/11/20 History Baclofen [Lioresal] 10 mg PO BID PRN 09/11/20 09/11/20 History Allergies Allergy/AdvReac Type Severity Reaction Status Date / Time nickel Allergy Rash/Hives Verified 09/11/20 13:29 Sulfa (Sulfonamide Allergy Rash/Hives Verified 09/11/20 13:29 Antibiotics) Physical Exam Vitals: Vital Signs Temp Pulse Pulse Resp BP BP Pulse Ox 09/12/20 05:54 72 09/12/20 05:42 70 09/12/20 04:37 97.9 F 85 14 131/76 92 L 09/11/20 20:00 97.9 F 72 20 137/66 93 L 09/11/20 19:29 70 09/11/20 19:18 72 93 L 09/11/20 15:14 98.4 F 84 16 142/79 99 09/11/20 14:38 81 18 151/84 94 L 09/11/20 11:32 98.6 F 85 18 133/62 94 L Intake and Output 09/11/20 09/12/20 09/12/20 22:59 06:59 14:59 Intake Total 480 1250 Balance 480 1250 Intake: Intake, IV Titration 750 Amount Sodium Chloride 0.9% 1, 750 000 ml @ 75 mls/hr IV . [id number] [facility] Rx#:[id number] Oral 480 500 Other: # Voids 1 # Bowel Movements 0 Results CBC & Chem 7: 09/12/20 05:55 09/12/20 05:55 Labs: Abnormal Lab Results - Last 24 Hours (Table) 09/11/20 09/11/20 Range/Units 12:03 12:03 RBC 3.77 L (3.80-5.40) m/uL Hgb 10.2 L (11.4-16.0) gm/dL Hct 33.2 L (34.0-46.0) % MCHC 30.6 L (31.0-37.0) g/dL Plt Count 482 H (150-450) k/uL Potassium 5.2 H (3.5-5.1) mmol/L Carbon Dioxide 32 H (22-30) mmol/L BUN 32 H (7-17) mg/dL Magnesium 2.4 H (1.6-2.3) mg/dL Thrombosis Risk Factor Assmnt - Choose All That Apply Each Risk Factor Represents 2 Points: Age 61-74 years Thrombosis Risk Factor Assessment Total Risk Factor Score: 2 Thrombosis Risk Factor Assessment Level: Low Risk
--- NOTE | 2020-09-12 13:58 | P.CONS ---
History of Present Illness - Reason for Consult Consult date: 09/12/20 Hx:Breast Li Faumeni Syndrome Requesting physician: Shania Pozo - Chief Complaint Head ache - History of Present Illness Follow Up for Cancer of Breast HPI : Jena has a history of a stage II breast cancer with microscopic invasion in lymph nodes for which she had a mastectomy in April 2001,followed by 4 cycles of ?AC followed by 5 years of tamoxifen. Mammograms of left breast on 03/07/2012 was negative. Mammograms on 03/08/2013 were negative. Mammograms on 03/26/2014 were negative. She has chronic RUE lymphedema and has been stable. left breast mammograms in 03/2015 were negative. 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 whole body screening MRI done at on 02/21/2016 revaled cystic lesions in her ovaries and questional chest nodule. She had BSO on 03/11/2016 at [facility],pathology was benign CT scan 03/19/2016 revealed subcutaneous 6mm non specific nodule in left axilla. Mamograms on 04/15/2016 were negative. On 02/05/2017,repeat screening MRI were negative. On 04/28/2017,mammograms were negative. In July/2018,mammograms were negative On 09/02/2018,whole body screening MRI were negative. On 09/08/2018,colonoscopy revealed tubular adenoma. Whole body screening MRI done in 10/2019 were negative. Mammograms in 10/2019 were negative. Colonoscopy/EGD on 13/03/2019 were unremarkable. She presents to hospital with complaints of recurrent falls, not feeling herselt, Right shoulder and swelling increased pain and swelling. The prior scar on right arm on anterior upper arm is present with erythema and increased edema. She complains of new onset severe headaches, resulting in pain and numbness down left arm. She is uptodate on her closely monitored breast cancer screening. EGD/Colonoscopy negative last year. Her hemoglobin has decreased since last time seen, possible related to dilution, further work-up ordered. Review of Systems All systems: negative Constitutional: Reports as per HPI Past Medical History Past Medical History: Cancer, COPD, Fibromyalgia, GERD/Reflux, Hyperlipidemia, Hypertension, Osteoarthritis (OA), Rheumatoid Arthritis (RA) Additional Past Medical History / Comment(s): R breast cancer with mastectomy a nd chemo-2001, chronic R arm lymphedema,neuropathy bilateral feet, cervical cancer,restless leg syndrome, diverticulosis,steroids Dec 2019 dr. Dunham last seen 1 year ago History of Any Multi-Drug Resistant Organisms: None Reported Past Surgical History: Appendectomy, Back Surgery, Breast Surgery, Cholecystectomy, Hysterectomy, Joint Replacement, Orthopedic Surgery Additional Past Surgical History / Comment(s): colonoscopy, RIGHT MASTECTOMY, RIGHT TOTAL SHOULDER REPLACEMENT followed by revisions, I&Ds of R shoulder, picc line insertion-since removed, LT ROTATOR CUFF REPAIR, bilateral salpingo oophorectomy. pain clinic procedures Past Anesthesia/Blood Transfusion Reactions: No Reported Reaction, Family History of Problems w/ Anesthesia Additional Past Anesthesia/Blood Transfusion Reaction / Comm: sister has severe BUSH with anesthesia Past Psychological History: No Psychological Hx Reported Additional Psychological History / Comment(s): . Smoking Status: Former smoker Past Alcohol Use History: None Reported Additional Past Alcohol Use History / Comment(s): Pt started smoking in 1974 and quit in 2001. smoked 1ppd or less Past Drug Use History: None Reported - Past Family History Sister(s) Family Medical History: Cancer Additional Family Medical History / Comment(s): Thyroid cancer. Brother(s) Family Medical History: Cancer Additional Family Medical History / Comment(s): Patient has 4 brothers. One has from alcoholism at age 55. One brother has small cell lung carcinoma. 1 is diabetic. One brother she has no contact with. Mother Family Medical History: Cancer, Deep Vein Thrombosis (DVT) Additional Family Medical History / Comment(s): Breast cancer. Father Family Medical History: Cancer Additional Family Medical History / Comment(s): Father of colon cancer in his 60s. Medications and Allergies Home Medications Medication Instructions Recorded Confirmed Type Atorvastatin [Lipitor] 40 mg PO DAILY 11/14/14 09/11/20 History DULoxetine HCL [Cymbalta] 60 mg PO BID 11/14/14 09/11/20 History Furosemide [Lasix] 40 mg PO QAM 11/14/14 09/11/20 History rOPINIRole HCL [Requip] 5 mg PO DAILY@1400 11/14/14 09/11/20 History Omeprazole [PriLOSEC] 20 mg PO -BRKFST 12/24/16 09/11/20 History Losartan/Hydrochlorothiazide 1 tab PO DAILY 09/06/18 09/11/20 History [Losartan-Hctz 50-12.5 mg Tab] Pregabalin [Lyrica] 200 mg PO BID 01/15/20 09/11/20 History Baclofen [Lioresal] 10 mg PO BID PRN 09/11/20 09/11/20 History Allergies Allergy/AdvReac Type Severity Reaction Status Date / Time nickel Allergy Rash/Hives Verified 09/11/20 13:29 Sulfa (Sulfonamide Allergy Rash/Hives Verified 09/11/20 13:29 Antibiotics) Physical Exam Vitals: Vital Signs Temp Pulse Pulse Resp BP BP Pulse Ox 09/12/20 05:54 72 09/12/20 05:42 70 09/12/20 04:37 97.9 F 85 14 131/76 92 L 09/11/20 20:00 97.9 F 72 20 137/66 93 L 09/11/20 19:29 70 09/11/20 19:18 72 93 L 09/11/20 15:14 98.4 F 84 16 142/79 99 09/11/20 14:38 81 18 151/84 94 L 09/11/20 11:32 98.6 F 85 18 133/62 94 L Intake and Output 09/11/20 09/12/20 09/12/20 22:59 06:59 14:59 Intake Total 480 1250 Balance 480 1250 Intake: Intake, IV Titration 750 Amount Sodium Chloride 0.9% 1, 750 000 ml @ 75 mls/hr IV . [id number] [facility] Rx#:[id number] Oral 480 500 Other: # Voids 1 # Bowel Movements 0 - Constitutional General appearance: cooperative, no acute distress - EENT Eyes: EOMI, PERRLA ENT: NA/AT - Neck left increased ROM limited in both shoulders. Right upper arm healed scar with erythema. Neck: lymphadenopathy - Respiratory Respiratory: bilateral: CTA - Cardiovascular Rhythm: regular foot Peripheral Edema: right: Other (RUE 3+ Lymphedema ) - Gastrointestinal General gastrointestinal: normal bowel sounds, soft - Integumentary Integumentary: pale - Musculoskeletal Musculoskeletal: right sided weakness, left sided weakness - Psychiatric Psychiatric: A&O x's 3, appropriate affect, intact judgment & insight Results CBC & Chem 7: 09/12/20 05:55 09/12/20 05:55 Labs: Abnormal Lab Results - Last 24 Hours (Table) 09/11/20 09/11/20 Range/Units 12:03 12:03 RBC 3.77 L (3.80-5.40) m/uL Hgb 10.2 L (11.4-16.0) gm/dL Hct 33.2 L (34.0-46.0) % MCHC 30.6 L (31.0-37.0) g/dL Plt Count 482 H (150-450) k/uL Potassium 5.2 H (3.5-5.1) mmol/L Carbon Dioxide 32 H (22-30) mmol/L BUN 32 H (7-17) mg/dL Magnesium 2.4 H (1.6-2.3) mg/dL CT Scan - head: report reviewed Assessment and Plan (1) Lymphedema of right upper extremity Current Visit: No Status: Acute Code(s): I89.0 - LYMPHEDEMA, NOT ELSEWHERE CLASSIFIED SNOMED Code(s): 30024208524933566 (2) Li-Fraumeni syndrome Current Visit: Yes Status: Acute Code(s): Z15.01 - GENETIC SUSCEPTIBILITY TO MALIGNANT NEOPLASM OF BREAST SNOMED Code(s): 213931161 (3) Cellulitis of right arm Current Visit: No Status: Acute Code(s): L03.113 - CELLULITIS OF RIGHT UPPER LIMB SNOMED Code(s): 620397525 (4) Headache Current Visit: No Status: Acute Code(s): R51 - HEADACHE * DO NOT USE * SNOMED Code(s): 84703139 (5) Hx of breast cancer Current Visit: No Status: Acute Code(s): Z85.3 - PERSONAL HISTORY OF MALIGNANT NEOPLASM OF BREAST SNOMED Code(s): 958807129 Plan: Assessment and Recommendations: Right arm increased Erythema, pain, and swelling - Check doppler New Head and neck pain with left arm neuropathy and new weakness: - Neurology is following - CT Chest - MRI Brain and Cervical neck pending Genetic increase risk for cancer recurrence Physician Attest: I have completed the full history and physical and developed the full impression and plan, agree with above dictation, dictated as a ascribe.
--- NOTE | 2020-09-12 15:22 | CT ---
EXAMINATION TYPE: CT chest w con DATE OF EXAM: 09/12/2020 COMPARISON: 03/19/2016 HISTORY: right arm swelling CT DLP: 1055 mGycm, Automated exposure control for dose reduction was used. CONTRAST: Performed injected with 100 mL of Isovue 300. TECHNIQUE: Axial images were obtained at 5 mm thick sections. Reconstructed images are reviewed on [employer] computer in the coronal plane. FINDINGS: Mild diffuse increased lung markings are within the right middle lobe. Findings are nonspec ific. Correlate for atelectasis. Other etiologies including lymphangitic metastasis should be conside red. This should be followed to clearing. Finding is worsening from the comparison study. No enlarged mediastinal or hilar adenopathy is evident. The ascending aorta diameter at the level of the main pulmonary artery is 4.3 cm. The main pulmonary artery diameter at the bifurcation is 3.[address] sections are obtained through the upper abdomen. Pancreas appears somewhat atrophic. Gallb ladder is surgically absent. Right axillary region appears normal. No enlarged lymphadenopathy is evident. Right mastectomy is not ed. IMPRESSIONS: 1. Ascending thoracic aorta measuring 4.3 cm. This is increased from 3.9 cm. 2. Reticular nodular pattern in the right middle lobe worsening from 2017. 3. No suspicious abnormalities to account for right arm swelling
--- NOTE | 2020-09-12 15:46 | P.PN ---
Subjective Progress Note Date: 09/12/20 The patient was seen at bedside and she feels about the same today compared to yesterday. She said she has erythema over the right shoulder region. She remembers and she has TP53 mutation. Objective - Vital Signs Vital signs: Vital Signs Temp 98.2 F 09/12/20 11:17 Pulse 88 09/12/20 11:17 Resp 14 09/12/20 11:17 BP 118/72 09/12/20 11:17 Pulse Ox 94 L 09/12/20 11:17 Intake & Output 09/11/20 09/12/20 09/12/20 18:59 06:59 18:59 Intake Total 480 1250 Balance 480 1250 Weight 116.573 kg Intake: Intake, IV Titration 750 Amount Sodium Chloride 0.9% 1, 750 000 ml @ 75 mls/hr IV . [id number] LEXIE Rx#:[id number] Oral 480 500 Other: # Voids 2 1 1 # Bowel Movements 1 0 1 - Exam GENERAL: The patient is lying in bed and is not in acute distress. INTEGUMENTARY: Erythema over the right shoulder/arm region. NEUROLOGICAL: Higher mental function: The patient is awake, alert, oriented to self, place and time. Patient is following commands. No aphasia and no neglect. Cranial nerves: The pupils are round, equal (3mm) and reactive to light and accommodation. Visual delgadillo are full to confrontation throughout. Extraocular movement is intact no nystagmus is noted. Facial sensation is normal to touch throughout. Patient has right ptosis of the right eye. The facial strength is normal throughout. Hearing is normal bilaterally to hand rub. Tongue is midline and moved [id number] without any difficulty. Subtle to mild dysarthria is noted. Shoulder shrug is able to lift above gravity (Had removal over the right). . Motor: Gait is slight wide base and taking short steps but not swaying towards one side or the other. The strength is left lower extremity thigh flexion and knee extension is 5-, the right side is 4+ to 5- (old and hand lymphedema). Otherwise 5 over 5 throughout. Has lymphedema over the right upper extremity. Normal bulk and tone. Cerebellum: Slight dysmetria over the left. No ataxia bilaterally. Sensation: Sensation is normal to touch throughout. Reflexes (right/left): Right upper extremity is hard to assess because of lymphedema, while right brachioradialis is 1+. Otherwise left upper is 2+. Bilateral patellar are 2+, ankles are 1+ bilaterally. Plantars are mute bilaterally. WORK-UP: CT of the head is reported as age-related atrophy and chronic small vessel ischemic change without acute intracranial process seen at this time. CT cervical spine is reported as no evidence for acute fracture or subluxation of the cervical spine. CT of the chest is reported as descending thoracic aortic measurements 4.3 cm. This is increased from 3.9 cm. Reticular nodular pattern in the right middle lobe worsening from 2017. No suspicious abnormality to account for the right arm swelling. TSH is 2.350 which is considered within normal limits. - Labs CBC & Chem 7: 09/12/20 05:55 09/12/20 05:55 Labs: Abnormal Lab Results - Last 24 Hours (Table) 09/12/20 09/12/20 Range/Units 05:55 05:55 RBC 3.25 L (3.80-5.40) m/uL Hgb 9.0 L (11.4-16.0) gm/dL Hct 29.6 L (34.0-46.0) % MCHC 30.3 L (31.0-37.0) g/dL Carbon Dioxide 31 H (22-30) mmol/L BUN 18 H (7-17) mg/dL Glucose 113 H (74-99) mg/dL Calcium 8.1 L (8.4-10.2) mg/dL Total Bilirubin <0.1 L (0.2-1.3) mg/dL Total Protein 5.2 L (6.3-8.2) g/dL Albumin 2.7 L (3.5-5.0) g/dL Assessment and Plan Assessment: * Episode of hand clumsiness, dropping thing (left > right hand), difficulty getting her words out, sleep difficulty for the last three days and unsteady gait for the past few months (on examination has ptosis right eye, mild dysarthria, slight dysmetria left hand, gait seems unsteady): Is concerning for metastasis (especially with history of cancer (breast, cervical). 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 * Pending EEG. Will not start the patient on antiepiletic drug unless there is epileptiform discharges or seizure on the EEG. * After MRI will consider getting lumbar puncture and getting the cytology workup. * Every 4 hours neuro checks. * Pending vitamin B12 and folate level. * Oncology team is consulted. * We'll defer the rest of the workup to the primary team. The plan is discussed with the patient and the primary's team nurse dayday vale. Xavi Vila M.D. Neuro-hospitalist Time with Patient: Less than 30
--- NOTE | 2020-09-12 15:58 | MR ---
EXAMINATION TYPE: MR brain/cspine wo/w DATE OF EXAM: 09/12/2020 COMPARISON: CT brain 09/11/2020 HISTORY: Word difficulty, clumsy hand, unsteady gait, history of breast cancer. CONTRAST: Performed utilizing 12 mL intravenous Gadavist gadolinium contrast. TECHNIQUE: Multiplanar, multiecho imaging on a 3.0 Jane magnet is performed through the brain. Stud y is performed within 24 hours of arrival to the hospital. The craniovertebral junction is normal. The pituitary is normal. Diffusion-weighted imaging is performed. No abnormal hyperintensity is present to suggest an acute i ntracranial infarct or acute ischemic change. There is some scattered orozco radiata white matter changes. Some mild right periventricular white ma tter changes are present. Findings are nonspecific but can be related to microvascular ischemic jaramillo e. Subcortical punctate hyperintensities in the right frontal lobe. Findings are nonspecific but can be related to microvascular ischemic change. No abnormal enhancement is evident. Ventricles and sulci are appropriate for the patient age. There is an air-fluid level within right maxillary sinus. Correlate for acute sinusitis. Mucosal thic kening is within the left maxillary sinus. Mild mucosal thickening of the anterior ethmoid air cells. Sphenoid sinus and frontal sinuses appear clear. Mastoid air cells appear clear IMPRESSIONS: 1. Mild scattered periventricular white matter changes, likely on the basis of chronic white matter i schemic change. 2. No suspicious changes to suggest metastatic disease. EXAMINATION TYPE: MR brain/cspine wo/w DATE OF EXAM: 09/12/2020 COMPARISON: None HISTORY: Word difficulty, clumsy hand, unsteady gait, history of breast cancer. CONTRAST: Performed utilizing 12 mL intravenous Gadavist gadolinium contrast. TECHNIQUE: Multiplanar multiecho imaging on a 3.0 Jane magnet is performed through the cervical spin e. FINDINGS: The craniovertebral junction is normal. Vertebral body alignment is normal. No suspicious areas of enhancement are evident. No focal disc herniations are evident. There is mild disc bulging present at C4-5, C5-6 C6-7 with moderate anterior thecal sac compression. No AP spinal c anal stenosis is present. Neural foramen are patent. Some milder more central bulge is present see 4 5 C3-4. Disc desiccation is present through the cervical spine. IMPRESSIONS: 1. Mild diffuse disc bulging or lesser degree focal protrusion to the cervical spine. No cord contact stenosis or cord deformity is evident.
--- NOTE | 2020-09-12 19:03 | EEG ---
ELECTROENCEPHALOGRAM REPORT DATE OF SERVICE: 09/12/2020. CLINICAL HISTORY: This is a 65-year-old woman with a history of breast and cervical cancer, who has episodes of confusion. This video EEG is obtained to evaluate for seizure and epileptiform activity. RELEVANT MEDICATION: The patient is not on any antiepileptic drug. EEG TYPE: A routine 21 channel EEG is performed with video using the 10/20 electrode placement system. DESCRIPTION: Wakefulness and drowsiness are obtained. During wakefulness, there is a posterior dominant rhythm of low to moderate voltage of 8-8.5 hertz activity that is well modulated and well sustained. During drowsiness, there is slowing and attenuation of background activity. There is no stage 2 sleep architecture seen. There is no focal slowing. Interictal and ictal are none. ACTIVATION PROCEDURE: Photic stimulation did not evoke a posterior driving response. There is no abnormality during the photic stimulation. Hyperventilation is not performed. CLINICAL INTERPRETATION: This is a normal routine EEG. There are no focal slowings, epileptiform discharges or seizure during the EEG. Clinical correlation is recommended. MMCONOR / CLARAN: [id number] / MTDD
[2020-09-12 19:17] LABS: Folate, Serum 9.1 ng/mL
[2020-09-12 21:33] LABS: % Iron Saturation 6.07 (12.00-45.00); Iron 13 ug/dL (50-170); Total Iron Binding Capacity 214 ug/dL (228-460)
[2020-09-12 21:44] LABS: Cancer Antigen 125 8.3 U/mL (0.0-30.1)
[2020-09-12 21:54] LABS: Cancer Antigen 153 12.2 U/mL (0.0-32.3)
[2020-09-13] MEDS: HEPARIN SODIUM,PORCINE/PF 5,000 UNIT/0.5 ML SYRINGE SQ SCH ×4 (03:17→23:53)
[2020-09-13 04:29] LABS: Basophils % (A) 1 %; Eosinophils # (A) 0.2 k/uL (0-0.7); Eosinophils % (A) 5 %; HCT 27.6 % (34.0-46.0); Hypochromasia Moderate; Lymphocytes # (A) 1.4 k/uL (1.0-4.8); Lymphocytes % (A) 28 %; MCH 28.6 pg (25.0-35.0); MCHC 32.5 g/dL (31.0-37.0); MCV 87.8 fL (80.0-100.0); Mean Platelet Volume 6.7; Monocytes # (A) 0.4 k/uL (0-1.0); Monocytes % (A) 8 %; Neutrophils # (A) 2.7 k/uL (1.3-7.7); Neutrophils % (A) 56 %; Platelet Count 418 k/uL (150-450); RBC 3.15 m/uL (3.80-5.40); RDW 14.9 % (11.5-15.5); WBC 4.9 k/uL (3.8-10.6)
[2020-09-13] MEDS: IPRATROPIUM-ALBUTEROL 3 ML NEB INHALATION SCH ×4 (07:23→21:11)
[2020-09-13] MEDS: BUDESONIDE 0.5 MG/2 ML NEBU INHALATION SCH ×2 (07:24→21:11)
[2020-09-13] MEDS: DULoxetine HCL 60 MG CAPSULE.DR PO SCH ×2 (08:32→20:09)
[2020-09-13] MEDS: FUROSEMIDE 40 MG TAB PO SCH (08:32)
[2020-09-13] MEDS: PANTOPRAZOLE 40 MG TABLET PO SCH (08:33)
[2020-09-13] MEDS: ATORVASTATIN 40 MG TAB PO SCH (08:33)
[2020-09-13] MEDS: PREGABALIN 100 MG CAP PO SCH ×2 (08:33→20:09)
[2020-09-13] MEDS: LOSARTAN-HCTZ 50-12.5 MG 1 EACH TAB PO SCH (08:35)
--- NOTE | 2020-09-13 12:37 | P.PN ---
Subjective Progress Note Date: 09/13/20 HISTORY OF PRESENT ILLNESS This is a 65-year-old female patient of Dr. 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 Dunham with her surveillance testing up-to-date including MRI of the whole body scan as well as colonoscopy once every 2 years Are up-to-date, Patient presented to the office complaining of left-sided headache, double vision. She was very emotional. She was having hallucinations and had clumsiness and dropping items from her hands bilaterally. She has been sleeping more and also talking in her sleep. In general, she states she feels like 'crap.' Symptoms have been going on for one week. Patient was directed to [facility] emergency center for further evaluation. She was afebrile, heart rate 85, blood pressure 133/62 and pulse ox 94%. WBC 6.1, hemoglobin 10.2, platelet count 482. Sodium 137, potassium 5.2, chloride 100, CO2 32, BUN 32 and creatinine 0.89. Blood sugar 97. Magnesium 2.4. Liver function tests were normal. Lactic acid 0.9. Troponin negative. Chest x-ray showed no acute changes. CAT scan of the brain and cervical spine without contrast revealed age-related atrophy and chronic small vessel ischemic change without acute intracranial process. No evidence of acute fracture or subluxation of the cervical spine. [facility] and consult obtained with neurology and MRI of the brain, EEG, vitamin B12, folate and TSH level ordered. Recommendations were for oncology consult which has been added. 09/13: Patient is feeling better today she underwent MRI of the brain did not show evidence of acute metastatic lesion, did show periventricular white matter changes, she underwent MRI of the cervical spine did show degenerative disc disease without evidence of any cord compression, patient continues to have some erythema in the right shoulder, with increased pain in that area, we will start Ancef 2 gr IVPB Q 8 hours, blood cultures and ID Consult. REVIEW OF SYSTEMS Constitutional: No fever, no chills, no night sweats. No weight change. No weakness, fatigue or lethargy. No daytime sleepiness. EENT: Reported headache. No blurred vision or double vision, no loss of vision. No loss of Hearing, no ringing in the ears, no dizziness. No nasal drainage or congestion. No epistaxis. No sore throat. Lungs: No shortness of breath, cough, no sputum production. No wheezing. Cardiovascular: No chest pain, no lower extremity edema. No palpitations. No paroxysmal nocturnal dyspnea. No orthopnea. No lightheadedness or dizziness. No syncopal episodes. Abdominal: No abdominal pain. No nausea, vomiting. No diarrhea. No constipation. No bloody or tarry stools.. No loss of appetite. Genitourinary: No dysuria, increased frequency, urgency. No urinary retention. Musculoskeletal: No myalgias. No muscle weakness, no gait dysfunction, no hakeem quent falls. 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 No back pain. No neck pain. Integumentary: No wounds, no lesions. No rash or pruritus. No unusual bruising. No change in hair or nails.increased redness at the right shoulder incision site Neurologic: No aphasia. No facial droop. No change in mentation. No head injury. No headache. No paralysis. No paresthesia. Psychiatric: Reported depression. Reported anxiety. No mood swings. Reported hallucinations. Endocrine: No abnormal blood sugars. No weight change. No excessive sweating or thirst. No cold intolerance. PHYSICAL EXAMINATION Gen: This is a 65-year-old female. She is resting in bed. Patient appears anxious, tearful. HEENT: Head is atraumatic, normocephalic. Pupils equal, round. Sclerae is anicteric. NECK: Supple. No JVD. No lymphadenopathy. No thyromegaly. LUNGS: Scattered rhonchi and expiratory wheezes. No intercostal retractions. HEART: First heart sound is depressed, second heart sound is normal. There is 2/6 systolic ejection murmur at the left sternal border. No S3, no S4, no JVP ABDOMEN: Soft. Bowel sounds are present. No masses. No tenderness. EXTREMITIES: 1+ pedal edema. No calf tenderness. Dorsalis pedis +2 bilaterally. Right anterior shoulder healed wound with increased redness and right arm lymphedema. NEUROLOGICAL: Patient is awake, alert and oriented x3. Cranial nerves 2 through 12 are grossly intact. ASSESSMENT AND PLAN 1. Complaints of dropping items from hands, difficulty getting words out, increasing sleep, hallucinations, headache, unsteady gait. Concern for metastatic disease with history of breast and cervical cancer. Neurology consult appreciated. MRI of the brain and EEG have been ordered. Oncology consult added. Vitamin B12, folate and TSH ordered. 2. Anemia, new from February of this year. Possibly due to chronic disease. 3. Right breast cancer status post mastectomy and chemotherapy in 2001. Consult with oncology. 4. History of cervical cancer status post hysterectomy and bilateral salpingo- oophorectomy. 5. History of Li-fraumeni syndrome. Oncology consult. 6. Hypertension and hypertensive cardiovascular disease. Continue patient on hydrochlorothiazide/losartan 50/12.5 mg orally once every day. 7. Hyperlipidemia. Continue Lipitor 40 mg orally once every day. 8. Fibromyalgia. Continue Lyrica 200 mg orally once every day as well as Cymbalta 60 mg orally twice every day. 9. Restless leg syndrome. Continue Requip 5 mg orally at 1400. 10. Rheumatoid arthritis. Previously treated with methotrexate and Xeljanz. 11. History of COPD/chronic bronchitis and mild intermittent asthma. Stable without exacerbation 12. GERD. Continue Protonix 40 mg orally once every day. 13. DVT prophylaxis. Continue heparin 5000 units subcu every 8 hours. 14. GI prophylaxis. Continue Protonix. 15. Right shoulder cellulitis or septic arthritis. Stable. Ancef 2 g IV piggyback every 8 hours, blood cultures, Dr. More consult. Objective - Vital Signs Vital signs: Vital Signs Temp 98.2 F 09/13/20 04:37 Pulse 76 09/13/20 08:00 Resp 16 09/13/20 08:00 BP 122/68 09/13/20 04:37 Pulse Ox 92 L 09/13/20 07:26 Intake & Output 09/12/20 09/13/20 09/13/20 18:59 06:59 18:59 Intake Total 75 590 Balance 75 590 Intake: Intake, IV Titration 75 Amount Sodium Chloride 0.9% 1, 75 000 ml @ 75 mls/hr IV . [id number] LEXIE Rx#:[id number] Oral 590 Other: # Voids 1 2 # Bowel Movements 1 1 - Labs CBC & Chem 7: 09/13/20 03:44 09/12/20 05:55 Labs: Abnormal Lab Results - Last 24 Hours (Table) 09/12/20 09/12/20 09/13/20 Range/Units 05:55 05:55 03:44 RBC 3.15 L (3.80-5.40) m/uL Hgb 9.0 L (11.4-16.0) gm/dL Hct 27.6 L (34.0-46.0) % Iron 13 L (50-170) ug/dL TIBC 214 L (228-460) ug/dL % Saturation 6.07 L (12.00-45.00) Vitamin B12 1070.0 H (200.0-944.0) pg/mL
[2020-09-13] MEDS: HYDROcodone/APAP 5-325MG 1 EACH TAB PO PRN ×2 (13:34→20:09)
--- NOTE | 2020-09-13 14:32 | P.PN ---
Subjective Progress Note Date: 09/13/20 Patient seen at bedside and she feels about the same. Denies any any worsening of her neurological condition. She feels she is dropping thing on hands. Objective - Vital Signs Vital signs: Vital Signs Temp 98.2 F 09/13/20 04:37 Pulse 82 09/13/20 11:20 Resp 16 09/13/20 08:00 BP 122/68 09/13/20 04:37 Pulse Ox 92 L 09/13/20 07:26 Intake & Output 09/12/20 09/13/20 09/13/20 18:59 06:59 18:59 Intake Total 75 590 Balance 75 590 Intake: Intake, IV Titration 75 Amount Sodium Chloride 0.9% 1, 75 000 ml @ 75 mls/hr IV . [id number] LEXIE Rx#:[id number] Oral 590 Other: # Voids 1 2 # Bowel Movements 1 1 - Exam GENERAL: The patient is lying in bed and is not in acute distress. INTEGUMENTARY: Erythema over the right lower shoulder NEUROLOGICAL: Higher mental function: The patient is awake, alert, oriented to self, place and time. Patient is following commands. No aphasia and no neglect. Cranial nerves: The pupils are round, equal (3mm) and reactive to light and accommodation. Visual delgadillo are full to confrontation throughout. Extraocular movement is intact no nystagmus is noted. Facial sensation is normal to touch throughout. Patient has right ptosis of the right eye. The facial strength is normal throughout. Hearing is normal bilaterally to hand rub. Tongue is midline and moved [id number] without any difficulty. Subtle to mild dysarthria is noted. Shoulder shrug is able to lift above gravity (Had removal over the right). . Motor: Gait is deferred. The strength is left lower extremity thigh flexion and knee extension is 5-, the right side is 4+ to 5- (old and hand lymphedema). Otherwise 5 over 5 throughout. Has lymphedema over the right upper extremity. Normal bulk and tone. Cerebellum: Slight dysmetria over the left. No ataxia bilaterally. Sensation: Sensation is normal to touch throughout. Reflexes (right/left): Right upper extremity is hard to assess because of lymphedema, while right brachioradialis is 1+. Otherwise left upper is 2+. Bilateral patellar are 2+, ankles are 1+ bilaterally. Plantars are mute bilaterally. WORK-UP: TSH is 2.350 which is considered within normal limits. Vitamin B12 is 1070 which is considered within normal limits. Serum Folate level is 9.1 which is considered within normal limits CT of the head is reported as age-related atrophy and chronic small vessel ischemic change without acute intracranial process seen at this time. CT cervical spine is reported as no evidence for acute fracture or subluxation of the cervical spine. CT of the chest is reported as descending thoracic aortic measurements 4.3 cm. This is increased from 3.9 cm. Reticular nodular pattern in the right middle lobe worsening from 2017. No suspicious abnormality to account for the right arm swelling. MRI the brain is reported as mild scattered periventricular white matter changes, likely on the basis of chronic white matter ischemic change. No suspicious changes to suggest metastatic disease. I personally could not review the MRI because there is only reported no images uploaded. EEG on 09/12/2020 is normal. There are no focal slowing, epileptiform discharges or seizure and EEG. - Labs CBC & Chem 7: 09/13/20 03:44 09/12/20 05:55 Labs: Abnormal Lab Results - Last 24 Hours (Table) 09/12/20 09/12/20 09/13/20 Range/Units 05:55 05:55 03:44 RBC 3.15 L (3.80-5.40) m/uL Hgb 9.0 L (11.4-16.0) gm/dL Hct 27.6 L (34.0-46.0) % Iron 13 L (50-170) ug/dL TIBC 214 L (228-460) ug/dL % Saturation 6.07 L (12.00-45.00) Vitamin B12 1070.0 H (200.0-944.0) pg/mL Assessment and Plan Assessment: * Episode of hand clumsiness, dropping thing (left > right hand), difficulty getting her words out, sleep difficulty for the last three days and unsteady gait for the past few months (on examination has ptosis right eye, mild dysarthria, slight dysmetria left hand, gait seems unsteady): Rule out leptomeningeal mets. MRI Brain is negative for metIs concerning for metastasis (especially with history of cancer (breast, cervical). 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 * Every 4 hours neuro checks. * Oncology team is consulted. * Infection disease is consulted * We'll defer the rest of the workup to the primary team. The plan is discussed with the patient and her nurse. Xavi Vila M.D. Neuro-hospitalist Time with Patient: Less than 30
--- NOTE | 2020-09-13 14:59 | XR ---
EXAMINATION TYPE: XR shoulder complete RT DATE OF EXAM: 09/13/2020 COMPARISON: 08/02/2017 HISTORY: Pain and swelling TECHNIQUE: 3 views FINDINGS: There is removal of the pin and humeral head prosthesis compared to old exam. There are mul tiple rounded areas of bone cement in the glenoid socket. The AC joint is intact. I see no focal bone destruction. There are rounded areas of bone cement in the proximal shaft of the humerus. IMPRESSION: Previous surgery. No evidence of osteomyelitis.
--- NOTE | 2020-09-13 21:37 | P.CONS ---
History of Present Illness - Reason for Consult Consult date: 09/13/20 Right shoulder cellulitis Requesting physician: Eliud Mendes - Chief Complaint Weakness x few days - History of Present Illness Patient is a 65-year-old female with a past medical history significant for recurrent infection to the right shoulder area with multiple episodes of osteomyelitis has been treated with multiple courses of antibiotics last episodes of cellulitis was more than a year ago patient mention she do not have any shoulder joint or any hardware in the right shoulder area patient presented to hospital on 11 September for evaluation of generalized weakness increased clumsiness and dropping things with her hands bilaterally she did have some hallucination and double vision symptom has been going on for about a week with the symptom the patient has been admitted to the hospital and is currently being evaluated by neurology services patient started having a some discomfort to the right shoulder area more of a dull aching pain intensity 6-7 out of 10 no radiation with some associated swelling and redness with concern for possible cellulitis of the right shoulder area the patient was started on cefazolin infectious was consulted for further management patient did not have any fever during this admission to the hospital patient did have a normal white count she did have high sed rate of 74 the urine has been negative. Review of Systems Positive point has been mentioned in the HPI rest of the systems are negative Past Medical History Past Medical History: Cancer, COPD, Fibromyalgia, GERD/Reflux, Hyperlipidemia, Hypertension, Osteoarthritis (OA), Rheumatoid Arthritis (RA) Additional Past Medical History / Comment(s): R breast cancer with mastectomy and chemo-2001, chronic R arm lymphedema,neuropathy bilateral feet, cervical cancer,restless leg syndrome, diverticulosis,steroids Dec 2019 dr. Dunham last seen 1 year ago History of Any Multi-Drug Resistant Organisms: None Reported Past Surgical History: Appendectomy, Back Surgery, Breast Surgery, Cholecystectomy, Hysterectomy, Joint Replacement, Orthopedic Surgery Additional Past Surgical History / Comment(s): colonoscopy, RIGHT MASTECTOMY, RIGHT TOTAL SHOULDER REPLACEMENT followed by revisions, I&Ds of R shoulder, picc line insertion-since removed, LT ROTATOR CUFF REPAIR, bilateral salpingo oophorectomy. pain clinic procedures Past Anesthesia/Blood Transfusion Reactions: No Reported Reaction, Family History of Problems w/ Anesthesia Additional Past Anesthesia/Blood Transfusion Reaction / Comm: sister has severe BUSH with anesthesia Past Psychological History: No Psychological Hx Reported Additional Psychological History / Comment(s): . Smoking Status: Former smoker Past Alcohol Use History: None Reported Additional Past Alcohol Use History / Comment(s): Pt started smoking in 1974 and quit in 2001. smoked 1ppd or less Past Drug Use History: None Reported - Past Family History Sister(s) Family Medical History: Cancer Additional Family Medical History / Comment(s): Thyroid cancer. Brother(s) Family Medical History: Cancer Additional Family Medical History / Comment(s): Patient has 4 brothers. One has from alcoholism at age 55. One brother has small cell lung carcinoma. 1 is diabetic. One brother she has no contact with. Mother Family Medical History: Cancer, Deep Vein Thrombosis (DVT) Additional Family Medical History / Comment(s): Breast cancer. Father Family Medical History: Cancer Additional Family Medical History / Comment(s): Father of colon cancer in his 60s. Medications and Allergies Home Medications Medication Instructions Recorded Confirmed Type Atorvastatin [Lipitor] 40 mg PO DAILY 11/14/14 09/11/20 History DULoxetine HCL [Cymbalta] 60 mg PO BID 11/14/14 09/11/20 History Furosemide [Lasix] 40 mg PO QAM 11/14/14 09/11/20 History rOPINIRole HCL [Requip] 5 mg PO DAILY@1400 11/14/14 09/11/20 History Omeprazole [PriLOSEC] 20 mg PO AC-BRKFST 12/24/16 09/11/20 History Losartan/Hydrochlorothiazide 1 tab PO DAILY 09/06/18 09/11/20 History [Losartan-Hctz 50-12.5 mg Tab] Pregabalin [Lyrica] 200 mg PO BID 01/15/20 09/11/20 History Baclofen [Lioresal] 10 mg PO BID PRN 09/11/20 09/11/20 History Allergies Allergy/AdvReac Type Severity Reaction Status Date / Time nickel Allergy Rash/Hives Verified 09/11/20 13:29 Sulfa (Sulfonamide Allergy Rash/Hives Verified 09/11/20 13:29 Antibiotics) Physical Exam Vitals: Vital Signs Temp Pulse Pulse Resp BP Pulse Ox 09/13/20 11:20 82 09/13/20 11:10 86 09/13/20 08:00 76 16 09/13/20 07:41 80 09/13/20 07:26 84 92 L 09/13/20 04:37 98.2 F 76 16 122/68 91 L 09/12/20 20:00 99.3 F 88 16 146/71 99 Intake and Output 09/12/20 09/13/20 09/13/20 22:59 06:59 14:59 Intake Total 75 590 Balance 75 590 Intake: Intake, IV Titration 75 Amount Sodium Chloride 0.9% 1, 75 000 ml @ 75 mls/hr IV . [id number] LEXIE Rx#:[id number] Oral 590 Other: # Voids 1 2 # Bowel Movements 1 GENERAL DESCRIPTION: Elderly female, no distress. No tachypnea or accessory muscle of respiration use. HEENT: Shows Pallor , no scleral icterus. Oral mucous membrane is dry. No pharyngeal erythema or thrush NECK: Trachea central, no thyromegaly. LUNGS: Unlabored breathing. Clear to auscultation anteriorly. No wheeze or crackle. HEART: S1, S2, regular rate and rhythm. No loud murmur ABDOMEN: Soft, no tenderness , guarding or rigidity, no organomegaly EXTREMITIES: No edema of feet. right shoulder with minimal swelling and redness , slightly warm and tender SKIN: No rash, no masses palpable. NEUROLOGICAL: The patient is awake, alert, oriented x3, mood and affect normal. Results CBC & Chem 7: 09/13/20 03:44 09/12/20 05:55 Labs: Abnormal Lab Results - Last 24 Hours (Table) 09/12/20 09/12/20 09/13/20 Range/Units 05:55 05:55 03:44 RBC 3.15 L (3.80-5.40) m/uL Hgb 9.0 L (11.4-16.0) gm/dL Hct 27.6 L (34.0-46.0) % Iron 13 L (50-170) ug/dL TIBC 214 L (228-460) ug/dL % Saturation 6.07 L (12.00-45.00) Vitamin B12 1070.0 H (200.0-944.0) pg/mL Assessment and Plan Assessment: 1-patient with right shoulder pain and swelling some redness in this patient who did have a history of recurrent infection to the right shoulder area with multiple episodes of osteomyelitis requiring multiple courses of antibiotics, with concern for possible episode of cellulitis versus deep infection such as septic arthritis or abscess, ideally would have also for a CT of the shoulder to make sure no evidence of any fluid that may need to be drained however the patient did have a CT of the chest yesterday with contrast Plan: 1- in order to avoid further contrast exposure we will delay CT of the right shoulder till Tuesday and will obtain plain x-rays of the right shoulder area 2-Marked the area of the redness 3-continue with cefazolin 2 g every 8 hours We will follow on clinical condition and cultures to further adjust medication if needed Thank you for this consultation we will follow the patient along with you Time with Patient: Greater than 30
[2020-09-14] MEDS: HYDROcodone/APAP 5-325MG 1 EACH TAB PO PRN (04:46)
[2020-09-14] MEDS: BUDESONIDE 0.5 MG/2 ML NEBU INHALATION SCH ×2 (07:03→19:51)
[2020-09-14] MEDS: IPRATROPIUM-ALBUTEROL 3 ML NEB INHALATION SCH ×4 (07:03→19:51)
[2020-09-14] MEDS: HEPARIN SODIUM,PORCINE/PF 5,000 UNIT/0.5 ML SYRINGE SQ SCH ×3 (09:29→23:42)
[2020-09-14] MEDS: FUROSEMIDE 40 MG TAB PO SCH (09:30)
[2020-09-14] MEDS: LOSARTAN-HCTZ 50-12.5 MG 1 EACH TAB PO SCH (09:30)
[2020-09-14] MEDS: PANTOPRAZOLE 40 MG TABLET PO SCH (09:30)
[2020-09-14] MEDS: ATORVASTATIN 40 MG TAB PO SCH (09:30)
[2020-09-14] MEDS: PREGABALIN 100 MG CAP PO SCH ×2 (09:30→20:56)
[2020-09-14] MEDS: FOLIC ACID 1 MG TAB PO SCH (09:30)
[2020-09-14] MEDS: DULoxetine HCL 60 MG CAPSULE.DR PO SCH ×2 (09:30→20:56)
--- NOTE | 2020-09-14 09:31 | P.PN ---
Subjective Progress Note Date: 09/14/20 Patient seen at bedside and she stated that she is doing the somewhat better today compared that to her initial presentation. She things she has not been dropping further things but has significant pain over the right hand where her suspected cellulitis over the right shoulder is. She denies of any confusion, new visual disturbance, difficulty getting her words out. Objective - Vital Signs Vital signs: Vital Signs Temp 98.6 F 09/14/20 04:55 Pulse 78 09/14/20 07:41 Resp 16 09/14/20 07:41 BP 156/81 09/14/20 04:55 Pulse Ox 90 L 09/14/20 07:05 Intake & Output 09/13/20 09/14/20 09/14/20 18:59 06:59 18:59 Intake Total 1050 590 Balance 1050 590 Intake: Oral 1050 590 Other: # Voids 3 2 2 - Exam GENERAL: The patient is lying in bed and is not in acute distress. INTEGUMENTARY: Erythema over the right lower shoulder NEUROLOGICAL: Higher mental function: The patient is awake, alert, oriented to self, place and time. Patient is following commands. No aphasia and no neglect. Cranial nerves: The pupils are round, equal (3mm) and reactive to light and accommodation. Visual delgadillo are full to confrontation throughout. Extraocular movement is intact no nystagmus is noted. Facial sensation is normal to touch throughout. Patient has slight right ptosis of the right eye. The facial strength is normal throughout. Hearing is normal bilaterally to hand rub. Tongue is midline and moved [id number] without any difficulty. Subtle to mild dysarthria is noted. Shoulder shrug is able to lift above gravity (Had removal over the right). . Motor: Gait is deferred. The strength is left lower extremity thigh flexion and knee extension is 5-,. Right upper extremity is weak 3 (but has limited because of pain, suspected cellulitis of the right shoulder). Right hand gas tester is 5-. Otherwise 5 over 5 throughout. Has lymphedema over the right upper extremity. Otherwise normal bulk and tone. Cerebellum: Normal finger to nose over the left. Could not assess the right because of pain. Sensation: Sensation is normal to touch throughout. Reflexes (right/left): Right upper extremity is hard to assess because of lymph edema, while right brachioradialis is 1+. Otherwise left upper is 2+. Bilateral patellar are 2+, ankles are 1+ bilaterally. Plantars are mute bilaterally. WORK-UP: TSH is 2.350 which is considered within normal limits. Vitamin B12 is 1070 which is considered within normal limits. Serum Folate level is 9.1 which is considered within normal limits CT of the head is reported as age-related atrophy and chronic small vessel ischemic change without acute intracranial process seen at this time. CT cervical spine is reported as no evidence for acute fracture or subluxation of the cervical spine. CT of the chest is reported as descending thoracic aortic measurements 4.3 cm. This is increased from 3.9 cm. Reticular nodular pattern in the right middle lobe worsening from 2017. No suspicious abnormality to account for the right arm swelling. MRI the brain is reported as mild scattered periventricular white matter changes, likely on the basis of chronic white matter ischemic change. No suspicious changes to suggest metastatic disease. I personally could not review the MRI because there is only reported no images uploaded. EEG on 09/12/2020 is normal. There are no focal slowing, epileptiform discharges or seizure and EEG. - Labs CBC & Chem 7: 09/13/20 03:44 09/12/20 05:55 Labs: Abnormal Lab Results - Last 24 Hours (Table) 09/13/20 Range/Units 11:21 ESR 74 H (0-20) mm/hr Assessment and Plan Assessment: * Episode of hand clumsiness, dropping thing (left > right hand), difficulty getting her words out, sleep difficulty for the last three days and unsteady gait for the past few months (on examination has ptosis right eye, mild dysarthria, slight dysmetria left hand, gait seems unsteady): Rule out leptomeningeal mets. MRI Brain is negative for metIs concerning for metastasi s (especially with history of cancer (breast, cervical). 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 The patient wants to get it done to find and after that is willing to be discharged after that and will follow-up with her oncologist and was told neurologist for result since will take time (cytology and paraneoplastic). * Every 4 hours neuro checks. * Oncology team is consulted. * Infection disease is consulted * We'll defer the rest of the workup to the primary team. * Recommend for the patient to follow-up with a neurologist as outpatient within 1-2 weeks. The plan is discussed with the patient and her nurse. Dr. Rodriguez will take over neurology service starting tomorrow AM. Xavi Vila M.D. Neuro-hospitalist Time with Patient: Less than 30
--- NOTE | 2020-09-14 11:35 | P.PN ---
Subjective Progress Note Date: 09/14/20 HISTORY OF PRESENT ILLNESS This is a 65-year-old female patient of Dr. 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 Dunham with her surveillance testing up-to-date including MRI of the whole body scan as well as colonoscopy once every 2 years Are up-to-date, Patient presented to the office complaining of left-sided headache, double vision. She was very emotional. She was having hallucinations and had clumsiness and dropping items from her hands bilaterally. She has been sleeping more and also talking in her sleep. In general, she states she feels like 'crap.' Symptoms have been going on for one week. Patient was directed to [facility] emergency center for further evaluation. She was afebrile, heart rate 85, blood pressure 133/62 and pulse ox 94%. WBC 6.1, hemoglobin 10.2, platelet count 482. Sodium 137, potassium 5.2, chloride 100, CO2 32, BUN 32 and creatinine 0.89. Blood sugar 97. Magnesium 2.4. Liver function tests were normal. Lactic acid 0.9. Troponin negative. Chest x-ray showed no acute changes. CAT scan of the brain and cervical spine without contrast revealed age-related atrophy and chronic small vessel ischemic change without acute intracranial process. No evidence of acute fracture or subluxation of the cervical spine. [facility] and consult obtained with neurology and MRI of the brain, EEG, vitamin B12, folate and TSH level ordered. Recommendations were for oncology consult which has been added. 09/13: Patient is feeling better today she underwent MRI of the brain did not show evidence of acute metastatic lesion, did show periventricular white matter changes, she underwent MRI of the cervical spine did show degenerative disc disease without evidence of any cord compression, patient continues to have some erythema in the right shoulder, with increased pain in that area, we will start Ancef 2 gr IVPB Q 8 hours, blood cultures and ID Consult. 09/14: Patient is been in good she was seen in consultation by ID yesterday, I discussed with her the result of the MRI of the brain as well as MRI of the cervical spine and the EEG, the plan is to go for a lumbar puncture hopefully tomorrow morning for further evaluation, she was seen by who recommended to continue IV antibiotic with Ancef 2 g IV piggyback every 8 hours, obtain the blood cultures, eventually she may need to have some imaging to the right shoulder for further evaluation of possible deep infection versus superficial cellulitis unfortunately her sed rate is quite elevated at 74 raising the possibility of septic arthritis. REVIEW OF SYSTEMS Constitutional: No fever, no chills, no night sweats. No weight change. No weakness, fatigue or lethargy. No daytime sleepiness. EENT: Reported headache. No blurred vision or double vision, no loss of vision. No loss of Hearing, no ringing in the ears, no dizziness. No nasal drainage or congestion. No epistaxis. No sore throat. Lungs: No shortness of breath, cough, no sputum production. No wheezing. Cardiovascular: No chest pain, no lower extremity edema. No palpitations. No paroxysmal nocturnal dyspnea. No orthopnea. No lightheadedness or dizziness. No syncopal episodes. Abdominal: No abdominal pain. No nausea, vomiting. No diarrhea. No constipation. No bloody or tarry stools.. No loss of appetite. Genitourinary: No dysuria, increased frequency, urgency. No urinary retention. Musculoskeletal: No myalgias. No muscle weakness, no gait dysfunction, no frequent falls. Reported ball sorter weakness and dropping items bilaterally. No back pain. No neck pain. Integumentary: No wounds, no lesions. No rash or pruritus. No unusual bruising. No change in hair or nails.increased redness at the right shoulder incision site Neurologic: No aphasia. No facial droop. No change in mentation. No head injury. No headache. No paralysis. No paresthesia. Psychiatric: Reported depression. Reported anxiety. No mood swings. Reported hallucinations. Endocrine: No abnormal blood sugars. No weight change. No excessive sweating or thirst. No cold intolerance. PHYSICAL EXAMINATION Gen: This is a 65-year-old female. She is resting in bed. Patient appears anxious, tearful. HEENT: Head is atraumatic, normocephalic. Pupils equal, round. Sclerae is anicteric. NECK: Supple. No JVD. No lymphadenopathy. No thyromegaly. LUNGS: Scattered rhonchi and expiratory wheezes. No intercostal retractions. HEART: First heart sound is depressed, second heart sound is normal. There is 2/6 systolic ejection murmur at the left sternal border. No S3, no S4, no JVP ABDOMEN: Soft. Bowel sounds are present. No masses. No tenderness. EXTREMITIES: 1+ pedal edema. No calf tenderness. Dorsalis pedis +2 bilaterally. Right anterior shoulder healed wound with increased redness and right arm lymphedema. NEUROLOGICAL: Patient is awake, alert and oriented x3. Cranial nerves 2 through 12 are grossly intact. ASSESSMENT AND PLAN 1. Complaints of dropping items from hands, difficulty getting words out, increasing sleep, hallucinations, headache, unsteady gait. Concern for metastatic disease with history of breast and cervical cancer. MRI of the brain and the cervical spine were reviewed with the patient, EEG is negative, still possibly going for lumbar puncture and send the fluid for cytology tomorrow morning. 2. Anemia, new from February of this year. Possibly due to chronic disease. 3. Right breast cancer status post mastectomy and chemotherapy in 2001. Consult with oncology. 4. History of cervical cancer status post hysterectomy and bilateral salpingo- oophorectomy. 5. History of Li-fraumeni syndrome. Oncology consult. 6. Hypertension and hypertensive cardiovascular disease. Continue patient on hydrochlorothiazide/losartan 50/12.5 mg orally once every day. 7. Hyperlipidemia. Continue Lipitor 40 mg orally once every day. 8. Fibromyalgia. Continue Lyrica 200 mg orally once every day as well as Cymbalta 60 mg orally twice every day. 9. Restless leg syndrome. Continue Requip 5 mg orally at 1400. 10. Rheumatoid arthritis. Previously treated with methotrexate and Xeljanz. 11. History of COPD/chronic bronchitis and mild intermittent asthma. Stable without exacerbation 12. GERD. Continue Protonix 40 mg orally once every day. 13. DVT prophylaxis. Continue heparin 5000 units subcu every 8 hours. 14. GI prophylaxis. Continue Protonix. 15. Right shoulder cellulitis or septic arthritis. Stable. Ancef 2 g IV piggyback every 8 hours, blood cultures still pending. Objective - Vital Signs Vital signs: Vital Signs Temp 98.6 F 09/14/20 04:55 Pulse 78 09/14/20 07:41 Resp 16 09/14/20 07:41 BP 156/81 09/14/20 04:55 Pulse Ox 90 L 09/14/20 07:05 Intake & Output 09/13/20 09/14/20 09/14/20 18:59 06:59 18:59 Intake Total 1050 590 Balance 1050 590 Intake: Oral 1050 590 Other: # Voids 3 2 2 - Labs CBC & Chem 7: 09/13/20 03:44 09/12/20 05:55 Labs: Abnormal Lab Results - Last 24 Hours (Table) 09/13/20 Range/Units 11:21 ESR 74 H (0-20) mm/hr
[2020-09-14] MEDS: HYDROcodone/APAP 7.5-325MG 1 EACH TAB PO PRN ×2 (15:05→22:06)
--- NOTE | 2020-09-14 22:19 | PN ---
PROGRESS NOTE DATE OF SERVICE: 09/14/2020 REASON FOR FOLLOWUP: Possible right shoulder cellulitis with concern for septic arthritis. INTERVAL HISTORY: Patient is afebrile. The patient is still complaining of pain to the right shoulder area. Left arm swelling and redness, minimally improved. No chest pain, shortness of breath or cough. No abdominal pain. No diarrhea. PHYSICAL EXAMINATION: Blood pressure 154/80 with a pulse of 80, temperature 97.7. She is 98% on room air. GENERAL DESCRIPTION: Elderly female up in the chair in no distress. RESPIRATORY SYSTEM: Unlabored breathing, clear to auscultation anteriorly. HEART: S1, S2, regular rate and rhythm. ABDOMEN: Soft. No tenderness. EXTREMITIES: Right shoulder still has swelling, redness. DIAGNOSTIC IMPRESSION AND PLAN: Patient with right shoulder cellulitis, concern for underlying septic arthritis. We will obtain consultation with orthopedic surgeon with question for possible aspirate of the joint. This should be sent for cultures. Continue cefazolin for now and monitor clinical course closely. MMODL / IJN: [id number] /
[2020-09-15] MEDS: HEPARIN SODIUM,PORCINE/PF 5,000 UNIT/0.5 ML SYRINGE SQ SCH ×2 (07:19→15:29)
[2020-09-15] MEDS: HYDROcodone/APAP 7.5-325MG 1 EACH TAB PO PRN ×2 (07:20→14:36)
[2020-09-15] MEDS: PANTOPRAZOLE 40 MG TABLET PO SCH (07:20)
[2020-09-15] MEDS: IPRATROPIUM-ALBUTEROL 3 ML NEB INHALATION SCH ×4 (07:22→18:46)
[2020-09-15] MEDS: BUDESONIDE 0.5 MG/2 ML NEBU INHALATION SCH ×2 (07:22→18:46)
[2020-09-15] MEDS: DULoxetine HCL 60 MG CAPSULE.DR PO SCH ×2 (09:18→20:45)
[2020-09-15] MEDS: FUROSEMIDE 40 MG TAB PO SCH (09:18)
[2020-09-15] MEDS: PREGABALIN 100 MG CAP PO SCH ×2 (09:18→20:45)
[2020-09-15] MEDS: ATORVASTATIN 40 MG TAB PO SCH (09:18)
[2020-09-15] MEDS: FOLIC ACID 1 MG TAB PO SCH (09:18)
[2020-09-15] MEDS: SENNOSIDES-DOCUSATE SODIUM 1 EACH TAB PO SCH (09:18)
[2020-09-15] MEDS: LOSARTAN-HCTZ 50-12.5 MG 1 EACH TAB PO SCH (09:18)
--- NOTE | 2020-09-15 10:50 | P.CNOR ---
History of Present Illness - [facility] Consult date: 09/15/20 Consult reason: joint pain History of present illness: This is a 65-year-old female who is admitted to [facility] for generalized weakness and clumsiness. The patient also has history of multiple procedures of right shoulder by at [place]. She reportedly had a reverse shoulder several years ago. The patient states that it did not heal correctly and the implants were subsequently removed. I suspect that there likely was an infection at that time. She has antibiotic cement beads in the right shoulder with absence of a humeral head noted on her chest x-ray. There are no shoulder films available to review. The patient also has history of breast cancer and is status post meniscectomy as well as removal of some lymph nodes. She has chronic lymphedema to the right upper extremity. She states that about a month ago she noticed some increased swelling to the area of her incision about the anterior right shoulder. She reports no fever or chills. She did see Dr. Malik a proximally 2 weeks ago who stated that there is no other treatment that he can offer her. She states that her shoulder was swollen and red at the time of that visit. We are now consulted for orthopedic evaluation of the right shoulder during her current hospital stay. Past Medical History Past Medical History: Cancer, COPD, Fibromyalgia, GERD/Reflux, Hyperlipidemia, Hypertension, Osteoarthritis (OA), Rheumatoid Arthritis (RA) Additional Past Medical History / Comment(s): R breast cancer with mastectomy and chemo-2001, chronic R arm lymphedema,neuropathy bilateral feet, cervical cancer,restless leg syndrome, diverticulosis,steroids Dec 2019 dr. Dunham last seen 1 year ago History of Any Multi-Drug Resistant Organisms: None Reported Past Surgical History: Appendectomy, Back Surgery, Breast Surgery, Cholecystectomy, Hysterectomy, Joint Replacement, Orthopedic Surgery Additional Past Surgical History / Comment(s): colonoscopy, RIGHT MASTECTOMY, R IGHT TOTAL SHOULDER REPLACEMENT followed by revisions, I&Ds of R shoulder, picc line insertion-since removed, LT ROTATOR CUFF REPAIR, bilateral salpingo oophorectomy. pain clinic procedures Past Anesthesia/Blood Transfusion Reactions: No Reported Reaction, Family History of Problems w/ Anesthesia Additional Past Anesthesia/Blood Transfusion Reaction / Comm: sister has severe BUSH with anesthesia Past Psychological History: No Psychological Hx Reported Additional Psychological History / Comment(s): . Smoking Status: Former smoker Past Alcohol Use History: None Reported Additional Past Alcohol Use History / Comment(s): Pt started smoking in 1974 and quit in 2001. smoked 1ppd or less Past Drug Use History: None Reported - Past Family History Sister(s) Family Medical History: Cancer Additional Family Medical History / Comment(s): Thyroid cancer. Brother(s) Family Medical History: Cancer Additional Family Medical History / Comment(s): Patient has 4 brothers. One has from alcoholism at age 55. One brother has small cell lung carcinoma. 1 is diabetic. One brother she has no contact with. Mother Family Medical History: Cancer, Deep Vein Thrombosis (DVT) Additional Family Medical History / Comment(s): Breast cancer. Father Family Medical History: Cancer Additional Family Medical History / Comment(s): Father of colon cancer in his 60s. Medications and Allergies Home Medications Medication Instructions Recorded Confirmed Type Atorvastatin [Lipitor] 40 mg PO DAILY 11/14/14 09/11/20 History DULoxetine HCL [Cymbalta] 60 mg PO BID 11/14/14 09/11/20 History Furosemide [Lasix] 40 mg PO QAM 11/14/14 09/11/20 History rOPINIRole HCL [Requip] 5 mg PO DAILY@1400 11/14/14 09/11/20 History Omeprazole [PriLOSEC] 20 mg PO AC-BRKFST 12/24/16 09/11/20 History Losartan/Hydrochlorothiazide 1 tab PO DAILY 09/06/18 09/11/20 History [Losartan-Hctz 50-12.5 mg Tab] Pregabalin [Lyrica] 200 mg PO BID 01/15/20 09/11/20 History Baclofen [Lioresal] 10 mg PO BID PRN 09/11/20 09/11/20 History Allergies Allergy/AdvReac Type Severity Reaction Status Date / Time nickel Allergy Rash/Hives Verified 09/11/20 13:29 Sulfa (Sulfonamide Allergy Rash/Hives Verified 09/11/20 13:29 Antibiotics) Physical Examination This is a pleasant 65-year-old female in no acute distress. She is alert and oriented 3. Exam of the right upper extremity reveals a well-healed incision about the anterior right shoulder. There is slight erythema just medial to the incision with some focal swelling. There is lymphedema noted to the right upper extremity. She has limited range of motion of the shoulder. She has full el bow, wrist and finger motion. Neurovascular status to the upper extremity is intact. The remainder of her musculoskeletal exam is unremarkable. Results There are no shoulder x-rays available to review. Absence of right humeral head noted on chest x-ray as well as likely antibiotic cement beads. She has a partial shoulder replacement on the left. - Labs Labs: Microbiology - Last 24 Hours (Table) 09/13/20 11:21 Blood Culture - Preliminary Blood No Growth after 24 hours H & H 09/11/20 09/12/20 09/13/20 Range/Units 12:03 05:55 03:44 Hgb 10.2 L 9.0 L 9.0 L (11.4-16.0) gm/dL Hct 33.2 L 29.6 L 27.6 L (34.0-46.0) % Coagulation 09/11/20 Range/Units 12:03 INR 0.9 (<1.2) Result Diagrams: 09/13/20 03:44 09/12/20 05:55 Assessment and Plan (1) Upper extremity weakness Current Visit: Yes Status: Acute Code(s): R29.898 - OTH SYMPTOMS AND SIGNS INVOLVING THE MUSCULOSKELETAL SYSTEM SNOMED Code(s): 430228880 (2) Acute lymphangitis of right upper limb Current Visit: No Status: Acute Code(s): L03.123 - ACUTE LYMPHANGITIS OF RIGHT UPPER LIMB SNOMED Code(s): 9595219 (3) Cellulitis of right arm Current Visit: No Status: Acute Code(s): L03.113 - CELLULITIS OF RIGHT UPPER LIMB SNOMED Code(s): 786337291 Plan: The clinical findings are discussed with the patient. The case and x-rays are reviewed with Dr. Caldwell. It is discussed with the patient and with Dr. Mendes that Dr Caldwell does not feel that it is in the patient's best interest to intervene in this case and we recommend transfer back to [facility] under the care of Dr. Malik.
--- NOTE | 2020-09-15 12:17 | P.PN ---
Subjective Progress Note Date: 09/15/20 Patient was seen for a follow-up. Patient initially seen by Dr. Xavi Vila. Please refer to his note for details. Patient has history of cervical cancer in 1984. Also has breast cancer in 2001 for which she was treated with chemotherapy. No radiation. Patient has developed subsequent lymphedema of the right upper extremity. She had multiple shoulder surgeries for infection. Now she has no shoulder joint for the last 7- 8 years. Patient came to the hospital for possible cellulitis. She feels as she ripped something inside which got infected. Patient has presented with cellulitis of right upper extremities. Patient has presented with multiple nonspecific neurological symptoms, couldn't hold anything in her arms, dropping everything in the hands. She was losing balance, falling, jerking, shaking, "vision feeling off", like "having a stroke". She has much improved, but the balance is still slightly off. Neurology has seen the patient, concerned about carcinomatous infiltration. Lumbar puncture has been initiated. WORK-UP: TSH is 2.350 which is considered within normal limits. Vitamin B12 is 1070 which is considered within normal limits. Serum Folate level is 9.1 which is considered within normal limits CT of the head is reported as age-related atrophy and chronic small vessel ischemic change without acute intracranial process seen at this time. CT cervical spine is reported as no evidence for acute fracture or subluxation of the cervical spine. CT of the chest is reported as descending thoracic aortic measurements 4.3 cm. This is increased from 3.9 cm. Reticular nodular pattern in the right middle lobe worsening from 2017. No suspicious abnormality to account for the right arm swelling. MRI the brain with and without contrast shows mild scattered periventricular white matter changes, likely on the basis of chronic white matter ischemic change. No suspicious changes to suggest metastatic disease. Reviewed the MRI. MRI of cervical spine with and without contrast revealed mild diffuse disc bulge or lesser degree focal protrusion to the cervical spine. No cord contact stenosis or cord deformity. EEG on 09/12/2020 is normal. There are no focal slowing, epileptiform discharges or seizure reported on the EEG. Objective - Vital Signs Vital signs: Vital Signs Temp 98.3 F 09/15/20 05:00 Pulse 88 09/15/20 11:17 Resp 18 09/15/20 05:00 BP 143/83 09/15/20 05:00 Pulse Ox 92 L 09/15/20 05:00 Intake & Output 09/14/20 09/15/20 09/15/20 18:59 06:59 18:59 Intake Total 640 Balance 640 Intake: Intake, IV Titration 100 Amount ceFAZolin 2 gm In Sodium 100 Chloride 0.9% 50 ml @ 100 mls/hr IVPB Q8HR [facility] Rx# :[id number] Oral 540 Other: Voiding Method Toilet # Voids 2 2 - Exam Patient's mental status, speech and language functions are normal. Cranial nerves II through XII are normal. Muscle strength is normal in the arms and legs. Right shoulder not checked. Reflexes are absent in the right upper extremity 1 in the left upper extremities. Bilateral knees are 2, ankles 0 and plantars downgoing. Sensory touch is equal. She has prominent lymphedema right upper extremity. Gait not checked. No ataxia for [id number] on the left. - Labs CBC & Chem 7: 09/13/20 03:44 09/12/20 05:55 Labs: Microbiology - Last 24 Hours (Table) 09/13/20 11:21 Blood Culture - Preliminary Blood No Growth after 24 hours Assessment and Plan Assessment: * Episode of hand clumsiness, dropping thing (left > right hand), difficulty getting her words out, sleep difficulty for the last three days and unsteady gait for the past few months (on examination has ptosis right eye, mild dysarthria, slight dysmetria left hand, gait seems unsteady): Patient's symptoms have much improved. Doubt leptomeningeal mets. MRI Brain and cervical spine with and without contrast is negative for mets. 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 The patient wants to get it done to find and after that is willing to be discharged after that and will follow-up with her oncologist and was told neurologist for result since will take time (cytology and paraneoplastic). * Oncology team is consulted. * Infection disease is consulted * Recommend for the patient to follow-up with a neurologist as outpatient within 1-2 weeks.
--- NOTE | 2020-09-15 13:01 | P.PN ---
Subjective Progress Note Date: 09/15/20 HISTORY OF PRESENT ILLNESS This is a 65-year-old female patient of Dr. 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 Dunham with her surveillance testing up-to-date including MRI of the whole body scan as well as colonoscopy once every 2 years Are up-to-date, Patient presented to the office complaining of left-sided headache, double vision. She was very emotional. She was having hallucinations and had clumsiness and dropping items from her hands bilaterally. She has been sleeping more and also talking in her sleep. In general, she states she feels like 'crap.' Symptoms have been going on for one week. Patient was directed to [facility] emergency center for further evaluation. She was afebrile, heart rate 85, blood pressure 133/62 and pulse ox 94%. WBC 6.1, hemoglobin 10.2, platelet count 482. Sodium 137, potassium 5.2, chloride 100, CO2 32, BUN 32 and creatinine 0.89. Blood sugar 97. Magnesium 2.4. Liver function tests were normal. Lactic acid 0.9. Troponin negative. Chest x-ray showed no acute changes. CAT scan of the brain and cervical spine without contrast revealed age-related atrophy and chronic small vessel ischemic change without acute intracranial process. No evidence of acute fracture or subluxation of the cervical spine. [facility] and consult obtained with neurology and MRI of the brain, EEG, vitamin B12, folate and TSH level ordered. Recommendations were for oncology consult which has been added. 09/13: Patient is feeling better today she underwent MRI of the brain did not show evidence of acute metastatic lesion, did show periventricular white matter changes, she underwent MRI of the cervical spine did show degenerative disc disease without evidence of any cord compression, patient continues to have some erythema in the right shoulder, with increased pain in that area, we will start Ancef 2 gr IVPB Q 8 hours, blood cultures and ID Consult. 09/14: Patient is been in good she was seen in consultation by ID yesterday, I discussed with her the result of the MRI of the brain as well as MRI of the cervical spine and the EEG, the plan is to go for a lumbar puncture hopefully tomorrow morning for further evaluation, she was seen by who recommended to continue IV antibiotic with Ancef 2 g IV piggyback every 8 hours, obtain the blood cultures, eventually she may need to have some imaging to the right shoulder for further evaluation of possible deep infection versus superficial cellulitis unfortunately her sed rate is quite elevated at 74 raising the possibility of septic arthritis. 09/15: Patient is followed closely by infectious disease and neurology and she is scheduled for lumbar puncture today and the plan will be to follow up outpatient for results. Neurology as recommended outpatient follow-up in one to [address] More has recommended possible aspiration of the right shoulder joint to rule out septic arthritis. Antibiotics the form of Kefzol and for now. Patient has been seen by orthopedics and do not feel that aspiration is possible or any surgical intervention and recommended transfer back to under the care of Dr. Malik. Patient has been afebrile, heart rate 86, blood pressure 147/79, pulse ox 92% on room air. REVIEW OF SYSTEMS Constitutional: No fever, no chills, no night sweats. No weight change. No weakness, fatigue or lethargy. No daytime sleepiness. EENT: Reported headache. No blurred vision or double vision, no loss of vision. No loss of Hearing, no ringing in the ears, no dizziness. No nasal drainage or congestion. No epistaxis. No sore throat. Lungs: No shortness of breath, cough, no sputum production. No wheezing. Cardiovascular: No chest pain, no lower extremity edema. No palpitations. No paroxysmal nocturnal dyspnea. No orthopnea. No lightheadedness or dizziness. No syncopal episodes. Abdominal: No abdominal pain. No nausea, vomiting. No diarrhea. No constipation. No bloody or tarry stools.. No loss of appetite. Genitourinary: No dysuria, increased frequency, urgency. No urinary retention. Musculoskeletal: No myalgias. No muscle weakness, no gait dysfunction, no frequent falls. Reported internal control specialist weakness and dropping items bilaterally. No back pain. No neck pain. Integumentary: No wounds, no lesions. No rash or pruritus. No unusual bruising. No change in hair or nails.increased redness at the right shoulder incision site, improved Neurologic: No aphasia. No facial droop. No change in mentation. No head injury. No headache. No paralysis. No paresthesia. Psychiatric: Reported depression. Reported anxiety. No mood swings. Reported hallucinations. Endocrine: No abnormal blood sugars. No weight change. No excessive sweating or thirst. No cold intolerance. PHYSICAL EXAMINATION Gen: This is a 65-year-old female. She is resting in bed. Patient appears to . HEENT: Head is atraumatic, normocephalic. Pupils equal, round. Sclerae is anicteric. NECK: Supple. No JVD. No lymphadenopathy. No thyromegaly. LUNGS: Scattered rhonchi and expiratory wheezes. No intercostal retractions. HEART: First heart sound is depressed, second heart sound is normal. There is 2/6 systolic ejection murmur at the left sternal border. No S3, no S4, no JVP ABDOMEN: Soft. Bowel sounds are present. No masses. No tenderness. EXTREMITIES: 1+ pedal edema. No calf tenderness. Dorsalis pedis +2 bilater ally. Right anterior shoulder healed wound with increased redness and right arm lymphedema. NEUROLOGICAL: Patient is awake, alert and oriented x3. Cranial nerves 2 through 12 are grossly intact. ASSESSMENT AND PLAN 1. Complaints of dropping items from hands, difficulty getting words out, increasing sleep, hallucinations, headache, unsteady gait. Concern for metastatic disease with history of breast and cervical cancer. MRI of the brain and the cervical spine were reviewed with the patient, EEG is negative, plan today for lumbar puncture and send the fluid for cytology tomorrow morning. 2. Anemia, new from February of this year. Possibly due to chronic disease. 3. Right breast cancer status post mastectomy and chemotherapy in 2001. Consult with oncology. 4. History of cervical cancer status post hysterectomy and bilateral salpingo- oophorectomy. 5. History of Li-fraumeni syndrome. Oncology consult. 6. Hypertension and hypertensive cardiovascular disease. Continue patient on hydrochlorothiazide/losartan 50/12.5 mg orally once every day. 7. Hyperlipidemia. Continue Lipitor 40 mg orally once every day. 8. Fibromyalgia. Continue Lyrica 200 mg orally once every day as well as Cymbalta 60 mg orally twice every day. 9. Restless leg syndrome. Continue Requip 5 mg orally at 1400. 10. Rheumatoid arthritis. Previously treated with methotrexate and Xeljanz. 11. History of COPD/chronic bronchitis and mild intermittent asthma. Stable without exacerbation 12. GERD. Continue Protonix 40 mg orally once every day. 13. DVT prophylaxis. Continue heparin 5000 units subcu every 8 hours. 14. GI prophylaxis. Continue Protonix. 15. Right shoulder cellulitis or septic arthritis. Stable. Ancef 2 g IV piggyback every 8 hours, blood cultures still pending. Discharge plan Home [facility] statement Objective - Vital Signs Vital signs: Vital Signs Temp 98.3 F 09/15/20 05:00 Pulse 80 09/15/20 07:36 Resp 18 09/15/20 05:00 BP 143/83 09/15/20 05:00 Pulse Ox 92 L 09/15/20 05:00 Intake & Output 09/14/20 09/15/20 09/15/20 18:59 06:59 18:59 Intake Total 640 Balance 640 Intake: Intake, IV Titration 100 Amount ceFAZolin 2 gm In Sodium 100 Chloride 0.9% 50 ml @ 100 mls/hr IVPB Q8HR [facility] Rx# :[id number] Oral 540 Other: # Voids 2 2 - Labs CBC & Chem 7: 09/13/20 03:44 09/12/20 05:55 Labs: Microbiology - Last 24 Hours (Table) 09/13/20 11:21 Blood Culture - Preliminary Blood No Growth after 24 hours
--- NOTE | 2020-09-15 14:21 | P.PN ---
Subjective Progress Note Date: 09/15/20 Principal diagnosis: Changes in vision, usual weakness in the upper extremities, progressive In follow-up today patient is feeling a little bit better, her vision is slightly improved but she is still having some unilateral deficits, leaning to one side, feeling of unsteadiness when ambulating. She denies any fever, nausea, she does have congested sounding cough but denies any hemoptysis or purulent sputum, no acute changes in bowel or bladder habits, she states that she has fallen at home but does not hear the hospital. No progressive neuropathy in the lower extremities Objective - Vital Signs Vital signs: Vital Signs Temp 98.7 F 09/15/20 11:07 Pulse 86 09/15/20 11:26 Resp 18 09/15/20 11:07 BP 147/79 09/15/20 11:07 Pulse Ox 92 L 09/15/20 11:07 Intake & Output 09/14/20 09/15/20 09/15/20 18:59 06:59 18:59 Intake Total 640 Balance 640 Intake: Intake, IV Titration 100 Amount ceFAZolin 2 gm In Sodium 100 Chloride 0.9% 50 ml @ 100 mls/hr IVPB Q8HR [facility] Rx# :[id number] Oral 540 Other: Voiding Method Toilet # Voids 2 2 - Constitutional General appearance: Present: cooperative, no acute distress, obese - EENT Eyes: Present: anicteric sclerae, EOMI ENT: Present: hearing grossly normal, normal oropharynx - Respiratory Respiratory: bilateral: CTA - Cardiovascular Heart sounds: normal: S1, S2 Abnormal Heart Sounds: Absent: systolic murmur, diastolic murmur, rub, S3 Gallop, S4 Gallop, click, other - Peripheral edema leg Peripheral Edema: bilateral: None - Gastrointestinal General gastrointestinal: Present: normal bowel sounds, soft - Psychiatric Psychiatric: Present: A&O x's 3, appropriate affect, intact judgment & insight - Labs CBC & Chem 7: 09/13/20 03:44 09/12/20 05:55 Labs: Microbiology - Last 24 Hours (Table) 09/13/20 11:21 Blood Culture - Preliminary Blood No Growth after 48 hours - Imaging and Cardiology MRI - head: report reviewed Assessment and Plan (1) Upper extremity weakness Narrative/Plan: So far workup has not provided a diagnosis for patient's symptoms. She is going to have a lumbar puncture today for evaluation of cerebrospinal fluid as MRI of the brain is not showing any disease. She has only had mild improvements in her symptoms since admission. Current Visit: Yes Status: Acute Priority: High Code(s): R29.898 - OTH SYMPTOMS AND SIGNS INVOLVING THE MUSCULOSKELETAL SYSTEM SNOMED Code(s): 205555719 (2) Li-Fraumeni syndrome Narrative/Plan: Patient is current on her cancer screenings Current Visit: Yes Status: Chronic Priority: High Code(s): Z15.01 - GENETIC SUSCEPTIBILITY TO MALIGNANT NEOPLASM OF BREAST SNOMED Code(s): 4 22829250 (3) Lymphedema of right upper extremity Narrative/Plan: Persistent, not progressive. Patient has had since breast surgery and lymph node removal. Her shoulder is being evaluated by Orthopedics for possible infected joint Current Visit: No Status: Chronic Priority: Medium Code(s): I89.0 - LYMPHEDEMA, NOT ELSEWHERE CLASSIFIED SNOMED Code(s): 63044665337780605 (4) Iron deficiency anemia Narrative/Plan: Did order iron for patient. Requested that the dose not be given until tomorrow as patient is status post lumbar puncture and parenteral iron can cause dizziness and BUSH so, we will wait until she is recovered from LP procedure before initiating. Current Visit: Yes Status: Chronic Priority: Medium Code(s): D50.9 - IRON DEFICIENCY ANEMIA, UNSPECIFIED SNOMED Code(s): 68496102
--- NOTE | 2020-09-15 20:41 | PN ---
PROGRESS NOTE DATE OF SERVICE: 09/15/2020 REASON FOR FOLLOWUP: Right shoulder cellulitis, question of septic arthritis. INTERVAL HISTORY: The patient is afebrile. Still complaining of pain to the right shoulder area, no worsening though. No chest pain, shortness of breath or cough. No abdominal pain or diarrhea. PHYSICAL EXAMINATION: Blood pressure 140/79, pulse of 80, temperature 98.7. She is 92% on room air. General description is an elderly female up in the chair in no distress. Respiratory system: Unlabored breathing, clear to auscultation anteriorly. Heart S1, S2. Regular rate and rhythm. Abdomen soft, no tenderness. Right shoulder still has some swelling and redness but no drainage. LABS: No new labs have been obtained today. Blood culture negative so far. DIAGNOSTIC IMPRESSION AND PLAN: Patient with right shoulder pain, swelling and redness with concern for cellulitis versus deep infection. Clinically responding to cefazolin, however, extent of infection ( ). We will obtain MRI of the right shoulder area. I will have discussion home primary care physician to see the extent of infection and plan possible transfer to [facility]. Continue supportive care. MMODL / IJN: [id number] /
[2020-09-16] MEDS: HEPARIN SODIUM,PORCINE/PF 5,000 UNIT/0.5 ML SYRINGE SQ SCH ×3 (00:41→15:30)
[2020-09-16 06:31] LABS: HGB 9.5 gm/dL (11.4-16.0); Hypochromasia Moderate; MCHC 30.8 g/dL (31.0-37.0); MCV 87.7 fL (80.0-100.0); Platelet Count 413 k/uL (150-450); RBC 3.53 m/uL (3.80-5.40); RDW 14.9 % (11.5-15.5); WBC 4.9 k/uL (3.8-10.6)
[2020-09-16] MEDS: IPRATROPIUM-ALBUTEROL 3 ML NEB INHALATION SCH ×4 (07:10→19:24)
[2020-09-16] MEDS: BUDESONIDE 0.5 MG/2 ML NEBU INHALATION SCH ×2 (07:10→19:24)
[2020-09-16] MEDS: FUROSEMIDE 40 MG TAB PO SCH (09:00)
[2020-09-16] MEDS ORDERED: SODIUM FERRIC GLUCONAT-SUCROSE 125 MG in SODIUM CHLORIDE 0.9% 100 ML IVPB SCH (09:00)
[2020-09-16] MEDS: DULoxetine HCL 60 MG CAPSULE.DR PO SCH ×2 (09:00→20:07)
[2020-09-16] MEDS: PANTOPRAZOLE 40 MG TABLET PO SCH (09:00)
[2020-09-16] MEDS: FOLIC ACID 1 MG TAB PO SCH (09:00)
[2020-09-16] MEDS: ATORVASTATIN 40 MG TAB PO SCH (09:00)
[2020-09-16] MEDS: SENNOSIDES-DOCUSATE SODIUM 1 EACH TAB PO SCH (09:00)
[2020-09-16] MEDS: LOSARTAN-HCTZ 50-12.5 MG 1 EACH TAB PO SCH (09:00)
[2020-09-16] MEDS: PREGABALIN 100 MG CAP PO SCH ×2 (09:01→20:07)
[2020-09-16] MEDS: LACTULOSE 20 GM/30 ML CUP PO SCH ×2 (09:02→20:07)
--- NOTE | 2020-09-16 11:15 | P.PN ---
Subjective Progress Note Date: 09/16/20 HISTORY OF PRESENT ILLNESS This is a 65-year-old female patient of Dr. 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 Dunham with her surveillance testing up-to-date including MRI of the whole body scan as well as colonoscopy once every 2 years Are up-to-date, Patient presented to the office complaining of left-sided headache, double vision. She was very emotional. She was having hallucinations and had clumsiness and dropping items from her hands bilaterally. She has been sleeping more and also talking in her sleep. In general, she states she feels like 'crap.' Symptoms have been going on for one week. Patient was directed to [facility] emergency center for further evaluation. She was afebrile, heart rate 85, blood pressure 133/62 and pulse ox 94%. WBC 6.1, hemoglobin 10.2, platelet count 482. Sodium 137, potassium 5.2, chloride 100, CO2 32, BUN 32 and creatinine 0.89. Blood sugar 97. Magnesium 2.4. Liver function tests were normal. Lactic acid 0.9. Troponin negative. Chest x-ray showed no acute changes. CAT scan of the brain and cervical spine without contrast revealed age-related atrophy and chronic small vessel ischemic change without acute intracranial process. No evidence of acute fracture or subluxation of the cervical spine. [facility] and consult obtained with neurology and MRI of the brain, EEG, vitamin B12, folate and TSH level ordered. Recommendations were for oncology consult which has been added. 09/13: Patient is feeling better today she underwent MRI of the brain did not show evidence of acute metastatic lesion, did show periventricular white matter changes, she underwent MRI of the cervical spine did show degenerative disc disease without evidence of any cord compression, patient continues to have some erythema in the right shoulder, with increased pain in that area, we will start Ancef 2 gr IVPB Q 8 hours, blood cultures and ID Consult. 09/14: Patient is been in good she was seen in consultation by ID yesterday, I discussed with her the result of the MRI of the brain as well as MRI of the cervical spine and the EEG, the plan is to go for a lumbar puncture hopefully tomorrow morning for further evaluation, she was seen by who recommended to continue IV antibiotic with Ancef 2 g IV piggyback every 8 hours, obtain the blood cultures, eventually she may need to have some imaging to the right shoulder for further evaluation of possible deep infection versus superficial cellulitis unfortunately her sed rate is quite elevated at 74 raising the possibility of septic arthritis. 09/15: Patient is followed closely by infectious disease and neurology and she is scheduled for lumbar puncture today and the plan will be to follow up outpatient for results. Neurology as recommended outpatient follow-up in one to [address] More has recommended possible aspiration of the right shoulder joint to rule out septic arthritis. Antibiotics the form of Kefzol and for now. Patient has been seen by orthopedics and do not feel that aspiration is possible or any surgical intervention and recommended transfer back to [facility] under the care of Dr. Malik. Patient has been afebrile, heart rate 86, blood pressure 147/79, pulse ox 92% on room air. 09/16: It is reported by staff and the patient and the patient was seen by anesthesia yesterday but there is no documentation and no orders in the chart. We are hoping that anesthesia will see today and perform lumbar puncture. Once these are sent we most likely will be held discharge her home by tomorrow. She is scheduled for MRI of the shoulder today as well. She has been afebrile, heart rate 87, blood pressure 165/85, pulse ox 92% on room air. WBC 4.9, hemoglobin 9.5, platelet count 413. Sed rate 74. CA 153 12.2, CA 2720 916.9, CEA 125 8.3. Anticipate discharge home tomorrow after LP is completed, MRI completed and recommendations obtained from Dr. More from this testing. REVIEW OF SYSTEMS Constitutional: No fever, no chills, no night sweats. No weight change. No weakness, fatigue or lethargy. No daytime sleepiness. EENT: Reported headache. No blurred vision or double vision, no loss of vision. No loss of Hearing, no ringing in the ears, no dizziness. No nasal drainage or congestion. No epistaxis. No sore throat. Lungs: No shortness of breath, cough, no sputum production. No wheezing. Cardiovascular: No chest pain, no lower extremity edema. No palpitations. No paroxysmal nocturnal dyspnea. No orthopnea. No lightheadedness or dizziness. No syncopal episodes. Abdominal: No abdominal pain. No nausea, vomiting. No diarrhea. No constipation. No bloody or tarry stools.. No loss of appetite. Genitourinary: No dysuria, increased frequency, urgency. No urinary retention. Musculoskeletal: No myalgias. No muscle weakness, no gait dysfunction, no frequent falls. 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 No back pain. No neck pain. Integumentary: No wounds, no lesions. No rash or pruritus. No unusual bruisi ng. No change in hair or nails.increased redness at the right shoulder incision site, improved Neurologic: No aphasia. No facial droop. No change in mentation. No head injury. No headache. No paralysis. No paresthesia. Psychiatric: Reported depression. Reported anxiety. No mood swings. Reported hallucinations. Endocrine: No abnormal blood sugars. No weight change. No excessive sweating or thirst. No cold intolerance. PHYSICAL EXAMINATION Gen: This is a 65-year-old female. She is resting in bed. Patient appears to . HEENT: Head is atraumatic, normocephalic. Pupils equal, round. Sclerae is anicteric. NECK: Supple. No JVD. No lymphadenopathy. No thyromegaly. LUNGS: Scattered rhonchi and expiratory wheezes. No intercostal retractions. HEART: First heart sound is depressed, second heart sound is normal. There is 2/6 systolic ejection murmur at the left sternal border. No S3, no S4, no JVP ABDOMEN: Soft. Bowel sounds are present. No masses. No tenderness. EXTREMITIES: 1+ pedal edema. No calf tenderness. Dorsalis pedis +2 bilaterally. Right anterior shoulder healed wound with improvement of redness, chronic right arm lymphedema. NEUROLOGICAL: Patient is awake, alert and oriented x3. Cranial nerves 2 through 12 are grossly intact. ASSESSMENT AND PLAN 1. Complaints of dropping items from hands, difficulty getting words out, increasing sleep, hallucinations, headache, unsteady gait. Concern for metasta tic disease with history of breast and cervical cancer. MRI of the brain and the cervical spine were reviewed with the patient, EEG is negative, plan today for lumbar puncture and send the fluid for cytology. MRI of the shoulder 2. Anemia, new from February of this year. Possibly due to chronic disease. 3. Right breast cancer status post mastectomy and chemotherapy in 2001. Consult with oncology. 4. History of cervical cancer status post hysterectomy and bilateral salpingo-oophorectomy. 5. History of Li-fraumeni syndrome. Oncology consult. 6. Hypertension and hypertensive cardiovascular disease. Continue patient on hydrochlorothiazide/losartan 50/12.5 mg orally once every day. 7. Hyperlipidemia. Continue Lipitor 40 mg orally once every day. 8. Fibromyalgia. Continue Lyrica 200 mg orally once every day as well as Cymbalta 60 mg orally twice every day. 9. Restless leg syndrome. Continue Requip 5 mg orally at 1400. 10. Rheumatoid arthritis. Previously treated with methotrexate and Xeljanz. 11. History of COPD/chronic bronchitis and mild intermittent asthma. Stable without exacerbation 12. GERD. Continue Protonix 40 mg orally once every day. 13. DVT prophylaxis. Continue heparin 5000 units subcu every 8 hours. 14. GI prophylaxis. Continue Protonix. 15. Right shoulder cellulitis or septic arthritis. Stable. Ancef 2 g IV piggyback every 8 hours, blood cultures still pending. MRI of the shoulder Discharge plan Home Impression and plan of care have been directed as dictated by the signing physician. Shania Pozo nurse practitioner acting as scribe for signing physician. Objective - Vital Signs Vital signs: Vital Signs Temp 98.8 F 09/16/20 05:55 Pulse 90 09/16/20 07:23 Resp 16 09/16/20 05:55 BP 165/85 09/16/20 05:55 Pulse Ox 92 L 09/16/20 05:55 Intake & Output 09/15/20 09/16/20 09/16/20 18:59 06:59 18:59 Intake Total 590 Balance 590 Intake: Intake, IV Titration 50 Amount ceFAZolin 2 gm In Sodium 50 Chloride 0.9% 50 ml @ 100 mls/hr IVPB Q8HR [facility] Rx# :[id number] Oral 540 Other: Voiding Method Toilet Toilet # Voids 1 1 - Labs CBC & Chem 7: 09/16/20 05:34 09/12/20 05:55 Labs: Abnormal Lab Results - Last 24 Hours (Table) 09/16/20 Range/Units 05:34 RBC 3.53 L (3.80-5.40) m/uL Hgb 9.5 L (11.4-16.0) gm/dL Hct 31.0 L (34.0-46.0) % MCHC 30.8 L (31.0-37.0) g/dL Microbiology - Last 24 Hours (Table) 09/13/20 11:21 Blood Culture - Preliminary Blood No Growth after 48 hours
[2020-09-16 11:51] LABS: ALT <8 U/L (8-44); AST 21 U/L (13-35); Alkaline Phosphatase 66 U/L (41-126); BUN/Creat Ratio 18.75 Ratio (12.00-20.00); Chloride 102 mmol/L (96-109); Globulin 2.2 g/dL (1.6-3.3); Glucose 83 mg/dL (70-110); Non-African American GFR(CKD) 76.8 (60.0-200.0); Potassium 4.4 mmol/L (3.5-5.5); Sodium 141 mmol/L (135-145); Total Bilirubin 0.2 mg/dL (0.2-1.2); Total Protein 5.5 g/dL (6.2-8.2)
[2020-09-16] MEDS ORDERED: IV FLUID CONTINUATION 1,000 ML IV ONE (13:34)
[2020-09-16] MEDS ORDERED: MIDAZOLAM 2 MG/2 ML VIAL ONE (13:40)
--- NOTE | 2020-09-16 14:10 | P.PCN ---
Date of Procedure: 09/16/20 Description of Procedure: Attending Provider: Melina Mcwilliams Date: 09/16/20 14:02 Initialization Date: 09/16/20 14:02 Date of Procedure: 09/16/20 Surgeon: Melina Mcwilliams Pathology: none sent Condition: stable Disposition: PACU Description of Procedure: Procedure=1-lumbar puncture . Preoperative diagnoses= rule out cancer metastases to the intrathecal space Postoperative diagnosis= same as above Anesthesia= IV sedation with 2 mg of Versed and local lidocaine infiltration 1% 2 mL for skin and subcu infiltration. Condition= stable. Complications=none. Indication for the procedure: procedure risk and benefits and alternatives discussed with the patient and she was agreeable to proceeding with it. Description of the procedure=the patient was brought into the procedure room and placed in the prone position , monitors applied, the back prepped with chlorhexidine , skin was localized with 1% lidocaine, then 22-gauge 5" quinckie Needle was advanced slowly at L5-S1 interlaminar space to get access to the intrathecal space. Fluoroscopy was used for needle guidance due to the pa tient's morbid obesity and history of multiple back surgeries. The needle bevel turned 180 before entering the thecal sac to decrease the risk of postdural puncture headache. Cerebrospinal fluid was clear with no heme. Two attempts were needed. .A total of 6 mL of clear cerebrospinal fluid were collected in 4 different tubes, the needle removed, Band-Aid applied , patient tolerated the procedure well without any complications. Further management as per her neurologist.
--- NOTE | 2020-09-16 14:13 | FL ---
EXAMINATION TYPE: FL guided pain mgmt statistic DATE OF EXAM: 09/16/2020 HISTORY: Fluoroscopy time 4 seconds of fluoroscopy provided. IMPRESSION: 1. Fluoroscopy time.
[2020-09-16 15:10] LABS: Glucose,CSF 48 mg/dL (40-70); Total Protein,CSF 38 mg/dL (12-60)
--- NOTE | 2020-09-16 16:27 | P.PN ---
Subjective Progress Note Date: 09/16/20 09/16/2020: Patient was seen for a follow-up. Patient is getting ready to undergo lumbar puncture. Symptoms in her hands have resolved. 09/15/2020: Patient was seen for a follow-up. Patient initially seen by Dr. Xavi Vila. Please refer to his note for details. Patient has history of cervical cancer in 1984. Also has breast cancer in 2001 for which she was treated with chemotherapy. No radiation. Patient has developed subsequent lymphedema of the right upper extremity. She had multiple shoulder surgeries for infection. Now she has no shoulder joint for the last 7- 8 years. Patient came to the hospital for possible cellulitis. She feels as she ripped something inside which got infected. Patient has presented with cellulitis of right upper extremities. Patient has presented with multiple nonspecific neurological symptoms, couldn't hold anything in her arms, dropping everything in the hands. She was losing balance, falling, jerking, shaking, "vision feeling off", like "having a stroke". She has much improved, but the balance is still slightly off. Neurology has seen the patient, concerned about carcinomatous infiltration. Lumbar puncture has been initiated. WORK-UP: TSH is 2.350 which is considered within normal limits. Vitamin B12 is 1070 which is considered within normal limits. Serum Folate level is 9.1 which is considered within normal limits CT of the head is reported as age-related atrophy and chronic small vessel ischemic change without acute intracranial process seen at this time. CT cervical spine is reported as no evidence for acute fracture or subluxation of the cervical spine. CT of the chest is reported as descending thoracic aortic measurements 4.3 cm. This is increased from 3.9 cm. Reticular nodular pattern in the right middle lobe worsening from 2017. No suspicious abnormality to account for the right arm swelling. MRI the brain with and without contrast shows mild scattered periventricular white matter changes, likely on the basis of chronic white matter ischemic change. No suspicious changes to suggest metastatic disease. Reviewed the MRI. MRI of cervical spine with and without contrast revealed mild diffuse disc bulge or lesser degree focal protrusion to the cervical spine. No cord contact stenosis or cord deformity. EEG on 09/12/2020 is normal. There are no focal slowing, epileptiform discharges or seizure reported on the EEG. Objective - Vital Signs Vital signs: Vital Signs Temp 99.3 F 09/16/20 13:37 Pulse 87 09/16/20 13:37 Resp 16 09/16/20 13:37 BP 180/87 09/16/20 13:37 Pulse Ox 97 09/16/20 13:37 Intake & Output 09/15/20 09/16/20 09/16/20 18:59 06:59 18:59 Intake Total 590 150 Balance 590 150 Intake: IV 150 Intake, IV Titration 50 Amount ceFAZolin 2 gm In Sodium 50 Chloride 0.9% 50 ml @ 100 mls/hr IVPB Q8HR [facility] Rx# :[id number] Oral 540 Other: Voiding Method Toilet Toilet # Voids 1 1 - Exam Patient's mental status, speech and language functions are normal. Detailed testing deferred. - Labs CBC & Chem 7: 09/16/20 05:34 09/16/20 05:34 Labs: Abnormal Lab Results - Last 24 Hours (Table) 09/16/20 09/16/20 Range/Units 05:34 05:34 RBC 3.53 L (3.80-5.40) m/uL Hgb 9.5 L (11.4-16.0) gm/dL Hct 31.0 L (34.0-46.0) % MCHC 30.8 L (31.0-37.0) g/dL ALT <8 L (8-44) U/L Total Protein 5.5 L (6.2-8.2) g/dL Albumin 3.30 L (3.80-4.90) g/dL Albumin/Globulin Ratio 1.50 L (1.60-3.17) g/dL Microbiology - Last 24 Hours (Table) 09/16/20 13:55 CSF Gram Stain - Preliminary Cerebral Spinal Fluid CSF Culture - Preliminary 09/13/20 11:21 Blood Culture - Preliminary Blood No Growth after 72 hours Assessment and Plan Assessment: * Episode of hand clumsiness, dropping thing (left > right hand), difficulty getting her words out, sleep difficulty for the last three days and unsteady gait for the past few months (on examination has ptosis right eye, mild dysarthria, slight dysmetria left hand, gait seems unsteady): Patient's symptoms have much improved. Doubt leptomeningeal mets. MRI Brain and cervical spine with and without contrast is negative for mets. 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 The patient wants to get it done to find and after that is willing to be discha rged after that and will follow-up with her oncologist and was told neurologist for result since will take time (cytology and paraneoplastic). * Oncology team is consulted. * Infection disease is consulted * Recommend for the patient to follow-up with a neurologist as outpatient within 1-2 weeks. * CSF shows glucose 48, protein 38. May discharge in the cell count is normal. Cytology results can be followed up as an outpatient
[2020-09-16 17:58] LABS: Appearance,CSF Clear; CSF Tube Number 4; CSF Tube Volume 2.5; Nucleated Cells, CSF 3 u/L (0-5); Red Blood Cell, CSF Crenated 0 %; Red Blood Cell, CSF Fresh 100 %; Red Blood Cell,CSF 46 u/L (0-10)
--- NOTE | 2020-09-17 05:05 | PN ---
PROGRESS NOTE DATE OF SERVICE: 09/16/2020. REASON FOR FOLLOW UP: Right shoulder pain, question of cellulitis versus septic arthritis. INTERVAL HISTORY: The patient is afebrile. Still complaining of pain to the right shoulder area. No worsening. Maybe slight improvement. Swelling and redness about the same. No chest pain, shortness of breath, cough, no abdominal pain. No diarrhea. PHYSICAL EXAMINATION: On examination, blood pressure 131/60 with a pulse of 91. Temperature 98.3. She is 92% on room air. General description is an elderly female up in the chair in no distress. Respiratory system: Unlabored breathing. Decreased breath sounds in the bases, no wheeze. Heart: S1, S2 regular rate and rhythm. Abdomen soft, no tenderness. Right shoulder swelling and redness about the same. LABORATORY DATA: Hemoglobin 9.5, white count 4.9, BUN 15, creatinine 0.8. Blood culture negative. DIAGNOSTIC IMPRESSION AND PLAN: The patient with right shoulder pain and swelling in this patient who did have history of recurrent cellulitis and septic arthritis with multiple surgeries. The patient was not able to go for the MRI and may need antibiotics outpatient. May benefit from transfer to her surgery at [place]. Continue Cefazolin. Was discussed further with admitting team. MMODL / IJN: [id number] /
[2020-09-17] MEDS: IPRATROPIUM-ALBUTEROL 3 ML NEB INHALATION SCH ×4 (07:25→20:28)
[2020-09-17] MEDS: BUDESONIDE 0.5 MG/2 ML NEBU INHALATION SCH ×2 (07:25→20:28)
--- NOTE | 2020-09-17 08:38 | P.PN ---
Subjective Progress Note Date: 09/17/20 HISTORY OF PRESENT ILLNESS This is a 65-year-old female patient of Dr. 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 Dunham with her surveillance testing up-to-date including MRI of the whole body scan as well as colonoscopy once every 2 years Are up-to-date, Patient presented to the office complaining of left-sided headache, double vision. She was very emotional. She was having hallucinations and had clumsiness and dropping items from her hands bilaterally. She has been sleeping more and also talking in her sleep. In general, she states she feels like 'crap.' Symptoms have been going on for one week. Patient was directed to [facility] emergency center for further evaluation. She was afebrile, heart rate 85, blood pressure 133/62 and pulse ox 94%. WBC 6.1, hemoglobin 10.2, platelet count 482. Sodium 137, potassium 5.2, chloride 100, CO2 32, BUN 32 and creatinine 0.89. Blood sugar 97. Magnesium 2.4. Liver function tests were normal. Lactic acid 0.9. Troponin negative. Chest x-ray showed no acute changes. CAT scan of the brain and cervical spine without contrast revealed age-related atrophy and chronic small vessel ischemic change without acute intracranial process. No evidence of acute fracture or subluxation of the cervical spine. [facility] and consult obtained with neurology and MRI of the brain, EEG, vitamin B12, folate and TSH level ordered. Recommendations were for oncology consult which has been added. 09/13: Patient is feeling better today she underwent MRI of the brain did not show evidence of acute metastatic lesion, did show periventricular white matter changes, she underwent MRI of the cervical spine did show degenerative disc disease without evidence of any cord compression, patient continues to have some erythema in the right shoulder, with increased pain in that area, we will start Ancef 2 gr IVPB Q 8 hours, blood cultures and ID Consult. 09/14: Patient is been in good she was seen in consultation by ID yesterday, I discussed with her the result of the MRI of the brain as well as MRI of the cervical spine and the EEG, the plan is to go for a lumbar puncture hopefully tomorrow morning for further evaluation, she was seen by who recommended to continue IV antibiotic with Ancef 2 g IV piggyback every 8 hours, obtain the blood cultures, eventually she may need to have some imaging to the right shoulder for further evaluation of possible deep infection versus superficial cellulitis unfortunately her sed rate is quite elevated at 74 raising the possibility of septic arthritis. 09/15: Patient is followed closely by infectious disease and neurology and she is scheduled for lumbar puncture today and the plan will be to follow up outpatient for results. Neurology as recommended outpatient follow-up in one to [address] More has recommended possible aspiration of the right shoulder joint to rule out septic arthritis. Antibiotics the form of Kefzol and for now. Patient has been seen by orthopedics and do not feel that aspiration is possible or any surgical intervention and recommended transfer back to [facility] under the care of Dr. Malik. Patient has been afebrile, heart rate 86, blood pressure 147/79, pulse ox 92% on room air. 09/16: It is reported by staff and the patient and the patient was seen by anesthesia yesterday but there is no documentation and no orders in the chart. We are hoping that anesthesia will see today and perform lumbar puncture. Once these are sent we most likely will be held discharge her home by tomorrow. She is scheduled for MRI of the shoulder today as well. She has been afebrile, heart rate 87, blood pressure 165/85, pulse ox 92% on room air. WBC 4.9, hemoglobin 9.5, platelet count 413. Sed rate 74. CA 153 12.2, CA 2720 916.9, CEA 125 8.3. Anticipate discharge home tomorrow after LP is completed, MRI completed and recommendations obtained from Dr. More from this testing. 09/17: Patient was unable to undergo MRI at our facility because she needed to have full movement of her right shoulder. Dr. More has requested that this be done at open facility and machine adjuster leader case trim making arrangements for the patient to go to the [facility]. Patient underwent LP under fluoroscopy yesterday with a total of 6 mL of clear cerebral spinal fluid collected. Fluid was clear, RBCs 46, total nucleated cells 3, crenated cells 0, fresh RBCs 100, glucose 48, total protein 38. Cytology is pending. Patient has been afebrile, heart rate 89, blood pressure 144/70, pulse ox 93% on room air. Patient remains on Kefzol. Patient may benefit from transfer to [facility] under her surgeon. REVIEW OF SYSTEMS Constitutional: No fever, no chills, no night sweats. No weight change. No weakness, fatigue or lethargy. No daytime sleepiness. EENT: Reported headache. No blurred vision or double vision, no loss of vision. No loss of Hearing, no ringing in the ears, no dizziness. No nasal drainage or congestion. No epistaxis. No sore throat. Lungs: No shortness of breath, cough, no sputum production. No wheezing. Cardiovascular: No chest pain, no lower extremity edema. No palpitations. No paroxysmal nocturnal dyspnea. No orthopnea. No lightheadedness or dizziness. No syncopal episodes. Abdominal: No abdominal pain. No nausea, vomiting. No diarrhea. No constipation. No bloody or tarry stools.. No loss of appetite. Genitourinary: No dysuria, increased frequency, urgency. No urinary retention. Musculoskeletal: No myalgias. No muscle weakness, no gait dysfunction, no frequent falls. 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 No back pain. No neck pain. Integumentary: No wounds, no lesions. No rash or pruritus. No unusual b ruising. No change in hair or nails.increased redness at the right shoulder incision site, improved Neurologic: No aphasia. No facial droop. No change in mentation. No head injury. No headache. No paralysis. No paresthesia. Psychiatric: Reported depression. Reported anxiety. No mood swings. Reported hallucinations. Endocrine: No abnormal blood sugars. No weight change. No excessive sweating or thirst. No cold intolerance. PHYSICAL EXAMINATION Gen: This is a 65-year-old female. She is resting in bed. Patient appears to . HEENT: Head is atraumatic, normocephalic. Pupils equal, round. Sclerae is anicteric. NECK: Supple. No JVD. No lymphadenopathy. No thyromegaly. LUNGS: Scattered rhonchi and expiratory wheezes. No intercostal retractions. HEART: First heart sound is depressed, second heart sound is normal. There is 2/6 systolic ejection murmur at the left sternal border. No S3, no S4, no JVP ABDOMEN: Soft. Bowel sounds are present. No masses. No tenderness. EXTREMITIES: 1+ pedal edema. No calf tenderness. Dorsalis pedis +2 bilateral ly. Right anterior shoulder healed wound with improvement of redness, chronic right arm lymphedema. NEUROLOGICAL: Patient is awake, alert and oriented x3. Cranial nerves 2 through 12 are grossly intact. ASSESSMENT AND PLAN 1. Complaints of dropping items from hands, difficulty getting words out, increasing sleep, hallucinations, headache, unsteady gait. Concern for me tastatic disease with history of breast and cervical cancer. MRI of the brain and the cervical spine were reviewed with the patient, EEG is negative, status post lumbar puncture and cytology is pending. MRI of the shoulder to be scheduled at [place]. 2. Anemia, new from February of this year. Possibly due to chronic disease. 3. Right breast cancer status post mastectomy and chemotherapy in 2001. Consult with oncology. 4. History of cervical cancer status post hysterectomy and bilateral salpingo- oophorectomy. 5. History of Li-fraumeni syndrome. Oncology consult. 6. Hypertension and hypertensive cardiovascular disease. Continue patient on hydrochlorothiazide/losartan 50/12.5 mg orally once every day. 7. Hyperlipidemia. Continue Lipitor 40 mg orally once every day. 8. Fibromyalgia. Continue Lyrica 200 mg orally once every day as well as Cymbalta 60 mg orally twice every day. 9. Restless leg syndrome. Continue Requip 5 mg orally at 1400. 10. Rheumatoid arthritis. Previously treated with methotrexate and Xeljanz. 11. History of COPD/chronic bronchitis and mild intermittent asthma. Stable without exacerbation 12. GERD. Continue Protonix 40 mg orally once every day. 13. DVT prophylaxis. Continue heparin 5000 units subcu every 8 hours. 14. GI prophylaxis. Continue Protonix. 15. Right shoulder cellulitis or septic arthritis. Stable. Ancef 2 g IV piggyback every 8 hours, blood cultures still pending. MRI of the shoulder Discharge plan Home Impression and plan of care have been directed as dictated by the graceing leigh ugalde. Shania Pozo nurse practitioner acting as scribe for signing physician. Objective - Vital Signs Vital signs: Vital Signs Temp 98.2 F 09/17/20 04:45 Pulse 89 09/17/20 04:45 Resp 20 09/17/20 04:45 BP 144/70 09/17/20 04:45 Pulse Ox 93 L 09/17/20 04:45 Intake & Output 09/16/20 09/17/20 09/17/20 18:59 06:59 18:59 Intake Total 200 580 Balance 200 580 Intake: IV 150 Intake, IV Titration 50 100 Amount ceFAZolin 2 gm In Sodium 50 100 Chloride 0.9% 50 ml @ 100 mls/hr IVPB Q8HR [facility] Rx# :[id number] Oral 480 Other: # Voids 3 2 # Bowel Movements 1 - Labs CBC & Chem 7: 09/16/20 05:34 09/16/20 05:34 Labs: Abnormal Lab Results - Last 24 Hours (Table) 09/16/20 09/16/20 Range/Units 05:34 13:55 ALT <8 L (8-44) U/L Total Protein 5.5 L (6.2-8.2) g/dL Albumin 3.30 L (3.80-4.90) g/dL Albumin/Globulin Ratio 1.50 L (1.60-3.17) g/dL CSF RBC 46 H (0-10) u/L Microbiology - Last 24 Hours (Table) 09/16/20 13:55 CSF Gram Stain - Preliminary Cerebral Spinal Fluid CSF Culture - Preliminary 09/13/20 11:21 Blood Culture - Preliminary Blood No Growth after 72 hours
[2020-09-17] MEDS: FOLIC ACID 1 MG TAB PO SCH (08:50)
[2020-09-17] MEDS: LOSARTAN-HCTZ 50-12.5 MG 1 EACH TAB PO SCH (08:50)
[2020-09-17] MEDS: HEPARIN SODIUM,PORCINE/PF 5,000 UNIT/0.5 ML SYRINGE SQ SCH ×3 (08:50→17:09)
[2020-09-17] MEDS: FUROSEMIDE 40 MG TAB PO SCH (08:51)
[2020-09-17] MEDS: SENNOSIDES-DOCUSATE SODIUM 1 EACH TAB PO SCH (08:51)
[2020-09-17] MEDS: PANTOPRAZOLE 40 MG TABLET PO SCH (08:51)
[2020-09-17] MEDS: PREGABALIN 100 MG CAP PO SCH ×2 (08:51→20:38)
[2020-09-17] MEDS: ATORVASTATIN 40 MG TAB PO SCH (08:51)
[2020-09-17] MEDS: DULoxetine HCL 60 MG CAPSULE.DR PO SCH ×2 (08:51→20:38)
[2020-09-17] MEDS: LACTULOSE 20 GM/30 ML CUP PO SCH ×2 (08:52→20:37)
[2020-09-17] MEDS ORDERED: LORazepam 1 MG TAB PO STA ×2 (10:00→12:12)
[2020-09-17] MEDS ORDERED: LORazepam 2 MG/ML INJ IV STA (11:23)
[2020-09-17 12:46] VITALS: BMI 37.9
--- NOTE | 2020-09-17 12:54 | P.PN ---
Subjective Progress Note Date: 09/17/20 09/17/2020: Patient sitting in the recliner. Most of the symptoms have resolved. 09/16/2020: Patient was seen for a follow-up. Patient is getting ready to undergo lumbar puncture. Symptoms in her hands have resolved. 09/15/2020: Patient was seen for a follow-up. Patient initially seen by Dr. Xavi Vila. Please refer to his note for details. Patient has history of cervical cancer in 1984. Also has breast cancer in 2001 for which she was treated with chemotherapy. No radiation. Patient has developed subsequent lymphedema of the right upper extremity. She had multiple shoulder surgeries for infection. Now she has no shoulder joint for the last 7- 8 years. Patient came to the hospital for possible cellulitis. She feels as she ripped something inside which got infected. Patient has presented with cellulitis of right upper extremities. Patient has presented with multiple nonspecific neurological symptoms, couldn't hold anything in her arms, dropping everything in the hands. She was losing balance, falling, jerking, shaking, "vision feeling off", like "having a stroke". She has much improved, but the balance is still slightly off. Neurology has seen the patient, concerned about carcinomatous infiltration. Lumbar puncture has been initiated. WORK-UP: TSH is 2.350 which is considered within normal limits. Vitamin B12 is 1070 which is considered within normal limits. Serum Folate level is 9.1 which is considered within normal limits CT of the head is reported as age-related atrophy and chronic small vessel ischemic change without acute intracranial process seen at this time. CT cervical spine is reported as no evidence for acute fracture or subluxation of the cervical spine. CT of the chest is reported as descending thoracic aortic measurements 4.3 cm. This is increased from 3.9 cm. Reticular nodular pattern in the right middle lobe worsening from 2017. No suspicious abnormality to account for the right arm swelling. MRI the brain with and without contrast shows mild scattered periventricular white matter changes, likely on the basis of chronic white matter ischemic change. No suspicious changes to suggest metastatic disease. Reviewed the MRI. MRI of cervical spine with and without contrast revealed mild diffuse disc bulge or lesser degree focal protrusion to the cervical spine. No cord contact stenosis or cord deformity. EEG on 09/12/2020 is normal. There are no focal slowing, epileptiform discharges or seizure reported on the EEG. Objective - Vital Signs Vital signs: Vital Signs Temp 98.3 F 09/17/20 11:06 Pulse 82 09/17/20 11:17 Resp 14 09/17/20 11:06 BP 146/82 09/17/20 11:06 Pulse Ox 95 09/17/20 11:06 Intake & Output 09/16/20 09/17/20 09/17/20 18:59 06:59 18:59 Intake Total 200 580 Balance 200 580 Weight 116.573 kg Intake: IV 150 Intake, IV Titration 50 100 Amount ceFAZolin 2 gm In Sodium 50 100 Chloride 0.9% 50 ml @ 100 mls/hr IVPB Q8HR [facility] Rx# :[id number] Oral 480 Other: Voiding Method Toilet # Voids 3 2 # Bowel Movements 1 - Exam Patient's mental status, speech and language functions are normal. Detailed testing deferred. - Labs CBC & Chem 7: 09/16/20 05:34 09/16/20 05:34 Labs: Abnormal Lab Results - Last 24 Hours (Table) 09/16/20 Range/Units 13:55 CSF RBC 46 H (0-10) u/L Microbiology - Last 24 Hours (Table) 09/16/20 13:55 CSF Gram Stain - Preliminary Cerebral Spinal Fluid CSF Culture - Preliminary 09/13/20 11:21 Blood Culture - Preliminary Blood No Growth after 72 hours Assessment and Plan Assessment: * Episode of hand clumsiness, dropping thing (left > right hand), difficulty getting her words out, sleep difficulty for the last three days and unsteady gait for the past few months (on examination has ptosis right eye, mild dysarthria, slight dysmetria left hand, gait seems unsteady): Patient's symptoms have much improved. Doubt leptomeningeal mets. MRI Brain and cervical spine with and without contrast is negative for mets. 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 * Patient undergoing MRI of the right shoulder because of persistent pain, rule out infection or neoplastic process. * CSF shows glucose 48, protein 38. WBC count 3, RBC 4. * Neurologically clear.
--- NOTE | 2020-09-17 15:39 | P.CONS ---
History of Present Illness - Reason for Consult Consult date: 09/17/20 Iron Deficiency Anemia Requesting physician: Dione Figueroa - Chief Complaint weakness - History of Present Illness This is a 65-year-old white female was admitted approximately one week ago with complaints of headache and upper extremity weakness. The patient has a history of breast cancer and cervical cancer,Li Faumeni Syndrome, chronic iron deficiency anemia, COPD, fibromyalgia, GERD, hyperlipidemia, hypertension, rheumatoid arthritis, and osteoarthritis. As a history of right breast cancer in 2001 with a right mastectomy and chemotherapy. She has chronic right upper extremity lymphedema. Patient is being followed by oncology closely as well as neurology. Gastroenterology was consulted for iron deficiency anemia. Patient is well-known to Dr. Kenyon and has been following with him closely for iron deficiency anemia and family history of colon cancer area and she underwent EGD and colonoscopy in January 2020 as part of her workup for iron deficiency anemia and family history of colonoscopy which EGD found mild gastritis and colonoscopy was significant for mild sigmoid diverticulosis, low-grade internal hemorrhoids, otherwise normal colon. She also underwent an EGD and colonoscopy in 2018 for iron deficiency anemia. The EGD showed mild antral and body gastritis, the colonoscopy was significant for colon polyp. Patient denies any black stool, blood in her stool, epigastric pain nausea, or vomiting. She states she does occasionally get diarrhea after eating certain foods. She states that she has had a long history of iron deficiency anemia. Iron workup was completed and showing iron deficiency anemia. Current labs show WBC 4.9, hemoglobin 9.5, hematocrit 31, platelet count 413,000, total bilirubin 0.2, alkaline phosphatase 66, AST 21, ALT less than 8. IV iron has been ordered per hematology. Review of Systems REVIEW OF SYSTEMS: CARDIOPULMONARY: No chest pain or shortness of breath. Gastrointestinal: No abdominal or epigastric pain. No nausea or vomiting. No hematemesis, coffee-ground emesis. No rectal bleeding, or melena. GENITOURINARY: No dysuria or hematuria. MUSCULOSKELETAL: Reports normal range of motion., Joint pain. Right upper extremity lymphedema SKIN: No rashes. No jaundice. ENDOCRINE: No chills, fevers. No excessive weight gain or loss. No polydipsia or polyuria. PSYCHIATRIC: Unremarkable. NEUROLOGY: No change in mental status. Headache.. ENT: Vision unremarkable. CONSTITUTIONAL: No recent weight loss. No fever, chills, night sweats. Weakness . Past Medical History Past Medical History: Cancer, COPD, Fibromyalgia, GERD/Reflux, Hyperlipidemia, Hypertension, Osteoarthritis (OA), Rheumatoid Arthritis (RA) Additional Past Medical History / Comment(s): R breast cancer with mastectomy and chemo-2001, chronic R arm lymphedema,neuropathy bilateral feet, cervical cancer,restless leg syndrome, diverticulosis,steroids Dec 2019 dr. Dunham last seen 1 year ago History of Any Multi-Drug Resistant Organisms: None Reported Past Surgical History: Appendectomy, Back Surgery, Breast Surgery, Cholecystectomy, Hysterectomy, Joint Replacement, Orthopedic Surgery Additional Past Surgical History / Comment(s): colonoscopy, RIGHT MASTECTOMY, RIGHT TOTAL SHOULDER REPLACEMENT followed by revisions, I&Ds of R shoulder, picc line insertion-since removed, LT ROTATOR CUFF REPAIR, bilateral salpingo ooph orectomy. pain clinic procedures Past Anesthesia/Blood Transfusion Reactions: No Reported Reaction, Family History of Problems w/ Anesthesia Additional Past Anesthesia/Blood Transfusion Reaction / Comm: sister has severe BUSH with anesthesia Past Psychological History: No Psychological Hx Reported Additional Psychological History / Comment(s): . Smoking Status: Former smoker Past Alcohol Use History: None Reported Additional Past Alcohol Use History / Comment(s): Pt started smoking in 1974 and quit in 2001. smoked 1ppd or less Past Drug Use History: None Reported - Past Family History Sister(s) Family Medical History: Cancer Additional Family Medical History / Comment(s): Thyroid cancer. Brother(s) Family Medical History: Cancer Additional Family Medical History / Comment(s): Patient has 4 brothers. One has from alcoholism at age 55. One brother has small cell lung carcinoma. 1 is diabetic. One brother she has no contact with. Mother Family Medical History: Cancer, Deep Vein Thrombosis (DVT) Additional Family Medical History / Comment(s): Breast cancer. Father Family Medical History: Cancer Additional Family Medical History / Comment(s): Father of colon cancer in his 60s. Medications and Allergies Home Medications Medication Instructions Recorded Confirmed Type Atorvastatin [Lipitor] 40 mg PO DAILY 11/14/14 09/11/20 History DULoxetine HCL [Cymbalta] 60 mg PO BID 11/14/14 09/11/20 History Furosemide [Lasix] 40 mg PO QAM 11/14/14 09/11/20 History rOPINIRole HCL [Requip] 5 mg PO DAILY@1400 11/14/14 09/11/20 History Omeprazole [PriLOSEC] 20 mg PO AC-BRKFST 12/24/16 09/11/20 History Losartan/Hydrochlorothiazide 1 tab PO DAILY 09/06/18 09/11/20 History [Losartan-Hctz 50-12.5 mg Tab] Pregabalin [Lyrica] 200 mg PO BID 01/15/20 09/11/20 History Baclofen [Lioresal] 10 mg PO BID PRN 09/11/20 09/11/20 History Allergies Allergy/AdvReac Type Severity Reaction Status Date / Time nickel Allergy Rash/Hives Verified 09/11/20 13:29 Sulfa (Sulfonamide Allergy Rash/Hives Verified 09/11/20 13:29 Antibiotics) Physical Exam Vitals: Vital Signs Temp Pulse Pulse Resp BP BP Pulse Ox 09/17/20 04:45 98.2 F 89 20 144/70 93 L 09/16/20 19:35 98.3 F 91 20 131/60 92 L 09/16/20 19:32 87 09/16/20 19:25 85 09/16/20 13:37 99.3 F 87 16 180/87 97 09/16/20 11:36 97.2 F L 86 16 153/82 95 09/16/20 11:24 88 09/16/20 11:16 92 Intake and Output 09/16/20 09/17/20 09/17/20 22:59 06:59 14:59 Intake Total 50 580 Balance 50 580 Intake: Intake, IV Titration 50 100 Amount ceFAZolin 2 gm In Sodium 50 100 Chloride 0.9% 50 ml @ 100 mls/hr IVPB Q8HR [facility] Rx# :[id number] Oral 480 Other: Voiding Method Toilet # Voids 1 2 # Bowel Movements 1 General appearance: The patient is alert, oriented, appears in no acute distress. HET: Head is normocephalic and atraumatic. Conjunctiva pink. Sclera anicteric. Neck: Supple without lymphadenopathy. Trachea midline. Heart: S1 S2. Regular rate and rhythm. Lungs: Clear to auscultation. Abdomen: Soft, nontender, nondistended with bowel sounds. No guarding or rigidity. Skin: No rashes. No jaundice. Extremities: Normal skin color and turgor. No pedal edema. Right upper extremity lymphedema. Neurological: No focal deficits. Alert and oriented 3.. Results CBC & Chem 7: 09/16/20 05:34 09/16/20 05:34 Labs: Abnormal Lab Results - Last 24 Hours (Table) 09/16/20 09/16/20 Range/Units 05:34 13:55 ALT <8 L (8-44) U/L Total Protein 5.5 L (6.2-8.2) g/dL Albumin 3.30 L (3.80-4.90) g/dL Albumin/Globulin Ratio 1.50 L (1.60-3.17) g/dL CSF RBC 46 H (0-10) u/L Microbiology - Last 24 Hours (Table) 09/16/20 13:55 CSF Gram Stain - Preliminary Cerebral Spinal Fluid CSF Culture - Preliminary 09/13/20 11:21 Blood Culture - Preliminary Blood No Growth after 72 hours Assessment and Plan (1) Iron deficiency anemia Narrative/Plan: This is a 65-year-old female who presented to the hospital approximately one week ago with complaints of headache and upper extremity weakness. The patient has a history of cervical cancer and breast cancer and underwent a right mastectomy with chemotherapy in 2001. She has multiple medical comorbidities including a history ofLi Fraumeri Syndrome. Oncology is following patient closely as well as neurology. Patient has a history of iron deficiency anemia and has undergone EGD and colonoscopy in January 2020 with no evidence of GI bleed. EGD showed mild gastritis and colonoscopy showed mild sigmoid diverticulosis with low-grade internal hemorrhoids otherwise normal colon. Patient also had EGD and colonoscopy in 2018 for workup for iron deficiency anemia with HET showing mild antral gastritis and colonoscopy was significant for polyp. The patient denies any evidence of a GI bleed. She denies abdominal pain, nausea, vomiting. No black stools or melanotic stool. She does take low-dose aspirin daily and sometimes stronger dose of aspirin for arthritic pain. Current Visit: Yes Status: Chronic Priority: Medium Code(s): D50.9 - IRON DEFICIENCY ANEMIA, UNSPECIFIED SNOMED Code(s): 94223756 (2) Li-Fraumeni syndrome Current Visit: Yes Status: Chronic Priority: High Code(s): Z15.01 - GENETIC SUSCEPTIBILITY TO MALIGNANT NEOPLASM OF BREAST SNOMED Code(s): 842075992 Plan: 1. Continue symptomatic and supportive care 2. Continue medical management per oncology and primary care team 3. Iron studies reviewed as well as labs 4. Continue Protonix 5. No plans for an endoscopic evaluation as patient recently underwent EGD and colonoscopy in January 2020 for iron deficiency anemia and cancer screening which showed no evidence of GI bleed. Also underwent EGD and colonoscopy in 2018 for iron deficiency anemia workup again showing no evidence of GI bleed. Thank you for this consultation, gastroenterology will be on standby. Patient to follow-up with Dr. Javier for her next scheduled colonoscopy. Dr. Brittanie Javier I agree with the dictator's note, documented as a scribe by [employer].
--- NOTE | 2020-09-17 16:31 | PN ---
PROGRESS NOTE DATE OF SERVICE: 09/17/2020 REASON FOR FOLLOWUP: Right shoulder cellulitis versus septic arthritis. INTERVAL HISTORY: The patient is afebrile. The patient still has pain to the right shoulder area, though swelling has slightly decreased. No chest pain, shortness of breath or cough. No abdominal pain or diarrhea. PHYSICAL EXAMINATION: Blood pressure 146/82 with a pulse of 81, temperature 98.3. she is 95% on room air. General description is an elderly female up in the chair in no distress. Respiratory system: Unlabored breathing, clear to auscultation anteriorly. Heart: S1, S2. Regular rate and rhythm. Abdomen: Soft. No tenderness. Right shoulder swelling has slightly decreased. LABS: No new labs have been obtained today. DIAGNOSTIC IMPRESSION AND PLAN: Patient with right shoulder cellulitis, concern for underlying septic arthritis. Waiting for the MRI. Continue cefazolin and monitor clinical course closely. MMODL / IJN: [id number] /
[2020-09-17] MEDS ORDERED: hydrALAZINE HCL 20 MG/ML 1 ML VIAL IVP STA (18:14)
--- NOTE | 2020-09-17 18:23 | P.PN ---
Subjective Progress Note Date: 09/17/20 Principal diagnosis: Changes in vision, usual weakness in the upper extremities, progressive In follow-up today patient is not reporting new symptoms, presenting symptoms are not improved. Shoulder MRI today, LP performed yesterday, pending Objective - Vital Signs Vital signs: Vital Signs Temp 97.4 F L 09/17/20 17:32 Pulse 86 09/17/20 17:32 Resp 14 09/17/20 17:32 BP 177/102 09/17/20 17:32 Pulse Ox 96 09/17/20 17:32 Intake & Output 09/16/20 09/17/20 09/17/20 18:59 06:59 18:59 Intake Total 200 580 100 Balance 200 580 100 Weight 116.573 kg Intake: IV 150 Intake, IV Titration 50 100 100 Amount ceFAZolin 2 gm In Sodium 50 100 100 Chloride 0.9% 50 ml @ 100 mls/hr IVPB Q8HR [facility] Rx# :[id number] Oral 480 Other: Voiding Method Toilet # Voids 3 2 # Bowel Movements 1 - Constitutional General appearance: Present: cooperative, no acute distress, obese - EENT Eyes: Present: anicteric sclerae, EOMI ENT: Present: hearing grossly normal - Respiratory Respiratory: bilateral: CTA - Cardiovascular Rhythm: regular Heart sounds: normal: S1, S2 Abnormal Heart Sounds: Absent: systolic murmur, diastolic murmur, rub, S3 Gallop, S4 Gallop, click, other - Peripheral edema leg Peripheral Edema Comment(s): right upper extremity lymphedema, chronic Peripheral Edema: bilateral: None - Gastrointestinal General gastrointestinal: Present: normal bowel sounds, soft - Neurologic Neurologic: Present: CNII-XII intact - Psychiatric Psychiatric: Present: A&O x's 3, appropriate affect, intact judgment & insight - Labs CBC & Chem 7: 09/16/20 05:34 09/16/20 05:34 Labs: Microbiology - Last 24 Hours (Table) 09/13/20 11:21 Blood Culture - Preliminary Blood No Growth after 96 hours 09/16/20 13:55 CSF Gram Stain - Preliminary Cerebral Spinal Fluid CSF Culture - Preliminary Assessment and Plan (1) Upper extremity weakness Narrative/Plan: So far workup has not provided a diagnosis for patient's symptoms. Pending results of CSF cytology. Current Visit: Yes Status: Acute Priority: High Code(s): R29.898 - OTH SYMPTOMS AND SIGNS INVOLVING THE MUSCULOSKELETAL SYSTEM SNOMED Code(s): 699087300 (2) Li-Fraumeni syndrome Narrative/Plan: Patient is current on her cancer screenings she follows with Dr. Dunham about every 3-4 months Current Visit: Yes Status: Chronic Priority: High Code(s): Z15.01 - GENETIC SUSCEPTIBILITY TO MALIGNANT NEOPLASM OF BREAST SNOMED Code(s): 197289270 (3) Lymphedema of right upper extremity Narrative/Plan: Persistent, not progressive. Patient has had shoulder and breast surgery with lymph node removal. MRI of the shoulder. Have requested copies of MRI on CD for patient to take to her Orthopedic Dr. Swanson Current Visit: No Status: Chronic Priority: Medium Code(s): I89.0 - LYMPHEDEMA, NOT ELSEWHERE CLASSIFIED SNOMED Code(s): 62796695742433712 (4) Iron deficiency anemia Narrative/Plan: Did order iron for patient-being held until work up complete. GI consulted-they have seen and examined pt, recommendations appreciated Current Visit: Yes Status: Chronic Priority: Medium Code(s): D50.9 - IRON DEFICIENCY ANEMIA, UNSPECIFIED SNOMED Code(s): 75309683 Plan: requested orthostatic blood pressures
[2020-09-17] MEDS ORDERED: ceFAZolin 10 GM VIAL IVPB ONE (23:59)
[2020-09-17] MEDS ORDERED: SODIUM CHLORIDE 0.9% 50 ML BAG ONE (23:59)
[2020-09-17] MEDS ORDERED: HEPARIN SODIUM,PORCINE/PF 5,000 UNIT/0.5 ML SYRINGE SQ ONE (23:59)
[2020-09-18] MEDS: HEPARIN SODIUM,PORCINE/PF 5,000 UNIT/0.5 ML SYRINGE SQ SCH ×3 (00:07→15:37)
[2020-09-18] MEDS: IPRATROPIUM-ALBUTEROL 3 ML NEB INHALATION SCH ×3 (07:36→15:19)
[2020-09-18] MEDS: BUDESONIDE 0.5 MG/2 ML NEBU INHALATION SCH (07:36)
--- NOTE | 2020-09-18 08:27 | P.DS ---
Providers Date of admission: 09/11/20 13:08 Expected date of discharge: 09/18/20 Attending physician: Eliud Mendes Consults: 09/11/20 13:09 Consult Physician Routine Consulting Provider: Xavi Vila Consult Reason/Comments: Upper extremity weakness, confusion, hallucination Do you want consulting provider notified?: Yes 09/12/20 08:09 Consult Physician Routine Consulting Provider: Carol Dunham Consult Reason/Comments: breast, cervical ca, Li-Fraumeni syndrome Do you want consulting provider notified?: Yes 09/12/20 19:42 Consult to Anesthesia Stat Consulting Provider: Anesthesia,Services Consult Reason/Comments: lumbar puncture 09/13/20 11:12 Consult Physician Routine Consulting Provider: Bisi More Consult Reason/Comments: right shoulder/cellulitis possible septic arthritis Do you want consulting provider notified?: Yes 09/14/20 18:26 Consult Physician Routine Consulting Provider: Da Dave Consult Reason/Comments: ?right shoulder septic arthritis for aspiration Do you want consulting provider notified?: Yes 09/15/20 08:07 Consult Physician Routine Consulting Provider: Bony Martinez Consult Reason/Comments: aspiration rt shoulder, septic artritis Do you want consulting provider notified?: Yes 09/16/20 16:14 Consult Physician Routine Consulting Provider: Ani Javier Consult Reason/Comments: iron deificent anemia-Li Fraumeni syndrome Do you want consulting provider notified?: Yes, Notify in am Primary care physician: Eliud Mendes Hospital Course: HISTORY OF PRESENT ILLNESS This is a 65-year-old female patient of Dr. Mendes with a previous medical history significant for hypertension and hypertensive cardiovascular disease with left ventricular hypertrophy, hyperlipidemia, GERD, osteoarthritis, rheumatoid arthritis, COPD/asthma with chronic bronchitis, fibromyalgia, history of breast cancer status post right mastectomy with extensive resection to the right axilla that was done back in 2001 with chronic lymphedema to the right arm, cervical cancer, history of Li-Fraumeni syndrome under the care of Dr. Dunham with her surveillance testing up-to-date including MRI of the whole body scan as well as colonoscopy once every 2 years Are up-to-date, Patient presented to the office complaining of left-sided headache, double vision. She was very emotional. She was having hallucinations and had clumsiness and dropping items from her hands bilaterally. She has been sleeping more and also talking in her sleep. In general, she states she feels like 'crap.' Symptoms have been going on for one week. Patient was directed to [facility] emergency center for further evaluation. She was afebrile, heart rate 85, blood pressure 133/62 and pulse ox 94%. WBC 6.1, hemoglobin 10.2, platelet count 482. Sodium 137, potassium 5.2, chloride 100, CO2 32, BUN 32 and creatinine 0.89. Blood sugar 97. Magnesium 2.4. Liver function tests were normal. Lactic acid 0.9. Troponin negative. Chest x-ray showed no acute changes. CAT scan of the brain and cervical spine without contrast revealed age-related atrophy and chronic small vessel ischemic change without acute intracranial process. No evidence of acute fracture or subluxation of the cervical spine. Patient was admitted to the [facility] floor and consult obtained with neurology and MRI of the brain, EEG, vitamin B12, folate and TSH level ordered. Recommendations were for oncology consult which has been added. 09/13: Patient is feeling better today she underwent MRI of the brain did not show evidence of acute metastatic lesion, did show periventricular white matter changes, she underwent MRI of the cervical spine did show degenerative disc disease without evidence of any cord compression, patient continues to have some erythema in the right shoulder, with increased pain in that area, we will start Ancef 2 gr IVPB Q 8 hours, blood cultures and ID Consult. 09/14: Patient is been in good she was seen in consultation by ID yesterday, I discussed with her the result of the MRI of the brain as well as MRI of the cervical spine and the EEG, the plan is to go for a lumbar puncture hopefully tomorrow morning for further evaluation, she was seen by who recommended to continue IV antibiotic with Ancef 2 g IV piggyback every 8 hours, obtain the blood cultures, eventually she may need to have some imaging to the right shoulder for further evaluation of possible deep infection versus superficial cellulitis unfortunately her sed rate is quite elevated at 74 raising the possibility of septic arthritis. 09/15: Patient is followed closely by infectious disease and neurology and she is scheduled for lumbar puncture today and the plan will be to follow up outpatient for results. Neurology as recommended outpatient follow-up in one to [address] More has recommended possible aspiration of the right shoulder joint to rule out septic arthritis. Antibiotics the form of Kefzol and for now. Patient has been seen by orthopedics and do not feel that aspiration is possible or any surgical intervention and recommended transfer back to [facility] under the care of Dr. Malik. Patient has been afebrile, heart rate 86, blood pressure 147/79, pulse ox 92% on room air. 09/16: It is reported by staff and the patient and the patient was seen by anesthesia yesterday but there is no documentation and no orders in the chart. We are hoping that anesthesia will see today and perform lumbar puncture. Once these are sent we most likely will be held discharge her home by tomorrow. She is scheduled for MRI of the shoulder today as well. She has been afebrile, heart rate 87, blood pressure 165/85, pulse ox 92% on room air. WBC 4.9, hemoglobin 9.5, platelet count 413. Sed rate 74. CA 153 12.2, CA 2720 916.9, CEA 125 8.3. Anticipate discharge home tomorrow after LP is completed, MRI completed and recommendations obtained from Dr. More from this testing. 09/17: Patient was unable to undergo MRI at our facility because she needed to have full movement of her right shoulder. Dr. More has requested that this be done at open facility and upper caser making arrangements for the patient to go to the [facility]. Patient underwent LP under fluoroscopy yesterday with a total of 6 mL of clear cerebral spinal fluid collected. Fluid was clear, RBCs 46, total nucleated cells 3, crenated cells 0, fresh RBCs 100, glucose 48, total protein 38. Cytology is pending. Patient has been afebrile, heart rate 89, blood pressure 144/70, pulse ox 93% on room air. Patient remains on Kefzol. Patient may benefit from transfer to [facility] under her surgeon. 09/18: Patient went to [facility] and returned yesterday afternoon. Disc for MRI will be sent to radiology to read and provide a written report. Patient remains afebrile, heart rate 94, blood pressure 157/70, pulse ox 93% on room air. Cerebral spinal fluid culture and cytology are pending. Consult was added for GI by oncology yesterday regarding anemia. Patient is up-to-date on EGD and colonoscopy and no further workup is necessary. MRI reveals couple of peripher ally enhancing fluid collections noted. More anterior peripheral enhancing fluid collection does not contain any antibiotic beads. The deep peripherally enhancing fluid collections have multiple antibiotic beads within. There are worrisome for abscesses. There is edema of the surrounding soft tissue. Mild marrow edema in the distal humerus diaphysis may represent reactive marrow versus osteomyelitis. ASSESSMENT AND PLAN 1. Complaints of dropping items from hands, difficulty getting words out, increasing sleep, hallucinations, headache, unsteady gait. Unclear etiology but improved. No metastatic disease on MRI of the brain and cervical spine. 2. Anemia, new from February of this year. Possibly due to chronic disease. 3. Right breast cancer status post mastectomy and chemotherapy in 2001. 4. History of cervical cancer status post hysterectomy and bilateral salpingo- oophorectomy. 5. History of Li-fraumeni syndrome. 6. Hypertension and hypertensive cardiovascular disease. 7. Hyperlipidemia. 8. Fibromyalgia. 9. Restless leg syndrome. 10. Rheumatoid arthritis. 11. History of COPD/chronic bronchitis and mild intermittent asthma. 12. GERD. 13. Right shoulder cellulitis , possible abscesses, possible reactive marrow versus osteomyelitis. Discharge plan Patient transferred to [facility] to see her orthopedic surgeon. Impression and plan of care have been directed as dictated by the signing physician. Shania Pozo nurse practitioner acting as scribe for signing physician. Patient Condition at Discharge: Stable Plan - Discharge Summary New Discharge Prescriptions: No Action rOPINIRole HCL [Requip] 5 mg PO DAILY@1400 DULoxetine HCL [Cymbalta] 60 mg PO BID Atorvastatin [Lipitor] 40 mg PO DAILY Furosemide [Lasix] 40 mg PO QAM Omeprazole [PriLOSEC] 20 mg PO AC-BRKFST Losartan/Hydrochlorothiazide [Losartan-Hctz 50-12.5 mg Tab] 1 tab PO DAILY Pregabalin [Lyrica] 200 mg PO BID Baclofen [Lioresal] 10 mg PO BID PRN PRN Reason: Muscle Spasm Discharge Medication List Atorvastatin [Lipitor] 40 mg PO DAILY 11/14/14 [History] DULoxetine HCL [Cymbalta] 60 mg PO BID 11/14/14 [History] Furosemide [Lasix] 40 mg PO QAM 11/14/14 [History] rOPINIRole HCL [Requip] 5 mg PO DAILY@1400 11/14/14 [History] Omeprazole [PriLOSEC] 20 mg PO AC-BRKFST 12/24/16 [History] Losartan/Hydrochlorothiazide [Losartan-Hctz 50-12.5 mg Tab] 1 tab PO DAILY 09/06/18 [History] Pregabalin [Lyrica] 200 mg PO BID 01/15/20 [History] Baclofen [Lioresal] 10 mg PO BID PRN 09/11/20 [History] Follow up Appointment(s)/Referral(s): Eliud Mendes MD [Primary Care Provider] - 1-2 days [facility], [NON-STAFF] - 1 Week Carol Dunham MD [STAFF PHYSICIAN] - 10/15/20 3:45 pm Patient Instructions/Handouts: Cholesterol and Your Health (GEN) Discharge/Stand Alone Forms: Anes Pain/[place] Instructions Discharge Disposition: DC/TRNS INTERMEDIATE CARE FAC
[2020-09-18] MEDS: LOSARTAN-HCTZ 50-12.5 MG 1 EACH TAB PO SCH (08:44)
[2020-09-18] MEDS: PREGABALIN 100 MG CAP PO SCH (08:44)
[2020-09-18] MEDS: DULoxetine HCL 60 MG CAPSULE.DR PO SCH (08:44)
[2020-09-18] MEDS: FUROSEMIDE 40 MG TAB PO SCH (08:44)
[2020-09-18] MEDS: ATORVASTATIN 40 MG TAB PO SCH (08:44)
[2020-09-18] MEDS: PANTOPRAZOLE 40 MG TABLET PO SCH (08:44)
[2020-09-18] MEDS: SENNOSIDES-DOCUSATE SODIUM 1 EACH TAB PO SCH (08:45)
[2020-09-18] MEDS: FOLIC ACID 1 MG TAB PO SCH (08:45)
[2020-09-18] MEDS: LACTULOSE 20 GM/30 ML CUP PO SCH (08:45)
[2020-09-18 12:32] VITALS: RESP 18; TEMP 98
[2020-09-18 14:17] VITALS: BP 149/69; PULSE 98
--- NOTE | 2020-09-18 17:48 | P.PN ---
Subjective Progress Note Date: 09/18/20 Principal diagnosis: Changes in vision, usual weakness in the upper extremities, progressive In follow-up today patient not reporting new symptoms, no improvement in previous symptoms. Objective - Vital Signs Vital signs: Vital Signs Temp 98 F 09/18/20 12:31 Pulse 98 09/18/20 14:15 Resp 18 09/18/20 12:31 BP 149/69 09/18/20 14:15 Pulse Ox 97 09/18/20 12:31 Intake & Output 09/17/20 09/18/20 09/18/20 18:59 06:59 18:59 Intake Total 100 620 Balance 100 620 Weight 116.573 kg Intake: Intake, IV Titration 100 100 Amount ceFAZolin 2 gm In Sodium 100 100 Chloride 0.9% 50 ml @ 100 mls/hr IVPB Q8HR LEXIE Rx# :[id number] Oral 520 Other: Voiding Method Toilet # Voids 2 - Constitutional General appearance: Present: cooperative, no acute distress, obese - EENT Eyes: Present: anicteric sclerae, EOMI ENT: Present: hearing grossly normal - Respiratory Details: respirations even and unlabored - Neurologic Neurologic: Present: CNII-XII intact - Musculoskeletal Musculoskeletal: Present: strength equal bilaterally - Psychiatric Psychiatric: Present: A&O x's 3, appropriate affect, intact judgment & insight - Additional findings Additional findings: severe right upper extremity lymphadenopathy status post node dissection for breast cancer as well as orthopedic surgery. Scar is reddened, the site is very sensitive to the touch - Labs CBC & Chem 7: 09/16/20 05:34 09/16/20 05:34 Labs: Microbiology - Last 24 Hours (Table) 09/13/20 11:21 Blood Culture - Preliminary Blood No Growth after 120 hours 09/16/20 13:55 CSF Gram Stain - Preliminary Cerebral Spinal Fluid CSF Culture - Preliminary Assessment and Plan (1) Upper extremity weakness Narrative/Plan: cerebrospinal fluid negative for any malignancy. Patient has been evaluated by Orthopedics. Recommendations to return to Orthopedic surgeon Current Visit: Yes Status: Acute Priority: High Code(s): R29.898 - OTH SYMPTOMS AND SIGNS INVOLVING THE MUSCULOSKELETAL SYSTEM SNOMED Code(s): 835312015 (2) Li-Fraumeni syndrome Narrative/Plan: Patient is current on her cancer screenings-she is due to have her whole-body MRI screening with [facility]. This will be scheduled for her. Follow-up appointment with Dr. Dunham is documented in the discharge Current Visit: Yes Status: Chronic Priority: High Code(s): Z15.01 - GENETIC SUSCEPTIBILITY TO MALIGNANT NEOPLASM OF BREAST SNOMED Code(s): 135002487 (3) Lymphedema of right upper extremity Narrative/Plan: Persistent, not progressive. Patient has had shoulder and breast surgery with lymph node removal. MRI of the shoulder completed. Have requested copies of MRI on CD for patient to take to her Orthopedic Dr. Swanson Current Visit: No Status: Chronic Priority: Medium Code(s): I89.0 - LYMPHEDEMA, NOT ELSEWHERE CLASSIFIED SNOMED Code(s): 38764521930205522 (4) Iron deficiency anemia Narrative/Plan: we'll have patient take oral iron supplementation or, she can be prescribed parenteral iron in the outpatient setting. Current Visit: Yes Status: Chronic Priority: Medium Code(s): D50.9 - IRON DEFICIENCY ANEMIA, UNSPECIFIED SNOMED Code(s): 20274037
--- NOTE | 2020-09-18 18:50 | PN ---
PROGRESS NOTE DATE OF SERVICE: 09/18/2020 REASON FOR FOLLOWUP: Right shoulder abscess and cellulitis. INTERVAL HISTORY: The patient is afebrile. The patient's pain to the right has slightly decreased. Patient denies having any chest pain, shortness of breath, abdominal pain or diarrhea. PHYSICAL EXAMINATION: Blood pressure 157/79, pulse of 90, temperature 98, she is 97% on room air. The patient is a middle-aged female up in the chair in no distress. Respiratory system: Unlabored breathing, clear to auscultation anteriorly. Heart S1, S2. Regular rate and rhythm. Abdomen: Soft, no tenderness. Extremities: Right shoulder soft swelling, redness, slightly decreased, no drainage. LABS: Blood culture negative. MRI did shows multiple abscesses. DIAGNOSTIC IMPRESSION AND PLAN: Patient with right shoulder pain and swelling secondary to right shoulder abscess that needs surgical drainage. Deep cultures and antibiotic on the basis of the cultures, for the patient to able to be transferred to [facility]. Discussed with the nurse practitioner for admitting team. MMODL / IJN: [id number] /
== END 2020-09-18 19:41 | DRG 92 ==
LOC: EC 11:31 → 5NMEDONC 13:08
PROVIDERS: ADMIT Internal Medicine; ATTEND Internal Medicine
DX: R27.8 Other lack of coordination (principal); M00.9 Pyogenic arthritis, unspecified; L03.113 Cellulitis of right upper limb; L02.413 Cutaneous abscess of right upper limb; R44.3 Hallucinations, unspecified; Z96.611 Presence of right artificial shoulder joint; R29.6 Repeated falls; M79.7 Fibromyalgia; M06.9 Rheumatoid arthritis, unspecified; K64.8 Other hemorrhoids; K63.5 Polyp of colon; K57.30 Diverticulosis of large intestine without perforation or abscess without bleeding; K29.70 Gastritis, unspecified, without bleeding; K21.9 Gastro-esophageal reflux disease without esophagitis; J45.20 Mild intermittent asthma, uncomplicated; J44.9 Chronic obstructive pulmonary disease, unspecified; I89.1 Lymphangitis; I89.0 Lymphedema, not elsewhere classified; I11.9 Hypertensive heart disease without heart failure; H53.2 Diplopia; H02.401 Unspecified ptosis of right eyelid; G57.90 Unspecified mononeuropathy of unspecified lower limb; G25.81 Restless legs syndrome; E78.5 Hyperlipidemia, unspecified; D50.9 Iron deficiency anemia, unspecified; D53.9 Nutritional anemia, unspecified; E66.01 Morbid (severe) obesity due to excess calories; Z92.21 Personal history of antineoplastic chemotherapy; Z90.710 Acquired absence of both cervix and uterus; Z90.11 Acquired absence of right breast and nipple; Z87.891 Personal history of nicotine dependence; Z85.41 Personal history of malignant neoplasm of cervix uteri; Z85.3 Personal history of malignant neoplasm of breast; Z83.3 Family history of diabetes mellitus; Z82.49 Family history of ischemic heart disease and other diseases of the circulatory system; Z80.8 Family history of malignant neoplasm of other organs or systems; Z80.3 Family history of malignant neoplasm of breast; Z80.1 Family history of malignant neoplasm of trachea, bronchus and lung; Z80.0 Family history of malignant neoplasm of digestive organs; Z79.899 Other long term (current) drug therapy; Z79.82 Long term (current) use of aspirin; Z15.01 Genetic susceptibility to malignant neoplasm of breast; R47.1 Dysarthria and anarthria; R26.81 Unsteadiness on feet; M79.89 Other specified soft tissue disorders; R53.1 Weakness
CPT/HCPCS: 36415; 62270; 70450; 70553; 71046; 71260; 72125; 72156; 80053; 81003; 82607; 82728; 82746; 82747; 82945; 83540; 83550; 83605; 83615; 83735; 83921; 84157; 84443; 84484; 85025; 85027; 85045; 85610; 85652; 85730; 86300; 86304; 87040; 87070; 87205; 87635; 88104; 89050; 93005; 94640; 94760; 95816; 99152; 99153; 99211; 99285

== ENCOUNTER → 2020-09-11 | Outpatient (CLI) | payer MEDICARE | END | disposition home or self-care (01) | LOC: RADCTMAIN 11:21 | PROVIDERS: ATTEND Orthopaedic Surgery | DX: Z53.9 Procedure and treatment not carried out, unspecified reason (principal) ==